=== PATIENT | female | born 1960 | race Caucasian/White ===

== ENCOUNTER 2020-05-15 09:12 | Emergency (ER) | payer OTHER, SELFPAY ==
--- NOTE | 2020-05-15 09:55 | ED.URI ---
HPI - URI/Sore Throat General Stated Complaint: flu like symptoms Time Seen by Provider: 05/15/20 09:19 Source: patient Mode of arrival: ambulatory Limitations: no limitations History of Present Illness HPI Narrative: 1 week of cough, headaches overall not feeling well MD elicited complaint: cough Pertinent past history: asthma Onset (ago): day(s) (7) Consistency: constant Severity: moderate Description of mucous: clear Able to tolerate fluids by mouth: Yes Exacerbating factors: nothing Relieving factors: nothing Associated symptoms: headache and cough Treatments prior to arrival: cold medicine Related Data Previous Rx's Medication Instructions Recorded azithromycin See Rx Instructions .ROUTE 05/15/20 .COMPLEX #6 tab benzonatate [Tessalon Perles] 100 mg PO TID PRN #30 cap 05/15/20 ibuprofen 600 mg PO Q6H PRN #30 tab 05/15/20 prednisone 40 mg PO DAILY 5 Days #10 tab 05/15/20 Allergies Allergy/AdvReac Type Severity Reaction Status Date / Time lisinopril [LISINOPRIL] Allergy Unknown UNKNOWN Unverified 01/20/20 15:02 oxycodone [From PERCOCET] Allergy Unknown ITCHING Unverified 01/20/20 15:02 Penicillins [PENICILLINS] Allergy Unknown HIVES Unverified 01/20/20 15:02 Review of Systems Review of Systems: Constitutional : no Fever, positive Chills, positive fatigue, positive Malaise ENT/Mouth : no sore throat, positive runny nose Eyes: No Discharge Cardiovascular : No Chest Pain, No SOB Respiratory : posCough, No Sputum Gastrointestinal : No Nausea, No Vomiting, No Diarrhea Genitourinary : No Dysuria, No Urinary Frequency Musculoskeletal : positive Myalgia Skin : No rash Neuro : pos Headache PMFSH Past Medical History Attestation statement: The following information was validated with the patient. Medical History Asthma Social History Social History (Updated 05/15/20 @ 10:02 by Suzy Stevens DO) Smoking Status: Current every day smoker Advance Directives: No Advance Directives Information Provided: No Physical Exam Vital Signs: Appearance: Alert. Oriented X3. No acute distress. Eyes: Pupils equal, round and reactive to light. ENT: Pharynx normal. Neck: Normal inspection. Neck supple. CVS: Normal heart rate and rhythm. Pulses normal. Respiratory: No respiratory distress. Breath sounds normal. Abdomen: Soft and nontender. Skin: Skin warm and dry. Normal skin color. Normal skin turgor. Extremities: No lower extremity edema. No calf ttp Neuro: Oriented X 3. No motor deficit. No sensory deficit. MDM - URI/Sore Throat MDM Narrative Medical decision making narrative: 59 yo female with URI symptoms x 1 week not responding to OTC medications c/o cough, she has INH at home, she has no wheezes or resp distress will obtain CXR and COVID swab - dispo per results, no need for prednisone as she is clear Discharge Plan Discharge Clinical Impression: Upper respiratory infection Qualifiers: URI type: unspecified URI Qualified Code(s): J06.9 - Acute upper respiratory infection, unspecified Patient Disposition: Home, Self-Care Instructions: Upper Respiratory Infection (ED) Additional Instructions: return to ED for any worsening symptoms or concerns you were tested for COVID we will call you with results in 4 to 5 days, wear a mask, socially distance Prescriptions: New prednisone 20 mg tablet 40 mg PO DAILY 5 Days Qty: 10 RF: 0 ibuprofen 600 mg tablet 600 mg PO Q6H PRN (Reason: pain) Qty: 30 RF: 0 azithromycin 500 mg tablet See Rx Instructions .ROUTE .COMPLEX Qty: 6 RF: 0 benzonatate [Tessalon Perles] 100 mg capsule 100 mg PO TID PRN (Reason: cough) Qty: 30 RF: 0 Stand Alone Forms: Work/School Release
--- NOTE | 2020-05-15 10:03 | XR_ITS ---
EXAMINATION: XR CHEST CLINICAL INFORMATION: Cough COMPARISON: Previous chest x-ray March 2016 TECHNIQUE: Frontal view of the chest was obtained. FINDINGS: No significant abnormality is noted involving the heart, lungs, mediastinum, bony thorax or soft tissues. XR/XR chest 1V IMPRESSION: Unremarkable examination.
[2020-05-15 10:35] VITALS: BP 160/81; PULSE 75; RESP 20; TEMP 37.7; O2SAT 100; BMI 28.3
== END 2020-05-15 11:14 | disposition home or self-care (01) ==
PROVIDERS: Emergency Provider Emergency Medicine; PCP Internal Medicine
DX: J06.9 Acute upper respiratory infection, unspecified (principal); Z20.828 Contact with and (suspected) exposure to other viral communicable diseases; J45.909 Unspecified asthma, uncomplicated
CPT/HCPCS: 36415; 71045; 99283; U0003

== ENCOUNTER 2021-09-17 09:28 | Emergency (ER) | payer OTHER, SELFPAY ==
--- NOTE | ~2021-09-17 | CT_ITS ---
EXAMINATION: CT HEAD WITHOUT CONTRAST CT CERVICAL SPINE WITHOUT CONTRAST CLINICAL INFORMATION: Fall COMPARISON: 03.22.2016. TECHNIQUE: Multidetector CT imaging of the head and cervical spine was performed without the use of intravenous contrast. Multiplanar reformats are reviewed. This CT examination was performed using dose optimization techniques as appropriate, variously including the following: *Automated exposure control *Adjustment of mA and/or kV according to patient size (this includes techniques or standardized protocols for targeted exams where dose is matched to indication/reason for exam; i.e. extremities or head) *Use of iterative reconstruction technique DLP: 974 mGy-cm. FINDINGS: There is no evidence of acute intracranial hemorrhage or territorial infarction. No abnormal mass effect or midline shift is seen. Walker to white matter differentiation is well preserved. No extra-axial fluid collections are identified. The ventricles are normal in size. There is no abnormal attenuation within the brain parenchyma. There is calcification along the posterior falx, slightly eccentric to the right. Favor normal dural ossification, more conspicuous than in 2016. The osseous structures and soft tissues are normal. The mastoid air cells and visualized portions of the paranasal sinuses are well-aerated. Atlantooccipital alignment is maintained. The vertebral bodies and posterior elements align normally. No acute fracture or subluxation. Vertebral body heights are maintained. Small endplate osteophytes present at C4-5 and C5-6. The paraspinal soft tissues are unremarkable. The imaged lung apices are clear CT/CT cervical spine wo con IMPRESSION: No acute intracranial pathology. No cervical spine fracture or malalignment.
--- NOTE | ~2021-09-17 | XR_ITS ---
EXAMINATION: LEFT CLAVICLE, MANDIBLE CLINICAL INFORMATION: Fall with mandibular and clavicular pain COMPARISON: CT head and cervical spine 09/17/2021 TECHNIQUE: 2 views left clavicle, 5 views mandible FINDINGS: The clavicle appears normal. No fractures or dislocations are seen. The AC joint is unremarkable. No mandibular fracture is seen. XR/XR clavicle LT IMPRESSION: Negative studies of the left clavicle and mandible
--- NOTE | ~2021-09-17 | CT_ITS ---
EXAMINATION: CT HEAD WITHOUT CONTRAST CT CERVICAL SPINE WITHOUT CONTRAST CLINICAL INFORMATION: Fall COMPARISON: 03.22.2016. TECHNIQUE: Multidetector CT imaging of the head and cervical spine was performed without the use of intravenous contrast. Multiplanar reformats are reviewed. This CT examination was performed using dose optimization techniques as appropriate, variously including the following: *Automated exposure control *Adjustment of mA and/or kV according to patient size (this includes techniques or standardized protocols for targeted exams where dose is matched to indication/reason for exam; i.e. extremities or head) *Use of iterative reconstruction technique DLP: 974 mGy-cm. FINDINGS: There is no evidence of acute intracranial hemorrhage or territorial infarction. No abnormal mass effect or midline shift is seen. Walker to white matter differentiation is well preserved. No extra-axial fluid collections are identified. The ventricles are normal in size. There is no abnormal attenuation within the brain parenchyma. There is calcification along the posterior falx, slightly eccentric to the right. Favor normal dural ossification, more conspicuous than in 2016. The osseous structures and soft tissues are normal. The mastoid air cells and visualized portions of the paranasal sinuses are well-aerated. Atlantooccipital alignment is maintained. The vertebral bodies and posterior elements align normally. No acute fracture or subluxation. Vertebral body heights are maintained. Small endplate osteophytes present at C4-5 and C5-6. The paraspinal soft tissues are unremarkable. The imaged lung apices are clear CT/CT head/brain wo con IMPRESSION: No acute intracranial pathology. No cervical spine fracture or malalignment.
--- NOTE | ~2021-09-17 | XR_ITS ---
EXAMINATION: LEFT CLAVICLE, MANDIBLE CLINICAL INFORMATION: Fall with mandibular and clavicular pain COMPARISON: CT head and cervical spine 09/17/2021 TECHNIQUE: 2 views left clavicle, 5 views mandible FINDINGS: The clavicle appears normal. No fractures or dislocations are seen. The AC joint is unremarkable. No mandibular fracture is seen. XR/XR mandible min 4V IMPRESSION: Negative studies of the left clavicle and mandible
[2021-09-17 10:32] VITALS: BP 128/90; PULSE 97; RESP 16; TEMP 36.9; O2SAT 98; BMI 27.3
--- NOTE | 2021-09-17 12:10 | ED_ITS ---
HPI - Head Injury General Chief complaint: Head Injury Stated complaint: headache, pain and bruised neck from falling Time Seen by Provider: 09/17/21 10:52 Source: patient Mode of arrival: ambulatory Limitations: no limitations History of Present Illness HPI Narrative: Patient reports that 1 week ago she had a mechanical trip and fall. She was walking down the stairs and missed the bottom to steps, striking the front of her face on the left side on to a Seymour's rack. Sustained a laceration to her chin. She did not seek evaluation after this injury. She states that since then she has been feeling ?off, not quite myself? he has been having an intermittent headache at times it is frontal at other times it is posterior. Reports that her chin is sore. Laceration with no active bleeding. Does feel as though her left chin appears swollen over the area where a bruises present. She denies fevers, chills, neck pain or neck stiffness, loss of consciousness, use of blood thinning medication, vision changes, chest pain, palpitations, shortness of breath, difficulty breathing, extremity pain, numbness or tingling of the extremities, nausea, vomiting, abdominal pain, generalized weakness, bowel or bladder dysfunction. Related Data Previous Rx's Medication Instructions Recorded azithromycin 500 mg tablet See Rx Instructions .ROUTE 05/15/20 .COMPLEX #6 tab benzonatate 100 mg capsule 100 mg PO TID PRN #30 cap 05/15/20 ([place]) ibuprofen 600 mg tablet 600 mg PO Q6H PRN #30 tab 05/15/20 prednisone 20 mg tablet 40 mg PO DAILY 5 Days #10 tab 05/15/20 Allergies Allergy/AdvReac Type Severity Reaction Status Date / Time lisinopril [LISINOPRIL] Allergy Unknown UNKNOWN Unverified 01/20/20 15:02 oxycodone [From PERCOCET] Allergy Unknown ITCHING Unverified 01/20/20 15:02 Penicillins [PENICILLINS] Allergy Unknown HIVES Unverified 01/20/20 15:02 Review of Systems Review of Systems: Constitutional : No Fever, No Chills, No Fatigue ENT/Mouth : No sore throat, No Rhinorrhea Eyes: No Eye Pain, No Swelling, No Redness Cardiovascular : No Chest Pain, No SOB, No Dyspnea on Exertion Respiratory : No Cough, No Sputum Gastrointestinal : No Nausea, No Vomiting, No Diarrhea, No abdominal Pain Genitourinary : No Dysuria, No Urinary Frequency, No Hematuria, Musculoskeletal : No joint pain, No Myalgias, No Joint Swelling Skin : No Skin Lesions, No rash Neuro : No Weakness, No Numbness, No Dizziness, positive Headache Psych : No Anxiety/Panic, No Depression Heme/Lymph: No Bruising, No Bleeding,No Lymphadenopathy Endocrine : No Polyuria, No Polydipsia Yes all other systems are reviewed and are negative [facility] Past Medical History Attestation statement: The following information was validated with the patient. Source: old records reviewed Medical History Asthma Social History Social History Advance Directives: No Physical Exam Vital Signs: Vital Signs: Last Vital Signs Temp 98.5 F 09/17/21 10:32 Pulse 97 09/17/21 10:32 Resp 16 09/17/21 10:32 BP 128/90 H 09/17/21 10:32 Pulse Ox 98 09/17/21 10:32 BMI result Body Mass Index 27.3 Vital signs have been reviewed as normal and appeared to be correct. Blood pressure normal.? Heart rate normal.? Respiration rate normal. Temperature normal.? Oxygen saturation normal. Appearance: Alert.?Oriented to person, place and time. No acute distress.?Normal affect. Head: Normocephalic, atraumatic. No head, sinus or TMJ tenderness.? Eyes: Sclera white, conjunctiva pink. PERRL, 3 mm bilaterally. Visual stone full to confrontation, EOMi.?No Nystagmus. No raccoon eyes Ears: Bilateral ear canals clear, TM visible with good cone of light.? No Jaquez sign Nose: Nasal mucosa pink and moist with midline septum, nares patent bilaterally.? Mouth/ Throat: Oral mucosa pink and moist without lesions. Pharynx without exudate, tonsils symmetric, no adenopathy.? No dental fractures Neck: Normal inspection.? Neck supple.? No palpable midline cervical spine tenderness, step-offs, deformities CVS: Heart sounds normal. Normal heart rate and rhythm.? Pulses normal.?? Respiratory: No respiratory distress.? Lung sounds clear to auscultation bilaterally?? Abdomen: Soft and non-tender. Normoactive bowel sounds. No pulsatile mass.?? Skin: Skin warm and dry.? Normal skin color.? Bruising to anterior left neck the knees mandible, 2cm scabbed linear laceration, without surrounding erythema, warmth, or swelling. Extremities: No lower extremity edema.? Neuro: Moves all extremities spontaneously. Sensation intact bilaterally. CN II- XII intact. No focal neuro deficits. Ambulates with normal steady gait. NIH Stroke Scale Time: 10:50 Level of Consciousness: Alert Level of Consciousness Questions: Answers both questions correctly Level of Consciousness Commands: Performs both tasks correctly Best Gaze: Normal Visual: No visual loss Facial Palsy: Normal Motor Arm (Right): No drift Motor Arm (Left): No drift Motor Leg (Right): No drift Motor Leg (Left): No drift Limb Ataxia: Absent Sensory: Normal Best Language: No aphasia Dysarthia: Normal Extinction and Inattention: No abnormality Score: 0 Course Course Course Narrative: Patient is a 60-year-old female with past medical history of mild intermittent asthma presenting to the emergency department for evaluation of intermittent headache and feeling drowsy after the head injury 1 week ago. She is overall well-appearing, hemodynamically stable, NIH stroke score 0. However given persistent headache since injury will obtain CT of the head and cervical spine to exclude ICH/SAH/cervical fracture/malalignment. She took Tylenol prior to arrival. Reevaluation(s) Reevaluation #1: CT of the head reveals no acute intracranial pathology, cervical spine without fracture or malalignment. Time: 12:10 Reevaluation #2: X-ray imaging of the left clavicle and mandible are both normal. No acute fractures. I discussed findings with patient. Advised patient to continue using Tylenol as needed for pain/headache. Advised outpatient follow-up with her primary care provider within 1 week. Discussed reasons that she should return back to the emergency department suggest severe worsening headache, vision changes, dizziness/lightheadedness, syncopal episodes, chest pain, palpitations, shortness of breath, difficulty breathing, slurred speech, weakness, or further falls. Time: 13:59 MDM - Head Injury Medical Records Attestation: I reviewed the patient's medical records. Imaging Data CT scan - head: Radiologist's impression: CT/CT head/brain wo con IMPRESSION: No acute intracranial pathology. No cervical spine fracture or malalignment. clavical XR: Radiologist's impression: FINDINGS: The clavicle appears normal. No fractures or dislocations are seen. The AC joint is unremarkable. No mandibular fracture is seen.? XR/XR clavicle LT IMPRESSION: Negative studies of the left clavicle and mandible? Discharge Plan Discharge Clinical Impression: Head injury, Concussion without loss of consciousness Patient Disposition: Home, Self-Care Instructions: Concussion (ED), Post Concussion Syndrome (ED) Prescriptions: No Action prednisone 20 mg tablet 40 mg PO DAILY 5 Days Qty: 10 0RF ibuprofen 600 mg tablet 600 mg PO Q6H PRN (Reason: pain) Qty: 30 0RF azithromycin 500 mg tablet See Rx Instructions .ROUTE .COMPLEX Qty: 6 0RF Rx Instructions: take 500 mg today (day 1), then 250 mg for 4 days (days 2-5) benzonatate [Tessalon Perles] 100 mg capsule 100 mg PO TID PRN (Reason: cough) Qty: 30 0RF Stand Alone Forms: Work/School Release Interventions: ED Discharge Assessment Last Done: 09/17/21 14:10 Discharge Date/Time: 09/17/21 14:10
== END 2021-09-17 14:10 | disposition home or self-care (01) ==
PROVIDERS: Emergency Provider Emergency Medicine; PCP Internal Medicine
DX: S06.0X0A Concussion without loss of consciousness, initial encounter (principal); S01.81XA Laceration without foreign body of other part of head, initial encounter; M54.2 Cervicalgia; R29.700 NIHSS score 0; M79.622 Pain in left upper arm; W10.9XXA Fall (on) (from) unspecified stairs and steps, initial encounter; Y93.9 Activity, unspecified; Y92.009 Unspecified place in unspecified non-institutional (private) residence as the place of occurrence of the external cause; Y99.9 Unspecified external cause status; Z79.899 Other long term (current) drug therapy
CPT/HCPCS: 70110; 70450; 72125; 73000; 99283; 99284

== ENCOUNTER 2023-04-16 22:38 | Emergency (ER) | payer OTHER, SELFPAY ==
--- NOTE | ~2023-04-16 | CT_ITS ---
EXAMINATION: CT ABDOMEN AND PELVIS WITHOUT CONTRAST CLINICAL INFORMATION: Left flank pain COMPARISON: None available. TECHNIQUE: Multidetector volumetric imaging was performed from the superior aspect of the liver through the pubic symphysis. Sagittal and coronal reformatted images were obtained on the technologist's workstation. This CT examination was performed using dose optimization techniques as appropriate, variously including the following: *Automated exposure control *Adjustment of mA and/or kV according to patient size (this includes techniques or standardized protocols for targeted exams where dose is matched to indication/reason for exam; i.e. extremities or head) *Use of iterative reconstruction technique DLP: 378 mGy-cm FINDINGS: LUNG BASES: The visualized lung bases are unremarkable. LIVER, GALLBLADDER, AND BILIARY TREE: The liver is normal in size, shape, and attenuation. No focal hepatic lesion or biliary ductal dilatation is present. The gallbladder is unremarkable with no evidence of radiopaque gallstones, gallbladder wall thickening, or obvious pericholecystic inflammatory changes. PANCREAS: Unremarkable. SPLEEN: Unremarkable. ADRENAL GLANDS: Unremarkable. KIDNEYS AND URETERS: There is [id number] hydroureteronephrosis upstream from a 4 mm calculus in the distal left ureter just after it crosses the iliac vasculature. There are 2 additional nonobstructive calculi in the left kidney measuring 7 mm and 2 mm. Left perinephric fat stranding present. Right kidney unremarkable. BLADDER: Unremarkable. GASTROINTESTINAL TRACT: Sigmoid colonic diverticulosis. No evidence of diverticulitis. Normal appendix. Posterior gastric fundal diverticulum. Stomach otherwise unremarkable. Normal small bowel. ABDOMINAL WALL: No significant hernia is appreciated. LYMPH NODES: Normal. VASCULAR: Aorta atherosclerotic but normal caliber. PELVIC VISCERA: Uterus and adnexa unremarkable. OSSEOUS STRUCTURES: No acute or suspicious osseous abnormalities. CT/CT abdomen pelvis wo IV con IMPRESSION: * There is a 4 mm calculus within the distal LEFT ureter just after it crosses the iliac vasculature associated with [id number]-[id number] upstream hydroureteronephrosis and perinephric fat stranding. * There are 2 additional nonobstructive calculi in the left kidney measuring 7 mm and 2 mm. * Sigmoid colonic diverticulosis without evidence of diverticulitis. Fleischner guidelines were followed.
[2023-04-16 22:39] VITALS: BP 150/88; PULSE 84; RESP 18; TEMP 36.6; O2SAT 98; BMI 26.4
[2023-04-16 22:54] LABS: MANUAL DIFF FLAG NO
[2023-04-16 22:57] LABS: Basophils Absolute Auto 0.1 X10*3/uL (0.0-0.2); Basophils Percent Auto 0.4 % (0-2); Eosinophils Absolute Auto 0.4 X10*3/uL (0.0-0.4); Eosinophils Percent Auto 3.2 % (0-4); Hematocrit 38.9 % (37.0-47.0); Hemoglobin 12.7 g/dl (12.0-16.0); Imm Gran Abs Auto 0.05 X10*3/uL (0.00-0.03); Imm Gran Pct Auto 0.4 % (0.0-0.4); Lymphocytes Absolute Auto 2.6 X10*3/uL (1.2-4.9); Lymphocytes Percent Auto 21.1 % (20-40); Mean Corpuscular HGB Conc 32.6 g/dl (31.0-35.0); Mean Platelet Volume 8.6 fL (9.4-12.3); Monocytes Absolute Auto 1.1 X10*3/uL (0.1-1.2); Monocytes Percent Auto 8.7 % (2-11); Neutrophils Absolute Auto 8.1 x10*3/uL (2.0-8.3); Neutrophils Percent Auto 66.2 % (45-73); Platelet Count 236 X10*3/uL (160-400); Red Blood Count 4.23 X10*6/uL (4.20-5.50); Red Cell Distribution Width 13.1 % (11.0-16.0); White Blood Count 12.2 X10*3/uL (4.8-10.8)
[2023-04-16 23:12] LABS: Alanine Aminotransferase 28 U/L (0-31); Alkaline Phosphatase 119 U/L (39-117); Anion Gap 15 (12-20); Aspartate Amino Transferase 28 U/L (5-31); Bilirubin Total 0.2 mg/dL (0.0-1.0); Blood Urea Nitrogen 30 mg/dL (9-16); Calcium 8.6 mg/dL (8.4-10.2); Carbon Dioxide 21 mmol/L (22-29); Chloride 106 mmol/L (96-108); Creatinine Clr Calc Pharmacy 31.5; Estimated Glomerular Filt Rate 35; Glucose Random 106 mg/dL (60-115); Potassium 4.5 mmol/L (3.3-5.1); Sodium 137 mmol/L (135-145); Total Protein 6.9 g/dL (6.5-8.0)
[2023-04-16 23:16] VITALS: BP 128/70; PULSE 80; TEMP 36.6; O2SAT 97
--- NOTE | 2023-04-16 23:18 | PC.NURSE ---
Pt ca&ox4, no signs of distress. Pt reports 8/10 LLQ pain that radiates to left flank n/v x 2 today. Pt denies pain, frequency, and urgency on urination and diarrhea. UA collected and sent. Plan of care ongoing.
--- NOTE | 2023-04-16 23:20 | ED_ITS ---
HPI - General Adult General Chief complaint: Abdominal Pain Stated complaint: LT side pain Time Seen by Provider: 04/16/23 23:19 Source: patient, RN notes reviewed and old records reviewed Mode of arrival: ambulatory Limitations: no limitations History of Present Illness HPI narrative: 62-year-old female presents for evaluation of left lower abdominal pain and left flank pain for the last 24 hours. She reports her pain initially started the left flank Her pain has began to migrate to the left lower quadrant She has associated nausea with vomiting Patient reports some increased urination with blood in her urine She denies any known history of kidney stones She does have a history of chronic kidney disease Patient states that she is currently taking clindamycin for dental abscess Related Data Previous Rx's Medication Instructions Recorded azithromycin 500 mg tablet See Rx Instructions PO .COMPLEX #6 05/15/20 tabs benzonatate 100 mg capsule 100 mg PO TID PRN cough #30 caps 05/15/20 (Tesjames Canas) ibuprofen 600 mg tablet 600 mg PO Q6H PRN pain #30 tabs 05/15/20 prednisone 20 mg tablet 40 mg (2 x 20 mg) PO DAILY 5 days 05/15/20 #10 tabs morphine 15 mg immediate release 15 mg PO Q6H PRN severe pain 04/17/23 tablet (scale score 7-10) #12 tabs Allergies Allergy/AdvReac Type Severity Reaction Status Date / Time lisinopril [LISINOPRIL] Allergy Unknown UNKNOWN Verified 04/16/23 22:42 oxycodone [From PERCOCET] Allergy Unknown ITCHING Verified 04/16/23 22:42 Penicillins [PENICILLINS] Allergy Unknown HIVES Verified 04/16/23 22:42 Review of Systems 2 Constitutional: Constitutional: Denies chills, Denies fever(s) and Denies headache(s) ENT: Denies headache(s) Cardiovascular: Cardiovascular: Denies chest pain and Denies dyspnea Respiratory: Respiratory: Denies cough and Denies dyspnea Gastrointestinal: Gastrointestinal: Reports abdominal pain, Reports nausea and Reports vomiting Genitourinary: Genitourinary: Reports hematuria, Reports flank pain and Reports urinary urgency Musculoskeletal: Musculoskeletal: Reports back pain Integumentary/Breasts: Skin/Breast: Denies rash Neurologic: Denies headache(s) [facility] Past Medical History Medical History Asthma Social History Social History Alcohol intake: current Alcohol intake frequency: 0-2 drinks per day Smoked in Last 30 Days: Yes Use of substances other than those prescribed or required for medical reasons: Yes Substance Use Type: Marijuana Advance Directives: No Advance Directives Information Provided: No Physical Exam ED Vital Signs: Vital Signs - 24 hr 04/16/23 22:39 04/16/23 23:16 04/17/23 00:05 Temperature 97.8 F 97.8 F Pulse Rate 84 80 Respiratory Rate 18 16 Blood Pressure 150/88 H 128/70 Pulse Oximetry 98 97 Oxygen Delivery Method Room Air Room Air BMI result Body Mass Index 26.4 Const General: healthy appearing, alert and awake Nutritional Appearance: well nourished Orientation/consciousness: patient oriented x3 HENMT Head: Yes normocephalic and Yes atraumatic Eyes Eyelids: Yes eyelids normal Conjunctivae: conjunctivae normal Sclerae: sclerae normal Corneas: corneas normal Pupils: Equal, round and reactive pupils present EOM: EOMs intact bilaterally Neck Neck: Yes full ROM Resp Effort & Inspection: normal respiratory effort, able to speak in complete sentences and not labored GI Inspection: No distended Palpation (GI): Soft to palpation, not firm, Tenderness to palpation present (GI) in the LLQ and other (Left flank), Guarding due to palpation present (GI) in the LLQ and not rigid General: Yes CVA tenderness Back/Spine/Pelvis Back: CVA tenderness Skin General skin exam: elasticity normal Neuro General: patient oriented x3 Cranial nerves: Yes Equal, round and reactive pupils present and Yes Bilaterally intact EOM present Cognition (Neuro): normal cognition Extrem Other: Moving all extremities well without any obvious deformities Course Reevaluation(s) Reevaluation #1: CT scan shows a 4 mm left distal ureteral stone. This was discussed with the patient. Patient was given a dose of Dilaudid as she reports the morphine did not help her pain this by her appearing much more comfortable and resting comfortable in a supine position at the time. Patient has a reported allergy to oxycodone, so will discharge the patient with morphine Time: 01:02 Medications Administered Discontinued Medications Generic Name Dose Route Start Last Admin Trade Name Freq PRN Reason Stop Dose Admin Hydromorphone HCl 1 mg 04/17/23 00:39 04/17/23 00:48 Hydromorphone Hcl 1 Mg/Ml Syringe IVPUSH 04/17/23 00:40 1 mg ONCE ONE Administration Protocol Sodium Chloride 1,000 mls @ 999 mls/hr 04/16/23 23:45 04/17/23 00:00 Ns IV 04/17/23 00:45 999 mls/hr .Q1H1M JOANNE Administration Morphine Sulfate 4 mg 04/16/23 23:31 04/17/23 00:05 Morphine Sulfate 4 Mg/Ml Cartridge IVPUSH 04/16/23 23:32 4 mg ONCE ONE Administration Protocol Ondansetron HCl 4 mg 04/16/23 23:31 04/17/23 00:05 Ondansetron Hcl 4 Mg/2 Ml Vial IVPUSH 04/16/23 23:32 4 mg ONCE ONE Administration Medical Decision Making Medical Decision Making [facility] Narrative: 62-year-old female presents for evaluation of left flank and left lower abdominal pain. She reports blood in the urine, nausea vomiting. This is a fairly classic presentation for obstructive uropathy. She denies any history of this. Plan for labs, UA, CT scan the abdomen pelvis. Will treat her pain with morphine, nausea with Zofran and give her IV fluids. Differential Diagnosis Differential Diagnoses: The differential diagnosis associated with the presentation includes Obstructive uropathy Pyelonephritis UTI Cystitis Flank pain Diverticulitis Admission/Observation Consideration of admission/observation: Escalation of care including admission/observation considered Consider admission for pain control due to obstructive uropathy Lab Data [facility] Lab Attestation statement: I reviewed the patient's lab results. Mild leukocytosis with a white count 12.2 K, no significant anemia. No significant electrolyte abnormalities. Patient's BUN is elevated to 30 with a creatinine of 1.51 difficult to assess baseline is the patient's most recent labs her 4 years ago which is a history of chronic kidney disease. This may also be slightly elevated due to obstructive uropathy 04/16/23 22:49 04/16/23 22:49 Labs: Lab Results 04/16/23 04/16/23 Range/Units 22:49 23:13 WBC 12.2 H (4.8-10.8) X10*3/uL RBC 4.23 (4.20-5.50) X10*6/uL Hgb 12.7 (12.0-16.0) g/dl Hct 38.9 (37.0-47.0) % MCV 92.0 (80.0-98.0) fL MCH 30.0 (27.0-33.0) pg MCHC 32.6 (31.0-35.0) g/dl RDW 13.1 (11.0-16.0) % Plt Count 236 (160-400) X10*3/uL MPV 8.6 L (9.4-12.3) fL Immature Gran % (Auto) 0.4 (0.0-0.4) % Neut % (Auto) 66.2 (45-73) % Lymph % (Auto) 21.1 (20-40) % [place] % (Auto) 8.7 (2-11) % Eos % (Auto) 3.2 (0-4) % Baso % (Auto) 0.4 (0-2) % Lymph # (Auto) 2.6 (1.2-4.9) X10*3/uL [place] # (Auto) 1.1 (0.1-1.2) X10*3/uL Eos # (Auto) 0.4 (0.0-0.4) X10*3/uL Baso # (Auto) 0.1 (0.0-0.2) X10*3/uL Abs Immat Gran (auto) 0.05 H (0.00-0.03) X10*3/uL Absolute Neuts (auto) 8.1 (2.0-8.3) x10*3/uL Absolute Nucleated RBC 0.000 (0.0-0.012) X10*3/uL Nucleated RBC % (auto) 0.0 (0.0-0.2) /100WBC Sodium 137 (135-145) mmol/L Potassium 4.5 (3.3-5.1) mmol/L Chloride 106 (96-108) mmol/L Carbon Dioxide 21 L (22-29) mmol/L Anion Gap 15 (12-20) BUN 30 H (9-16) mg/dL Creatinine 1.51 H (0.5-1.4) mg/dL Estim Creat Clear Calc 31.5 Estimated GFR 35 Random Glucose 106 (60-115) mg/dL Calcium 8.6 (8.4-10.2) mg/dL Total Bilirubin 0.2 (0.0-1.0) mg/dL AST 28 (5-31) U/L ALT 28 (0-31) U/L Alkaline Phosphatase 119 H (39-117) U/L Total Protein 6.9 (6.5-8.0) g/dL Albumin 4.0 (3.5-5.0) g/dL Urine Color Yellow Urine Appearance Clear Urine pH 5.0 (5.0-9.0) Ur Specific [place] 1.010 (1.005-1.025) Urine Protein Trace (Neg-Trace) mg/dL Urine Glucose (UA) Negative (Negative) mg/dL Urine Ketones Negative (Negative) mg/dL Urine Blood Large (3+) H (Negative) Urine Nitrite Negative (Negative) Ur Leukocyte Esterase Small (1+) H (Negative) Urine RBC >20 H (0-2) /HPF Urine WBC 0-5 (0-5) /HPF Ur Squamous Epith Cells 0-2 (0-2) /HPF Other Crystals Present Urine Bacteria None Seen (None Seen) Hyaline Casts 0-2 (0-2) /LPF Independent Interpretation I performed an independent interpretation of an: CT Scan (Obstructive uropathy with mild hydronephrosis) Radiology Impression Discussion of test interpretation with radiology: I have reviewed the radiologist's reading. (4 mm distal ureteral obstruction) Discharge Plan Discharge Clinical Impression: Lower obstructive uropathy Patient Disposition: Home, Self-Care Instructions: Kidney Stones (ED) Additional Instructions: Take Flomax daily for the next 7 days. You Zofran for nausea or vomiting Use morphine every 6 hours as needed for pain Follow-up with your primary doctor Return to the ER for worsening pain, inability to tolerate your medications, or if you develop a fever Prescriptions: New morphine 15 mg tablet 15 mg PO Q6H PRN (Reason: severe pain (scale score 7-10)) Qty: 12 0RF Rx Instructions: Partial Fill upon patient request. No Action prednisone 20 mg tablet 40 mg PO DAILY 5 Days Qty: 10 0RF ibuprofen 600 mg tablet 600 mg PO Q6H PRN (Reason: pain) Qty: 30 0RF azithromycin 500 mg tablet See Rx Instructions .ROUTE .COMPLEX Qty: 6 0RF Rx Instructions: take 500 mg today (day 1), then 250 mg for 4 days (days 2-5) benzonatate [Tessalon Perles] 100 mg capsule 100 mg PO TID PRN (Reason: cough) Qty: 30 0RF
[2023-04-16 23:29] LABS: Appearance Urine Clear; Color Urine Yellow; Glucose Urine UA Negative (Negative); Leukocyte Esterase Urine Small (1+) (Negative); Nitrite Urine Negative (Negative); UMIC TRIGGER UACC YES; Urine Blood Large (3+) (Negative); Urine Ketones Negative (Negative); Urine Protein Trace mg/dL (Neg-Trace)
[2023-04-16 23:47] LABS: Bacteria Urine None Seen (None Seen); Hyaline Casts Urine 0-2 /LPF (0-2); Other Crystals Urine Present; RBC Urine >20 /HPF (0-2); Squamous Epithelial Cell Urine 0-2 /HPF (0-2); UACC Culture Trigger YES; WBC Urine 0-5 /HPF (0-5)
[2023-04-17] MEDS: 0.9 % Sodium Chloride 1,000 ML 999 ML IV
[2023-04-17 00:05] VITALS: RESP 16
[2023-04-17] MEDS: ondansetron HCL 4 MG/2 ML VIAL IVPUSH (00:05)
[2023-04-17] MEDS: Morphine Sulfate 4 MG/ML CARTRIDGE IVPUSH (00:05)
--- NOTE | 2023-04-17 00:08 | PC.NURSE ---
Pt ca&ox4, no signs of distress. IV line placed. Pt medicated per mar. Pts friend at bedside. Plan of care ongoing.
[2023-04-17] MEDS: HYDROmorphone HCl 1 MG/ML SYRINGE IVPUSH (00:48)
[2023-04-17 02:08] VITALS: PULSE 99; RESP 14
[2023-04-17 02:11] VITALS: BP 159/89; PULSE 99; RESP 14; O2SAT 96
== END 2023-04-17 02:16 | disposition home or self-care (01) ==
PROVIDERS: Emergency Provider Internal Medicine; PCP Internal Medicine
DX: N13.2 Hydronephrosis with renal and ureteral calculous obstruction (principal); R10.32 Left lower quadrant pain; F12.90 Cannabis use, unspecified, uncomplicated
CPT/HCPCS: 36415; 74176; 80053; 81001; 85025; 87086; 96361; 96374; 96375; 99284; J1170; J2270; J2405

== ENCOUNTER 2024-11-11 19:36 | Inpatient (IN) | payer OTHER, SELFPAY ==
--- NOTE | ~2024-11-11 | XR_ITS ---
CLINICAL HISTORY: wheezing CHEST X-RAY FRONTAL VIEW COMPARISON: None provided. FINDINGS: A single frontal view of the chest was performed. The cardiac size and mediastinal silhouette are within normal limits. The lungs are clear. There are no acute infiltrates or pleural effusions. There is no pneumothorax. IMPRESSION: 1. No acute disease. This document has been electronically signed by: Marek Santa M.D. on 11/12/2024 05:26:06
--- NOTE | ~2024-11-11 | FL_ITS ---
EXAMINATION: FL GUIDANCE ONLY HISTORY: Left ureteral stent placement COMPARISON: Correlation is made with an unenhanced CT of the abdomen and pelvis dated 11/11/2024. TECHNIQUE: Fluoroscopy time: 24.6 seconds. Cumulative Dose: 6.65 mGy. Images: 2. FINDINGS: Fluoroscopic spot films of the abdomen demonstrate placement of a left nephroureteral stent. FL/FL guidance in OR IMPRESSION: Fluoroscopy during procedure. Please see procedure report for additional information. Electronically signed by: Randall Marcial MD 11/15/2024 06:58 AM EDT
--- NOTE | ~2024-11-11 | XR_ITS ---
CLINICAL HISTORY: pain left shoulder s p fall LEFT SHOULDER X-RAYS COMPARISON: None provided. FINDINGS: A total of 3 views of the left shoulder were obtained. No evidence of an acute fracture or dislocation within the left shoulder. There is minimal joint space narrowing in the glenohumeral joint. Acromioclavicular joint is maintained. Mild narrowing of the acromiohumeral interval is noted, suggesting sequelae of a chronic rotator cuff tear. There is no pneumothorax in the left lung apex. IMPRESSION: 1. No evidence of an acute fracture or dislocation. 2. Additional findings are detailed above. This document has been electronically signed by: Marek Santa M.D. on 11/12/2024 05:29:30
--- NOTE | ~2024-11-11 | XR_ITS ---
CLINICAL HISTORY: elbow pain s p fall LEFT ELBOW X-RAYS COMPARISON: None provided. FINDINGS: A total of 3 views of the left elbow were obtained. Lateral view is limited due to patient rotation. No large elbow joint effusion. No definite acute fracture or dislocation in the left elbow. IMPRESSION: 1. No acute disease. This document has been electronically signed by: Marek Santa M.D. on 11/12/2024 05:33:56
--- NOTE | ~2024-11-11 | CT_ITS ---
CLINICAL HISTORY: left flank pain, renal colic CT Abdomen and Pelvis WO Contrast COMPARISON: CT/MT/SR - CT ABDOMEN PELVIS WO IV CON - 04/16/23 23:41 EST FINDINGS: Hepatomegaly. Normal spleen. There are approximately 6 calculi in the proximal left ureter measuring up to 5 mm. Mild left hydronephrosis. Nonobstructing left renal calculi. Mild left perinephric fat stranding. Unremarkable right kidney. Normal adrenal glands. Normal pancreas. No visible cholelithiasis. No biliary dilation. No evidence of bowel obstruction or colitis. Fluid-filled gastric fundal diverticulum has increased in size. Normal appendix. Mild diffuse bladder wall thickening. Unremarkable uterus. No ascites. No pneumoperitoneum. No lymphadenopathy. No acute fracture. No abdominal aortic aneurysm. Fat-containing right inguinal hernia. IMPRESSION: Multiple left ureteral calculi. Mild left hydronephrosis. Possible cystitis. Nonemergent/incidental findings above. This document has been electronically signed by: Edilson Platt MD on 11/11/2024 23:50:10
[2024-11-11 20:33] VITALS: BP 132/80; PULSE 81; RESP 16; TEMP 35.9; O2SAT 99; BMI 24.2
--- NOTE | 2024-11-11 20:35 | ED.FEMALEGU ---
HPI - Female Genitourinary General Chief complaint: Abdominal Pain Stated complaint: right lower abd pain/kidney stones Time Seen by Provider: 11/11/24 21:52 Source: patient Limitations: no limitations History of Present Illness ED Provider: Rain Angeles PA-C HPI Narrative: 38-kpty-aom-female, with a hx of asthma, HTN, chronic kidney disease and kidney stones presents with left flank pain x1 day. Patient began to develop discomfort over left flank overnight, it has since progressed, now radiating down to left lower quadrant into groin. Pain fluctuates in intensity. Associated nausea vomiting. Denies dysuria, obvious hematuria or fever. Related Data Previous Rx's ?Medication ?Instructions ?Recorded azithromycin 500 mg tablet See Rx Instructions PO .COMPLEX #6 05/15/20 tabs benzonatate 100 mg capsule 100 mg PO TID PRN cough #30 caps 05/15/20 (Tesfransicoon [place]ita) ibuprofen 600 mg tablet 600 mg PO Q6H PRN pain #30 tabs 05/15/20 prednisone 20 mg tablet 40 mg (2 x 20 mg) PO DAILY 5 days 05/15/20 #10 tabs morphine 15 mg immediate release 15 mg PO Q6H PRN severe pain 04/17/23 tablet (scale score 7-10) #12 tabs ondansetron 4 mg disintegrating 4 mg PO Q6-8H PRN nausea and 04/17/23 tablet vomiting #7 tabs tamsulosin 0.4 mg capsule (Flomax) 0.4 mg PO BEDTIME #7 caps 04/17/23 Allergies Allergy/AdvReac Type Severity Reaction Status Date / Time lisinopril (LISINOPRIL) Allergy Unknown UNKNOWN Verified 11/11/24 20:33 oxycodone (From PERCOCET) Allergy Unknown ITCHING Verified 11/11/24 20:33 Penicillins (PENICILLINS) Allergy Unknown HIVES Verified 11/11/24 20:33 Review of Systems Review of Systems: Yes all other systems are reviewed and are negative Constitutional: Constitutional: Denies fatigue and Denies fever(s) Cardiovascular: Cardiovascular: Denies chest pain and Denies dyspnea Respiratory: Respiratory: Denies cough and Denies dyspnea Gastrointestinal: Gastrointestinal: Reports abdominal pain, Reports nausea and Reports vomiting Genitourinary: Genitourinary: Denies hematuria, Denies dysuria and Reports flank pain Musculoskeletal: Musculoskeletal: Reports back pain Endocrine: Endocrine: Denies fatigue [facility]LY [facility], [facility] Past Medical History Attestation statement: The following information was validated with the patient. Medical History Asthma Social History Social History Alcohol intake: current Alcohol intake frequency: 0-2 drinks per day Smoked in Last 30 Days: Yes Use of substances other than those prescribed or required for medical reasons: No Substance Use Type: Marijuana Advance Directives: No Advance Directives Information Provided: No Physical Exam Vital Signs: Vital Signs: Last Vital Signs Temp 98.5 F 11/12/24 00:41 Pulse 76 11/12/24 00:41 Resp 20 11/12/24 00:41 BP 149/83 H 11/12/24 00:41 Pulse Ox 96 11/12/24 00:41 O2 Del Method Room Air 11/12/24 00:41 BMI result Body Mass Index 24.2 Const: Other: Alert, ill-appearing Orientation/consciousness: patient oriented x3 Resp: Effort & Inspection: normal respiratory effort Cardio: Other: Normal peripheral perfusion GI: Other: Abdomen is soft, nontender nondistended no guarding Back/Spine/Pelvis: Other: CVA tenderness on the left Skin: Other: Warm dry no rash Neuro: General: patient oriented x3, gait normal, no focal motor deficits and CN's II-XI intact bilaterally Psych: Other: Cooperative Course Course Course Narrative: This is an RME: Additional HPI, ROS, PE not included below will be deferred to primary provider. RME assessment and note performed by: Mignon Matos PA-C This is a 49-xfsf-gap-female, with a hx of asthma and HTN, who presents to the ER with complaints of nausea, vomiting, hematuria and left sided flank pain. Not on anticoagulation. Took dual-action tylenol/motrin at 7:00PM but vomited back up. Plan: Labs, UA, zofran 4mg ODT Reevaluation(s) Reevaluation #1: Urine is infected, adding on blood cultures, lactic and starting ceftriaxone. I am doing this because we are starting IV antibiotics not for sepsis. Consultations Consultation #1: per Dr. Keyes .... I have message Dr. Keyes a total of 5 times, to were priority messages, I have yet to hear from him. The hospitalist we will still accept the admission. Time: 01:05 Medications Administered Discontinued Medications Generic Name Dose Route Start Last Admin Trade Name Nehemiah PRN Reason Stop Dose Admin Ceftriaxone Sodium 2 gm 11/12/24 00:01 11/12/24 00:39 Ceftriaxone Sodium 2 Gm Vial IVPUSH 11/12/24 00:02 2 gm ONCE ONE Administration Diphenhydramine HCl 25 mg 11/11/24 22:26 11/11/24 22:30 Diphenhydramine Hcl 50 Mg/Ml Vial IVPUSH 11/11/24 22:27 25 mg ONCE ONE Administration Hydromorphone HCl 1 mg 11/12/24 00:54 11/12/24 01:10 Hydromorphone Hcl 1 Mg/Ml Syringe IVPUSH 11/12/24 00:55 1 mg ONCE ONE Administration Protocol Sodium Chloride 500 mls @ 500 mls/hr 11/11/24 22:02 11/11/24 23:40 Ns IV 11/11/24 23:01 Infused .Q1H ONE Infusion Morphine Sulfate 4 mg 11/11/24 22:02 11/11/24 22:19 Morphine Sulfate 4 Mg/Ml Cartridge IVPUSH 11/11/24 22:03 4 mg ONCE ONE Administration Protocol Ondansetron HCl 4 mg 11/11/24 20:36 11/11/24 22:21 Ondansetron Odt 4 Mg Tab.Rapdis TRANSLINGU 11/11/24 20:37 Not Given ONCE ONE Ondansetron HCl 4 mg 11/11/24 22:02 11/11/24 22:19 Ondansetron Hcl 4 Mg/2 Ml Vial IVPUSH 11/11/24 22:03 4 mg ONCE ONE Administration Medical Decision Making Medical Decision Making MDM Narrative: 64-fymy-xwq-female, with a hx of asthma, HTN, chronic kidney disease and kidney stones presents with left flank pain x1 day. Patient began to develop discomfort over left flank overnight, it has since progressed, now radiating down to left lower quadrant into groin. Pain fluctuates in intensity. Associated nausea vomiting. Denies dysuria, obvious hematuria or fever. Problem: Kidney stones, chronic kidney disease, age, hypertension History: Per patient I have considered the following differential diagnoses: Renal colic, pyelonephritis, UTI, Plan: Patient has kidney stones, given the distribution of her discomfort and nature of symptoms, I am considering renal colic. We will be screening basic labs, urinalysis and obtaining a CT scan. Giving morphine Zofran and IV fluid. I am also considering pyelonephritis given positive CVA tenderness. I have independently reviewed the following tests: Labs, no leukocytosis, not anemic, no electrolyte abnormality, however creatinine bumped at 1.84, urine is infected, lactic 0.8 CT abd: There are approximately 6 calculi in the proximal left ureter measuring up to 5 mm. Mild left hydronephrosis. Nonobstructing left renal calculi. Mild left perinephric fat stranding. Unremarkable right kidney. Normal adrenal glands. Normal pancreas. No visible cholelithiasis. No biliary dilation. No evidence of bowel obstruction or colitis. Fluid-filled gastric fundal diverticulum has increased in size. Normal appendix. Mild diffuse bladder wall thickening. Unremarkable uterus. No ascites. No pneumoperitoneum. No lymphadenopathy. No acute fracture. No abdominal aortic aneurysm. Fat-containing right inguinal hernia. IMPRESSION: Multiple left ureteral calculi. Mild left hydronephrosis. Possible cystitis. Nonemergent/incidental findings above. Lab Data 11/11/24 20:45 11/11/24 20:45 Labs: Lab Results 11/11/24 11/11/24 11/12/24 Range/Units 20:45 22:17 00:15 WBC 5.9 (4.8-10.8) X10*3/uL RBC 4.15 L (4.20-5.50) X10*6/uL Hgb 12.8 (12.0-16.0) g/dl Hct 38.7 (37.0-47.0) % MCV 93.3 (80.0-98.0) fL MCH 30.8 (27.0-33.0) pg MCHC 33.1 (31.0-35.0) g/dl RDW 13.2 (11.0-16.0) % Plt Count 275 (160-400) X10*3/uL MPV 9.0 L (9.4-12.3) fL Immature Gran % (Auto) 0.2 (0.0-0.4) % Neut % (Auto) 46.0 (45-73) % Lymph % (Auto) 35.4 (20-40) % [place] % (Auto) 10.2 (2-11) % Eos % (Auto) 6.8 H (0-4) % Baso % (Auto) 1.4 (0-2) % Lymph # (Auto) 2.1 (1.2-4.9) X10*3/uL [place] # (Auto) 0.6 (0.1-1.2) X10*3/uL Eos # (Auto) 0.4 (0.0-0.4) X10*3/uL Baso # (Auto) 0.1 (0.0-0.2) X10*3/uL Abs Immat Gran (auto) 0.01 (0.00-0.03) X10*3/uL Absolute Neuts (auto) 2.7 (2.0-8.3) x10*3/uL Absolute Nucleated RBC 0.000 (0.0-0.012) X10*3/uL Nucleated RBC % (auto) 0.0 (0.0-0.2) /100WBC Sodium 142 (135-145) mmol/L Potassium 5.0 (3.3-5.1) mmol/L Chloride 110 H (96-108) mmol/L Carbon Dioxide 24 (22-29) mmol/L Anion Gap 13 (12-20) BUN 34 H (9-16) mg/dL Creatinine 1.84 H (0.5-1.4) mg/dL Estim Creat Clear Calc 24.2 Estimated GFR 28 Random Glucose 92 (60-115) mg/dL Lactic Acid 0.8 (0.5-2.0) mmol/L Calcium 9.3 D (8.4-10.2) mg/dL Magnesium 2.9 H (1.6-2.6) mg/dL Total Bilirubin 0.1 (0.0-1.0) mg/dL Direct Bilirubin < 0.2 (0.0-0.5) mg/dL AST 62 H (5-31) U/L ALT 45 H (0-31) U/L Alkaline Phosphatase 149 H (39-117) U/L Total Protein 7.3 (6.5-8.0) g/dL Albumin 4.5 (3.5-5.0) g/dL Lipase 61 (8-78) U/L Urine Color Yellow Urine Appearance Clear Urine pH 5.5 (5.0-9.0) Ur Specific [place] 1.020 (1.005-1.025) Urine Protein Trace (Neg-Trace) mg/dL Urine Glucose (UA) Negative (Negative) mg/dL Urine Ketones Trace (Negative) mg/dL Urine Blood Moderate (2+) H (Negative) Urine Nitrite Negative (Negative) Ur Leukocyte Esterase Moderate (2+) H (Negative) Urine RBC 11-20 H (0-2) /HPF Urine WBC 11-20 H (0-5) /HPF Ur Squamous Epith Cells 3-5 (0-2) /HPF Urine Bacteria Trace (None Seen) Hyaline Casts 3-5 (0-2) /LPF Discharge Plan Discharge Clinical Impression: Left ureteral calculus, Urinary tract infection, Acute kidney injury, Hydronephrosis of left kidney Patient Disposition: Admitted As Inpatient Print Language: [place]ar[place]uan
[2024-11-11 20:53] LABS: Hematocrit 38.7 % (37.0-47.0); Hemoglobin 12.8 g/dl (12.0-16.0); Imm Gran Abs Auto 0.01 X10*3/uL (0.00-0.03); Imm Gran Pct Auto 0.2 % (0.0-0.4); Lymphocytes Absolute Auto 2.1 X10*3/uL (1.2-4.9); MANUAL DIFF FLAG NO; Mean Corpuscular HGB Conc 33.1 g/dl (31.0-35.0); Mean Corpuscular Hemoglobin 30.8 pg (27.0-33.0); Mean Corpuscular Volume 93.3 fL (80.0-98.0); NRBC Abs Auto 0.000 X10*3/uL (0.0-0.012); NRBC Pct Auto 0.0 /100WBC (0.0-0.2); Platelet Count 275 X10*3/uL (160-400); Red Blood Count 4.15 X10*6/uL (4.20-5.50); White Blood Count 5.9 X10*3/uL (4.8-10.8)
[2024-11-11 21:08] LABS: Alanine Aminotransferase 45 U/L (0-31); Albumin Level 4.5 g/dL (3.5-5.0); Alkaline Phosphatase 149 U/L (39-117); Anion Gap 13 (12-20); Aspartate Amino Transferase 62 U/L (5-31); Blood Urea Nitrogen 34 mg/dL (9-16); Calcium 9.3 mg/dL (8.4-10.2); Carbon Dioxide 24 mmol/L (22-29); Chloride 110 mmol/L (96-108); Creatinine Clr Calc Pharmacy 24.2; Estimated Glomerular Filt Rate 28; Lipase 61 U/L (8-78); Magnesium 2.9 mg/dL (1.6-2.6); Potassium 5.0 mmol/L (3.3-5.1); Sodium 142 mmol/L (135-145); Total Protein 7.3 g/dL (6.5-8.0)
--- OUTSIDE RECORDS SUMMARY | 2024-11-11 21:54 | XMS_ITS | Encounter Summary ---
Author Organization [facility] Address [address] [place] [address] Care Team Providers Care Key Punch Operator Name Role Phone Gege Thompson MD Primary Care Provider [phone] Reason for Visit * Reason Onset Date Comments Medication Problem 10/29/2024 Encounter Details Date Type Department Care Team ([facility] st Contact Info) Description 10/29/2024 Telephone Adult Medicine [facility] [address] [place] [address] Gege Thompson MD [address] [place] [id number] Medication Problem Social History Tobacco Use Types Packs/Day Years Used Date Smoking Tobacco: Every Day Cigarettes Last attempted to quit: 03/20/2011 Smokeless Tobacco: Never Alcohol Use Standard Drinks/Week Comments Yes 0 (1 standard drink = 0.6 oz pur e alcohol) Comments Unknown Sex and Gender Information Value Date Recorded Sex Assigned at Not on file Legal Sex Female 12:24 AM EST Gender Identity Not on file Sexual Orientation Not on file documented as of this encounter Ordered Prescriptions Prescription Sig Dispense Quantity Refills Last Filled Start Date End Date gabapentin (NEURONTIN) 300 mg capsule Take 1 capsule (300 mg total) by mouth 2 (two) times a day. 60 capsule 10/29/2024 documented in this encounter Progress Notes * Nasim Toney MD - 10/29/2024 7:46 PM EDT I recent the Neurontin prescription to the pharmacy. * Leslye Davis - 10/29/2024 3:31 PM EDT Pharmacy calling stating there was an issue receiving the Gabapentin script ( Connection error) andif it could be resent to the pharmacy documented in this encounter Plan of Treatment Upcoming Encounters Date Type Department Care Team (Late st Contact Info) Description 11/29/2024 10:00 AM EDT Office Visit Adult Medicine [facility] [address], [place] [phone] Daniel Seymour NP [address], [place] documented as of this encounter Visit Diagnoses Not on filedocumented in this encounter Discontinued Medications Medication Sig Discontinue Reason Start Date End Da te gabapentin (NEURONTIN) 300 mg capsule TAKE ONE CAPSULE BY MOUTH TWICE A DAY Reorder 10/29/2024 10/29/2024 documented as of this encounter Care Teams Key Punch Operator Relationship Specialty Start Date End Date Gege Thompson MD [address], [place] PCP - General Internal Medicine 03/04/1999 documented as of this encounter
--- OUTSIDE RECORDS SUMMARY | 2024-11-11 21:54 | XMS_ITS | Clinical Summary ---
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 3 Active traZODone (Desyrel) 100 MG tablet Take 1 tablet by mouth at bedtime. 3 Active cyclobenzaprine (Flexeril) 10 MG tablet Take 1 tablet by mouth if needed in the morning and at bedtime. 3 Active albuterol 0.63 MG/3ML nebulizer solution Take 0.63 mg by nebulization every 6 (six) hours if needed for wheezing. Active acetaminophen (Tylenol) 500 MG tablet Take by mouth. Activ e acetaminophen (Tylenol) 500 MG tablet Take 1 tablet (500 mg) by mouth every 6 (six) hours if needed for mild pain for up to 20 doses. 20 tablet 3 Active Additional Information Patient not taking.Reported on 01/22/2024 ibuprofen 600 MG tablet Take 1 tablet (600 mg) by mouth every 6 (six) hours if needed for mild pain for up to 20 doses. 20 tablet 3 Active Additional Information Patient not taking.Reported on 01/22/2024 chlorhexidine (Peridex) 0.12 % solutionIndicat ions:History of tooth extraction, unspecified edentulism class Swish 15 mL morning and night for 1 minute. Spit, do not swallow. Do not eat or drink for 30 minutes following use. 473 mL 4 Active HYDROcodone-amberly taminophen (Cabool) 5-325 MG tabletIndicatio ns:History of tooth extraction, unspecified edentulism class Take 1 tablet by mouth every 6 (six) hours if needed for severe pain for up to 3 doses. 3 tablet 4 Active Active Problems Problem Noted Date Diagnosed Date Elevated alkaline phosphatase level 01/15/2021 Elevated LFTs 01/15/2021 Mid back pain 01/15/2021 Stage 3a chronic kidney disease 01/15/2021 Meningioma 06/04/2016 Anxiety 04/24/2016 Chronic obstructive pulmonary disease 04/24/2016 Essential hypertension 04/24/2016 Panic attack 04/24/2016 Refuses treatment 09/15/2015 Trochanteric bursitis of right hip 01/25/2015 Vitamin D deficiency 01/25/2015 DDD (degenerative disc disease), lumbar 09/24/19 15 Lumbar facet arthropathy 09/23/2014 FH: CAD (coronary artery disease) 01/04/2014 FH: lung cancer 01/04/2014 Hip pain, bilateral 01/04/2014 Hyperlipidemia 01/04/2014 Insomnia 01/04/2014 Obesity 01/04/2014 Tobacco use 12/01/2012 Esophageal reflux 08/07/2005 Social History Tobacco Use Types Packs/Day Years Used Date Smoking Tobacco: Every Day Cigarettes Smokeless Tobacco: Never Tobacco Cessation:Ready to Q uit: Not Asked; Counseling Given: Not Answered Alcohol Use Standard Drinks/Week Comments Defer 0 (1 standard drink = 0.6 oz pur e alcohol) Comments Unknown Sex and Gender Information Value Date Recorded Sex Assigned at Female 03/04/2022 10:38 AM EDT Legal Sex Female 10:38 AM EDT Gender Identity Female 03/04/2022 10:38 AM EDT Sexual Orientation Choose not to disclose 2021 10:38 AM EDT Last Filed Vital Signs Vital Sign Reading Time Taken Comments Blood Pressure 130/70 01/27/2024 9:34 AM EDT Pulse 74 12/13/2022 1:11 PM EDT Temperature - - Respiratory Rate - - Oxygen Saturation - - Inhaled Oxygen Concentration - - Weight - - Height - - Body Mass Index - - Plan of Treatment Health Maintenance Due Date Last Done Comments CT Colonography 1960 Colonoscopy 1960 Colorectal Cancer Screening 1960 Dental Prophylaxis 1960 Depression Screening 1960 FIT DNA/Cologuard 1960 FIT 1960 FOBT 1960 HIV Screening 1960 Lipid Panel 1960 SDOH Screening 1960 Sigmoidoscopy 1960 Disability Screening 1960 Alcohol/Substance Use Screening 1972 Hepatitis C Screening 1978 DTaP/Tdap/Td Vaccines (1 - Tdap) 10/15/1979 Pneumococcal Vaccine: 50+ Years (1 of 2 - PCV) 10/15/1979 Pap Smear 1981 Cervical Cancer Screening 1990 HPV/Cotest 1990 Mammogram 2000 Zoster Vaccines (1 of 2) 2010 RSV Patients and Patients Aged 60 years or older (1 - Risk 60-74 years 1-dose series) 2020 Dental Oral Exam 05/22/2023 11/18/2022 COVID-19 Vaccine (3 - 2023-2 5 season) 2024 05/15/2021, 09/28/2020 Dental X-Ray: Bitewings 12/17/2024 12/17/19 24, 11/18/2022 Influenza Vaccine (#1) 2025 Tobacco Screening 02/10/2025 02/11/2024 Dental X-Ray: Full Mouth 11/19/2025 11/18/2022 HIB Vaccines Aged Out No longer eligi ble based on patient's age to complete this topic HPV Vaccines Aged Out No longer eligi ble based on patient's age to complete this topic Hepatitis A Vaccines Aged Out No long er eligible based on patient's age to complete this topic Hepatitis B Vaccines Aged Out No long er eligible based on patient's age to complete this topic IPV Vaccines Aged Out No longer eligi ble based on patient's age to complete this topic Meningococcal B Vaccine Aged Out No l onger eligible based on patient's age to complete this topic Meningococcal Vaccine Aged Out No kristan rodolfo eligible based on patient's age to complete this topic RSV under 20 months Aged Out No longe r eligible based on patient's age to complete this topic Rotavirus Vaccines Aged Out No longer eligible based on patient's age to complete this topic Procedures Procedure Name Priority Date/Time Associated Diagnosis Comments BITEWING - SINGLE RADIOGRAPHIC IMAGE Routine 12/17/2023 9:00 AM EDT Dental caries Symptomatic irreversible pulpitis INTRAORAL - COMPLETE SERIES OF RADIOGRAPHIC IMAGES Routine 11/18/2022 3:00 PM EDT Dental caries COMPREHENSIVE ORAL EVALUATION - NEW OR ESTABLISHED PATIENT Routine 11/18/2022 3:00 PM EDT Dental caries from Last 3 Months or Most Recently Relevant to Health Maintenance Insurance * Guarantor: Ana Paula Sanches Account Type Relation to Patient Date of Phone Billing Address Personal/Family Self [address]
[2024-11-11 22:24] LABS: Appearance Urine Clear; Glucose Urine UA Negative (Negative); PH 5.5 (5.0-9.0); Specific Gravity - Urine 1.020 (1.005-1.025); UMIC TRIGGER UACC YES
[2024-11-11 22:26] LABS: UACC Culture Trigger YES
[2024-11-12] VITALS (16 sets, daily range): BP systolic 125–158; BP diastolic 66–83; PULSE 67–86; RESP 10–20; TEMP 36–36.9; O2SAT 93–97; BMI 24.2
--- NOTE | 2024-11-12 02:48 | P.HPHOSP_ITS ---
History of Present Illness Date of Service: 11/12/24 Attending physician on admission: Kimberley Mc Chief Complaint: flank pain Patient is a 64-year-old female with past medical history hypertension, COPD/emphysema/asthma, bronchitis, tobacco dependence, chronic kidney disease, nephrolithiasis, concussion, impingement syndrome left shoulder, recent fall with injury to Left shoulder and elbow presents to the emergency room after 1 week of intermittent body chills, discolored urine from veronika to pink colored and in the last 24 hours increasing left flank pain and pelvic pain. Patient has been working at her job for the last week during this time. Patient's spouse has multiple health issues and patient has been dealing with those and putting her health needs 2nd but finally decided that she could not take the pain anymore and came in for evaluation. Patient denies fever, shortness of breath or chest pain. Patient reports long history of severe anxiety regarding almost anything. Patient states she has been taking trazodone at night with some good effect for her sleep but otherwise rarely sleeps and if told that she has to have a procedure, she would not refuse but her anxiety will increase and she will require intervention with medication most likely. Patient does not want to be seen by Psychiatry during this admission. In the emergency room patient underwent a CT of the abdomen and pelvis and it noted multiple left nonobstructing ureteral calculi with mild left hydronephrosis. The largest stone measured up to 5 mm. Mild left perinephric fat stranding also noted. Right kidney is unremarkable. In addition possible cystitis was evident. Incidentally patient also has a fat containing right inguinal hernia not seen on exam. Patient does not have leukocytosis, fever or chills at this time. Patient has developed an RAHAT and current creatinine clearance is 24.2 with a GFR of 28. AST 62, ALT 45, alk-phos 149. Gallbladder and bile duct on CT were unremarkable. UA notes moderate blood +2, moderate leukocyte esterase +2, 11-20 WBCs, trace bacteria and 3-5 hyaline cast. Patient was started on ceftriaxone in the emergency department. Urine and blood cultures also collected. Patient has had only 1 episode of nephrolithiasis in the past and patient states she did not require surgical intervention. In addition, upon physical exam and review of systems, patient reports left shoulder pain and left elbow pain status post a fall that occurred 1.5 months prior that was witnessed by her . Her is almost legally blind so it is unclear what exactly happened and patient can not recall if she had any LOC. Patient has had continued pain in the left elbow and the left shoulder. Patient does have chronic issues with the left shoulder including impingement syndrome and has received injections in the past. Patient feels this pain is not related to her past history. Patient did not seek intervention and did not see her primary care after this fall. Patient denies any headache, visual changes but on physical exam patient has decreased strength in the left hand a 3/5 versus the right hand which is 5/5. Patient does have full range of motion both active and passive in the left arm but there is pain with passive range of motion. Patient also has COPD and smokes 10 cigarettes per day. Patient had bilateral wheezing on exam with no hypoxia. Chest x-ray is pending. Patient states she uses her rescue inhaler multiple times per day along with her daily inhaler. Patient states she does not need the rescue inhaler but just uses it because she thinks she is supposed to. Patient does not do nebulizer treatments at home. Patient has been advised to seek a pulmonary consult from her primary care physician for further follow-up. Patient does not use oxygen at home. Patient is requesting nicotine patch. Review of Systems 2 Review of Systems: Patient currently denies any chest pain, shortness of breath at rest or with exertion. Patient denies any nausea or vomiting but is having continued left flank pain and pelvic pain. Patient also reporting left elbow and left shoulder pain status post fall 1.5 months ago. Patient did not seek treatment after that fall. Patient reports having significant anxiety and almost any circumstance including medical issues. Patient only currently using trazodone which is helping with sleep issues but has refused to use Zoloft. Patient denies feeling suicidal or homicidal. Patient reports that she has increased stress at home with everything going on. Yes all other systems are reviewed and are negative [facility] Medical History (Updated 11/12/24 @ 03:49 by AGUSTO Segura) Insomnia HTN (hypertension) Concussion Bronchitis COPD (chronic obstructive pulmonary disease) Tobacco dependence Anxiety Nephrolithiasis Asthma Cognitive capacity: Alert and orientated x3 Functional capacity: independent ambulation Patient : No Surgical History History of Social History (Updated 11/12/24 @ 03:49 by AGUSTO Segura) Alcohol intake: current Alcohol intake frequency: 0-2 drinks per day Patient Tobacco Use Status: Current everyday Tobacco user Tobacco use type: Cigarette Cigarettes Per Day: 10 Years Smoked: 40 Substance Use Type: Marijuana Ebola Risk: Travel/Contact With Anyone From Affected Area/s: No Has Patient Experienced Ebola Symptoms: No Meds Allergies Allergy/AdvReac Type Severity Reaction Status Date / Time lisinopril (LISINOPRIL) Allergy Unknown UNKNOWN Verified 11/11/24 20:33 oxycodone (From PERCOCET) Allergy Unknown ITCHING Verified 11/11/24 20:33 Penicillins (PENICILLINS) Allergy Unknown HIVES Verified 11/11/24 20:33 Active Medications: Current Medications Acetaminophen (Acetaminophen 325 Mg Tablet) 650 mg PO Q6H PRN PRN Reason: Pain, Mild 1-3,fever,headache Albuterol/Ipratropium (Albuterol/Iprat 2.5/0.5mg 3 Ml Ampul.Neb) 3 ml INHALE Q4H PRN PRN Reason: Shortness of Breath/Wheezing Calcium Carbonate (Calcium Carbonate 750 Mg Tab.Chew) 750 mg PO Q4H PRN PRN Reason: Heartburn Hydromorphone HCl (Hydromorphone Hcl 0.5 Mg/0.5 Ml Syringe) 0.5 mg IVPUSH Q4H PRN; Protocol PRN Reason: Pain, Severe (Pain Scale 7-10) Lactated Ringer's (Lr) 1,000 mls @ 100 mls/hr IVCONT .Q10H [facility] Magnesium Hydroxide (Milk Of Magnesia 30 Ml Oral.Susp) 30 ml PO DAILY PRN PRN Reason: Constipation Melatonin (Melatonin 3 Mg Tablet) 6 mg PO BEDTIME PRN PRN Reason: Insomnia Ondansetron HCl (Ondansetron Hcl 4 Mg/2 Ml Vial) 4 mg IVPUSH Q8H PRN PRN Reason: Nausea and Vomiting Sodium Chloride (0.9 % Sodium Chloride Flush 3 Ml Syringe) 3 ml IVFLUSH QSHIFT [facility] Physical Exam 2 Vital Signs and Narrative: Vital Signs: Last Vital Signs Temp 98.5 F 11/12/24 00:41 Pulse 76 11/12/24 00:41 Resp 20 11/12/24 00:41 BP 149/83 H 11/12/24 00:41 Pulse Ox 96 11/12/24 00:41 O2 Del Method Room Air 11/12/24 00:41 BMI result Body Mass Index 24.2 Alert and orientated X3, able to give good history. 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) : left costovertebral tenderness no bladder distension Extremities: no edema in lower extremities, PT and DP pulses palpable +2 Psych: mood stable, judgement and insight good SKIN: INTACT, no rashes or lesions seen Results Labs 11/11/24 20:45 11/11/24 20:45 Labs: Laboratory Results - last 24 hr 11/11/24 11/11/24 11/12/24 20:45 22:17 00:15 MCV 93.3 MCH 30.8 MCHC 33.1 RDW 13.2 Plt Count 275 MPV 9.0 L Immature Gran % (Auto) 0.2 Neut % (Auto) 46.0 Lymph % (Auto) 35.4 Humphreys % (Auto) 10.2 Eos % (Auto) 6.8 H Baso % (Auto) 1.4 Lymph # (Auto) 2.1 Humphreys # (Auto) 0.6 Eos # (Auto) 0.4 Baso # (Auto) 0.1 Abs Immat Gran (auto) 0.01 Absolute Neuts (auto) 2.7 Absolute Nucleated RBC 0.000 Nucleated RBC % (auto) 0.0 Anion Gap 13 Estim Creat Clear Calc 24.2 Estimated GFR 28 Random Glucose 92 Lactic Acid 0.8 Calcium 9.3 D Magnesium 2.9 H Total Bilirubin 0.1 Direct Bilirubin < 0.2 AST 62 H ALT 45 H Alkaline Phosphatase 149 H Total Protein 7.3 Albumin 4.5 Lipase 61 Urine Color Yellow Urine Appearance Clear Urine pH 5.5 Ur Specific [place] 1.020 Urine Protein Trace Urine Glucose (UA) Negative Urine Ketones Trace Urine Blood Moderate (2+) H Urine Nitrite Negative Ur Leukocyte Esterase Moderate (2+) H Urine RBC 11-20 H Urine WBC 11-20 H Ur Squamous Epith Cells 3-5 Urine Bacteria Trace Hyaline Casts 3-5 ECG Attestation: I personally reviewed and interpreted this ECG as follows: Prior ECG tracings: not available for review Imaging Radiologist's Impressions: CT ABD Pelvis FINDINGS: Hepatomegaly. Normal spleen. There are approximately 6 calculi in the proximal left ureter measuring up to 5 mm. Mild left hydronephrosis. Nonobstructing left renal calculi. Mild left perinephric fat stranding. Unremarkable right kidney. Normal adrenal glands. Normal pancreas. No visible cholelithiasis. No biliary dilation. No evidence of bowel obstruction or colitis. Fluid-filled gastric fundal diverticulum has increased in size. Normal appendix. Mild diffuse bladder wall thickening. Unremarkable uterus. No ascites. No pneumoperitoneum. No lymphadenopathy. No acute fracture. No abdominal aortic aneurysm. Fat-containing right inguinal hernia. IMPRESSION: Multiple left ureteral calculi. Mild left hydronephrosis. Possible cystitis. Nonemergent/incidental findings above. Assessment and Plan (1) Left ureteral calculus: Status: Acute (2) Hydronephrosis of left kidney: Status: Acute Plan Patient is a 64-year-old female with past medical history hypertension, COPD/emphysema/asthma, bronchitis, tobacco dependence, chronic kidney disease, nephrolithiasis, concussion, impingement syndrome left shoulder, recent fall with injury to Left shoulder and elbow presents to the emergency department with left flank pain and hematuria. Patient is being admitted for more multiple left ureteral calculi with mild left hydronephrosis and cystitis. In addition, did have a fall 1.5 months prior and currently has continued left elbow and left shoulder pain. Left nonobstructing ureteral calculus with hydronephrosis of left kidney Urology consulted IV fluids running hourly Urine and Blood cultures pending No evidence of sepsis at this time Ceftriaxone 2 g daily Dilaudid low-dose for pain management NPO until seen by Urology DVT prophylaxis held due to hematuria and possible need for urological intervention Monitor CBC and BMP RAHAT Likely post renal secondary to left ureteral calculus, UTI Patient continues on ceftriaxone Monitor BMP daily Strict I's and O's every 8 hours IV fluids ordered Avoid hypotension Avoid nephrotoxic meds, holding patient's losartan UTI Ceftriaxone 2 g daily IV fluids as patient is NPO currently until seen by Urology Follow urine culture Left elbow and shoulder pain s/p fall with decreased strength L hand Elbow and shoulder x-rays ordered Lidocaine patch ordered for left shoulder Tylenol for pain p.r.n. PT eval Hypertension Blood pressure moderately elevated, hydralazine PRN Holding losartan secondary to RAHAT Low-sodium diet once no longer NPO COPD/emphysema/asthma Duo nebs, busdesonide Chest x-ray pending noting expiratory wheeze on exam, no obvious symptoms of exacerbation, no hypoxia, pt is not requiring O2 Incentive spirometry ordered Education provided on seeking Pulmonary consult as an outpatient with patient's PCP, proper use of rescue inhaler and if used often and even daily, could indicate respiratory illness Severe Anxiety Trazodone at HS 50 mg, not currently on patient's med rec, can not order until med rec completed Patient is deferring psychiatric consult at this time Patient plans to speak to her PCP at her next appointment coming up November 29 Patient denies SI or HI Patient may need medication to help with anxiety if procedure is needed DVT prophylaxis: Held secondary to hematuria and possible need for intervention with Urology Med rec pending Full Code status Quality Stroke Does the patient have a stroke diagnosis?: No Reason for No Anti-thrombotic by Day Two: Contraindicated (Hematuria and possible need for intervention in the next 24 hours) VTE Prior VTE?: No VTE Risk Level:: Medical - moderate - high VTE Device Contraindication: N/A - Device Ordered VTE Drug Contraindication: Treatment Not Tolerated
[2024-11-12] MEDS: Lactated Ringers 1,000 ML 100 ML IVCONT (03:16)
[2024-11-12 04:16] LABS: MANUAL DIFF FLAG NO
[2024-11-12 04:18] LABS: Hematocrit 34.4 % (37.0-47.0); Hemoglobin 11.3 g/dl (12.0-16.0); Imm Gran Abs Auto 0.01 X10*3/uL (0.00-0.03); Imm Gran Pct Auto 0.2 % (0.0-0.4); Lymphocytes Absolute Auto 2.0 X10*3/uL (1.2-4.9); Mean Corpuscular HGB Conc 32.8 g/dl (31.0-35.0); Mean Corpuscular Hemoglobin 30.5 pg (27.0-33.0); Mean Corpuscular Volume 92.7 fL (80.0-98.0); NRBC Abs Auto 0.000 X10*3/uL (0.0-0.012); NRBC Pct Auto 0.0 /100WBC (0.0-0.2); Platelet Count 254 X10*3/uL (160-400); Red Blood Count 3.71 X10*6/uL (4.20-5.50); White Blood Count 6.0 X10*3/uL (4.8-10.8)
[2024-11-12] MEDS: Nicotine 21 MG PATCH.TD24 TRANSDERMA ×2 (04:28→07:48)
[2024-11-12 04:39] LABS: Uric Acid 8.6 mg/dL (2.4-5.7)
[2024-11-12 04:43] LABS: Alanine Aminotransferase 36 U/L (0-31); Albumin Level 3.8 g/dL (3.5-5.0); Alkaline Phosphatase 127 U/L (39-117); Anion Gap 13 (12-20); Aspartate Amino Transferase 44 U/L (5-31); Blood Urea Nitrogen 34 mg/dL (9-16); Calcium 8.1 mg/dL (8.4-10.2); Carbon Dioxide 24 mmol/L (22-29); Chloride 110 mmol/L (96-108); Creatinine Clr Calc Pharmacy 25.1; Estimated Glomerular Filt Rate 29; Potassium 5.5 mmol/L (3.3-5.1); Sodium 141 mmol/L (135-145); Total Protein 6.0 g/dL (6.5-8.0)
[2024-11-12] MEDS: Lidocaine 4 % Patch ADH..PATCH 1 PATCH TRANSDERMA (07:48)
--- NOTE | 2024-11-12 08:17 | PHA.MEDREC ---
Pharmacy Consult ? Medication Reconciliation Pharmacy has completed the medication reconciliation. Spoke with patient to confirm medications. Pt states she is non-compliant and takes her [employer] Ellipta about 1 day a week. She varies her trazodone dose from 50 to 100mg at night.
[2024-11-12 08:49] LABS: Anion Gap 12 (12-20); Blood Urea Nitrogen 31 mg/dL (9-16); Calcium 8.3 mg/dL (8.4-10.2); Carbon Dioxide 23 mmol/L (22-29); Chloride 110 mmol/L (96-108); Creatinine Clr Calc Pharmacy 24.2; Estimated Glomerular Filt Rate 28; Potassium 4.8 mmol/L (3.3-5.1); Sodium 140 mmol/L (135-145)
--- NOTE | 2024-11-12 14:01 | PM.UROCN ---
History of Present Illness Consult details Consult date: 11/12/24 Narrative: CC: Left ureteric stones 64-year-old female Presents through emergency room with complaints of left-sided flank pain, nausea, vomiting with hematuria Minimal benefit from anti-inflammatories CBC WBC 6.0, creatinine 1.8 from baseline 1.2 UA positive leukocytes, positive blood Imaging - CT There are approximately 6 calculi in the proximal left ureter measuring up to 5 mm. Mild left hydronephrosis. Nonobstructing left renal calculi. Mild left perinephric fat stranding. Unremarkable right kidney - I have reviewed images personally Recommendation - cystoscopy, left retrograde, left stent placement Review of Systems Constitutional: Constitutional: Reports as per HPI and Reports no additional constitutional complaints Cardiovascular: Cardiovascular: Reports as per HPI and Reports no additional cardiovascular complaints Respiratory: Respiratory: Reports as per HPI and Reports no additional respiratory complaints Gastrointestinal: Gastrointestinal: Reports as per HPI and Reports no additional gastrointestinal complaints Genitourinary: Genitourinary: Reports as per HPI Musculoskeletal: Musculoskeletal: Reports no additional musculoskeletal complaints and Reports as per HPI Neurologic: Reports system reviewed and no additional complaints, except as documented and Reports as per HPI [facility] Past Medical History Medical History (Updated 11/12/24 @ 03:49 by AGUSTO Segura) Insomnia HTN (hypertension) Concussion Bronchitis COPD (chronic obstructive pulmonary disease) Tobacco dependence Anxiety Nephrolithiasis Asthma Surgical History Surgical History History of Social History Social History (Updated 11/12/24 @ 03:49 by FABY Segura-RACHANA) Household Members: Significant Other Housing: Apartment Do you presently have visiting nurse or other home services: No Alcohol intake: current Alcohol intake frequency: 0-2 drinks per day Patient Tobacco Use Status: Current everyday Tobacco user Tobacco use type: Cigarette Cigarettes Per Day: 10 Years Smoked: 40 Second Hand Smoke Exposure: No Substance Use Type: Marijuana Travel History Ebola Risk: Travel/Contact With Anyone From Affected Area/s: No Has Patient Experienced Ebola Symptoms: No Meds Allergies Allergy/AdvReac Type Severity Reaction Status Date / Time lisinopril (LISINOPRIL) Allergy Unknown UNKNOWN Verified 11/11/24 20:33 oxycodone (From PERCOCET) Allergy Unknown ITCHING Verified 11/11/24 20:33 Penicillins (PENICILLINS) Allergy Unknown HIVES Verified 11/11/24 20:33 Active Medications: Current Medications Acetaminophen (Acetaminophen 325 Mg Tablet) 650 mg PO Q6H PRN PRN Reason: Pain, Mild 1-3,fever,headache Albuterol/Ipratropium (Albuterol/Iprat 2.5/0.5mg 3 Ml Ampul.Neb) 3 ml INHALE Q4H PRN PRN Reason: Shortness of Breath/Wheezing Budesonide (Budesonide 0.5 Mg/2 Ml Ampul.Neb) 0.5 mg INHALE RBID [facility] Last Admin: 11/12/24 08:05 Dose: 0.5 mg Calcium Carbonate (Calcium Carbonate 750 Mg Tab.Chew) 750 mg PO Q4H PRN PRN Reason: Heartburn Ceftriaxone Sodium (Ceftriaxone Sodium 2 Gm Vial) 2 gm IVPUSH Q24H JOANNE Hydralazine HCl (Hydralazine Hcl 20 Mg/Ml Vial) 10 mg IVPUSH Q6H PRN; Protocol PRN Reason: SBP > 160 Hydromorphone HCl (Hydromorphone Hcl 0.5 Mg/0.5 Ml Syringe) 0.5 mg IVPUSH Q4H PRN; Protocol PRN Reason: Pain, Severe (Pain Scale 7-10) Last Admin: 11/12/24 12:19 Dose: 0.5 mg Lactated Ringer's (Lr) 1,000 mls @ 100 mls/hr IVCONT .Q10H [facility] Last Admin: 11/12/24 03:16 Dose: 100 mls/hr Lidocaine (Lidocaine 4 % Patch Adh..Patch) 1 patch TRANSDERMA DAILY [facility]; Protocol Last Admin: 11/12/24 07:48 Dose: 1 patch Magnesium Hydroxide (Milk Of Magnesia 30 Ml Oral.Susp) 30 ml PO DAILY PRN PRN Reason: Constipation Melatonin (Melatonin 3 Mg Tablet) 6 mg PO BEDTIME PRN PRN Reason: Insomnia Nicotine (Nicotine 21 Mg Patch.Td24) 21 mg TRANSDERMA DAILY [facility] Last Admin: 11/12/24 07:48 Dose: 21 mg Ondansetron HCl (Ondansetron Hcl 4 Mg/2 Ml Vial) 4 mg IVPUSH Q8H PRN PRN Reason: Nausea and Vomiting Sodium Chloride (0.9 % Sodium Chloride Flush 3 Ml Syringe) 3 ml IVFLUSH QSHIFT JOANNE Last Admin: 11/12/24 07:15 Dose: Not Given Home Medications ?Medication ?Instructions ?Recorded ?Confirmed ?Last Taken ?Type albuterol sulfate 90 mcg/actuation 2 puff inhalation Q4H PRN 11/12/24 11/12/24 Unknown History aerosol inhaler Shortness Of Breath Or Wheezing fluticasone furoate 50 1 inh inhalation DAILY 11/12/24 11/12/24 11/08/24 History mcg/actuation blister powder for inhalation (Arnuity Ellipta) gabapentin 300 mg capsule 300 mg PO BID 11/12/24 11/12/24 11/11/24 History ibuprofen 125 mg-acetaminophen 250 1 tab PO Q6H PRN Pain 11/12/24 11/12/24 Unknown History mg tablet (Advil Dual Action) lidocaine 4 % topical patch 1 patch topical DAILY PRN Back Pain 11/12/24 11/12/24 Unknown History (Salonpas (lidocaine)) losartan 100 mg tablet 100 mg PO DAILY 11/12/24 11/12/24 11/11/24 History trazodone 100 mg tablet 50 - 100 mg PO BEDTIME 11/12/24 11/12/24 11/10/24 History Physical Exam Vital Signs: Vital Signs: Last Vital Signs Temp 96.8 F 11/12/24 10:49 Pulse 85 11/12/24 12:51 Resp 16 11/12/24 10:49 BP 138/76 11/12/24 07:31 Pulse Ox 95 11/12/24 12:51 O2 Del Method Room Air 11/12/24 10:49 BMI result Body Mass Index 24.2 Const: General: cooperative, healthy appearing, comfortable and no acute distress Orientation/consciousness: patient oriented x3 HEENT: Face and sinus: Yes normal facial exam Mouth: moist mucous membranes Neck: Neck: Yes normal visual inspection, Yes full ROM and Yes trachea midline Chest: Chest palpation & inspection: normal inspection of the chest Resp: Effort & Inspection: normal respiratory effort, able to speak in complete sentences and no respiratory distress GI: Inspection: Yes normal to inspection Back/Spine/Pelvis: Cervical Spine: normal cervical lordosis Thoracic/Lumbar Spine: thoracic and lumbar spine normal to inspection Skin: General skin exam: no rashes or lesions noted Neuro: General: patient oriented x3, tone normal and moves all extremities Extrem: General: Yes normal to inspection and Yes capillary refill normal Results Labs 11/12/24 03:53 11/12/24 08:29 Labs: Abnormal lab results 11/11/24 11/11/24 11/12/24 Range/Units 20:45 22:17 03:53 RBC 4.15 L 3.71 L (4.20-5.50) X10*6/uL Hgb 11.3 L (12.0-16.0) g/dl Hct 34.4 L (37.0-47.0) % MPV 9.0 L 9.1 L (9.4-12.3) fL [place] % (Auto) 11.6 H (2-11) % Eos % (Auto) 6.8 H 7.5 H (0-4) % Eos # (Auto) 0.5 H (0.0-0.4) X10*3/uL Potassium 5.5 H (3.3-5.1) mmol/L Chloride 110 H 110 H (96-108) mmol/L BUN 34 H 34 H (9-16) mg/dL Creatinine 1.84 H 1.78 H (0.5-1.4) mg/dL Uric Acid 8.6 H (2.4-5.7) mg/dL Calcium 8.1 L D (8.4-10.2) mg/dL Magnesium 2.9 H (1.6-2.6) mg/dL AST 62 H 44 H (5-31) U/L ALT 45 H 36 H (0-31) U/L Alkaline Phosphatase 149 H 127 H (39-117) U/L Total Protein 6.0 L (6.5-8.0) g/dL Urine Blood Moderate (2+) H (Negative) Ur Leukocyte Esterase Moderate (2+) H (Negative) Urine RBC 11-20 H (0-2) /HPF Urine WBC 11-20 H (0-5) /HPF 11/12/24 Range/Units 08:29 RBC (4.20-5.50) X10*6/uL Hgb (12.0-16.0) g/dl Hct (37.0-47.0) % MPV (9.4-12.3) fL [place] % (Auto) (2-11) % Eos % (Auto) (0-4) % Eos # (Auto) (0.0-0.4) X10*3/uL Potassium (3.3-5.1) mmol/L Chloride 110 H (96-108) mmol/L BUN 31 H (9-16) mg/dL Creatinine 1.84 H (0.5-1.4) mg/dL Uric Acid (2.4-5.7) mg/dL Calcium 8.3 L (8.4-10.2) mg/dL Magnesium (1.6-2.6) mg/dL AST (5-31) U/L ALT (0-31) U/L Alkaline Phosphatase (39-117) U/L Total Protein (6.5-8.0) g/dL Urine Blood (Negative) Ur Leukocyte Esterase (Negative) Urine RBC (0-2) /HPF Urine WBC (0-5) /HPF Short CBC 11/11/24 11/12/24 Range/Units 20:45 03:53 WBC 5.9 6.0 (4.8-10.8) X10*3/uL Hgb 12.8 11.3 L (12.0-16.0) g/dl Hct 38.7 34.4 L (37.0-47.0) % Plt Count 275 254 (160-400) X10*3/uL BMP 11/11/24 11/12/24 11/12/24 20:45 03:53 08:29 Sodium 142 141 140 Potassium 5.0 5.5 H 4.8 Chloride 110 H 110 H 110 H Carbon Dioxide 24 24 23 BUN 34 H 34 H 31 H Creatinine 1.84 H 1.78 H 1.84 H Calcium 9.3 D 8.1 L D 8.3 L Liver Function 11/11/24 11/12/24 Range/Units 20:45 03:53 Total Bilirubin 0.1 0.1 (0.0-1.0) mg/dL Direct Bilirubin < 0.2 (0.0-0.5) mg/dL AST 62 H 44 H (5-31) U/L ALT 45 H 36 H (0-31) U/L Alkaline Phosphatase 149 H 127 H (39-117) U/L Albumin 4.5 3.8 (3.5-5.0) g/dL Urine 11/11/24 Range/Units 22:17 Urine Color Yellow Urine Appearance Clear Urine pH 5.5 (5.0-9.0) Ur Specific [place] 1.020 (1.005-1.025) Urine Protein Trace (Neg-Trace) mg/dL Urine Glucose (UA) Negative (Negative) mg/dL All other labs normal. Assessment and Plan (1) Urinary tract infection: Status: Acute (2) Acute kidney injury: Status: Acute (3) Left ureteral calculus: Status: Acute Plan Risks, benefits and alternatives to therapy were discussed. These include but are not limited to infection, bleeding, damage to local organs and tissues, need for further interventions. Anesthetic risks regarding cardiac arrhythmia, blood clots, and potential mortality were discussed. The patient understands the typical recovery time and the outpatient nature of the procedure. After consideration of these risks the patient gives full informed consent and they wish to move ahead with the procedure. - cystoscopy, left retrograde, left stent placement Procedures Date of Service Date of Service: 11/12/24
--- NOTE | 2024-11-12 15:03 | P.PNIM_ITS ---
Subjective Subjective Date of Service: 11/12/24 Interval History: Seen and examined this morning Follow-up for nephrolithiasis, left flank pain left flank pain improving plan for stent placement this afternoon Review of Systems Review of Systems: Yes all other systems are reviewed and are negative Constitutional Constitutional: Denies chills and Denies fever(s) Cardiovascular Cardiovascular: Denies chest pain, Denies palpitations and Denies dyspnea Respiratory Respiratory: Denies cough and Denies dyspnea Endocrine Endocrine: Denies palpitations Physical Exam 2 Vital Signs: Vital Signs: Last Vital Signs Temp 96.8 F 11/12/24 10:49 Pulse 85 11/12/24 12:51 Resp 16 11/12/24 10:49 BP 138/76 11/12/24 07:31 Pulse Ox 95 11/12/24 12:51 O2 Del Method Room Air 11/12/24 10:49 BMI result Body Mass Index 24.2 Const: General: cooperative, no acute distress, alert and awake Nutritional Appearance: average body habitus Orientation/consciousness: patient oriented x3 Resp: Effort & Inspection: normal respiratory effort, able to speak in complete sentences, no respiratory distress and no use of accessory muscles Cardio: Rate: regular rate GI: Inspection: No distended Palpation (GI): Soft to palpation and nontender : General: Yes no CVA tenderness Back/Spine/Pelvis: Back: no CVA tenderness Neuro: General: patient oriented x3, moves all extremities and CN's II-XI intact bilaterally Objective Data Active Medications Acetaminophen (Acetaminophen 325 Mg Tablet) 650 mg PO Q6H PRN PRN Reason: Pain, Mild 1-3,fever,headache Albuterol/Ipratropium (Albuterol/Iprat 2.5/0.5mg 3 Ml Ampul.Neb) 3 ml INHALE Q4H PRN PRN Reason: Shortness of Breath/Wheezing Budesonide (Budesonide 0.5 Mg/2 Ml Ampul.Neb) 0.5 mg INHALE RBID [facility] Last Admin: 11/12/24 08:05 Dose: 0.5 mg Documented By: SERGIO Calcium Carbonate (Calcium Carbonate 750 Mg Tab.Chew) 750 mg PO Q4H PRN PRN Reason: Heartburn Ceftriaxone Sodium (Ceftriaxone Sodium 2 Gm Vial) 2 gm IVPUSH Q24H [facility] Hydralazine HCl (Hydralazine Hcl 20 Mg/Ml Vial) 10 mg IVPUSH Q6H PRN; Protocol PRN Reason: SBP > 160 Hydromorphone HCl (Hydromorphone Hcl 0.5 Mg/0.5 Ml Syringe) 0.5 mg IVPUSH Q4H PRN; Protocol PRN Reason: Pain, Severe (Pain Scale 7-10) Last Admin: 11/12/24 12:19 Dose: 0.5 mg Documented By: SUSIE Lactated Ringer's (Lr) 1,000 mls @ 100 mls/hr IVCONT .Q10H [facility] Last Admin: 11/12/24 03:16 Dose: 100 mls/hr Documented By: LUCIANO Lidocaine (Lidocaine 4 % Patch Adh..Patch) 1 patch TRANSDERMA DAILY [facility]; Protocol Last Admin: 11/12/24 07:48 Dose: 1 patch Documented By: JEREMIAS Magnesium Hydroxide (Milk Of Magnesia 30 Ml Oral.Susp) 30 ml PO DAILY PRN PRN Reason: Constipation Melatonin (Melatonin 3 Mg Tablet) 6 mg PO BEDTIME PRN PRN Reason: Insomnia Nicotine (Nicotine 21 Mg Patch.Td24) 21 mg TRANSDERMA DAILY [facility] Last Admin: 11/12/24 07:48 Dose: 21 mg Documented By: JEREMIAS Ondansetron HCl (Ondansetron Hcl 4 Mg/2 Ml Vial) 4 mg IVPUSH Q8H PRN PRN Reason: Nausea and Vomiting Sodium Chloride (0.9 % Sodium Chloride Flush 3 Ml Syringe) 3 ml IVFLUSH QSHIFT [facility] Last Admin: 11/12/24 07:15 Dose: Not Given Documented By: JEREMIAS Non-Admin Reason: IV Running Labs 11/12/24 03:53 11/12/24 08:29 Labs: Laboratory Results - last 24 hr 11/11/24 11/11/24 11/12/24 20:45 22:17 00:15 MCV 93.3 MCH 30.8 MCHC 33.1 RDW 13.2 Plt Count 275 MPV 9.0 L Immature Gran % (Auto) 0.2 Neut % (Auto) 46.0 Lymph % (Auto) 35.4 [place] % (Auto) 10.2 Eos % (Auto) 6.8 H Baso % (Auto) 1.4 Lymph # (Auto) 2.1 [place] # (Auto) 0.6 Eos # (Auto) 0.4 Baso # (Auto) 0.1 Abs Immat Gran (auto) 0.01 Absolute Neuts (auto) 2.7 Absolute Nucleated RBC 0.000 Nucleated RBC % (auto) 0.0 Anion Gap 13 Estim Creat Clear Calc 24.2 Estimated GFR 28 Random Glucose 92 Lactic Acid 0.8 Uric Acid Calcium 9.3 D Magnesium 2.9 H Total Bilirubin 0.1 Direct Bilirubin < 0.2 AST 62 H ALT 45 H Alkaline Phosphatase 149 H Total Protein 7.3 Albumin 4.5 Lipase 61 Urine Color Yellow Urine Appearance Clear Urine pH 5.5 Ur Specific [place] 1.020 Urine Protein Trace Urine Glucose (UA) Negative Urine Ketones Trace Urine Blood Moderate (2+) H Urine Nitrite Negative Ur Leukocyte Esterase Moderate (2+) H Urine RBC 11-20 H Urine WBC 11-20 H Ur Squamous Epith Cells 3-5 Urine Bacteria Trace Hyaline Casts 3-5 11/12/24 11/12/24 03:53 08:29 MCV 92.7 MCH 30.5 MCHC 32.8 RDW 13.2 Plt Count 254 MPV 9.1 L Immature Gran % (Auto) 0.2 Neut % (Auto) 46.2 Lymph % (Auto) 33.3 [place] % (Auto) 11.6 H Eos % (Auto) 7.5 H Baso % (Auto) 1.2 Lymph # (Auto) 2.0 [place] # (Auto) 0.7 Eos # (Auto) 0.5 H Baso # (Auto) 0.1 Abs Immat Gran (auto) 0.01 Absolute Neuts (auto) 2.8 Absolute Nucleated RBC 0.000 Nucleated RBC % (auto) 0.0 Anion Gap 13 12 Estim Creat Clear Calc 25.1 24.2 Estimated GFR 29 28 Random Glucose 84 88 Lactic Acid Uric Acid 8.6 H Calcium 8.1 L D 8.3 L Magnesium Total Bilirubin 0.1 Direct Bilirubin AST 44 H ALT 36 H Alkaline Phosphatase 127 H Total Protein 6.0 L Albumin 3.8 Lipase Urine Color Urine Appearance Urine pH Ur Specific [place] Urine Protein Urine Glucose (UA) Urine Ketones Urine Blood Urine Nitrite Ur Leukocyte Esterase Urine RBC Urine WBC Ur Squamous Epith Cells Urine Bacteria Hyaline Casts Microbiology Microbiology Results: Microbiology 11/11/24 22:51 Urine Culture - Preliminary Urine clean catch - Clean Catch Midstream No growth to date. Assessment and Plan (1) Hydronephrosis of left kidney: Status: Acute (2) Left ureteral calculus: Status: Acute Plan Patient is a 64-year-old female with past medical history hypertension, COPD/emphysema/asthma, bronchitis, tobacco dependence, chronic kidney disease, nephrolithiasis, concussion, impingement syndrome left shoulder, recent fall with injury to Left shoulder and elbow presents to the emergency department with left flank pain and hematuria. Patient is being admitted for more multiple left ureteral calculi with mild left hydronephrosis and cystitis. In addition, did have a fall 1.5 months prior and currently has continued left elbow and left shoulder pain. Left nonobstructing ureteral calculus with hydronephrosis of left kidney no sepsis Seen by Urology, plan for cystoscopy and left stent placement this afternoon Urine and Blood cultures pending Continue IV ceftriaxone CKD3b No significant change from patient baseline, 2022 creatinine 1.51 follow BMP UTI Ceftriaxone 2 g daily (will change to [id number] if blood cultures negative) Follow urine culture Left elbow and shoulder pain s/p fall with decreased strength L hand Elbow and shoulder x-rays showing likely chronic rotator cuff tear Lidocaine patch ordered for left shoulder Tylenol for pain p.r.n. Outpatient PT Hyperkalemia ?erroneous- resolved without intervention despite no change in renal function Hypertension resume baseline losartan COPD/emphysema/asthma No acute exacerbation Continue baseline meds DVT prophylaxis: mechanical devices/early ambulation Full Code status Patient requires ongoing inpatient stay for IV antibiotics and planned urologic procedure Quality Stroke Does the patient have a stroke diagnosis?: No Reason for No Anti-thrombotic by Day Two: Contraindicated (Hematuria and possible need for intervention in the next 24 hours) VTE Prior VTE?: No VTE Risk Level:: Medical - moderate - high VTE Device Contraindication: N/A - Device Ordered VTE Drug Contraindication: Treatment Not Tolerated
[2024-11-12] MEDS: Albuterol/Iprat 2.5/0.5MG 3 ML AMPUL.NEB INHALE (16:49)
--- NOTE | 2024-11-12 16:50 | HO.ANESPROP2 ---
HPI - Anesthesia Eval Consult details Narrative: For cysto, retro, left stent -- mult left ureteral stones. [facility] Active Problems Active Problems: All Active Problems (Updated 11/12/24 @ 03:49 by AGUSTO Segura) Insomnia (Acute) HTN (hypertension) (Acute) Left shoulder pain (Acute) Left elbow pain (Acute) COPD (chronic obstructive pulmonary disease) (Acute) Tobacco dependence (Acute) Anxiety (Acute) Hydronephrosis of left kidney (Acute) Acute kidney injury (Acute) Urinary tract infection (Acute) Left ureteral calculus (Acute) Past Medical History Medical History (Updated 11/12/24 @ 03:49 by AGUSTO Segura) Insomnia HTN (hypertension) Concussion Bronchitis COPD (chronic obstructive pulmonary disease) Tobacco dependence Anxiety Nephrolithiasis Asthma Functional capacity: independent ambulation Family History Family history of problems with anesthesia: No Surgical History Surgical History History of History of Problems with Anesthesia: No Social History Social History (Updated 11/12/24 @ 03:49 by AGUSTO Segura) Household Members: Significant Other Housing: Apartment Do you presently have visiting nurse or other home services: No Alcohol intake: current Alcohol intake frequency: 0-2 drinks per day Patient Tobacco Use Status: Current everyday Tobacco user Tobacco use type: Cigarette Cigarettes Per Day: 10 Years Smoked: 40 Second Hand Smoke Exposure: No Substance Use Type: Marijuana Meds Allergies Allergy/AdvReac Type Severity Reaction Status Date / Time lisinopril (LISINOPRIL) Allergy Unknown UNKNOWN Verified 11/11/24 20:33 oxycodone (From PERCOCET) Allergy Unknown ITCHING Verified 11/11/24 20:33 Penicillins (PENICILLINS) Allergy Unknown HIVES Verified 11/11/24 20:33 Active Medications: Current Medications Acetaminophen (Acetaminophen 325 Mg Tablet) 650 mg PO Q6H PRN PRN Reason: Pain, Mild 1-3,fever,headache Acetaminophen (Acetaminophen 325 Mg Tablet) 975 mg PO ONCE PRN PRN Reason: Pain, Mild (Pain Scale 1-3) Stop: 11/12/24 22:37 Albuterol Sulfate (Albuterol Sulfate 90 Mcg 8 Gm Inhaler) 2 puff INHALE Q4H PRN PRN Reason: Shortness Of Breath Or Wheezing Albuterol/Ipratropium (Albuterol/Iprat 2.5/0.5mg 3 Ml Ampul.Neb) 3 ml INHALE Q4H PRN PRN Reason: Shortness of Breath/Wheezing Calcium Carbonate (Calcium Carbonate 750 Mg Tab.Chew) 750 mg PO Q4H PRN PRN Reason: Heartburn Ceftriaxone Sodium (Ceftriaxone Sodium 2 Gm Vial) 2 gm IVPUSH Q24H JOANNE Fentanyl (Fentanyl Citrate/Pf 100 Mcg/2 Ml Vial) 50 mcg IVPUSH Q5M PRN PRN Reason: Pain, Moderate to Severe (Pain Scale 4-10) Stop: 11/12/24 22:37 Gabapentin (Gabapentin 300 Mg Capsule) 300 mg PO BID [facility] Hydromorphone HCl (Hydromorphone Hcl 0.5 Mg/0.5 Ml Syringe) 0.5 mg IVPUSH Q3H PRN; Protocol PRN Reason: Pain, Severe (Pain Scale 7-10) Last Admin: 11/12/24 15:45 Dose: 0.5 mg Lactated Ringer's (Lr) 1,000 mls @ 100 mls/hr IVCONT .Q10H [facility] Last Infusion: 11/12/24 16:31 Dose: Infused Lidocaine (Lidocaine 4 % Patch Adh..Patch) 1 patch TRANSDERMA DAILY [facility]; Protocol Last Admin: 11/12/24 07:48 Dose: 1 patch Losartan Potassium (Losartan Potassium 50 Mg Tablet) 100 mg PO DAILY [facility]; Protocol Magnesium Hydroxide (Milk Of Magnesia 30 Ml Oral.Susp) 30 ml PO DAILY PRN PRN Reason: Constipation Melatonin (Melatonin 3 Mg Tablet) 6 mg PO BEDTIME PRN PRN Reason: Insomnia Nicotine (Nicotine 21 Mg Patch.Td24) 21 mg TRANSDERMA DAILY [facility] Last Admin: 11/12/24 07:48 Dose: 21 mg Pt Own Med (Arnuity (Ellipta 50mcg)) 1 each INHALE RDAILY [facility] Ondansetron HCl (Ondansetron Hcl 4 Mg/2 Ml Vial) 4 mg IVPUSH Q8H PRN PRN Reason: Nausea and Vomiting Ondansetron HCl (Ondansetron Hcl 4 Mg/2 Ml Vial) 4 mg IVPUSH ONCE PRN PRN Reason: Nausea and Vomiting Stop: 11/12/24 22:37 Oxycodone HCl (Oxycodone Hcl Immed Release 5 Mg Tablet) 5 mg PO ONCE PRN PRN Reason: Pain, Moderate(Pain Scale 4-6) Sodium Chloride (0.9 % Sodium Chloride Flush 3 Ml Syringe) 3 ml IVFLUSH QSHIFT [facility] Last Admin: 11/12/24 15:47 Dose: Not Given Trazodone HCl (Trazodone Hcl 50 Mg Tablet) 50 mg PO BEDTIME [facility] Home Medications ?Medication ?Instructions ?Recorded ?Confirmed ?Last Taken ?Type albuterol sulfate 90 mcg/actuation 2 puff inhalation Q4H PRN 11/12/24 11/12/24 Unknown History aerosol inhaler Shortness Of Breath Or Wheezing fluticasone furoate 50 1 inh inhalation DAILY 11/12/24 11/12/24 11/08/24 History mcg/actuation blister powder for inhalation (Arnuity Ellipta) gabapentin 300 mg capsule 300 mg PO BID 11/12/24 11/12/24 11/11/24 History ibuprofen 125 mg-acetaminophen 250 1 tab PO Q6H PRN Pain 11/12/24 11/12/24 Unknown History mg tablet (Advil Dual Action) lidocaine 4 % topical patch 1 patch topical DAILY PRN Back Pain 11/12/24 11/12/24 Unknown History (Salonpas (lidocaine)) losartan 100 mg tablet 100 mg PO DAILY 11/12/24 11/12/24 11/11/24 History trazodone 100 mg tablet 50 - 100 mg PO BEDTIME 11/12/24 11/12/24 11/10/24 History Exam Height,Weight and Vital Signs: Height 5 ft Weight 56.3 kg Last Vital Signs Temp 98.1 F 11/12/24 15:34 Pulse 76 11/12/24 15:34 Resp 18 11/12/24 15:34 BP 149/66 H 11/12/24 15:34 Pulse Ox 95 11/12/24 16:37 O2 Del Method Room Air 11/12/24 16:37 Pertinent Lab Results Pertinent Lab Results: Laboratory Tests 11/11/24 11/11/24 11/12/24 20:45 22:17 00:15 WBC 5.9 RBC 4.15 L Hgb 12.8 Hct 38.7 MCV 93.3 MCH 30.8 MCHC 33.1 RDW 13.2 Plt Count 275 MPV 9.0 L Immature Gran % (Auto) 0.2 Neut % (Auto) 46.0 Lymph % (Auto) 35.4 Gillespie % (Auto) 10.2 Eos % (Auto) 6.8 H Baso % (Auto) 1.4 Lymph # (Auto) 2.1 Gillespie # (Auto) 0.6 Eos # (Auto) 0.4 Baso # (Auto) 0.1 Abs Immat Gran (auto) 0.01 Absolute Neuts (auto) 2.7 Absolute Nucleated RBC 0.000 Nucleated RBC % (auto) 0.0 Sodium 142 Potassium 5.0 Chloride 110 H Carbon Dioxide 24 Anion Gap 13 BUN 34 H Creatinine 1.84 H Estim Creat Clear Calc 24.2 Estimated GFR 28 Random Glucose 92 Lactic Acid 0.8 Uric Acid Calcium 9.3 D Magnesium 2.9 H Total Bilirubin 0.1 Direct Bilirubin < 0.2 AST 62 H ALT 45 H Alkaline Phosphatase 149 H Total Protein 7.3 Albumin 4.5 Lipase 61 Urine Color Yellow Urine Appearance Clear Urine pH 5.5 Ur Specific Novi 1.020 Urine Protein Trace Urine Glucose (UA) Negative Urine Ketones Trace Urine Blood Moderate (2+) H Urine Nitrite Negative Ur Leukocyte Esterase Moderate (2+) H Urine RBC 11-20 H Urine WBC 11-20 H Ur Squamous Epith Cells 3-5 Urine Bacteria Trace Hyaline Casts 3-5 11/12/24 11/12/24 03:53 08:29 WBC 6.0 RBC 3.71 L Hgb 11.3 L Hct 34.4 L MCV 92.7 MCH 30.5 MCHC 32.8 RDW 13.2 Plt Count 254 MPV 9.1 L Immature Gran % (Auto) 0.2 Neut % (Auto) 46.2 Lymph % (Auto) 33.3 Gillespie % (Auto) 11.6 H Eos % (Auto) 7.5 H Baso % (Auto) 1.2 Lymph # (Auto) 2.0 Gillespie # (Auto) 0.7 Eos # (Auto) 0.5 H Baso # (Auto) 0.1 Abs Immat Gran (auto) 0.01 Absolute Neuts (auto) 2.8 Absolute Nucleated RBC 0.000 Nucleated RBC % (auto) 0.0 Sodium 141 140 Potassium 5.5 H 4.8 Chloride 110 H 110 H Carbon Dioxide 24 23 Anion Gap 13 12 BUN 34 H 31 H Creatinine 1.78 H 1.84 H Estim Creat Clear Calc 25.1 24.2 Estimated GFR 29 28 Random Glucose 84 88 Lactic Acid Uric Acid 8.6 H Calcium 8.1 L D 8.3 L Magnesium Total Bilirubin 0.1 Direct Bilirubin AST 44 H ALT 36 H Alkaline Phosphatase 127 H Total Protein 6.0 L Albumin 3.8 Lipase Urine Color Urine Appearance Urine pH Ur Specific Novi Urine Protein Urine Glucose (UA) Urine Ketones Urine Blood Urine Nitrite Ur Leukocyte Esterase Urine RBC Urine WBC Ur Squamous Epith Cells Urine Bacteria Hyaline Casts Airway Mallampati Class: II TM Dist: <=3cm Neck ROM: Full Loose/Missing/Broken Teeth: Yes, Upper and Lower Heart: ok Lungs: mild wheeze, w mildly prolonged exp phase. Assessment and Plan Assessment Anesthesia Assessment: Anesthesia Plan Discussed and Chart Reviewed Final Anesthetic Review Family History of Problems with Anesthesia: No History of Problems with Anesthesia: No NPO: Yes ASA Class: III and Emergency Final Preanesthetic Review: No Changes in Pt Med Stat, Meds/Allgs Chart Reviewed, Consent Obtained/Reviewed and Anes Risks/Benef Reviewed Patient Risk: High Procedure Risk: Low Anesthetic Plan Anesthetic Plan: GA, Agree w/ Assess. and Plan (w preop nebulizer) and TIVA Disposition: Standard PACU
--- NOTE | 2024-11-12 17:36 | MHC.SHP ---
Pre-Procedural Eval Section A - 24 Hr Update-Section A only Date of Service: 11/12/24 The patient is an INPATIENT: Yes Changes since office visit: No Cold of Flu in the past 2 weeks, No New Medical Problems, No Changes in Medication and No Patient answered all questions The patient has been examined within 24 hours of the surgical procedure. The History & Physical has been completed within 30 days and I have reviewed it.: Yes Section B - Complete if H&P > 30 days Chief Complaint: abd pain Details of Present Illness: Cystoscopy, left retrograde, left stent placement Relevant Social History: None Present Medications: see Short Stay Collaborative assessment Medical History: Significant History History of Previous Operations: No relevant previous surgery Allergies: Allergies Allergy/AdvReac Type Severity Reaction Status Date / Time lisinopril (LISINOPRIL) Allergy Unknown UNKNOWN Verified 11/11/24 20:33 oxycodone (From PERCOCET) Allergy Unknown ITCHING Verified 11/11/24 20:33 Penicillins (PENICILLINS) Allergy Unknown HIVES Verified 11/11/24 20:33 Review of Systems Sugical H&P ROS: Negative: Constitution, Cardiovascular, Respiratory, Neurological, Psychiatric, Hem-Onc, Allergic/Immunologic, Gastrointestinal, Genitourinary, Musculoskeletal, Integumentary, Endocrine and Eyes/Ears/Nose/Throat Exam Surgical H&P Exam: Normal: HEENT, Normal: Heart, Normal: Lungs, Normal: Extremities, Normal: Abdomen, Normal: Skin and Normal: Neurological Plan Diagnosis/Plan: Unchanged (Cystoscopy, left retrograde, left stent placement) I have reviewed the history and physical and performed a pertinent physical examination on my patient. No changes have occurred unless specified. Time Spent With Patient Time: Total time managing care of this patient today ____ minutes.
--- NOTE | 2024-11-12 18:19 | W.PM.OPN ---
Operative Note Operative Note Date of Service: 11/12/24 Narrative: PreOperative Diagnosis: left ureteric stones Post Operative Diagnosis: Left ureteric stone Procedure: Cystoscopy, left retrograde, left stent placement Surgeon: Dr Iván Keyes Anesthesia: Sedation Indications for procedure: Creatinine elevation 1.8, CT scan left ureteric stones Procedure: After informed consent was verified the patient was brought to the operating room and placed in a supine position. Anesthesia was administered per protocol. The patient was placed in modified dorsal lithotomy position and prepped and draped in a sterile fashion. A safety pause time-out was performed. Laterality of procedure and antibiotics were confirmed, appropriate imaging was available A 22 Sudanese cystoscope was introduced per urethra. No abnormality was noted of urethra or bladder. Both ureteric orifices were seen in a normal position. The left ureter was cannulated with an open ended catheter and a retrograde examination was performed. Obstruction seen proximal ureter . A Sensor guidewire was placed under fluoroscopy and a good coil was seen within the renal pelvis. Debris was apparent around the wire. Open-ended catheter placed to level of the renal pelvis. Aspiration performed. Urine sent for culture A 6 Sudanese by 22 cm double J stent was advanced over the wire and up to the level of the renal pelvis under fluoroscopic and direct visualization. The stent was seen with appropriate coil within the renal pelvis and in the bladder after deployment. Eighteen Sudanese Angeles catheter placed with 2 L bag The patient tolerated the procedure well and was transferred in a stable condition to the recovery area. Pathology: Drains: stent
[2024-11-12] MEDS: Lactated Ringers 1,000 ML 250 ML IV ×2 (19:39→23:43)
[2024-11-13 03:42] VITALS: BP 125/74; PULSE 86; RESP 18; TEMP 36.1; O2SAT 94
[2024-11-13] MEDS: Lactated Ringers 1,000 ML 100 ML IVCONT (03:49)
[2024-11-13 06:10] LABS: Hematocrit 31.3 % (37.0-47.0); Hemoglobin 10.5 g/dl (12.0-16.0); Mean Corpuscular HGB Conc 33.5 g/dl (31.0-35.0); Mean Corpuscular Hemoglobin 31.1 pg (27.0-33.0); Mean Corpuscular Volume 92.6 fL (80.0-98.0); NRBC Abs Auto 0.000 X10*3/uL (0.0-0.012); NRBC Pct Auto 0.0 /100WBC (0.0-0.2); Platelet Count 215 X10*3/uL (160-400); Red Blood Count 3.38 X10*6/uL (4.20-5.50); White Blood Count 6.1 X10*3/uL (4.8-10.8)
[2024-11-13 06:24] LABS: Anion Gap 13 (12-20); Blood Urea Nitrogen 22 mg/dL (9-16); Calcium 8.3 mg/dL (8.4-10.2); Carbon Dioxide 22 mmol/L (22-29); Chloride 108 mmol/L (96-108); Creatinine Clr Calc Pharmacy 27.4; Estimated Glomerular Filt Rate 32; Potassium 4.7 mmol/L (3.3-5.1); Sodium 138 mmol/L (135-145)
[2024-11-13 07:30] VITALS: BP 152/69; PULSE 77; RESP 18; TEMP 36.1; O2SAT 96
--- NOTE | 2024-11-13 08:29 | PC.NURSE ---
pt voided 100 cc post Angeles removal . Bladder scanned for 0
[2024-11-13] MEDS: Nicotine 21 MG PATCH.TD24 TRANSDERMA (08:39)
[2024-11-13] MEDS: Lidocaine 4 % Patch ADH..PATCH 1 PATCH TRANSDERMA (08:40)
[2024-11-13] MEDS: ARNUITY ELLIPTA 1 EACH INHALE (08:41)
--- NOTE | 2024-11-13 09:00 | MHC.CM.PN ---
Addendum entered by Laura Mcknight 11/13/24 13:08: PT CLEARED TO DC HOME TODAY WITH NO SERVICES VIA PRIVATE TRANSPORT Original Note: PT REPORTS SHE LIVES WITH HER S/O AND IS INDEPENDENT WITH CARE SHE HAS NO DME AND NO SERVICES SHE US UNSURE IF SHE WANTS TO COMPLETE A HCP, SHE WILL DISCUSS IT WITH HER KIDS DOCUMENT AND INFORMATION PROVIDED AND PT IS AWARE CM CAN ASSIST PCP: MUKUL SALCIDO DCP: HOME VIA PRIVATE TRANSPORT
--- NOTE | 2024-11-13 09:14 | PC.NURSE ---
Pt voided 100 cc post Angeles cath removal , Bladder scanned for 03 cc
--- NOTE | 2024-11-13 11:18 | P.DS_ITS ---
DS: Providers Provider Date of Service: 11/13/24 Date of admission: 11/12/24 02:34 Date of discharge: 11/13/24 Primary care physician: Gege Thompson MD Consults: 11/12/24 02:47 Consult to Urology Routine Consulting Provider: [facility] [place] Urology Services Reason for consultation: nephrolithiaisis, mild hydronephrosis Has provider been notified: No Attending physician on discharge: Misti Benito Discharging clinician: Rin Cárdenas DS: Diagnosis Discharge Diagnosis (1) Hydronephrosis of left kidney: Status: Acute (2) Left ureteral calculus: Status: Acute DS: Summary Hospital Course Hospital Course: From H&P on the day of admission Patient is a 64-year-old female with past medical history hypertension, COPD/emphysema/asthma, bronchitis, tobacco dependence, chronic kidney disease, nephrolithiasis, concussion, impingement syndrome left shoulder, recent fall with injury to Left shoulder and elbow presents to the emergency room after 1 week of intermittent body chills, discolored urine from veronika to pink colored and in the last 24 hours increasing left flank pain and pelvic pain. Patient has been working at her job for the last week during this time. Patient's spouse has multiple health issues and patient has been dealing with those and putting her health needs 2nd but finally decided that she could not take the pain anymore and came in for evaluation. Patient denies fever, shortness of breath or chest pain. Patient reports long history of severe anxiety regarding almost anything. Patient states she has been taking trazodone at night with some good effect for her sleep but otherwise rarely sleeps and if told that she has to have a procedure, she would not refuse but her anxiety will increase and she will require intervention with medication most likely. Patient does not want to be seen by Psychiatry during this admission. In the emergency room patient underwent a CT of the abdomen and pelvis and it noted multiple left nonobstructing ureteral calculi with mild left hydronephrosis. The largest stone measured up to 5 mm. Mild left perinephric fat stranding also noted. Right kidney is unremarkable. In addition possible cystitis was evident. Incidentally patient also has a fat containing right inguinal hernia not seen on exam. Patient does not have leukocytosis, fever or chills at this time. Patient has developed an RAHAT and current creatinine clearance is 24.2 with a GFR of 28. AST 62, ALT 45, alk-phos 149. Gallbladder and bile duct on CT were unremarkable. UA notes moderate blood +2, moderate leukocyte esterase +2, 11-20 WBCs, trace bacteria and 3-5 hyaline cast. Patient was started on ceftriaxone in the emergency department. Urine and blood cultures also collected. Patient has had only 1 episode of nephrolithiasis in the past and patient states she did not require surgical intervention. In addition, upon physical exam and review of systems, patient reports left shoulder pain and left elbow pain status post a fall that occurred 1.5 months prior that was witnessed by her . Her is almost legally blind so it is unclear what exactly happened and patient can not recall if she had any LOC. Patient has had continued pain in the left elbow and the left shoulder. Patient does have chronic issues with the left shoulder including impingement syndrome and has received injections in the past. Patient feels this pain is not related to her past history. Patient did not seek intervention and did not see her primary care after this fall. Patient denies any headache, visual changes but on physical exam patient has decreased strength in the left hand a 3/5 versus the right hand which is 5/5. Patient does have full range of motion both active and passive in the left arm but there is pain with passive range of motion. Patient also has COPD and smokes 10 cigarettes per day. Patient had bilateral wheezing on exam with no hypoxia. Chest x-ray is pending. Patient states she uses her rescue inhaler multiple times per day along with her daily inhaler. Patient states she does not need the rescue inhaler but just uses it because she thinks she is supposed to. Patient does not do nebulizer treatments at home. Patient has been advised to seek a pulmonary consult from her primary care physician for further follow-up. Patient does not use oxygen at home. Patient is requesting nicotine patch. Left nonobstructing ureteral calculus with hydronephrosis of left kidney no sepsis Seen by Urology, s/p cystoscopy and left stent placement 11/12. Initially treated with IV ceftriaxone. Urine cultures from emergency department returned negative, repeat cultures from procedure also with no growth to date. Patient has no fever, no leukocytosis. Angeles has been removed and she is voiding without difficulty. No need for ongoing antibiotics as per Urology. Will need outpatient follow-up with Urology for stent removal. UTI ruled out. Blood cultures negative to date. CKD3b No significant change from patient baseline, 2022 creatinine 1.51. SCr on admission 1.8, down to 1.63 on day of discharge. recommend outpatient follow up with PCP and possible referral to nephrology for CKD. Left elbow and shoulder pain s/p fall with decreased strength L hand Elbow and shoulder x-rays showing likely chronic rotator cuff tear. Pt recommends outptatient PT Time Attestation Discharge Coordination Time (in mins): 34 Quality: Safe Use of Opioids Does Pt have an Active Cancer Diagnosis on the Problem List?: No Quality: Stroke Does the patient have a stroke diagnosis?: No Physical Exam Vital Signs: Vital Signs: Last Vital Signs Temp 96.9 F 11/13/24 07:30 Pulse 77 11/13/24 07:30 Resp 18 11/13/24 07:30 BP 152/69 H 11/13/24 07:30 Pulse Ox 96 11/13/24 07:30 O2 Del Method Room Air 11/13/24 07:30 BMI result Body Mass Index 24.2 Const: General: cooperative, no acute distress, alert and awake Nutritional Appearance: average body habitus Orientation/consciousness: patient oriented x3 Resp: Effort & Inspection: normal respiratory effort, able to speak in complete sentences, no respiratory distress and no use of accessory muscles Cardio: Rate: regular rate GI: Inspection: No distended Palpation (GI): Soft to palpation and nontender : General: Yes no CVA tenderness Back/Spine/Pelvis: Back: no CVA tenderness Neuro: General: patient oriented x3, moves all extremities and CN's II-XI intact bilaterally DS: Data Data Completed and Pending Labs on day of discharge: Laboratory Results - last 24 hr 11/13/24 05:43 WBC 6.1 RBC 3.38 L Hgb 10.5 L Hct 31.3 L MCV 92.6 MCH 31.1 MCHC 33.5 RDW 12.9 Plt Count 215 MPV 9.1 L Absolute Nucleated RBC 0.000 Nucleated RBC % (auto) 0.0 Sodium 138 Potassium 4.7 Chloride 108 Carbon Dioxide 22 Anion Gap 13 BUN 22 H Creatinine 1.63 H Estim Creat Clear Calc 27.4 Estimated GFR 32 Random Glucose 84 Calcium 8.3 L Preliminary micro results at discharge 11/12/24 18:00 Urine Culture - Preliminary Urine Catheterized - Straight Catheter No growth to date. 11/12/24 00:21 Blood Culture - Preliminary Blood - Venous No growth after 24 hours. 11/12/24 00:15 Blood Culture - Preliminary Blood - Venous No growth after 24 hours. Discharge Plan Discharge Anticipated Discharge Date/Time: 11/13/24 11:45 Patient Disposition: Home, Self-Care Discharge Diagnosis: left ureteral stones with mild left hydro mild RAHAT Referrals: Iván Keyes MD [Physician, Urology] - 1 Week Referral Note: left stent placement Gege Thompson MD [Primary Care Provider, Medical] - 1 Week Discharge Medications: New nicotine 21 mg/24 hr Patch 24 Hour 21 mg transdermal DAILY Qty: 28 0RF Continued trazodone 100 mg tablet 50 - 100 mg PO BEDTIME gabapentin 300 mg capsule 300 mg PO BID albuterol sulfate 90 mcg/actuation HFA aerosol inhaler 2 puff INHALATION Q4H PRN (Reason: Shortness Of Breath Or Wheezing) losartan 100 mg tablet 100 mg PO DAILY lidocaine [Salonpas (lidocaine)] 4 % Adhesive Patch,Medicated 1 patch TOPICAL DAILY PRN (Reason: Back Pain) Arnuity Ellipta 50 mcg/actuation blister with device 1 inh inhalation DAILY Discontinued ibuprofen-acetaminophen [Advil Dual Action] 125-250 mg Tablet 1 tab PO Q6H PRN (Reason: Pain) Discharge Orders: Discharge Order (Routine); Ordered 11/13/24 Ordered By: Rin Cárdenas Activity on Discharge: As tolerated Stand Alone Forms: Patient Portal Discharge page, Work/School Release Print Language: British Care Plan Goals: Left ureteral stones status post stent placement Health Concerns: Left ureteral stones Chronic kidney disease Plan of Treatment: Recommend to avoid NSAIDs due to chronic kidney disease-discuss need for referral to Nephrology with your primary care provider Call to schedule follow-up appointment with Urology for stent removal Can use Pyridium as needed for pain due to spasm no antibiotics needed at discharge Assessment: See discharge summary
[2024-11-13 12:00] VITALS: BP 159/84; PULSE 68; RESP 18; TEMP 36.1; O2SAT 95
--- NOTE | 2024-11-13 12:04 | PC.NURSE ---
Pts own [employer] returned to pt at time of discharge
--- NOTE | 2024-11-13 14:58 | HO.POSTANES ---
Post Anesthesia Evaluation Post Anesthesia Evaluation Date of Service: 11/13/24 Vital Signs: Vital Signs Temp Pulse Resp BP Pulse Ox O2 Del Method 11/13/24 12:00 96.9 F 68 18 159/84 H 95 Room Air 11/13/24 07:30 96.9 F 77 18 152/69 H 96 Room Air 11/13/24 03:42 97 F 86 18 125/74 94 Room Air Anesthesia: Monitored Mental Status: Awake Pain Control: Satisfactory Nausea/Vomiting: None Hydration: Adequate Anesthesia-Related Issues: No Anes. Related Issues
== END 2024-11-13 12:31 | disposition home or self-care (01) | DRG 463 ==
LOC: HO.ED 11-12 02:34 → HO.EDOVER 11-12 03:16 → HO.S3 11-12 09:39
PROVIDERS: Nurse Practitioner Family; Physician Assistant Medical; Urology; Admitting Provider Student in an Organized Health Care Education/Training Program; Emergency Provider Emergency Medicine; PCP Internal Medicine; Visit Provider Physician Assistant Medical
PROC: 0T778DZ Dilation of Left Ureter with Intraluminal Device, Via Natural or Artificial Opening Endoscopic (ICD-10-PCS; CPT 52332; principal; 2024-11-12 16:30)
DX: N13.6 Pyonephrosis (principal); F17.210 Nicotine dependence, cigarettes, uncomplicated; F41.9 Anxiety disorder, unspecified; J43.9 Emphysema, unspecified; R31.9 Hematuria, unspecified; Z71.6 Tobacco abuse counseling; I12.9 Hypertensive chronic kidney disease with stage 1 through stage 4 chronic kidney disease, or unspecified chronic kidney disease; N18.32 Chronic kidney disease, stage 3b; J45.909 Unspecified asthma, uncomplicated; Z79.899 Other long term (current) drug therapy
CPT/HCPCS: 52332; 36415; 71045; 73030; 73070; 74176; 80048; 80053; 80076; 81001; 83605; 83690; 83735; 84550; 85025; 85027; 87040; 87086; 94640; 97161; 99221; 99285; C1758; C1769; C2617; J0696; J1171; J1200; J2003; J2270; J2405; J2704; J3010; J7120; Q9967

== ENCOUNTER → 2024-11-11 22:02 | Outpatient (BNV) | payer MEDICAID, SELFPAY | PROVIDERS: Emergency Provider Emergency Medicine; PCP Internal Medicine; Visit Provider Radiology Diagnostic Radiology | DX: N20.1 Calculus of ureter (principal) | CPT/HCPCS: 74176 ==

== ENCOUNTER 2024-11-12 02:34 | Outpatient (BNV) | payer MEDICAID, SELFPAY | END 2024-11-12 03:46 | PROVIDERS: Admitting Provider Student in an Organized Health Care Education/Training Program; Emergency Provider Emergency Medicine; PCP Internal Medicine; Visit Provider Radiology Diagnostic Radiology | DX: M25.512 Pain in left shoulder (principal); R06.2 Wheezing; M25.522 Pain in left elbow; W19.XXXA Unspecified fall, initial encounter | CPT/HCPCS: 71045; 73030; 73070 ==

== ENCOUNTER → 2024-11-12 02:34 | Outpatient (BNV) | payer MEDICAID, SELFPAY | PROVIDERS: Admitting Provider Student in an Organized Health Care Education/Training Program; Emergency Provider Emergency Medicine; PCP Internal Medicine; Visit Provider Nurse Practitioner Family | DX: N13.30 Unspecified hydronephrosis (principal); N20.1 Calculus of ureter | CPT/HCPCS: 99223; 99239; 99499 ==

== ENCOUNTER → 2024-11-12 02:34 | Outpatient (BNV) | payer MEDICAID, SELFPAY | PROVIDERS: Admitting Provider Student in an Organized Health Care Education/Training Program; Emergency Provider Emergency Medicine; PCP Internal Medicine; Visit Provider Urology | DX: N39.0 Urinary tract infection, site not specified (principal); N17.9 Acute kidney failure, unspecified; N20.1 Calculus of ureter | CPT/HCPCS: 52332; 74420; 99222 ==

== ENCOUNTER 2024-11-15 12:52 | Emergency (ER) | payer OTHER, SELFPAY ==
--- NOTE | ~2024-11-15 | US_ITS ---
CLINICAL HISTORY: S p L ureteric stent on 11 12, l flank pain Ultrasound kidneys. COMPARISON: None provided. Technique: Real time sonographic imaging, including color-flow imaging, was performed by the drum sander setter. Multiple education courses sales representative static images were saved for review. FINDINGS: Right kidney: Cortical medullary differentiation is maintained. Normal color flow by Doppler. No calculus or focal parenchymal abnormality identified. No hydronephrosis. Right kidney size: 8.1 x 4.0 x 4.5 cm Left kidney: Cortical medullary differentiation is maintained. Normal color flow by Doppler. Nonobstructing left renal calculus measuring 1.3 x 0.4 x 1.3 cm at the inferior pole. No hydronephrosis. Left kidney size: 9.0 x 4.9 x 4.3 cm IMPRESSION: 1. No evidence of renal obstruction. 2. Nonobstructing calculus of the inferior pole of the left kidney measuring 1.3 cm. This document has been electronically signed by: Teo Kunz MD on 11/15/2024 19:57:11
[2024-11-15 13:15] VITALS: BP 163/83; PULSE 74; RESP 16; TEMP 36.4; O2SAT 99; BMI 23.4
--- NOTE | 2024-11-15 13:21 | ED.GENADULT ---
HPI - General Adult General Chief complaint: Urogenital-Female Stated complaint: pain l side stint area Time Seen by Provider: 11/15/24 17:50 Source: patient and family (Spouse) Mode of arrival: ambulatory Limitations: no limitations History of Present Illness ED Provider: DR. Messina HPI narrative: This is a 64-year-old female s/p left ureteric stent placement on 11/12/[address] Keyes, patient was discharged home after the procedure on Tylenol for pain return for severe left flank pain that is not controlled by Tylenol. No dysuria, no frequency urination, no fever, no chills. Patient stated that she has passed 7 stone since the stent was placed. Related Data Home Medications ?Medication ?Instructions ?Recorded ?Confirmed albuterol sulfate 90 mcg/actuation 2 puff inhalation Q4H PRN 11/12/24 11/12/24 aerosol inhaler Shortness Of Breath Or Wheezing fluticasone furoate 50 1 inh inhalation DAILY 11/12/24 11/12/24 mcg/actuation blister powder for inhalation (Arnuity Ellipta) gabapentin 300 mg capsule 300 mg PO BID 11/12/24 11/12/24 lidocaine 4 % topical patch 1 patch topical DAILY PRN Back Pain 11/12/24 11/12/24 (Salonpas (lidocaine)) losartan 100 mg tablet 100 mg PO DAILY 11/12/24 11/12/24 trazodone 100 mg tablet 50 - 100 mg PO BEDTIME 11/12/24 11/12/24 Previous Rx's ?Medication ?Instructions ?Recorded nicotine 21 mg/24 hr daily 21 mg transdermal DAILY #28 ea 11/13/24 transdermal patch ciprofloxacin HCl 500 mg tablet 500 mg PO BID #14 tabs 11/15/24 (Cipro) oxycodone 5 mg tablet 5 mg PO BID PRN pain #5 tabs 11/15/24 Allergies Allergy/AdvReac Type Severity Reaction Status Date / Time lisinopril (LISINOPRIL) Allergy Unknown UNKNOWN Verified 11/15/24 13:17 oxycodone (From PERCOCET) Allergy Unknown ITCHING Verified 11/15/24 13:17 Penicillins (PENICILLINS) Allergy Unknown HIVES Verified 11/15/24 13:17 Review of Systems Review of Systems: All other systems are reviewed and are negative Constitutional: Reports as per HPI and Reports no additional constitutional complaints Eyes: Reports as per HPI and Reports no additional eye complaints Reports system reviewed and no additional complaints, except as documented Cardiovascular: Reports as per HPI and Reports no additional cardiovascular complaints Respiratory: Reports as per HPI and Reports no additional respiratory complaints Gastrointestinal: Reports as per HPI and Reports no additional gastrointestinal complaints Genitourinary: Reports no additional female genitourinary complaints Musculoskeletal: Reports no additional musculoskeletal complaints Skin/Breast: Reports system reviewed and no additional complaints, except as docu Psychiatric: Reports no additional psychiatric complaints Endocrine: Reports no additional endocrine complaints Hematologic/Lymphatic: Reports no additional hematologic/lymphatic complaints Allergic/Immunologic: Reports no additional allergic/immunologic complaints Reports system reviewed and no additional complaints, except as documented and Reports Abnormal speech present [facility] Past Medical History Medical History Insomnia HTN (hypertension) Concussion Bronchitis COPD (chronic obstructive pulmonary disease) Tobacco dependence Anxiety Nephrolithiasis Asthma Surgical History History of Social History Social History Household Members: Significant Other Housing: Apartment Do you presently have visiting nurse or other home services: No Alcohol intake: current Alcohol intake frequency: 0-2 drinks per day Comment: spasm Patient Tobacco Use Status: Current everyday Tobacco user Tobacco use type: Cigarette Cigarettes Per Day: 10 Years Smoked: 40 e-Cigarette/Vaping Use: Currently Using Second Hand Smoke Exposure: No Use of substances other than those prescribed or required for medical reasons: Unknown Substance Use Type: Marijuana Advance Directives: No Advance Directives Information Provided: No Do you have a plan to hurt others: No Plan service: No Physical Exam ED Vital Signs: Vital Signs - 24 hr 11/15/24 13:15 11/15/24 18:00 Temperature 97.5 F 98.2 F Pulse Rate 74 68 Respiratory Rate 16 18 Blood Pressure 163/83 H 164/70 H Pulse Oximetry 99 100 Oxygen Delivery Method Room Air Room Air BMI result Body Mass Index 23.4 Vital signs have been reviewed and appear to be correct. Blood pressure elevated. Heart rate normal. Respiratory rate normal. Temperature normal. Oxygen saturation normal. Appearance: Alert. Oriented X3. No acute distress. Head: Normal external exam. Normocephalic. Atraumatic. No Jaquez signs noted. No raccoon eyes noted Eyes: PERRLA. EOMI. Conjunctiva and sclera normal. Eyelids normal. ENT: TM's Normal. Pharynx normal. Uvula midline. Moist mucous membranes. No trismus noted. No drooling noted. No muffled voice noted. Neck: Normal inspection. Neck supple. FROM. No adenopathy. Thyroid Normal. No meningeal signs. No neck mass noted. CVS: Normal heart rate and rhythm. Heart sound normal. No murmurs noted. Pulses normal throughout. Respiratory: No respiratory distress. Painless inspiration. Breath sounds normal. No wheezes/rales/rhonchi noted. Chest nontender. No accessory muscle usage noted or decreased air movement noted. Abdomen: Soft and nontender. Bowel sounds normal in all 4 quadrants. No distention noted. No organomegaly noted. No visible injury noted. Back: Left CVA tenderness. Full range of motion noted. Skin: Skin warm and dry. Normal skin color. Normal skin turgor. No rashes/lesions/lacerations noted. Extremities: No lower extremity edema. Extremities exhibit normal range of motion. Extremities nontender. Neuro: Oriented X 3. Cranial nerve exam: II-XII are grossly intact No motor deficit. No sensory deficit. Reflexes normal. Course Course Course Narrative: 11/15/24 1322 HELLEN Yousif This is a Rapid Medical Examination (RME) performed by Shannon Pickett PA-C in triage. Full HPI, ROS, assessment and treatment plan per primary provider in the Main ED. Hx: 64 yo F hx of asthma, HTN, chronic kidney disease and kidney stones here s/p L stent placement w/ Dr. Keyes on 11/12/24 here w/ stent pain . No urinary symptoms. Taking medications as prescribed without improvement. PE/vitals: Uncomfortable appearing. Plan: Labs, UA Reevaluation(s) Reevaluation #1: 64-year-old female s/p left ureteral stent placement on 11/12 presented with pain and UTI, no fever, renal ultrasound is unremarkable, case discussed with Dr. Keyes to discharge the patient on Cipro and and pain medication follow-up as an outpatient. Time: 20:18 Medications Administered Discontinued Medications Generic Name Dose Route Start Last Admin Trade Name Freq PRN Reason Stop Dose Admin Oxycodone HCl 5 mg 11/15/24 17:56 11/15/24 18:04 Oxycodone Hcl Immed Release 5 Mg Tablet PO 11/15/24 17:57 5 mg ONCE ONE Administration Medical Decision Making Differential Diagnosis Differential Diagnoses: The differential diagnosis associated with the presentation includes (Pyelonephritis, obstructing stone, displacement of the stent.) Admission/Observation Consideration of admission/observation: Escalation of care including admission/observation considered Consult Healthcare Provider Management of the patient was discussed with: Institutional Commodity Analyst (Dr. Keyes) Lab Data MDM Lab Attestation statement: I reviewed the patient's lab results. 11/15/24 15:21 11/15/24 15:21 Labs: Lab Results 11/15/24 11/15/24 Range/Units 15:21 18:05 WBC 5.9 (4.8-10.8) X10*3/uL RBC 3.76 L (4.20-5.50) X10*6/uL Hgb 11.6 L (12.0-16.0) g/dl Hct 35.2 L (37.0-47.0) % MCV 93.6 (80.0-98.0) fL MCH 30.9 (27.0-33.0) pg MCHC 33.0 (31.0-35.0) g/dl RDW 12.8 (11.0-16.0) % Plt Count 225 (160-400) X10*3/uL MPV 9.1 L (9.4-12.3) fL Immature Gran % (Auto) 0.2 (0.0-0.4) % Neut % (Auto) 59.9 (45-73) % Lymph % (Auto) 24.7 (20-40) % Jefferson % (Auto) 9.2 (2-11) % Eos % (Auto) 5.5 H (0-4) % Baso % (Auto) 0.5 (0-2) % Lymph # (Auto) 1.5 (1.2-4.9) X10*3/uL Jefferson # (Auto) 0.5 (0.1-1.2) X10*3/uL Eos # (Auto) 0.3 (0.0-0.4) X10*3/uL Baso # (Auto) 0.0 (0.0-0.2) X10*3/uL Abs Immat Gran (auto) 0.01 (0.00-0.03) X10*3/uL Absolute Neuts (auto) 3.5 (2.0-8.3) x10*3/uL Absolute Nucleated RBC 0.000 (0.0-0.012) X10*3/uL Nucleated RBC % (auto) 0.0 (0.0-0.2) /100WBC Sodium 142 (135-145) mmol/L Potassium 4.5 (3.3-5.1) mmol/L Chloride 109 H (96-108) mmol/L Carbon Dioxide 26 (22-29) mmol/L Anion Gap 12 (12-20) BUN 20 H (9-16) mg/dL Creatinine 1.74 H (0.5-1.4) mg/dL Estim Creat Clear Calc 23.5 Estimated GFR 29 Random Glucose 108 (60-115) mg/dL Calcium 9.0 D (8.4-10.2) mg/dL Total Bilirubin 0.2 (0.0-1.0) mg/dL AST 64 H (5-31) U/L ALT 54 H (0-31) U/L Alkaline Phosphatase 183 H (39-117) U/L Total Protein 6.4 L (6.5-8.0) g/dL Albumin 4.0 (3.5-5.0) g/dL Urine Color Dark Yellow Urine Appearance Cloudy Urine pH 6.0 (5.0-9.0) Ur Specific [place]rose 1.010 (1.005-1.025) Urine Protein 30 (1+) H (Neg-Trace) mg/dL Urine Glucose (UA) Negative (Negative) mg/dL Urine Ketones Negative (Negative) mg/dL Urine Blood Large (3+) H (Negative) Urine Nitrite Positive H (Negative) Ur Leukocyte Esterase Moderate (2+) H (Negative) Urine RBC >20 H (0-2) /HPF Urine WBC 11-20 H (0-5) /HPF Ur Squamous Epith Cells 0-2 (0-2) /HPF Urine Bacteria None Seen (None Seen) Hyaline Casts 0-2 (0-2) /LPF Independent Interpretation I performed an independent interpretation of an: Ultrasound (Renal:1. No evidence of renal obstruction. 2. Nonobstructing calculus of the inferior pole of the left kidney measuring 1.3 cm.) Radiology Impression Discussion of test interpretation with radiology: I have reviewed the radiologist's reading. Discharge Plan Discharge Clinical Impression: Acute left flank pain, UTI (urinary tract infection) Patient Disposition: Home, Self-Care Instructions: Urinary Tract Infection in Women (ED) Additional Instructions: Drink plenty of fluids, call Dr. Keyes and make an appointment, return for worsening of pain or fever. Prescriptions: New oxycodone 5 mg tablet 5 mg PO BID PRN (Reason: pain) Qty: 5 0RF Rx Instructions: Partial Fill upon patient request. ciprofloxacin HCl [Cipro] 500 mg tablet 500 mg PO BID Qty: 14 0RF No Action trazodone 100 mg tablet 50 - 100 mg PO BEDTIME gabapentin 300 mg capsule 300 mg PO BID albuterol sulfate 90 mcg/actuation HFA aerosol inhaler 2 puff INHALATION Q4H PRN (Reason: Shortness Of Breath Or Wheezing) losartan 100 mg tablet 100 mg PO DAILY lidocaine [Salonpas (lidocaine)] 4 % Adhesive Patch,Medicated 1 patch TOPICAL DAILY PRN (Reason: Back Pain) Arnuity Ellipta 50 mcg/actuation blister with device 1 inh inhalation DAILY nicotine 21 mg/24 hr Patch 24 Hour 21 mg transdermal DAILY Qty: 28 0RF Referrals: Gege Thompson MD [Primary Care Provider, Medical] Iván Keyes MD [Physician, Urology] Print Language: Malay
[2024-11-15 15:26] LABS: MANUAL DIFF FLAG NO
[2024-11-15 15:32] LABS: Hematocrit 35.2 % (37.0-47.0); Hemoglobin 11.6 g/dl (12.0-16.0); Imm Gran Abs Auto 0.01 X10*3/uL (0.00-0.03); Imm Gran Pct Auto 0.2 % (0.0-0.4); Lymphocytes Absolute Auto 1.5 X10*3/uL (1.2-4.9); Mean Corpuscular HGB Conc 33.0 g/dl (31.0-35.0); Mean Corpuscular Hemoglobin 30.9 pg (27.0-33.0); Mean Corpuscular Volume 93.6 fL (80.0-98.0); NRBC Abs Auto 0.000 X10*3/uL (0.0-0.012); NRBC Pct Auto 0.0 /100WBC (0.0-0.2); Platelet Count 225 X10*3/uL (160-400); Red Blood Count 3.76 X10*6/uL (4.20-5.50); White Blood Count 5.9 X10*3/uL (4.8-10.8)
[2024-11-15 15:42] LABS: Alanine Aminotransferase 54 U/L (0-31); Albumin Level 4.0 g/dL (3.5-5.0); Alkaline Phosphatase 183 U/L (39-117); Anion Gap 12 (12-20); Aspartate Amino Transferase 64 U/L (5-31); Blood Urea Nitrogen 20 mg/dL (9-16); Calcium 9.0 mg/dL (8.4-10.2); Carbon Dioxide 26 mmol/L (22-29); Chloride 109 mmol/L (96-108); Creatinine Clr Calc Pharmacy 23.5; Estimated Glomerular Filt Rate 29; Potassium 4.5 mmol/L (3.3-5.1); Sodium 142 mmol/L (135-145); Total Protein 6.4 g/dL (6.5-8.0)
--- OUTSIDE RECORDS SUMMARY | 2024-11-15 17:57 | XMS_ITS | Clinical Summary ---
Author Organization [employer] Address [address] [place] [address] [address] [place] [address] Care Team Providers Care Corporate Specialist Name Role Phone Unavailable Primary Care Provider [...] use. 473 mL 4 Active HYDROcodone-amberly taminophen ([place]) 5-325 MG tabletIndicatio ns:History of tooth extraction, [...] of Phone Billing Address Personal/Family Self [address]
[2024-11-15 18:00] VITALS: BP 164/70; PULSE 68; RESP 18; TEMP 36.8; O2SAT 100
[2024-11-15] MEDS: oxyCODONE HCl Immed Release 5 MG TABLET PO (18:04)
[2024-11-15 18:13] LABS: Appearance Urine Cloudy; Glucose Urine UA Negative (Negative); PH 6.0 (5.0-9.0); Specific Gravity - Urine 1.010 (1.005-1.025); UMIC TRIGGER UACC YES
[2024-11-15 18:22] LABS: UACC Culture Trigger YES
--- NOTE | 2024-11-15 20:34 | PC.NURSE ---
pt given hot pack per request, reports some relief
[2024-11-15 20:46] VITALS: BP 172/84; PULSE 76; RESP 18; TEMP 35.8; O2SAT 96
[2024-11-15 20:48] VITALS: BP 172/84; PULSE 76; RESP 18; TEMP 35.8; O2SAT 96
== END 2024-11-15 20:48 | disposition home or self-care (01) ==
PROVIDERS: Physician Assistant Medical; Emergency Provider Emergency Medicine; PCP Internal Medicine
DX: N39.0 Urinary tract infection, site not specified (principal); R10.9 Unspecified abdominal pain; N20.0 Calculus of kidney; Z79.899 Other long term (current) drug therapy
CPT/HCPCS: 36415; 76775; 80053; 81001; 85025; 87086; 99284

== ENCOUNTER → 2024-11-15 18:02 | Outpatient (BNV) | payer OTHER, SELFPAY | PROVIDERS: Emergency Provider Emergency Medicine; PCP Internal Medicine; Visit Provider Radiology Diagnostic Radiology | DX: N20.0 Calculus of kidney (principal) | CPT/HCPCS: 76775 ==

== ENCOUNTER 2024-11-18 07:35 | Outpatient (AMB) | payer OTHER, SELFPAY ==
--- NOTE | 2024-11-17 21:31 | MHC.OFFVIS ---
Intake Visit Reasons: Discuss Surgical Procedure Intake Note: Patient presents for a telehealth to discuss surgical procedure UG meds: none Blood thinner none : Endless Bed Drum Sander Required: No Accompanied by: Self / Same As Patient Allergies lisinopril (LISINOPRIL) Allergy (Unknown, Verified 11/18/24 07:37) UNKNOWN oxycodone (From PERCOCET) Allergy (Unknown, Verified 11/18/24 07:37) ITCHING Penicillins (PENICILLINS) Allergy (Unknown, Verified 11/18/24 07:37) HIVES Medication List - Last Reconciled 11/18/24 by Latanya Chong MD albuterol sulfate 90 mcg/actuation 2 puffs inhalation Q4H PRN ciprofloxacin HCl (Cipro) 500 mg PO BID fluticasone furoate 50 mcg/actuation (Arnuity Ellipta) 1 inh inhalation DAILY gabapentin 300 mg PO BID lidocaine 4% (Salonpas (lidocaine)) 1 patch topical DAILY PRN losartan 100 mg PO DAILY nicotine 21 mg transdermal DAILY oxycodone 5 mg PO BID PRN oxycodone 5 mg PO Q6-8H PRN trazodone 50 - 100 mg PO BEDTIME HPI Comments Details: 11/18/24--Ana Paula is s/p left ureteral stent by Dr. Keyes on 11/12/24. FU renal US 11/15/24, stent in good position. 1.3 cm stone lower pole. She is scheduled for ureteroscopy laser lithotripsy on 11/23/24 History of Present Illness - The patient is a 64-year-old female presenting with management of ureteral and kidney stones. - The patient had a stent placed due to ureteral stones causing obstruction of urine flow. - There is a larger stone located in the kidney. - The patient experiences pain when sitting, cramping, and back pain associated with the stent. - Hematuria was noted, which is attributed to the stent - The patient reports improved urination compared to prior to the stent placement. - Plan--cystoscopy left ureteroscopy laser lithotripsy exchange ureteral stent, oxycodone 10. Tablets sent [facility] Medical History Insomnia HTN (hypertension) Concussion Bronchitis COPD (chronic obstructive pulmonary disease) Tobacco dependence Anxiety Nephrolithiasis Asthma Surgical History History of Social History Household Members: Significant Other Housing: Apartment Do you presently have visiting nurse or other home services: No Alcohol intake: current Alcohol intake frequency: 0-2 drinks per day Comment: spasm Patient Tobacco Use Status: Current everyday Tobacco user Tobacco use type: Cigarette Cigarettes Per Day: 10 Years Smoked: 40 e-Cigarette/Vaping Use: Currently Using Second Hand Smoke Exposure: No Substance Use Type: Marijuana service: No Telehealth Telehealth Telehealth Platform: [employer]imb[employer] Location of provider rendering services: practice address Location of patient: address on file Patient Identification confirmed using: Name, : Yes Telehealth method: voice only Patient verbally consented to treatment: Yes Patient verbally consented to billing insurance company: Yes Patient informed of any privacy concerns related to visit: Yes Minutes spent on Phone/Video with Pt.: 16 Results Reviewed Results Reviewed: Date of Service: 11/15/24 Ultrasound kidneys. COMPARISON: None provided. Technique: Real time sonographic imaging, including color-flow imaging, was performed by the adjunct philosophy faculty. Multiple patient access representative static images were saved for review. FINDINGS: Right kidney: Cortical medullary differentiation is maintained. Normal color flow by Doppler. No calculus or focal parenchymal abnormality identified. No hydronephrosis. Right kidney size: 8.1 x 4.0 x 4.5 cm Left kidney: Cortical medullary differentiation is maintained. Normal color flow by Doppler. Nonobstructing left renal calculus measuring 1.3 x 0.4 x 1.3 cm at the inferior pole. No hydronephrosis. Left kidney size: 9.0 x 4.9 x 4.3 cm IMPRESSION: 1. No evidence of renal obstruction. 2. Nonobstructing calculus of the inferior pole of the left kidney measuring 1.3 cm. Date of Service: 11/11/24 Procedure(s): CT abdomen pelvis wo IV con Accession Number(s): [id number] cc: Rain [place]; Gege Thompson MD~ Report Number: [id number]: Total DLP = 442.00 mGy-cm CLINICAL HISTORY: left flank pain, renal colic CT Abdomen and Pelvis WO Contrast COMPARISON: CT/AK/SR - CT ABDOMEN PELVIS WO IV CON - 04/16/23 23:41 EST FINDINGS: Hepatomegaly. Normal spleen. There are approximately 6 calculi in the proximal left ureter measuring up to 5 mm. Mild left hydronephrosis. Nonobstructing left renal calculi. Mild left perinephric fat stranding. Unremarkable right kidney. Normal adrenal glands. Normal pancreas. No visible cholelithiasis. No biliary dilation. No evidence of bowel obstruction or colitis. Fluid-filled gastric fundal diverticulum has increased in size. Normal appendix. Mild diffuse bladder wall thickening. Unremarkable uterus. No ascites. No pneumoperitoneum. No lymphadenopathy. No acute fracture. No abdominal aortic aneurysm. Fat-containing right inguinal hernia. IMPRESSION: Multiple left ureteral calculi. Mild left hydronephrosis. Possible cystitis. Nonemergent/incidental findings above. Assessment & Plan Assessment & Plan (1) Left ureteral calculus: Code(s): N20.1 - Calculus of ureter Category: Medical (2) Hydronephrosis of left kidney: Code(s): N13.30 - Unspecified hydronephrosis Category: Medical (3) Kidney stone on left side: Code(s): N20.0 - Calculus of kidney Category: Medical (4) S/P ureteral stent placement: Code(s): Z96.0 - Presence of urogenital implants Category: Surgical Plan Plan--cystoscopy left ureteroscopy laser lithotripsy exchange ureteral stent, oxycodone 10. Tablets sent Medications: New oxycodone Partial Fill upon patient request. 5 mg PO Q6-8H PRN 10 tabs 0RF pain Patient Instructions: The patient had an opportunity to ask questions regarding treatment plan. The patient expressed understanding and agreement with the above treatment plan. The patient is aware they should contact our office by phone for worsening of their current condition or the appearance of new symptoms. Compliance is encouraged with any medications and followup testing that is ordered. It is a privilege to be allowed the opportunity to participate in the urologic care of your patient. If you have any questions or concerns regarding treatment for the above conditions please do not hesitate to contact me. The office telephone contact is [phone]. This note is constructed in part using voice recognition software. While every effort has been made to ensure accuracy meat butcher errors may have been included. Yours sincerely, Latanya Chong MD Scribe Plan - Not visible on output: Patient was informed and verbally consented to the use of an ambient scribe for clinic note documentation during this visit. Coding Level of Care Code Tele Est Pt Level 4 (16949) Diagnoses Left ureteral calculus N20.1 Hydronephrosis of left kidney N13.30 Kidney stone on left side N20.0 S/P ureteral stent placement Z96.0
--- OUTSIDE RECORDS SUMMARY | 2024-11-18 07:36 | XMS_ITS | Clinical Summary ---
Author Organization [employer] Address [address] [place] [address] [address] [place] [address] Care Team Providers Care Plane Tableman Name Role Phone Unavailable Primary Care Provider [...] use. 473 mL 4 Active HYDROcodone-amberly taminophen ([place]) 5-325 MG tabletIndicatio ns:History of tooth extraction, [...] of Phone Billing Address Personal/Family Self [address]
--- OUTSIDE RECORDS SUMMARY | 2024-11-18 07:36 | XMS_ITS | Encounter Summary ---
Author Organization [facility] Address [address] [place] [address] Care Team Providers Care Offshore Diver Name Role Phone Gege Thompson MD Primary Care Provider Reason for Visit * Reason Onset Date Comments Medication Problem 10/29/2024 Encounter Details Date Type Department Care Team ([facility] st Contact Info) Description 10/29/2024 Telephone Adult Medicine [facility] [address] [place] [address] Gege Thompson MD [address] [place] [id number] Medication Problem Social History Tobacco Use Types [...] Care Team (Late st Contact Info) Description 11/24/2024 10:30 AM EDT Office Visit [address] [phone] Gege Thompson MD [address] [place] [address] 11/29/2024 10:00 AM EDT Office Visit [address] [phone] Daniel Seymour NP [address] [place] [address] documented as of this encounter Visit Diagnoses Not on filedocumented in this encounter Discontinued Medications Medication Sig Discontinue Reason Start Date End Da te gabapentin (NEURONTIN) 300 mg capsule TAKE ONE CAPSULE BY MOUTH TWICE A DAY Reorder 10/29/2024 10/29/2024 documented as of this encounter Care Teams Offshore Diver Relationship Specialty Start Date End Date Gege Thompson MD [address] [place] [address] PCP - General Internal Medicine 03/04/1999 documented as of this encounter
== END 2024-11-18 09:10 | disposition home or self-care (01) ==
LOC: HO.HUSH 07:35
PROVIDERS: PCP Internal Medicine; Visit Provider Urology
DX: N20.1 Calculus of ureter (principal); N13.30 Unspecified hydronephrosis; N20.0 Calculus of kidney; Z96.0 Presence of urogenital implants
CPT/HCPCS: 99214

== ENCOUNTER 2024-11-23 08:52 | Day surgery (SDC) | payer OTHER, SELFPAY ==
--- OUTSIDE RECORDS SUMMARY | 2024-11-16 12:55 | XMS_ITS | Clinical Summary ---
Author Organization [employer] Address [address] [place] [address] [address] [place] [address] Care Team Providers Care Aircraft Structural Repairer Name Role Phone Unavailable Primary Care Provider [...] use. 473 mL 4 Active HYDROcodone-amberly taminophen ([place]) 5-325 MG tabletIndicatio ns:History of tooth extraction, [...] of Phone Billing Address Personal/Family Self [address]
--- OUTSIDE RECORDS SUMMARY | 2024-11-16 12:55 | XMS_ITS | Encounter Summary ---
Author Organization [facility] Address [address] [place] [address] Care Team Providers Care Handbag Stitcher Name Role Phone Gege Thompson MD Primary Care Provider Reason for Visit * Reason Onset Date Comments Medication Problem 10/29/2024 Encounter Details Date Type Department Care Team ([facility] st Contact Info) Description 10/29/2024 Telephone Adult Medicine [facility] [address] [place] [phone] Gege Thompson MD [address] [place] [address] Medication Problem Social History Tobacco Use Types [...] 10:00 AM EDT Office Visit Adult Medicine [facility] [address] [place], [place] [phone] Daniel Seymour NP [address] [place], [place] documented as of this encounter Visit Diagnoses Not on filedocumented in this encounter Discontinued Medications Medication Sig Discontinue Reason Start Date End Da te gabapentin (NEURONTIN) 300 mg capsule TAKE ONE CAPSULE BY MOUTH TWICE A DAY Reorder 10/29/2024 10/29/2024 documented as of this encounter Care Teams Handbag Stitcher Relationship Specialty Start Date End Date Gege Thompson MD [address] [place], [place] PCP - General Internal Medicine 03/04/1999 documented as of this encounter
--- NOTE | ~2024-11-23 | FL_ITS ---
EXAMINATION: FL GUIDANCE ONLY HISTORY: stone left COMPARISON: Correlation is made with a BMD of the abdomen and pelvis without contrast dated 11/11/2024. TECHNIQUE: Fluoroscopy time: 19.3 seconds. Cumulative Dose: 4.62 mGy. Images: 4. FINDINGS: Fluoroscopic spot films of the left abdomen demonstrate injection of the right ureter. There is moderate hydronephrosis. Filling defects are identified, consistent with the calculi noted on CT. The final images demonstrate placement of a nephroureteral stent. FL/FL guidance in OR IMPRESSION: Fluoroscopy during procedure. Please see procedure report for additional information. Electronically signed by: Randall Marcial MD 11/23/2024 11:03 AM EDT
[2024-11-23 09:06] VITALS: BMI 23.7
--- NOTE | 2024-11-23 09:25 | HO.ANESPROP2 ---
Documented by User: Antonia Weinberg NP 11/22/24 11:21 HPI - Anesthesia Eval Consult details Narrative: 64 yr old female for Cystoscopy, Ureteroroscopy, Retro, Laser,with suction and stent removal L s/p cystoscopy w/ GA 11/13/24. COPD: on Arnuity Smoker [facility] Active Problems Active Problems: All Active Problems (Updated 11/21/24 @ 00:01 by Onesimo Case) S/P ureteral stent placement (Acute) Kidney stone on left side (Acute) Insomnia (Acute) HTN (hypertension) (Acute) Left shoulder pain (Acute) Left elbow pain (Acute) COPD (chronic obstructive pulmonary disease) (Acute) Tobacco dependence (Acute) Anxiety (Acute) Hydronephrosis of left kidney (Acute) Acute kidney injury (Acute) Left ureteral calculus (Acute) Past Medical History Medical History CKD (chronic kidney disease) Insomnia HTN (hypertension) Concussion Bronchitis COPD (chronic obstructive pulmonary disease) Tobacco dependence Anxiety Nephrolithiasis Asthma Family History Family history of problems with anesthesia: No Surgical History Surgical History (Updated 11/23/24 @ 09:05 by Marlin Barrow RN) Hx of cystoscopy History of History of Problems with Anesthesia: No Social History Social History Household Members: Significant Other Housing: Apartment Do you presently have visiting nurse or other home services: No Alcohol intake: current Alcohol intake frequency: 0-2 drinks per day Comment: spasm Patient Tobacco Use Status: Current everyday Tobacco user Tobacco use type: Cigarette Cigarettes Per Day: 10 Years Smoked: 40 e-Cigarette/Vaping Use: Currently Using Second Hand Smoke Exposure: No Use of substances other than those prescribed or required for medical reasons: No Substance Use Type: Marijuana Are you DNR?: No Advance Directives: No Advance Directives Information Provided: Yes service: No Meds Allergies Allergy/AdvReac Type Severity Reaction Status Date / Time lisinopril (LISINOPRIL) Allergy Unknown UNKNOWN Verified 11/23/24 09:10 Penicillins (PENICILLINS) Allergy Unknown HIVES Verified 11/23/24 09:10 Home Medications ?Medication ?Instructions ?Recorded ?Confirmed ?Last Taken ?Type albuterol sulfate 90 mcg/actuation 2 puff inhalation Q4H PRN 11/12/24 11/23/24 Unknown History aerosol inhaler Shortness Of Breath Or Wheezing fluticasone furoate 50 1 inh inhalation DAILY 11/12/24 11/23/24 11/08/24 History mcg/actuation blister powder for inhalation (Arnuity Ellipta) gabapentin 300 mg capsule 300 mg PO BID 11/12/24 11/23/24 11/11/24 History lidocaine 4 % topical patch 1 patch topical DAILY PRN Back Pain 11/12/24 11/23/24 Unknown History (Salonpas (lidocaine)) losartan 100 mg tablet 100 mg PO DAILY 11/12/24 11/23/24 11/11/24 History trazodone 100 mg tablet 50 - 100 mg PO BEDTIME 11/12/24 11/23/24 11/10/24 History Assessment and Plan Final Anesthetic Review Family History of Problems with Anesthesia: No History of Problems with Anesthesia: No Documented by User: Marlin Moore DO 11/23/24 09:27 [facility] Past Medical History Medical History CKD (chronic kidney disease) Insomnia HTN (hypertension) Concussion Bronchitis COPD (chronic obstructive pulmonary disease) Tobacco dependence Anxiety Nephrolithiasis Asthma Family History Family history of problems with anesthesia: No Surgical History Surgical History (Updated 11/23/24 @ 09:05 by Marlin Barrow RN) Hx of cystoscopy History of History of Problems with Anesthesia: No Social History Social History Household Members: Significant Other Housing: Apartment Do you presently have visiting nurse or other home services: No Alcohol intake: current Alcohol intake frequency: 0-2 drinks per day Comment: spasm Patient Tobacco Use Status: Current everyday Tobacco user Tobacco use type: Cigarette Cigarettes Per Day: 10 Years Smoked: 40 e-Cigarette/Vaping Use: Currently Using Second Hand Smoke Exposure: No Use of substances other than those prescribed or required for medical reasons: No Substance Use Type: Marijuana Are you DNR?: No Advance Directives: No Advance Directives Information Provided: Yes service: No Meds Allergies Allergy/AdvReac Type Severity Reaction Status Date / Time lisinopril (LISINOPRIL) Allergy Unknown UNKNOWN Verified 11/23/24 09:10 Penicillins (PENICILLINS) Allergy Unknown HIVES Verified 11/23/24 09:10 Home Medications ?Medication ?Instructions ?Recorded ?Confirmed ?Last Taken ?Type albuterol sulfate 90 mcg/actuation 2 puff inhalation Q4H PRN 11/12/24 11/23/24 Unknown History aerosol inhaler Shortness Of Breath Or Wheezing fluticasone furoate 50 1 inh inhalation DAILY 11/12/24 11/23/24 11/08/24 History mcg/actuation blister powder for inhalation (Arnuity Ellipta) gabapentin 300 mg capsule 300 mg PO BID 11/12/24 11/23/24 11/11/24 History lidocaine 4 % topical patch 1 patch topical DAILY PRN Back Pain 11/12/24 11/23/24 Unknown History (Salonpas (lidocaine)) losartan 100 mg tablet 100 mg PO DAILY 11/12/24 11/23/24 11/11/24 History trazodone 100 mg tablet 50 - 100 mg PO BEDTIME 11/12/24 11/23/24 11/10/24 History Exam Exam Date and Time: 11/23/24 0925 Height,Weight and Vital Signs: Height 5 ft Weight 55 kg Airway Mallampati Class: I TM Dist: >3cm Neck ROM: Full Loose/Missing/Broken Teeth: Yes (several missing teeth but no loose or broken teeth) Heart: S1S2 Lungs: CTAB Assessment and Plan Assessment Anesthesia Assessment: Anesthesia Plan Discussed and Chart Reviewed Final Anesthetic Review Family History of Problems with Anesthesia: No History of Problems with Anesthesia: No NPO: Yes ASA Class: II Final Preanesthetic Review: No Changes in Pt Med Stat, Meds/Allgs Chart Reviewed, Consent Obtained/Reviewed and Anes Risks/Benef Reviewed Patient Risk: Low Procedure Risk: Low Anesthetic Plan Anesthetic Plan: GA and Agree w/ Assess. and Plan Disposition: Standard PACU
--- NOTE | 2024-11-23 09:28 | MHC.SHP ---
Pre-Procedural Eval Section A - 24 Hr Update-Section A only Date of Service: 11/23/24 The patient is an INPATIENT: No The patient has been examined within 24 hours of the surgical procedure. The History & Physical has been completed within 30 days and I have reviewed it.: Yes Section B - Complete if H&P > 30 days Chief Complaint: Calculus of ureter, and kidney, left Allergies: Allergies Allergy/AdvReac Type Severity Reaction Status Date / Time lisinopril (LISINOPRIL) Allergy Unknown UNKNOWN Verified 11/23/24 09:10 Penicillins (PENICILLINS) Allergy Unknown HIVES Verified 11/23/24 09:10 Plan Diagnosis/Plan: Unchanged I have reviewed the history and physical and performed a pertinent physical examination on my patient. No changes have occurred unless specified. Plan for Cystoscopy, left ureteroscopy, laser lithotripsy, ureteral stent. Risks discussed included but not limited to, possible need to repeat procedure if stone is not completely fragmented, Irritative voiding symptoms, bladder spasms, urgency, blood in urine. Time Spent With Patient Time: Total time managing care of this patient today ____ minutes.
--- NOTE | 2024-11-23 09:29 | W.PM.OPN ---
Operative Note Operative Note Date of Service: 11/23/24 Narrative: PreOperative Diagnosis:?? Left ureteral and left renal stone, left hydronephrosis, status post left ureteral stent Post Operative Diagnosis:?? Left ureteral and left renal stone, left hydronephrosis, status post left ureteral stent, Left ureterits Procedure: Cystoscopy, Left ureteroscopy Left stent exchange, size 7 South African by 22 cm Surgeon:?Dr Latanya Chong Anesthesia:? General Findings: Significant Edema and inflamatory changes noted along the entire left ureter Procedure: After informed consent was verified the patient was brought to the operating placed on the OR table in supine position.? General Anesthesia was administered per protocol.? The patient was placed in lithotomy position, prepped and draped in the usual sterile fashion.? Safety pause time-out and side of surgery confirmed.? Antibiotics confirmed. A 22 [place] cystoscope was inserted transurethrally, the bladder was visualized.? Both ureteric orifices were in normal position. The left ureteral stent was curled in the bladder. The distal end of the ureteral stent was grasped with the flexible grasping forceps. The stent was pulled retrograde through the urethra. A guidewire was passed through the stent. The cystoscope was removed, leaving the guidewire in place. The guidewire was used as the safety and was attached to the draping. The semi rigid ureteroscope was passed transurethrally the ureter had significant inflammatory changes, the ureteroscope was passed to the mid ureter, due to the inflammation and edema the ureteroscope was removed and a ureteral stent was replaced. The cystoscope was passed over the safety guidewire. A? 7 [place] by 22 cm stent was placed into the ureter and renal pelvis under a combination of fluoroscopy and direct visualization. The bladder was emptied.? The rigid cystoscope was removed. ? The patient tolerated the procedure well and was brought to the recovery room in stable condition. Complications: None Drains: Ureteral stent as dictated above
[2024-11-23 09:31] VITALS: BP 95/65; PULSE 81; RESP 15; TEMP 36.4; O2SAT 97
[2024-11-23] MEDS: Albuterol Sulfate (0.083%) 2.5 MG/3 ML VIAL.NEB INHALE (09:34)
[2024-11-23] MEDS: Lactated Ringers 1,000 ML 100 ML IVCONT (09:35)
[2024-11-23 10:47] VITALS: BP 115/50; PULSE 98; RESP 14; TEMP 36.6; O2SAT 97
[2024-11-23 10:52] VITALS: BP 111/55; PULSE 92; RESP 16; O2SAT 95
[2024-11-23 10:57] VITALS: BP 112/47; PULSE 88; RESP 16; O2SAT 95
[2024-11-23 11:02] VITALS: BP 120/56; PULSE 86; RESP 15; TEMP 36.7; O2SAT 96
== END 2024-11-23 11:47 | disposition home or self-care (01) ==
PROVIDERS: PCP Internal Medicine; Visit Provider Urology
PROC: (CPT 52332; principal; 2024-11-23 10:00)
DX: N13.2 Hydronephrosis with renal and ureteral calculous obstruction (principal); N28.89 Other specified disorders of kidney and ureter; Z96.0 Presence of urogenital implants; I10 Essential (primary) hypertension; J44.9 Chronic obstructive pulmonary disease, unspecified; Z87.820 Personal history of traumatic brain injury; F41.9 Anxiety disorder, unspecified; F17.210 Nicotine dependence, cigarettes, uncomplicated
CPT/HCPCS: 52332; 87086; C1758; C1769; C2617; J1100; J1956; J2003; J2371; J2405; J2704; Q9967

== ENCOUNTER → 2024-11-23 08:52 | Outpatient (BNV) | payer OTHER, SELFPAY | PROVIDERS: PCP Internal Medicine; Visit Provider Urology | DX: N20.2 Calculus of kidney with calculus of ureter (principal); N13.30 Unspecified hydronephrosis; Z96.0 Presence of urogenital implants | CPT/HCPCS: 52332 ==

== ENCOUNTER 2024-12-01 11:48 | Outpatient (AMB) | payer OTHER, SELFPAY ==
--- OUTSIDE RECORDS SUMMARY | 2024-12-01 12:45 | XMS_ITS | Clinical Summary ---
Author Organization [employer] Address [address] [place] [address] [address] [place] [address] Care Team Providers Care Special Education Teachers Name Role Phone Unavailable Primary Care Provider [...] use. 473 mL 4 Active HYDROcodone-amberly taminophen ([place]) 5-325 MG tabletIndicatio ns:History of tooth extraction, [...] of Phone Billing Address Personal/Family Self [address]
--- OUTSIDE RECORDS SUMMARY | 2024-12-01 12:45 | XMS_ITS | Encounter Summary ---
Author Organization [facility] [place] [address] Care Team Providers Care Seismology Teacher Name Role Phone Gege Thompson MD Primary Care Provider Reason for Visit * Reason Onset Date Comments Medication Problem 10/29/2024 Encounter Details Date Type Department Care Team ([facility] st Contact Info) Description 10/29/2024 Telephone Adult Medicine [id number] [place] [phone] Gege Thompson MD [address] [place] [address] Medication Problem Social History Tobacco Use Types [...] Care Team (Late st Contact Info) Description 12/27/2024 10:00 AM EDT Office Visit Adult Medicine [facility] [place] [address] [place], [place] [phone] Daniel Seymour NP [address] [place], [place] documented as of this encounter Visit Diagnoses Not on filedocumented in this encounter Discontinued Medications Medication Sig Discontinue Reason Start Date End Da te gabapentin (NEURONTIN) 300 mg capsule TAKE ONE CAPSULE BY MOUTH TWICE A DAY Reorder 10/29/2024 10/29/2024 documented as of this encounter Care Teams Seismology Teacher Relationship Specialty Start Date End Date Gege Thompson MD [address] [place] [address] PCP - General Internal Medicine 03/04/1999 documented as of this encounter
--- NOTE | 2024-12-01 14:57 | A.OFFVIS_ITS ---
Intake Visit Reasons: Discuss Surgical Procedure Intake Note: Patient presents for a telehealth to discuss surgical procedure UG meds: none Blood thinner none : Informatics Physician Liaison Required: No Accompanied by: Self / Same As Patient Allergies lisinopril (LISINOPRIL) Allergy (Unknown, Verified 11/23/24 09:10) UNKNOWN Penicillins (PENICILLINS) Allergy (Unknown, Verified 11/23/24 09:10) HIVES HPI Comments Details: 11/18/24--Ana Paula is s/p left ureteral stent by Dr. Keyes on 11/12/24. FU renal US 11/15/24, stent in good position. 1.3 cm stone lower pole. She is scheduled for ureteroscopy laser lithotripsy on 11/23/24 Telemedicine Evaluation 15 min Consultation [facility] Nini Video History of Present Illness - The patient is a 64-year-old female presenting with management of ureteral and kidney stones. - The patient had a stent placed due to ureteral stones causing obstruction of urine flow. - There is a larger stone located in the kidney. - The patient experiences pain when sitting, cramping, and back pain associated with the stent. - Hematuria was noted, which is attributed to the stent - The patient reports improved urination compared to prior to the stent placement. - Plan--cystoscopy left ureteroscopy laser lithotripsy exchange ureteral stent, oxycodone 10. Tablets sent Left lower pole stone Underwent attempted ureteroscopy Found to have narrowed ureter Stent placed Plan for repeat procedure next week Has had bladder spasm and left-sided flank pain Pain medication provided [facility] Medical History CKD (chronic kidney disease) Insomnia HTN (hypertension) Concussion Bronchitis COPD (chronic obstructive pulmonary disease) Tobacco dependence Anxiety Nephrolithiasis Asthma Surgical History (Updated 11/23/24 @ 09:05 by Marlin Barrow RN) Hx of cystoscopy History of Social History Household Members: Significant Other Housing: Apartment Do you presently have visiting nurse or other home services: No Alcohol intake: current Alcohol intake frequency: 0-2 drinks per day Comment: spasm Patient Tobacco Use Status: Current everyday Tobacco user Tobacco use type: Cigarette Cigarettes Per Day: 10 Years Smoked: 40 e-Cigarette/Vaping Use: Currently Using Second Hand Smoke Exposure: No Substance Use Type: Marijuana service: No Review of Systems Const All systems reviewed & are unremarkable except as noted in HPI and below Reports no additional complaints Resp Reports no additional complaints GI Reports no additional complaints Reports as per HPI Musc Reports no additional complaints Physical Exam Telemedicine evaluation Appropriate responses Regular breathing rate and rhythm HEENT Head: Yes normal to inspection Ears: hearing grossly normal bilaterally Eyes General: appearance normal, both eyes and all related structures Neck Neck: Yes normal visual inspection Chest Chest palpation & inspection: normal inspection of the chest Resp Effort & Inspection: normal respiratory effort and able to speak in complete se ntences Telehealth Telehealth Telehealth Platform: [employer] Location of provider rendering services: practice address Location of patient: address on file Patient Identification confirmed using: Name, : Yes Telehealth method: video Patient verbally consented to treatment: Yes Patient verbally consented to billing insurance company: Yes Patient informed of any privacy concerns related to visit: Yes Minutes spent on Phone/Video with Pt.: 15 Assessment & Plan Assessment & Plan (1) Hydronephrosis of left kidney: Code(s): N13.30 - Unspecified hydronephrosis Category: Medical (2) Left ureteral calculus: Code(s): N20.1 - Calculus of ureter Category: Medical Plan Risks, benefits and alternatives to therapy were discussed. These include but are not limited to infection, bleeding, damage to local organs and tissues, need for further interventions. Anesthetic risks regarding cardiac arrhythmia, blood clots, and potential mortality were discussed. The patient understands the typical recovery time and the outpatient nature of the procedure. After consideration of these risks the patient gives full informed consent and they wish to move ahead with the procedure. - cystoscopy, left stent removal, left ureteroscopy with laser lithotripsy Medications: Changed From oxycodone Partial Fill upon patient request. 5 mg PO Q8-12H PRN 12 tabs 0RF pain N20.0 - Calculus of kidney To oxycodone Partial Fill upon patient request. 5 mg PO Q8-12H PRN 21 tabs 0RF pain 7 days N20.0 - Calculus of kidney Patient Instructions: This note is constructed using voice recognition software. While every effort has been made to ensure accuracy concept artist errors may have been included. Imaging studies, laboratory and physical exam results were discussed and reviewed in detail. No major barriers to patient understanding were identified. An opportunity to ask questions regarding the treatment plan was provided. All questions were answered. The patient expressed understanding and agreement with the above treatment plan. The patient is aware they should contact our office by phone for worsening of their current condition or the appearance of new urologic symptoms. Compliance is encouraged with any medications and followup testing that is ordered. It is a privilege to participate in the urologic care of your patient. If you have any questions or concerns regarding treatment for the above conditions, or other urologic issues, please do not hesitate to contact me. The office telephone contact is [phone]. Sincerely, Dr Iván Keyes MD, [facility] - Urology Compassionate Specialist Care for the Genitourinary System Coding Level of Care Code Tele Est Pt Level 4 (20217) Diagnoses Hydronephrosis of left kidney N13.30 Left ureteral calculus N20.1
== END 2024-12-01 16:30 ==
LOC: HO.HUSH 11:48
PROVIDERS: PCP Internal Medicine; Visit Provider Urology
DX: N13.30 Unspecified hydronephrosis (principal); N20.1 Calculus of ureter
CPT/HCPCS: 99214

== ENCOUNTER 2024-12-06 13:05 | Day surgery (SDC) | payer OTHER, SELFPAY ==
--- OUTSIDE RECORDS SUMMARY | 2024-12-03 13:28 | XMS_ITS | Encounter Summary ---
Author Organization [facility] Address [address] [place] [address] Care Team Providers Care Lock Plater Name Role Phone Gege Thompson MD Primary Care Provider [phone] Gege Thompson MD Primary Care Provider [phone] Kina Kaur Md, MD Primary Care Provider Unavailable Gege Thompson MD Primary Care Provider [phone] Encounter Details Date Type Department Care Team Description 08/08/2005 SCAN Medical Records [address] [place] [id number] Abstract, Provider Social History Tobacco Use Types Packs/Day Years Used Date Smoking Tobacco: Every Day Cigarettes 0.3 Comments:quit 05/05/05 Alcohol Use Standard Drinks/Week Comments Yes 0 (1 standard drink = 0.6 oz pur e alcohol) at least 32 oz beer daily Sex Assigned at Date Recorded Not on file Job Start Date Occupation Industry Not on file Not on file Not on file documented as of this encounter Plan of Treatment Not on file documented as of this encounter Procedures Procedure Name Priority Date/Time Associated Diagnosis Comments MN ECG ROUTINE ECG W/LEAST 1 2 LDS W/I&R Routine 08/07/2005 documented in this encounter Results * ELECTROCARDIOGRAM, COMPLETE (ECG) (08/07/2005) 08/07/2005 CARDIOLOGY documented in this encounter Visit Diagnoses Not on filedocumented in this encounter Care Teams Lock Plater Relationship Specialty Start Date End Date Gege Thompson MD [address] [place] [address] PCP - General 03/04/1999 10/27/17 Gege Thompson MD [address] [place] [address] PCP - General Internal Medicine 10/28/17 01/02/18 Kina Kaur MD, [address] [place] [address] PCP - General Internal Medicine 01/03/18 06/08/18 Gege Thompson MD [address] [place] [address] PCP - General Internal Medicine 06/09/18 documented as of this encounter
--- OUTSIDE RECORDS SUMMARY | 2024-12-03 13:28 | XMS_ITS | Encounter Summary ---
Author Organization [facility] [place] [address] Care Team Providers Care Green End Man Name Role Phone Gege Thompson MD Primary Care Provider [phone] Reason for Visit * Reason Onset Date Comments Medication Problem 10/29/2024 Encounter Details Date Type Department Care Team ([facility] st Contact Info) Description 10/29/2024 Telephone Adult Medicine [id number] [place] [address] Gege Thompson MD [address] [place] [address] Medication Problem Social History Tobacco Use Types [...] 10:00 AM EDT Office Visit Adult Medicine [facility] [place] [address] [place], [place] [phone] Daniel Seymour NP [address] [place], [place] documented as of this encounter Visit Diagnoses Not on filedocumented in this encounter Discontinued Medications Medication Sig Discontinue Reason Start Date End Da te gabapentin (NEURONTIN) 300 mg capsule TAKE ONE CAPSULE BY MOUTH TWICE A DAY Reorder 10/29/2024 10/29/2024 documented as of this encounter Care Teams Green End Man Relationship Specialty Start Date End Date Gege Thompson MD [address] [place] [address] PCP - General Internal Medicine 03/04/1999 documented as of this encounter
--- OUTSIDE RECORDS SUMMARY | 2024-12-03 13:28 | XMS_ITS | Clinical Summary ---
Author Organization [employer] Address [address] [place] [address] [address] [place] [address] Care Team Providers Care Patient Experience Coordinator Name Role Phone Unavailable Primary Care Provider [...] use. 473 mL 4 Active HYDROcodone-amberly taminophen ([place]) 5-325 MG tabletIndicatio ns:History of tooth extraction, [...] of Phone Billing Address Personal/Family Self [address]
--- NOTE | 2024-12-03 13:58 | HO.ANESPROP2 ---
Documented by User: Keyla Monsivais NP 12/03/24 13:59 HPI - Anesthesia Eval Consult details Narrative: 64 yr old female for Left Cystoscopy, Ureteroroscopy, Retro, Laser,with possible stent removal s/p same 11/23/24 with GA-LMA 4 COPD: on Arnuity Smoker PMF Active Problems Active Problems: All Active Problems S/P ureteral stent placement (Acute) Kidney stone on left side (Acute) Left shoulder pain (Acute) Left elbow pain (Acute) Hydronephrosis of left kidney (Acute) Acute kidney injury (Acute) Left ureteral calculus (Acute) Insomnia (Acute) HTN (hypertension) (Acute) COPD (chronic obstructive pulmonary disease) (Acute) Tobacco dependence (Acute) Anxiety (Acute) Past Medical History Medical History CKD (chronic kidney disease) Insomnia HTN (hypertension) Concussion Bronchitis COPD (chronic obstructive pulmonary disease) Tobacco dependence Anxiety Nephrolithiasis Asthma Family History Family history of problems with anesthesia: No Surgical History Surgical History Hx of cystoscopy History of History of Problems with Anesthesia: No Social History Social History Household Members: Significant Other Housing: Apartment Do you presently have visiting nurse or other home services: No Alcohol intake: current Alcohol intake frequency: does not drink Comment: spasm Patient Tobacco Use Status: Current everyday Tobacco user Tobacco use type: Cigarette Cigarettes Per Day: 10 Years Smoked: 40 e-Cigarette/Vaping Use: Currently Using Second Hand Smoke Exposure: No Use of substances other than those prescribed or required for medical reasons: Yes Substance Use Type: Marijuana Substance Use Frequency: Daily Have you been hit, kicked, punched, or otherwise hurt by someone within the past year? If so, by whom?: No Are you DNR?: No Advance Directives: No Advance Directives Information Provided: Yes Patient : No : No Poor oral hygiene: No service: No Meds Allergies Allergy/AdvReac Type Severity Reaction Status Date / Time lisinopril (LISINOPRIL) Allergy Unknown UNKNOWN Verified 12/06/24 13:29 Penicillins (PENICILLINS) Allergy Unknown HIVES Verified 12/06/24 13:29 Home Medications ?Medication ?Instructions ?Recorded ?Confirmed ?Last Taken ?Type albuterol sulfate 90 mcg/actuation 2 puff inhalation Q4H PRN 11/12/24 12/06/24 12/06/24 History aerosol inhaler Shortness Of Breath Or Wheezing fluticasone furoate 50 1 inh inhalation DAILY 11/12/24 11/23/24 11/08/24 History mcg/actuation blister powder for inhalation (Arnuity Ellipta) gabapentin 300 mg capsule 300 mg PO BID 11/12/24 12/06/24 12/06/24 History lidocaine 4 % topical patch 1 patch topical DAILY PRN Back Pain 11/12/24 11/23/24 Unknown History (Salonpas (lidocaine)) losartan 100 mg tablet 100 mg PO DAILY 11/12/24 12/06/24 12/06/24 History trazodone 100 mg tablet 50 - 100 mg PO BEDTIME 11/12/24 11/23/24 11/10/24 History Exam Pertinent Lab Results Pertinent Lab Results: Laboratory Tests 11/15/24 15:21 WBC 5.9 Hgb 11.6 L Hct 35.2 L Plt Count 225 Sodium 142 Potassium 4.5 Chloride 109 H Carbon Dioxide 26 BUN 20 H Creatinine 1.74 H Assessment and Plan Assessment Anesthesia Assessment: Chart Reviewed Final Anesthetic Review Family History of Problems with Anesthesia: No History of Problems with Anesthesia: No Documented by User: Judit Abarca MD 12/06/24 14:14 PMFSH Past Medical History Medical History CKD (chronic kidney disease) Insomnia HTN (hypertension) Concussion Bronchitis COPD (chronic obstructive pulmonary disease) Tobacco dependence Anxiety Nephrolithiasis Asthma Surgical History Surgical History Hx of cystoscopy History of Social History Social History Household Members: Significant Other Housing: Apartment Do you presently have visiting nurse or other home services: No Alcohol intake: current Alcohol intake frequency: does not drink Comment: spasm Patient Tobacco Use Status: Current everyday Tobacco user Tobacco use type: Cigarette Cigarettes Per Day: 10 Years Smoked: 40 e-Cigarette/Vaping Use: Currently Using Second Hand Smoke Exposure: No Use of substances other than those prescribed or required for medical reasons: Yes Substance Use Type: Marijuana Substance Use Frequency: Daily Have you been hit, kicked, punched, or otherwise hurt by someone within the past year? If so, by whom?: No Are you DNR?: No Advance Directives: No Advance Directives Information Provided: Yes Patient : No : No Poor oral hygiene: No service: No Meds Allergies Allergy/AdvReac Type Severity Reaction Status Date / Time lisinopril (LISINOPRIL) Allergy Unknown UNKNOWN Verified 12/06/24 13:29 Penicillins (PENICILLINS) Allergy Unknown HIVES Verified 12/06/24 13:29 Home Medications ?Medication ?Instructions ?Recorded ?Confirmed ?Last Taken ?Type albuterol sulfate 90 mcg/actuation 2 puff inhalation Q4H PRN 11/12/24 12/06/24 12/06/24 History aerosol inhaler Shortness Of Breath Or Wheezing fluticasone furoate 50 1 inh inhalation DAILY 11/12/24 11/23/24 11/08/24 History mcg/actuation blister powder for inhalation (Arnuity Ellipta) gabapentin 300 mg capsule 300 mg PO BID 11/12/24 12/06/24 12/06/24 History lidocaine 4 % topical patch 1 patch topical DAILY PRN Back Pain 11/12/24 11/23/24 Unknown History (Salonpas (lidocaine)) losartan 100 mg tablet 100 mg PO DAILY 11/12/24 12/06/24 12/06/24 History trazodone 100 mg tablet 50 - 100 mg PO BEDTIME 11/12/24 11/23/24 11/10/24 History Exam Airway Mallampati Class: II TM Dist: >3cm Heart: rrr Lungs: cta Assessment and Plan Final Anesthetic Review NPO: Yes ASA Class: III Final Preanesthetic Review: No Changes in Pt Med Stat, Meds/Allgs Chart Reviewed, Consent Obtained/Reviewed and Anes Risks/Benef Reviewed Patient Risk: Intermediate Procedure Risk: Low Anesthetic Plan Anesthetic Plan: GA Disposition: Standard PACU
--- NOTE | ~2024-12-06 | FL_ITS ---
EXAMINATION: FL GUIDANCE ONLY HISTORY: stone left COMPARISON: None available. TECHNIQUE: Fluoroscopy time: 32.4. Cumulative Dose: 8.34 mGy. Images: 3. FINDINGS: Fluoroscopic spot films demonstrate a left nephroureteral stent in place. FL/FL guidance in OR IMPRESSION: Fluoroscopy during procedure. Please see procedure report for additional information. Electronically signed by: Randall Marcial MD 12/06/2024 03:32 PM EDT
[2024-12-06 13:24] VITALS: BMI 22.8
[2024-12-06 13:38] VITALS: BP 105/56; PULSE 71; RESP 14; TEMP 36.6; O2SAT 98
[2024-12-06] MEDS: Lactated Ringers 1,000 ML 100 ML IVCONT (13:48)
--- NOTE | 2024-12-06 14:24 | MHC.SHP ---
Pre-Procedural Eval Section A - 24 Hr Update-Section A only Date of Service: 12/06/24 The patient is an INPATIENT: No Changes since office visit: No Cold of Flu in the past 2 weeks, No New Medical Problems, No Changes in Medication and No Patient answered all questions The patient has been examined within 24 hours of the surgical procedure. The History & Physical has been completed within 30 days and I have reviewed it.: Yes Section B - Complete if H&P > 30 days Chief Complaint: Calculus of kidney Details of Present Illness: Cystoscopy, left stent removal, left retrograde, left flexible ureteroscopy with laser lithotripsy stone basket Relevant Family History (Specify if Yes): No Relevant Social History: None Present Medications: see Short Stay Collaborative assessment Medical History: No relevant PMH History of Previous Operations: Relevant previous surgery/procedure and date(s) Allergies: Allergies Allergy/AdvReac Type Severity Reaction Status Date / Time lisinopril (LISINOPRIL) Allergy Unknown UNKNOWN Verified 12/06/24 13:29 Penicillins (PENICILLINS) Allergy Unknown HIVES Verified 12/06/24 13:29 Review of Systems Sugical H&P ROS: Negative: Constitution, Cardiovascular, Respiratory, Neurological, Psychiatric, Hem-Onc, Allergic/Immunologic, Gastrointestinal, Genitourinary, Musculoskeletal, Integumentary, Endocrine and Eyes/Ears/Nose/Throat Exam Surgical H&P Exam: Normal: HEENT, Normal: Heart, Normal: Lungs, Normal: Extremities, Normal: Abdomen, Normal: Skin and Normal: Neurological Plan Diagnosis/Plan: Unchanged I have reviewed the history and physical and performed a pertinent physical examination on my patient. No changes have occurred unless specified. Time Spent With Patient Time: Total time managing care of this patient today ____ minutes.
[2024-12-06 15:31] VITALS: BP 83/51; PULSE 80; RESP 18; TEMP 36.1; O2SAT 98
[2024-12-06 15:35] VITALS: BP 88/55; PULSE 76; RESP 16; O2SAT 97
--- NOTE | 2024-12-06 15:35 | P.OP_ITS ---
Operative Note Operative Note Date of Service: 12/06/24 Narrative: PreOperative Diagnosis: Left renal stone with indwelling stent Post Operative Diagnosis: Left renal stone with indwelling stent Procedure: - cystoscopy, left retrograde - removal left stent - left dilatation of ureteric orifice under fluoroscopy - left ureteroscopy, laser lithotripsy, stone basketing - use of steerable vacuum ureteric catheter Surgeon: Dr Iván Keyes Anesthesia: General Indications for procedure: Indwelling left stent. Placed for UPJ stone when presented with pyelonephritis. Procedure: After informed consent was verified patient was brought to the operating placed in supine position. Anesthesia was administered per protocol. Patient was placed in modified dorsal lithotomy position and prepped and draped in a sterile fashion. Safety pause time-out and side of surgery confirmed. Antibiotics confirmed. A 22 Ecuadorean cystoscope was inserted per urethra. The urethra and bladder were normal in their entirety. Both ureteric orifices were in normal position. The left ureteric orifice was cannulated and a retrograde examination was performed. No clear filling defects seen.. A Sensor guidewire was placed up to the level of the renal pelvis under fluoroscopy. The indwelling left stent was grasped and removed. The rigid cystoscope was removed and the inner cannula of ureteric access sheath was used under fluoroscopy to dilate the ureteric orifice. The ureteric access sheath was placed and the inner cannula with access wire removed. The digital flexible ureteral scope was placed. Two small stones encountered in middle pole, 3 small stones encountered in lower pole. Using the steerable vacuum sheath we were able to target the lower pole stones and using the 270 micron laser holmium fiber able to break these into small pieces and using a 1.9 Ecuadorean ZeroTip basket they were removed and will be sent for analysis. The stones in the mid pole were able to be suctioned directly into the sheath using our vacuum navigated able sheath. At the completion of the stone procedure decision was made not to place a stent. The sheath was removed under direct vision and there were no mucosal abnormalities of the ureter noted. The bladder was emptied. The patient tolerated the procedure well and was extubated in the operating room, and transferred in stable condition to the recovery area. Pathology: Stones as described above Drains: [facility] code [id number] describes cystourethroscopy, with ureteroscopy and/or pyeloscopy, with lithotripsy, and ureteral catheterization for steerable vacuum aspiration of the kidney, collecting system, ureter, bladder, and urethra if applicable (must use a steerable ureteral catheter).
[2024-12-06 15:40] VITALS: BP 92/53; PULSE 72; RESP 16; O2SAT 95
[2024-12-06 15:45] VITALS: BP 96/54; PULSE 69; RESP 16; O2SAT 97
[2024-12-06 16:00] VITALS: BP 109/62; PULSE 71; RESP 16; TEMP 36.1; O2SAT 96
== END 2024-12-06 16:03 | disposition home or self-care (01) ==
PROVIDERS: PCP Internal Medicine; Visit Provider Urology
PROC: (CPT 52353; principal; 2024-12-06 14:30)
DX: N20.0 Calculus of kidney (principal); Z96.0 Presence of urogenital implants; I12.9 Hypertensive chronic kidney disease with stage 1 through stage 4 chronic kidney disease, or unspecified chronic kidney disease; N18.9 Chronic kidney disease, unspecified; J44.9 Chronic obstructive pulmonary disease, unspecified; Z87.820 Personal history of traumatic brain injury; Z88.0 Allergy status to penicillin; Z88.8 Allergy status to other drugs, medicaments and biological substances; F17.210 Nicotine dependence, cigarettes, uncomplicated; F41.9 Anxiety disorder, unspecified
CPT/HCPCS: 52353; 82365; 88300; C1758; C1769; J0131; J1956; J2003; J2250; J2405; J2704; J3010; Q9967

== ENCOUNTER → 2024-12-06 13:05 | Outpatient (BNV) | payer OTHER, SELFPAY | PROVIDERS: PCP Internal Medicine; Visit Provider Urology | DX: N20.0 Calculus of kidney (principal); Z96.0 Presence of urogenital implants | CPT/HCPCS: 52353; 74420 ==

== ENCOUNTER 2024-12-27 11:44 | Emergency (ER) | payer OTHER, SELFPAY ==
--- NOTE | ~2024-12-27 | CT_ITS ---
EXAMINATION: CT ABDOMEN PELVIS WITHOUT IV CONTRAST HISTORY: r/o diverticulitis COMPARISON: Comparison is made with the prior examination dated 11/11/2024. TECHNIQUE: CT scan of the abdomen and pelvis was performed without contrast using standard departmental protocol. Coronal and sagittal reformatted images were generated and reviewed. The patient received oral contrast material. This CT exam was performed with one or more of the following dose reduction techniques: automated exposure control, adjustment of the mA and/or kV according to patient size, use of iterative reconstruction technique. DLP: 334 mGy-cm FINDINGS: LOWER CHEST: The visualized lung bases are clear. There is no pleural effusion. CARDIOVASCULATURE: The heart is normal in size. There is no pericardial effusion. LIVER: The liver is normal in size and contour. The liver has an unremarkable unenhanced appearance. GALLBLADDER / BILE DUCTS: The gallbladder is unremarkable. There is no intra or extrahepatic biliary ductal dilatation. SPLEEN: The spleen is normal in size and has an unremarkable unenhanced appearance. PANCREAS: The pancreas has an unremarkable unenhanced appearance. ADRENAL GLANDS: Unremarkable. KIDNEYS/RETROPERITONEUM: There is a 9 mm nonobstructing calculus at the lower pole of the left kidney. There is moderate left hydronephrosis and hydroureter to the level of the iliac crests. Please see below. LYMPH NODES: There is diffuse adenopathy on the left from the aortic bifurcation to the groin. Enlarged nodes at the bifurcation measure up to 2.4 x 2.3 cm. Enlarged left femoral lymph nodes measure up to 4.4 cm in diameter. These nodes cause obstruction of the left ureter. VASCULATURE: The abdominal aorta demonstrates atherosclerotic calcification, but is normal in caliber. MESENTERY/PERITONEUM: No free fluid. No masses. There is no free intraperitoneal gas. STOMACH: The stomach is unremarkable. SMALL BOWEL: The small bowel is normal in caliber. COLON: There is extensive diverticulosis of the descending and sigmoid colon, without evidence of diverticulitis. APPENDIX: Normal. URINARY BLADDER/PELVIC ORGANS: The urinary bladder is collapsed, limiting evaluation. The uterus has an unremarkable unenhanced appearance. BONES / SOFT TISSUES: No suspicious bony or soft tissue abnormalities. CT/CT abdomen pelvis wo IV con IMPRESSION: 1. Diffuse left-sided lymphadenopathy extending from the aortic bifurcation to the groin. There is resultant obstruction of the left ureter causing moderate hydroureteronephrosis. 2. 9 mm nonobstructing calculus at the lower pole of the left kidney. 3. Diverticulosis of the descending and sigmoid colon, without evidence of diverticulitis. 4. Findings were discussed with Dr. Robbins in the emergency room on 12/27/2024 at 3:14 PM. Electronically signed by: Randall Marcial MD 12/27/2024 03:19 PM EDT
--- OUTSIDE RECORDS SUMMARY | 2024-12-27 10:00 | XMS_ITS | Encounter Summary ---
Author Organization [facility] Address [address] [place] [address] Care Team Providers Care Storm Chaser Name Role Phone Gege Thompson MD Primary Care Provider Reason for Referral * Consultation (Routine) - Pending Review Specialty Diagnoses / Procedures Referred By Malgorzata solorzano Referred To Contact Nephrology Diagnoses Encounter for screening for cardiovascular disorders Daniel Seymour NP [address] [place] [address] Phone: tel: fax: Referral ID Status Reason Start Date Expiration Date Visits Requested Visits Authorized [id number] Pending Review Specialty Services Required 12/27/2024 12/27/2025 1 1 Reason for Visit * Reason Comments weakness Patient having weakn ess and is not feeling well since her kidney stone removal. Patient still having pain where they took out the stent. Patient called out of work today and will need a work note Encounter Details Date Type Department Care Team (Late st Contact Info) Description 12/27/2024 10:00 AM EDT Office Visit Adult Medicine [address] [phone] Daniel Seymour NP [address] [place], [place] Encounter for screening for cardiovascular disorders (Primary Dx); Stage 3a chronic kidney disease (CMS/HCC V24, CMS/HCC V28) Social History Tobacco Use Types Packs/Day Years Used Date Smoking Tobacco: Every Day Cigarettes Last attempted to quit: 03/20/2011 Smokeless Tobacco: Never Tobacco Cessation:Ready to Q uit: Not Asked; Counseling Given: Not Answered Alcohol Use Standard Drinks/Week Comments Yes 0 (1 standard drink = 0.6 oz pur e alcohol) Comments No Sex and Gender Information Value Date Recorded Sex Assigned at Not on file Legal Sex Female 12:24 AM EST Gender Identity Not on file Sexual Orientation Not on file documented as of this encounter Last Filed Vital Signs Vital Sign Reading Time Taken Comments Blood Pressure 125/78 12/27/2024 9:57 AM EDT Pulse 87 12/27/2024 9:57 AM EDT Temperature 36.4 C (97.5 F) 12/27/2024 9:57 AM EDT Respiratory Rate 14 12/27/2024 9:57 AM EDT Oxygen Saturation 95% 12/27/2024 9:57 AM EDT Inhaled Oxygen Concentration - - Weight 54 kg (119 lb) 12/27/2024 9:57 AM EDT Height 152.4 cm (5') 12/27/2024 9:57 AM EDT Body Mass Index 23.24 12/27/2024 9:57 AM EDT documented in this encounter Plan of Treatment Scheduled Orders Name Type Priority Associated Diagnoses Orde r Schedule Urinalysis with reflex microscopic and culture Lab Routine Encounter for screening for cardiovascular disorders Expected: 12/27/2024, Expires: 06/29/2025 Comprehensive metabolic panel Lab Routine Encounter for screening for cardiovascular disorders 1 Occurrences starting 12/27/2024 until 12/27/2025 Lipid panel with reflex to direct LDL Lab Routine Encounter for screening for cardiovascular disorders 1 Occurrences starting 12/27/2024 until 12/27/2025 Thyroid stimulating hormone with reflex to free t4 and free t3 Lab Routine Encounter for screening for cardiovascular disorders 1 Occurrences starting 12/27/2024 until 12/27/2025 CBC and differential Lab Routine Encounter for screening for cardiovascular disorders Expected: 12/27/2024, Expires: 06/29/2025 Hemoglobin A1c Lab Routine Encounter for screening for cardiovascular disorders Expected: 12/27/2024, Expires: 06/29/2025 Scheduled Referrals Name Type Priority Associated Diagnoses Orde r Schedule Ambulatory referral to Nephrology Outpatient Referral Routine Encounter for screening for cardiovascular disorders 1 Occurrences starting 12/27/2024 until 12/27/2025 documented as of this encounter Visit Diagnoses Diagnosis Encounter for screening for cardiovascular disorders- Primary Stage 3a chronic kidney disease ([facility] V24, [facility] V28) documented in this encounter Historical Medications * This list may reflect changes made after this encounter. tamsulosin (FLOMAX) 0.4 mg 24 hr capsule Take 1 capsule (0.4 mg total) by mouth 1 (one) time each day. 12/21/2024 added in this encounter Care Teams Storm Chaser Relationship Specialty Start Date End Date Gege Thompson MD [address] [place] [address] PCP - General Internal Medicine 03/04/1999 documented as of this encounter
[2024-12-27 11:49] VITALS: BP 118/58; PULSE 91; RESP 19; TEMP 36.5; O2SAT 98; BMI 23.2
--- NOTE | 2024-12-27 11:52 | ED_ITS ---
HPI - General Adult General Chief complaint: Recheck/Abnormal Lab/Rx Stated complaint: chronic kidney failure Time Seen by Provider: 12/27/24 12:10 Source: patient Mode of arrival: ambulatory Limitations: no limitations History of Present Illness ED Provider: HPI narrative: 64-year-old woman status post stent removal, multiple kidney stones removal, lithotripsy, sent in by PCP mid-level provider for concerns of RAHAT on CKD,, irritation is endorsing left lower quadrant abdominal pain and overall states does not feel well, no chest pain or shortness of breath no fevers or chills, no numbness in the groin, has had no dysuria. Related Data Home Medications ?Medication ?Instructions ?Recorded ?Confirmed albuterol sulfate 90 mcg/actuation 2 puff inhalation Q 4H PRN 11/12/24 12/06/24 aerosol inhaler Shortness Of Breath Or Wheez ing fluticasone furoate 50 1 inh inhalation DAILY 11/1211/23/24 mcg/actuation blister powder for inhalation (Arnuity Ellipta) gabapentin 300 mg capsule 300 mg PO BID 11/12/2412/06 lidocaine 4 % topical patch 1 patch topical DAILY PRN Back Pain 11/12/24 11/23/24 (Salonpas (lidocaine)) losartan 100 mg tablet 100 mg PO DAILY 11/12/2408/27 trazodone 100 mg tablet 50 - 100 mg PO BEDTIME 11/1211/23/24 Previous Rx's ?Medication ?Instructions ?Recorded nicotine 21 mg/24 hr daily 21 mg transdermal DAILY #28 ea 11/13/24 transdermal patch oxycodone 5 mg tablet 5 mg PO Q8-12H PRN pain 7 da ys #21 12/01/24 tabs naproxen 500 mg tablet 500 mg PO BID PRN pain 7 day s #14 12/06/24 tabs oxycodone 5 mg tablet 5 mg PO Q8H PRN pain 3 days #8 tabs 12/06/24 phenazopyridine 100 mg tablet 100 mg PO TID PRN Spasm 4 days #12 12/06/24 (Pyridium) tabs tamsulosin 0.4 mg capsule 0.4 mg PO BEDTIME 30 days #3 0 caps 12/21/24 cephalexin 500 mg capsule 500 mg PO BID 7 days #14 cap s 12/27/24 morphine 15 mg immediate release 15 mg PO Q8H PRN pain 5 days #20 12/27/24 tablet tabs Allergies Allergy/AdvReac Type Severity Reaction Status Date / Time lisinopril (LISINOPRIL) Allergy Unknown UNKNOWN Verified 12/27/24 11:52 Penicillins (PENICILLINS) Allergy Unknown HIVES Verified 12/27/24 11:52 Review of Systems 2 Constitutional: Constitutional: Reports as per [facility] Past Medical History Medical History CKD (chronic kidney disease) Insomnia HTN (hypertension) Concussion Bronchitis COPD (chronic obstructive pulmonary disease) Tobacco dependence Anxiety Nephrolithiasis Asthma Surgical History Hx of cystoscopy History of Social History Social History Household Members: Significant Other Housing: Apartment Do you presently have visiting nurse or other home services: No Alcohol intake: current Alcohol intake frequency: does not drink Comment: spasm Patient Tobacco Use Status: Current everyday Tobacco user Tobacco use type: Cigarette Cigarettes Per Day: 10 Years Smoked: 40 Smoked in Last 30 Days: Yes e-Cigarette/Vaping Use: Currently Using Second Hand Smoke Exposure: No Use of substances other than those prescribed or required for medical reasons: Yes Substance Use Type: Marijuana Substance Use Frequency Other:: occasional Advance Directives: No Advance Directives Information Provided: Yes Do you have a plan to hurt others: No Plan service: No Physical Exam ED Vital Signs: Vital Signs - 24 hr 12/27/24 11:49 12/27/24 12:24 12/27/24 12:41 Temperature 97.7 F 97.7 F Pulse Rate 91 80 Respiratory Rate 19 19 16 Blood Pressure 118/58 L 137/75 Pulse Oximetry 98 98 Oxygen Delivery Method Room Air Room Air BMI result Body Mass Index 23.2 Const Other: * Gen: ?Overall well-appearing patient * Resp: ?No wheezing rales rhonchi no stridor moving air well * Abd: ?Bowel sounds are present, voluntary guarding and tenderness in left lower quadrant, no CVA tenderness * MSK: FROM, strength 5/5 all extremities * Skin: Warm, dry, intact, * Neuro: ?Alert and oriented x3, moving upper and lower extremities symmetrically, no obvious facial asymmetry noted Course Course Course Narrative: Rapid medical examination performed in triage by Sherry Rubi PA-C. Patient is a 64 year old assigned female at presenting to the emergency department with flank pain and concerns of kidney function. Patient states she recently had a ureteral stent placed and subsequently removed by Dr. Keyes but her flank pain persists and recent labs showed an elevated CR. Detailed physical exam and review of systems are deferred to the primary class teacher. Labs ordered. Patient placed back in the waiting room pending room availability and results. Medications Administered Generic Name Dose Route Start Last Admin Trade Name Freq PRN Reason Stop Dose Admin Ceftriaxone Sodium 1 gm 12/27/24 12:30 12/27/24 12:46 Ceftriaxone Sodium 1 Gm Vial IVPUSH 1 gm Q12H JOANNE Administration Lactated Ringer's 1,000 mls @ 0 mls/hr 12/27/24 12:30 12/27/24 15:45 Lr IV Infused .Q0M JOANNE Infusion Wide Open Discontinued Medications Generic Name Dose Route Start Last Admin Trade Name Freq PRN Reason Stop Dose Admin Diatrizoate Meglum/Diatrizoate Sod 30 ml 12/27/24 13:29 12/27/24 13:29 Diatrizoate Meglumine, Sodium 30 Ml Solution PO 12/27/24 13:30 30 ml ONCE ONE Administration Morphine Sulfate 2 mg 12/27/24 12:35 12/27/24 12:41 Morphine Sulfate 2 Mg/Ml Cartridge IVPUSH 12/27/24 12:36 2 mg ONCE ONE Administration Protocol Medical Decision Making Medical Decision Making [facility] Narrative: As far as patient's renal function, I am not as concerned with creatinine that she was sent with 1.96 I did review outpatient paperwork the patient brought with her, however on examination she is quite tender in the left lower quadrant, wondering whether she is developing diverticulitis, and of course she did have a procedure and she may have inflammation of her ureter, her urinalysis is suspicious for infection, we will load her with antibiotics, as she also recently had urologic procedure, disposition to be determined. 15:[address] findings, and as I was mentioning the CT findings she then endorse that she has discomfort in her lymph nodes for the past few weeks as well in the submandibular area axillary area as well as groin and in the back of the knees, I consulted Dr. 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 ( she will contact pt )pt and her son updated Differential Diagnosis Differential Diagnoses: The differential diagnosis associated with the presentation includes (Diverticulitis, pyelonephritis, volvulus, SBO, bowel perforation, cystitis, RAHAT) Admission/Observation Consideration of admission/observation: Escalation of care including admission/observation considered 2022 Emergency Medicine Coding Guide from [employer] on 12/27/2024 All calculations should be rechecked by clinician prior to use RESULT SUMMARY: 5 Estimated Level of Service Problems: High (5) Risk: High (5) Data: Moderate (4) NARRATIVE MDM: This patient's problem complexity is High as patient: may have an acute or chronic illness/injury posing a threat to life or body function. This patient's risk is High due to: overall presentation requiring evaluation for a potentially High-risk process. This patient's data complexity is Moderate due to: -multiple tests ordered -external notes reviewed INPUTS: Number and Complexity ?> 2 = 5: illness/injury w/life or body threat (b) Risk level ?> 4 = High Tests ordered ?> 2 = 2 Tests results reviewed (excluding labs) ?> 1 = 1 Prior external notes reviewed ?> 1 = 1 Assessment requiring and independent historian ?> 0 = No Independent interpretation of tests ?> 0 = No Discussed management/test interpretation w/external professional ?> 0 = No Lab Data 12/27/24 12:05 12/27/24 12:05 Labs: Lab Results 12/27/24 Range/Units 12:05 WBC 7.8 (4.8-10.8) X10*3/uL RBC 3.94 L (4.20-5.50) X10*6/uL Hgb 11.6 L (12.0-16.0) g/dl Hct 35.6 L (37.0-47.0) % MCV 90.4 (80.0-98.0) fL MCH 29.4 (27.0-33.0) pg MCHC 32.6 (31.0-35.0) g/dl RDW 12.2 (11.0-16.0) % Plt Count 305 D (160-400) X10*3/uL MPV 8.9 L (9.4-12.3) fL Immature Gran % (Auto) 0.3 (0.0-0.4) % Neut % (Auto) 61.1 (45-73) % Lymph % (Auto) 24.0 (20-40) % [place] % (Auto) 7.6 (2-11) % Eos % (Auto) 6.4 H (0-4) % Baso % (Auto) 0.6 (0-2) % Lymph # (Auto) 1.9 (1.2-4.9) X10*3/uL [place] # (Auto) 0.6 (0.1-1.2) X10*3/uL Eos # (Auto) 0.5 H (0.0-0.4) X10*3/uL Baso # (Auto) 0.1 (0.0-0.2) X10*3/uL Abs Immat Gran (auto) 0.02 (0.00-0.03) X10*3/uL Absolute Neuts (auto) 4.8 (2.0-8.3) x10*3/uL Absolute Nucleated RBC 0.000 (0.0-0.012) X10*3/uL Nucleated RBC % (auto) 0.0 (0.0-0.2) /100WBC Sodium 141 (135-145) mmol/L Potassium 4.3 (3.3-5.1) mmol/L Chloride 108 (96-108) mmol/L Carbon Dioxide 23 (22-29) mmol/L Anion Gap 14 (12-20) BUN 24 H (9-16) mg/dL Creatinine 1.94 H (0.5-1.4) mg/dL Estim Creat Clear Calc 21.0 Estimated GFR 26 Random Glucose 100 (60-115) mg/dL Calcium 9.5 (8.4-10.2) mg/dL Total Bilirubin 0.2 (0.0-1.0) mg/dL AST 27 (5-31) U/L ALT 19 (0-31) U/L Alkaline Phosphatase 154 H (39-117) U/L Total Protein 6.8 (6.5-8.0) g/dL Albumin 4.2 (3.5-5.0) g/dL Urine Color Yellow Urine Appearance Clear Urine pH 5.5 (5.0-9.0) Ur Specific [place] 1.025 (1.005-1.025) Urine Protein 30 (1+) H (Neg-Trace) mg/dL Urine Glucose (UA) Negative (Negative) mg/dL Urine Ketones Trace (Negative) mg/dL Urine Blood Negative (Negative) Urine Nitrite Negative (Negative) Ur Leukocyte Esterase Moderate (2+) H (Negative) Urine RBC 0-2 (0-2) /HPF Urine WBC 11-20 H (0-5) /HPF Ur Squamous Epith Cells 11-20 (0-2) /HPF Urine Bacteria 1+ (None Seen) Hyaline Casts 3-5 (0-2) /LPF Critical Care Time Critical Care Time Total Critical Care Time: 45 Attestation: Time is exclusive of separately billable procedures. Time includes: direct patient care, patient reassessment, coordination of patient care, interpretation of data (laboratory data, pulse oximetry, arterial blood gases and chest xrays), review of patient's medical records, medical consultation and documentation of patient care. Procedures excluded from critical care time: central intravenous line placement and electrocardiography. Discharge Plan Discharge Clinical Impression: Acute kidney injury superimposed on CKD, Left lower quadrant abdominal pain, UTI (urinary tract infection) Patient Disposition: Home, Self-Care Additional Instructions: As discussed based on your CAT scans findings I would like you to follow up with Dr. Aparicio to make sure you do not have lymphoma along with the other symptoms, in the meantime for hydronephrosis on the left side that is caused by lymphoid tissue I would like you to take Tylenol 975 mg every 6 hours needed, with morphine sulfate 15 mg every 6-8 hours needed for pain, also your urine is suspicious for UTI, so take antibiotics as prescribed starting tomorrow, any worsening issues concerns please come back to the ER stay well hydrated. Prescriptions: New morphine 15 mg tablet 15 mg PO Q8H PRN (Reason: pain) 5 Days Qty: 20 0RF Rx Instructions: Partial Fill upon patient request. cephalexin 500 mg capsule 500 mg PO BID 7 Days Qty: 14 0RF No Action tamsulosin 0.4 mg capsule 0.4 mg PO BEDTIME 30 Days Qty: 30 0RF trazodone 100 mg tablet 50 - 100 mg PO BEDTIME gabapentin 300 mg capsule 300 mg PO BID albuterol sulfate 90 mcg/actuation HFA aerosol inhaler 2 puff INHALATION Q4H PRN (Reason: Shortness Of Breath Or Wheezing) losartan 100 mg tablet 100 mg PO DAILY lidocaine [Salonpas (lidocaine)] 4 % Adhesive Patch,Medicated 1 patch TOPICAL DAILY PRN (Reason: Back Pain) Arnuity Ellipta 50 mcg/actuation blister with device 1 inh inhalation DAILY nicotine 21 mg/24 hr Patch 24 Hour 21 mg transdermal DAILY Qty: 28 0RF phenazopyridine [Pyridium] 100 mg tablet 100 mg PO TID PRN (Reason: Spasm) 4 Days Qty: 12 0RF naproxen 500 mg tablet 500 mg PO BID PRN (Reason: pain) 7 Days Qty: 14 0RF oxycodone 5 mg tablet 5 mg PO Q8H PRN (Reason: pain) 3 Days Qty: 8 0RF Rx Instructions: Partial Fill upon patient request. oxycodone 5 mg tablet 5 mg PO Q8-12H PRN (Reason: pain) 7 Days Qty: 21 0RF Rx Instructions: Partial Fill upon patient request. Ref[place]: [facility] [place] Group] - 1 week Clinical Impression: Left lower quadrant abdominal pain Gege Thompson MD [Primary Care Provider, Medical] Clinical Impression: Left lower quadrant abdominal pain Stand Alone Forms: Work/School Release Print Language: Syriac
--- NOTE | 2024-12-27 12:05 | MHC.EDTECH ---
Patient brought into triage area,labs,and urine collected and sent to lab.
[2024-12-27 12:10] LABS: MANUAL DIFF FLAG NO
[2024-12-27 12:12] LABS: Hematocrit 35.6 % (37.0-47.0); Hemoglobin 11.6 g/dl (12.0-16.0); Imm Gran Abs Auto 0.02 X10*3/uL (0.00-0.03); Imm Gran Pct Auto 0.3 % (0.0-0.4); Lymphocytes Absolute Auto 1.9 X10*3/uL (1.2-4.9); Mean Corpuscular HGB Conc 32.6 g/dl (31.0-35.0); Mean Corpuscular Hemoglobin 29.4 pg (27.0-33.0); Mean Corpuscular Volume 90.4 fL (80.0-98.0); NRBC Abs Auto 0.000 X10*3/uL (0.0-0.012); NRBC Pct Auto 0.0 /100WBC (0.0-0.2); Platelet Count 305 X10*3/uL (160-400); Red Blood Count 3.94 X10*6/uL (4.20-5.50); White Blood Count 7.8 X10*3/uL (4.8-10.8)
[2024-12-27 12:14] LABS: Appearance Urine Clear; Glucose Urine UA Negative (Negative); PH 5.5 (5.0-9.0); Specific Gravity - Urine 1.025 (1.005-1.025); UMIC TRIGGER UACC YES
[2024-12-27 12:16] LABS: UACC Culture Trigger YES
[2024-12-27 12:24] VITALS: BP 137/75; PULSE 80; RESP 19; TEMP 36.5; O2SAT 98
[2024-12-27 12:26] LABS: Alanine Aminotransferase 19 U/L (0-31); Albumin Level 4.2 g/dL (3.5-5.0); Alkaline Phosphatase 154 U/L (39-117); Anion Gap 14 (12-20); Aspartate Amino Transferase 27 U/L (5-31); Blood Urea Nitrogen 24 mg/dL (9-16); Calcium 9.5 mg/dL (8.4-10.2); Carbon Dioxide 23 mmol/L (22-29); Chloride 108 mmol/L (96-108); Creatinine Clr Calc Pharmacy 21.0; Estimated Glomerular Filt Rate 26; Potassium 4.3 mmol/L (3.3-5.1); Sodium 141 mmol/L (135-145); Total Protein 6.8 g/dL (6.5-8.0)
--- NOTE | 2024-12-27 12:26 | PC.NURSE ---
Pt roomed changed and placed on 1/2 monitor VSS seen by provider. C/O abd pain LLQ. No vomiting or diarrhea but has Nausea X3 days and generally feels weak
[2024-12-27] MEDS: Lactated Ringers 1,000 ML 1000 ML IV (12:35)
[2024-12-27 12:41] VITALS: RESP 16
--- OUTSIDE RECORDS SUMMARY | 2024-12-27 15:04 | XMS_ITS | Encounter Summary ---
Author Organization [employer] Address [address] [facility] [address] [place] [address] Care Team Providers Care Charger Operator Name Role Phone Unavailable Primary Care Provider Unavailabl e Reason for Visit * Reason Onset Date Comments Appointment 11/01/2022 Encounter Details Date Type Department Care Team ([facility] st Contact Info) Description 11/01/2022 Telephone [facility] ADULT DENTAL [address] [place] [address] Joe Berger, DMD [address] [place] [address] Appointment Social History Tobacco Use Types Packs/Day Years Used Date Smoking Tobacco: Every Day Cigarettes Smokeless Tobacco: Never Comments Unknown Sex and Gender Information Value Date Recorded Sex Assigned at Female 03/04/2022 10:38 AM EDT Legal Sex Female 10:38 AM EDT Gender Identity Female 03/04/2022 10:38 AM EDT Sexual Orientation Choose not to disclose 2021 10:38 AM EDT COVID-19 Exposure Response Date Recorded In the last 10 days, have yo u been in contact with someone who was confirmed or suspected to have Coronavirus/COVID-19? No / Unsure 10/30/2022 11:29 AM EDT documented as of this encounter Miscellaneous Notes * Telephone Encounter - Irlanda Steinberg - 11/01/2022 10:08 AM EDT Ana Paula Sanches 1960 patient was seen on 10/30/22 for emergency visit and called in and stated she still having pain and would like to know if something can be sent to pharmacy to [facility] [place] [address] [place] [address] in [place] please advise . documented in this encounter Plan of Treatment Not on file documented as of this encounter Visit Diagnoses Not on filedocumented in this encounter
--- OUTSIDE RECORDS SUMMARY | 2024-12-27 15:04 | XMS_ITS | Encounter Summary ---
Author Organization [employer] Address [address] [place] [address] [address] [place] [address] Care Team Providers Care Events Assistant Name Role Phone Unavailable Primary Care Provider Unavailabl e Reason for Visit * Reason Onset Date Comments appt order 12/04/2022 followed up with patient 12/04/2022 Encounter Details Date Type Department Care Team ([facility] st Contact Info) Description 12/04/2022 Telephone [facility] ADULT DENTAL [address] [place] [address] Joe Berger DMD [address] [place] [address] appt order; followed up with patient Social History Tobacco Use Types Packs/Day Years Used Date Smoking Tobacco: Every Day Cigarettes Smokeless Tobacco: Never Comments Unknown Sex and Gender Information Value Date Recorded Sex Assigned at Female 03/04/2022 10:38 AM EDT Legal Sex Female 10:38 AM EDT Gender Identity Female 03/04/2022 10:38 AM EDT Sexual Orientation Choose not to disclose 2021 10:38 AM EDT documented as of this encounter Miscellaneous Notes * Telephone Encounter - Deana Starr - 12/06/2022 10:28 AM EDT Contacted patient and let her know that she can have the filling done prior to cleaning. Reminded that she will get a call to reschedule the cleaning but she can always stop at the front end technician on and see if she can be scheduled before she leaves the office DR * Telephone Encounter - Deana Starr - 12/04/2022 3:04 PM EDT Patient had to cancel her cleaning appt on 11/27 due to being sick. She has an appt on 12/13 for latter-day but is unsure if the cleaning has to be done first. She was under the impression but it was unclear on my end. It is listed the treatment she needs but doesn't specify if hygiene has to happen prior to latter-day. Shed like to make sure she can still come in for 12/13 or if she has to wait to get a cleaning first so it is not a wasted trip documented in this encounter Plan of Treatment Not on file documented as of this encounter Visit Diagnoses Not on filedocumented in this encounter
--- OUTSIDE RECORDS SUMMARY | 2024-12-27 15:04 | XMS_ITS | Clinical Summary ---
Author Organization [employer] Address [address] [place] [address] [address] [place] [address] Care Team Providers Care Greenhouse Manager Name Role Phone Unavailable Primary Care Provider [...] use. 473 mL 4 Active HYDROcodone-amberly taminophen ([place]) 5-325 MG tabletIndicatio ns:History of tooth extraction, [...] Phone Billing Address Personal/Family Self [address]
--- OUTSIDE RECORDS SUMMARY | 2024-12-27 15:04 | XMS_ITS | Encounter Summary ---
Author Organization [employer] Address [address] [facility] [address] [place] [address] Care Team Providers Care Laboratory Inspector Name Role Phone Unavailable Primary Care Provider Unavailabl e Encounter Details Date Type Department Care Team (Late st Contact Info) Description 01/21/2024 Telephone [facility] ADULT DENTAL [address] [place] [address] Ab Joe, DMD [address] [place] [address] Social History Tobacco Use Types Packs/Day Years Used Date Smoking Tobacco: Every Day Cigarettes Smokeless Tobacco: Never Alcohol Use Standard Drinks/Week Comments Defer 0 [...] encounter Miscellaneous Notes * Telephone Encounter - Mireya Walters - 01/29/2024 9:59 AM EDT Good morning doctor can you send a mouth wash for patient since her extraction she's been having bad taste and smell in her mouth * Telephone Encounter - Mireya Walters - 01/21/2024 8:13 AM EDT Patient just booked her apt for the exaction . She's in need of something and infection [facility] . documented in this encounter Plan of Treatment Not on file documented as of this encounter Visit Diagnoses Not on filedocumented in this encounter
--- OUTSIDE RECORDS SUMMARY | 2024-12-27 15:05 | XMS_ITS | Encounter Summary ---
Author Organization [facility] Address [address] [place] [address] Care Team Providers Care Marketing Education Teacher Name Role Phone Gege Thompson MD Primary Care Provider [phone] Gege Thompson MD Primary Care Provider [phone] Kina Kaur Md, MD Primary Care Provider Unavailable Gege Thompson MD Primary Care Provider [phone] Encounter Details Date Type Department Care Team Description 10/04/1999 Orders Only Medical [address] [place] [id number] Adrian Gr PA-C OTHER MALAISE AND FATIGUE Social History Tobacco Use Types Packs/Day Years Used Date Smoking Tobacco: Never Assessed Sex Assigned at Date Recorded Not on file Job Start Date Occupation Industry Not on file Not on file Not on file documented as of this encounter Plan of Treatment Scheduled Orders Name Type Priority Associated Diagnoses Orde r Schedule URINALYSIS, ROUTINE Lab Routine Other Malaise And Fatigue Ordered: 10/04/1999 VENIPUNTURE Lab Routine Other Malaise And Fatigue Ordered: 10/04/1999 documented as of this encounter Procedures Procedure Name Priority Date/Time Associated Diagnosis Comments CBC WITHOUT DIFF Routine 10/04/1999 1:15 PM EDT Other Malaise And Fatigue TSH Routine 10/04/1999 1:15 PM EDT Other Malaise And Fatigue CHG LIPID PANEL Routine 10/04/1999 1:15 PM EDT Other Malaise And Fatigue CHG COMPREHENSIVE METABOLIC PANEL Routine 10/04/1999 1:15 PM EDT Other Malaise And Fatigue documented in this encounter Results * TSH (10/04/1999 1:15 PM EDT) TSH 1.60 0.35 - 5.50 UIU/ML [facility] 10/04/1999 1:15 PM EDT 10/04/1999 4:22 PM EDT H Antoni Gr PA-C [facility] * CBC WITH DIFFERENTIAL (10/04/1999 1:15 PM EDT) WBC 7.4 4.8 - 10.8 X10-3 [facility] RBC 4.9 4.2 - 5.4 X10-6 [facility] HGB 14.0 11.5 - 16.0 G/DL [facility] HCT 42.3 35.0 - 47.0 % [facility] MCV 86 81 - 98 FL [facility] MCH 29 27 - 32 PG [facility] MCHC 33 32 - 37 G/DL [facility] RDW 13 11 - 15 % [facility] PLT 310 130 - 400 X10-3 [facility] MPV 10 9 - 13 FL [facility] 10/04/1999 1:15 PM EDT 10/04/1999 4:22 PM EDT H Antoni Gr PA-C [facility] * LIPID PROFILE (10/04/1999 1:15 PM EDT) Cholesterol 214 10 - 220 MG/DL [facility] TRIGLYCERIDE 66 10 - 150 MG/DL [facility] HDL 52 32 - 96 MG/DL [facility] LDL-CALC 149 62 - 185 MG/DL [facility] VLDL 13 MG/DL [facility] RISK RATIO 4.12 1.00 - 4.44 [facility] 10/04/1999 1:15 PM EDT 10/04/1999 4:22 PM EDT H Antoni Maile MACEDO-C [facility] Performing Organization Address [facility] de Phone Number [facility] * (ABNORMAL) COMPREHENSIVE METABOLIC PANEL (10/04/1999 1:15 PM EDT) [facility] GLUCOSE 97 70 - 110 MG/DL [facility] BUN 16 5 - 25 MG/DL [facility] CREAT 0.7 0.7 - 1.5 MG/DL [facility] Sodium 140 137 - 145 MEQ/L [facility] Potassium 4.3 3.5 - 5.2 MEQ/L [facility] Chloride 110(H) 96 - 108 MEQ/L [facility] CO2 23.5 21.0 - 32.0 MEQ/L [facility] TOT PROTEIN 7.0 6.0 - 8.0 G/DL [facility] Albumin 4.1 3.2 - 5.6 G/DL [facility] GLOBULIN 2.9 1.9 - 4.4 G/DL [facility] A/G RATIO 1.4 1.1 - 2.3 [facility] TOT BILI 0.2 0.0 - 1.4 MG/DL [facility] CALCIUM 9.0 8.5 - 10.5 MG/DL [facility] SGPT 32 10 - 60 IU/L [facility] SGOT 24 10 - 42 IU/L [facility] ALK PHOS 73 42 - 121 IU/L [facility] BUN/CRE RATIO 23(H) 6 - 20 [facility] 10/04/1999 1:15 PM EDT 10/04/1999 4:22 PM EDT H Antoni Maile [facility] Performing Organization Address [facility] Co de Phone Number [facility] documented in this encounter Visit Diagnoses Diagnosis Other malaise and fatigue documented in this encounter Care Teams Marketing Education Teacher Relationship Specialty Start Date End Date Gege Thompson MD [address] [place] [phone] PCP - General 03/04/1999 10/27/17 Gege Thompson MD [address] [place] [address] PCP - General Internal Medicine 10/28/17 01/02/18 Kina Kaur MD, [address] [place] [id number] PCP - General Internal Medicine 01/03/18 06/08/18 Gege Thompson MD [address] [place] [phone] PCP - General Internal Medicine 06/09/18 documented as of this encounter
--- OUTSIDE RECORDS SUMMARY | 2024-12-27 15:05 | XMS_ITS | Encounter Summary ---
Author Organization [facility] Address [address] [place] [address] Care Team Providers Care Model Artists' Name Role Phone Gege Thompson MD Primary Care Provider [phone] Kina Kaur Md, MD Primary Care Provider Unavailable eGge Thompson MD Primary Care Provider [phone] Reason for Visit * Reason Onset Date Comments refill request 11/13/2017 Encounter Details Date Type Department Care Team Description 11/13/2017 Refill Adult Medicine [address] [phone] Gege Thompson MD [address] [place] [address] [phone] refill request Social History Tobacco Use Types Packs/Day Years Used Date Smoking Tobacco: Some Days Cigarettes 0.5 29 Last attempted to quit: 03/20/2011 Smokeless Tobacco: Never Comments:quit 05/05/05 Alcohol Use Standard Drinks/Week Comments Yes 0 (1 standard drink = 0.6 oz pur e alcohol) Sex Assigned at Date Recorded Not on file Job Start Date Occupation Industry Not on file Not on file Not on file documented as of this encounter Miscellaneous Notes * Telephone Encounter - Lupis Lyn - 11/13/2017 10:26 AM EDT Patient would like script to be: E-PRESCRIBED/FAXED TO PHARMACY WHEN WAS THE PATIENT'S LAST APPOINTMENT IN ADULT MEDICINE? [id number] WHEN WAS THE LAST TIME THE PATIENT SAW THEIR PCP? [id number] Does patient have an upcoming appointment? No- (THE MEDICATION REQUESTED IS ON THE MED LIST ABOVE) All of the medications requested were on the CURRENT MEDS list Did you check the Pharmacy information above?: YES Patient wants: 90 -day supply for best insurance moore. Patient paying out of pocket. Insurance noteffective now, waiting for [place] [employer] to activate Is this a mail order prescription request ? NO If the refill is from a FAXED refill request what is the RX # listed on the fax? Patients current insurance carrier is: No billing information found for this encounter. Insurance ID #: No Subscriber Number on File documented in this encounter Plan of Treatment Not on file documented as of this encounter Visit Diagnoses Not on filedocumented in this encounter Care Teams Model Artists' Relationship Specialty Start Date End Date Gege Thompson MD [address] [place], [place] [phone] PCP - General Internal Medicine 10/28/17 01/02/18 Kina Kaur MD, [address] [place] [phone] PCP - General Internal Medicine 01/03/18 06/08/18 Gege Thompson MD [address] [place] [address] [phone] PCP - General Internal Medicine 06/09/18 documented as of this encounter
--- OUTSIDE RECORDS SUMMARY | 2024-12-27 15:05 | XMS_ITS | Encounter Summary ---
Author Organization [facility] Address [address] [place] [address] Care Team Providers Care Platform Inspector Name Role Phone Gege Thompson MD Primary Care Provider [phone] Reason for Visit * Reason Onset Date Comments Prior Authorization 08/04/2023 Encounter Details Date Type Department Care Team Description 08/04/2023 Telephone Adult Medicine - [facility] [address] [place] [address] Gege Thompson MD [address] [place] [address] [phone] Prior Authorization Social History Tobacco Use Types Packs/Day Years Used Date Smoking Tobacco: Every Day Cigarettes 0.5 29 Last attempted to quit: 03/20/2011 Smokeless Tobacco: Never Comments:quit 05/05/05, restar biju smoking Alcohol Use Standard Drinks/Week Comments Yes 0 (1 standard drink = 0.6 oz pur e alcohol) socially Sex Assigned at Date Recorded Not on file Job Start Date Occupation Industry Not on file Not on file Not on file documented as of this encounter Miscellaneous Notes * Telephone Encounter - Maddy Gan M.A. - 08/04/2023 11:12 AM EDT No longer covered Pt can try: Arnuity Ellipta Not Required Asmanex HFA Not Required Asmanex Twisthaler 220mcg Not Required Budesonide 0.25mg & 0.5mg Not Required Fluticasone Propionate Diskus Not Required Pulmicort Flexhaler Not Required QVAR Redihaler Not Required Maddy Gan Prior Auth Dep Ext [phone] * Telephone Encounter - [place] Nena [place] - 08/04/2023 9:51 AM EDT [facility] - COVER MY MEDS STEVENS CODE [id number] FLUTICASONE PROPIONATE HTA 110MCG/ACT AEROSOL documented in this encounter Plan of Treatment Not on file documented as of this encounter Visit Diagnoses Not on filedocumented in this encounter Care Teams Platform Inspector Relationship Specialty Start Date End Date Gege Thompson MD [address] [place] [phone] PCP - General Internal Medicine 06/09/18 documented as of this encounter
--- OUTSIDE RECORDS SUMMARY | 2024-12-27 15:05 | XMS_ITS | Encounter Summary ---
Author Organization [facility] Address [address] [place] [address] Care Team Providers Care Medicare Sales Representative Name Role Phone Gege Thompson MD Primary Care Provider [phone] Gege Thompson MD Primary Care Provider [phone] Kina Kaur Md, MD Primary Care Provider Unavailable Gege Thompson MD Primary Care Provider [phone] Encounter Details Date Type Department Care Team Description 08/05/2016 Release of Information Medical Records [address] [place] [id number] Abstract, Provider Social History Tobacco Use Types [...] on filedocumented in this encounter Care Teams Medicare Sales Representative Relationship Specialty Start Date End Date Gege Thompson MD [address] [place] [address] [phone] PCP - General 03/04/1999 10/27/17 Gege Thompson MD [address] [place] [address] [phone] PCP - General Internal Medicine 10/28/17 01/02/18 Kina Kaur MD, [address] [place] [phone] PCP - General Internal Medicine 01/03/18 06/08/18 Gege Thompson MD [address] [place] [phone] PCP - General Internal Medicine 06/09/18 documented as of this encounter
--- OUTSIDE RECORDS SUMMARY | 2024-12-27 15:05 | XMS_ITS | Encounter Summary ---
Author Organization [facility] Address [address] [place] [address] Care Team Providers Care C Wpf Developer Name Role Phone Gege Thompson MD Primary Care Provider Gege Thompson MD Primary Care Provider [phone] Kina Kaur Md, MD Primary Care Provider Unavailable Gege Thompson MD Primary Care Provider [phone] Encounter Details Date Type Department Care Team Description 08/01/2016 Relief Salesperson Report Medical Records [address] [place] [phone] Leny Panchal MD Social History Tobacco Use Types Packs/Day Years [...] on filedocumented in this encounter Care Teams C Wpf Developer Relationship Specialty Start Date End Date Gege Thompson MD [address] [place] [address] PCP - General 03/04/1999 10/27/17 Gege Thompson MD [address] [place] [address] PCP - General Internal Medicine 10/28/17 01/02/18 Kina Kaur MD, [address] [place] [phone] PCP - General Internal Medicine 01/03/18 06/08/18 Gege Thompson MD [address] [place] [phone] PCP - General Internal Medicine 06/09/18 documented as of this encounter
--- OUTSIDE RECORDS SUMMARY | 2024-12-27 15:05 | XMS_ITS | Encounter Summary ---
Author Organization [facility] Address [address] [place] [address] Care Team Providers Care Lift Driver Name Role Phone Gege Thompson MD Primary Care Provider [phone] Gege Thompson MD Primary Care Provider [phone] Kina Kaur Md, MD Primary Care Provider Unavailable Gege Thompson MD Primary Care Provider [phone] Encounter Details Date Type Department Care Team Description 04/30/2016 [facility] Medical Records [address] [place] [address] Abstract, Provider Social History Tobacco Use Types [...] on filedocumented in this encounter Care Teams Lift Driver Relationship Specialty Start Date End Date Gege Thompson MD [address] [place] [address] [phone] PCP - General 03/04/1999 10/27/17 Gege Thompson MD [address] [place] [address] [phone] PCP - General Internal Medicine 10/28/17 01/02/18 Kina Kaur MD, [address] [place] [phone] PCP - General Internal Medicine 01/03/18 06/08/18 Gege Thompson MD [address] [place] [phone] PCP - General Internal Medicine 06/09/18 documented as of this encounter
--- OUTSIDE RECORDS SUMMARY | 2024-12-27 15:05 | XMS_ITS | Encounter Summary ---
Author Organization [facility] Address [address] [facility] [place] [address] Care Team Providers Care Manager Surgical Name Role Phone Kina Kaur Md, MD Primary Care Provider Unavailable Gege Thompson MD Primary Care Provider [phone] Encounter Details Date Type Department Care Team Description 01/12/2018 [facility] Medical Records [address] [place] [id number] Abstract, Provider Social History Tobacco Use Types [...] on filedocumented in this encounter Care Teams Manager Surgical Relationship Specialty Start Date End Date Kina Kaur MD, MD PCP - General Internal Medicine 01/03/18 Gege Thompson MD [address] [place] [address] [phone] PCP - General Internal Medicine 06/09/18 documented as of this encounter
--- OUTSIDE RECORDS SUMMARY | 2024-12-27 15:05 | XMS_ITS | Encounter Summary ---
Author Organization [facility] Address [address] [place] [address] Care Team Providers Care Director Of Community Education Name Role Phone Gege Thompson MD Primary Care Provider [phone] Reason for Visit * Reason Onset Date Comments Abdominal Pain 06/09/2018 Vomiting 06/09/2018 Encounter Details Date Type Department Care Team Description 06/09/2018 Telephone Adult Medicine [facility] [address] [place] [address] [phone] Gege Thompson MD [address] [place] [address] [phone] Abdominal Pain; Vomiting Social History Tobacco Use Types Packs/Day Years [...] encounter Miscellaneous Notes * Telephone Encounter - Charan Street - 06/09/2018 10:37 AM EST Patient called and states that she started sun with diarrhea and was seen at [facility]- was sent to [facility] for ? Gallbladder- told it was gastroenteritis-- given tramadol, zofran-has vomited off an on for 2 weeks- last vomited this morning-- states that loose stools improved- states also coughing- needs refill of updraft medication-- patient states feels fatigued and called out of work today- taking PO- patient requesting sooner appointment- given appt for today at 2pm with Dr. Land * Telephone Encounter - Tonya Ayala - 06/09/2018 10:21 AM EST Symptoms patient is presenting: Patient is calling looking to move her ER followup for today as sheis still having abdominal pain, nausea, vomiting and diarrhea. If pain or injury related was it due to an accident at work or from a motor vehicle accident? NO If yes, gather 3rd constitution party insurance information Date of accident/Injury: n/a How long has patient had these symptoms?: PCP: Gege Thompson Payor: Network Game Interaction / Plan: [facility] SILVER TYPE 2 / Product Type: HMO [id number] documented in this encounter Plan of Treatment Not on file documented as of this encounter Visit Diagnoses Not on filedocumented in this encounter Care Teams Director Of Community Education Relationship Specialty Start Date End Date Gege Thompson MD [address] [place] [phone] PCP - General Internal Medicine 06/09/18 documented as of this encounter
--- OUTSIDE RECORDS SUMMARY | 2024-12-27 15:05 | XMS_ITS | Clinical Summary ---
Author Organization [facility] Address [address] [facility] [place] [address] Care Team Providers Care Carbonator Name Role Phone Gege Thompson MD Primary Care Provider [phone] Allergies Active Allergy Reactions Severity Noted Date Comments Atorvastatin 08/15/2014 Muscle pains Lisinopril 04/24/2016 cough Methocarbamol 01/15/2021 Sore throat Penicillins 05/07/2005 Oxycodone-Aspirin 05/07/2005 Medications Medication Sig Dispensed Refills Start Date End Date Status fluticasone 50 MCG/ACT nasal spray 2 Sprays by Each Nare route daily for 360 days. 16 g 0 03/31/2023 Active Flovent HFA 110 MCG/ACT inhaler INHALE ONE PUFF BY MOUTH TWICE A DAY 12 g 0 07/31/2023 Active Fluticasone Furoate (Arnuity Ellipta) 50 MCG/ACT AEROSOL POWDER,BREATH ACTIVATED Inhale 1 Puff into the lungs daily. 60 Each 08/01/2023 Active cyclobenzaprine (FLEXERIL) 5 MG tablet Take 1 Tablet by mouth 3 times daily as needed for Muscle spasms for up to 10 days. 30 Tablet 0 10/16/2023 Active losartan (COZAAR) 100 MG tablet TAKE ONE TABLET BY MOUTH EVERY DAY 90 Tablet 1 11/24/2023 Active trazodone (DESYREL) 100 MG tablet Take one tablet by mouth once daily at bed time. 90 Tablet 1 11/24/2023 Active gabapentin (NEURONTIN) 300 MG capsule Take 1 Capsule by mouth 2 times daily. 180 Capsule 1 11/24/2023 Active carbamide peroxide (DEBROX) 6.5 % otic solution Place 5 Drops into the right ear 2 times daily for 10 days. Tilt head so ear to be treated points towards the ceiling. Hold medication in ear using part of a cotton ball. 15 mL 0 12/02/2023 Active acetic acid-hydrocortison e (VOSOL-HC) otic solution Place 2 Drops into the right ear 2 times daily for 10 days. 10 mL 0 12/09/2023 Active ALBUTEROL SULFATE 108 (90 Base) MCG/ACT Aero Soln INHALE TWO PUFFS BY MOUTH EVERY 4 HOURS NEEDED FOR WHEEZING OR COUGH 25.5 g 1 02/23/2024 Active Active Problems Problem Noted Date Stage 3a chronic kidney disease 01/16/20 Elevated LFTs 01/15/2021 Elevated alkaline phosphatase level 01/03 Mid back pain 01/15/2021 Meningioma 06/04/2016 Essential hypertension 04/24/2016 Anxiety 04/24/2016 Panic attack 04/24/2016 Chronic obstructive pulmonary disease Refuses mammography/ colonoscopy/ pelvic /breast exams 09/15/2015 Vitamin D deficiency 01/25/2015 Trochanteric bursitis of right hip 01/25 Lumbar facet arthropathy 09/23/2014 DDD (degenerative disc disease), lumbar 09/23/2014 Obesity 01/04/2014 Hip pain, bilateral 01/04/2014 Insomnia 01/04/2014 Hyperlipidemia 01/04/2014 FH: CAD (coronary artery disease) 2013 FH: lung cancer 01/04/2014 Tobacco use 12/01/2012 Esophageal reflux 08/07/2005 Resolved Problems Problem Noted Date Resolved Date Abnormal CT scan, head HH 03/22/16 04/24/2016 06/04/2016 RAD (reactive airway disease) 04/24/2016 Impacted cerumen 06/04/2006 01/04/2014 Acute sinusitis 06/04/2006 01/04/2014 Acute nasopharyngitis (common cold) 06/03/2006 01/04/2014 Nonsuppurative otitis media, not specified as acute or chronic 06/03/2006 01/04/2014 Overview: IMO update Essential hypertension, benign 08/07/2005 0 01/04/2014 Anxiety state, unspecified 05/14/200504/24 Asthma 05/07/2005 04/24/2016 Immunizations Name Administration Dates Next Due COVID-19 (Moderna) 05/15/2021,09/28/2020 Family History Medical History Relation Name Comments NE Father [place] Lung Mother Relation Name Status Comments Father (Age 87) CABG (star ting at age 65) Mother (Age 72) Lung [place] Social History Tobacco Use Types Packs/Day Years Used Date Smoking Tobacco: Every Day Cigarettes 0.5 29 Last attempted to quit: 03/20/2011 Smokeless Tobacco: Never Tobacco Cessation:Ready to Q uit: Not Asked; Counseling Given: Not Answered Comments:quit 05/05/05, restarted smoking Alcohol Use Standard Drinks/Week Comments Yes 0 (1 standard drink = 0.6 oz pur e alcohol) socially Sex Assigned at Date Recorded Not on file Job Start Date Occupation Industry Not on file Not on file Not on file Last Filed Vital Signs Vital Sign Reading Time Taken Comments Blood Pressure 114/72 12/09/2023 2:02 PM EDT Pulse 70 12/09/2023 2:02 PM EDT Temperature 36.4 C (97.6 F) 12/09/2023 2:02 PM EDT Respiratory Rate 16 12/09/2023 2:02 PM EDT Oxygen Saturation 98% 12/09/2023 2:02 PM EDT Inhaled Oxygen Concentration - - Weight 60.3 kg (133 lb) 12/09/2023 2:02 PM EDT Height 152.4 cm (5') 12/09/2023 2:02 PM EDT Body Mass Index 25.97 12/09/2023 2:02 PM EDT Plan of Treatment Health Maintenance Due Date Last Done Comments SHINGLES VACCINE (1 of 2) 2010 CERVICAL CANCER SCREENING 01/09/20212017 (Refused), 09/15/2015 (Refused) Covid-19 Vaccine (2022-06 4 season) 2024 05/15/2021, 09/28/2020 BMI CHECK/ADVISE 05/05/2024 12/09/2023, , 10/16/2023, Additional history exists DEPRESSION SCREENING/FOLLOWUP 05/05/2024, 03/31/2023, 12/26/2022, Additional history exists SOCIAL NEEDS SCREENING 05/05/2024 MAMMOGRAM 12/01/2024 12/02/2023 (Refu sed), 06/28/2022 (Refused), 01/09/2018 (Refused), Additional history exists INFLUENZA (#1) 2025 09/15/2015 (Refused) PNEUMOCOCCAL VACCINE FOR HIG H RISK PATIENTS (#2) 2025 01/09/2018 (Refused) TOBACCO CHECK/ADVISE 12/01/2025 12/02/2023 (Completed), 10/19/2021 (Completed), 12/29/2012 DTAP/TDAP/TD (2 - Td or Tdap) 07/31/2026 07/31/2016 (Refused) CHOLESTEROL SCREENING 07/01/2027 07/01/2022 , 05/07/2016, 08/15/2014, Additional history exists COLON CANCER SCREENING 01/10/2028 8 (Refused), 07/31/2016 (Refused), 01/04/2014 (Refused) HEPATITIS C SCREENING Completed 01/13/2021 , 06/09/2018, 04/13/2013 Care Teams Carbonator Relationship Specialty Start Date End Date Gege Thompson MD [address] [place] [phone] PCP - General Internal Medicine 06/09/18
--- OUTSIDE RECORDS SUMMARY | 2024-12-27 15:05 | XMS_ITS | Encounter Summary ---
Author Organization [facility] Address [address] [place] [address] Care Team Providers Care Psychopaedic Nurse Name Role Phone Gege Thompson MD Primary Care Provider [phone] Gege Thompson MD Primary Care Provider [phone] Kina Kaur Md, MD Primary Care Provider Unavailable Gege Thompson MD Primary Care Provider [phone] Encounter Details Date Type Department Care Team Description 12/10/2002 Telephone Adult Medicine [address] [phone] Gege Thompson MD [address] [place] [address] [phone] Social History Tobacco Use Types Packs/Day Years Used Date Smoking Tobacco: Never Assessed Sex Assigned at Date Recorded Not on file Job Start Date Occupation Industry Not on file Not on file Not on file documented as of this encounter Plan of Treatment Not on file documented as of this encounter Visit Diagnoses Not on filedocumented in this encounter Care Teams Psychopaedic Nurse Relationship Specialty Start Date End Date Gege Thompson MD [address] [place] [address] [phone] PCP - General 03/04/1999 10/27/17 Gege Tohmpson MD [address] [place] [address] [phone] PCP - General Internal Medicine 10/28/17 01/02/18 Kina Kaur MD, MD [address] [place] [phone] PCP - General Internal Medicine 01/03/18 06/08/18 Gege Thompson MD [address] [place] [address] PCP - General Internal Medicine 06/09/18 documented as of this encounter
--- OUTSIDE RECORDS SUMMARY | 2024-12-27 15:05 | XMS_ITS | Clinical Summary ---
Author Organization [address] Address [address] [place] [phone] Phone Care Team Providers Care Payroll Accountant Name Role Phone Gege Thompson MD Primary Care Provider [phone] Allergies Active Allergy Reactions Criticality Noted Date Comments Atorvastatin 08/15/2014 Muscle pains Lisinopril 04/24/2016 cough Methocarbamol 01/15/2021 Sore throat Oxycodone-Aspirin 05/07/2005 Patient states she took after operation and had not reactions Penicillins 05/07/2005 Medications traZODone (DESYREL) 100 mg tablet Patient cuts in half and takes half at night 11/24/19 24 Active fluticasone furoate (Arnuity Ellipta) 50 mcg/actuation blister with device inhaler Prescribed by leonora Calle 08/01/19 24 Active fluticasone HFA (Flovent HFA) 110 mcg/actuation inhaler Inhale 1 puff by mouth 2 (two) times a day. Prescribed by Pulmonology 07/31/19 24 Active Ventolin HFA 90 mcg/actuation inhaler INHALE TWO PUFFS BY MOUTH EVERY 4 HOURS NEEDED FOR WHEEZING OR COUGH 54 g 11/04/19 25 Active doxycycline (ADOXA) 100 mg tablet Take 1 tablet (100 mg total) by mouth 2 (two) times a day. Take with a full glass of water and do not lie down for at least 30 minutes after Active oxychlorosene (CLORPACTIN) powder Apply topically. Active oxyCODONE-acet aminophen (LYNOX) 5-300 mg per tablet Active gabapentin (NEURONTIN) 300 mg capsule TAKE ONE CAPSULE BY MOUTH TWICE A DAY 60 capsule 4 12/18/19 25 Active losartan (Cozaar) 50 mg tablet Take 1 tablet (50 mg total) by mouth 1 (one) time each day. 30 tablet 3 12/22/19 25 Active tamsulosin (FLOMAX) 0.4 mg 24 hr capsule Take 1 capsule (0.4 mg total) by mouth 1 (one) time each day. 12/22/19 25 Active losartan (COZAAR) 100 mg tablet TAKE ONE TABLET BY MOUTH EVERY DAY 90 tablet 1 06/28/19 25 025 Discontinued gabapentin (NEURONTIN) 300 mg capsule Take 1 capsule (300 mg total) by mouth 2 (two) times a day. 60 capsule 10/30/19 25 025 Discontinued Active Problems Problem Noted Date Diagnosed Date Kidney stone 11/18/2024 Overview (11/18/2024): Hospitalization at [facility] with hydronephrosis, 2024 Elevated alkaline phosphatase level 01/15/2021 Elevated LFTs 01/15/2021 Mid back pain 01/15/2021 Stage 3a chronic kidney disease ([facility] V24, [facility] V28) 01/15/2021 Meningioma ([facility] V24, [facility] V28) 06/04/2016 Anxiety 04/24/2016 Chronic obstructive pulmonar y disease ([facility]/HCC V24, [facility] V28) 04/24/2016 Essential hypertension 04/24/2016 Panic attack 04/24/2016 Trochanteric bursitis of right hip 01/25/2015 Vitamin D deficiency 01/25/2015 DDD (degenerative disc disease), lumbar 09/24/19 15 Lumbar facet arthropathy 09/23/2014 Hip pain, bilateral 01/04/2014 Hyperlipidemia 01/04/2014 Insomnia 01/04/2014 Obesity 01/04/2014 Esophageal reflux 08/07/2005 Encounters Date Type Department Care Team Description 12/27/2024 10:00 AM EDT Office Visit Adult Medicine [address] [phone] Daniel Seymour NP Encounter for screening for cardiovascular disorders (Primary Dx); Stage 3a chronic kidney disease ([facility] V24, [facility] V28) 12/21/2024 1:30 PM EDT Office Visit Adult Medicine [address] [phone] Gege Thompson MD Kidney stone (Primary Dx); Essential hypertension 12/15/2024 Telephone Adult Medicine [address] [phone] Gege Thompson MD 11/24/2024 10:30 AM EDT Office Visit Adult [address] [phone] Gege Thompson MD Kidney stone (Primary Dx); Essential hypertension; Stage 3a chronic kidney disease ([facility] V24, [facility] V28); Anxiety 11/17/2024 Telephone Adult Medicine [address] [phone] Gege Thompson MD 10/29/2024 Telephone Adult Medicine [address] [phone] Gege Thompson MD from Last 3 Months Surgical History Surgery Date Site/Laterality Comments SECTION PROCEDURE: HISTORICAL Medical History Medical History Date Comments Tobacco use 12/01/2012 DX:Tobacco use Hip pain, bilateral DX:Hip pain, bilateral RAD (reactive airway disease) DX :RAD (reactive airway disease) Allergic rhinitis DX:Allergic rh initis Obesity DX:Obesity Anxiety DX:Anxiety Insomnia DX:Insomnia Back pain DX:Back pain Family History Medical History Relation Name Comments Heart attack Father Lung cancer Mother Relation Name Status Comments Father (Age [...] on file Sexual Orientation Not on file Obstetrics History Last Filed Vital Signs Vital Sign Reading [...] Mass Index 23.24 12/27/2024 9:57 AM EDT Plan of Treatment Health Maintenance Due Date Last Done Comments Breast Cancer Screening 1960 DTaP,Tdap,and Td Vaccines (1 - Tdap) 10/15/1979 Pneumococcal Vaccine: 50+ Years (1 of 2 - PCV) 10/15/1979 Zoster Vaccines (1 of 2) 10/15/1979 Cervical Cancer Screening: P ap Smear 1981 RSV Immunization Adult Patients (1 - Risk 60-74 years 1-dose series) 2020 COVID-19 Vaccine (3 - Modern a risk series) 06/12/2021 05/15/2021, 09/28/2020 Colorectal Cancer Screening: Colonoscopy 04/13/2022 HIV Screening 04/13/2022 Social Influencers of Health Screening 04/13/2022 Depression Screening 05/05/2024 11/16/2023 Influenza Vaccine (#1) 2025 Hypertension/CHF/CAD Annual BMP Blood Test 12/24/2025 12/24/2024, 08/06/2023 Cholesterol Screening (Lipid Panel) 07/01/2027 07/01/2022 Hepatitis C Screening Completed 01/13/2021 HIB Vaccines Aged Out No longer eligi [...] on patient's age to complete this topic MMR Vaccines Aged Out No longer eligi ble based on patient's age to complete this topic Meningococcal ACWY Vaccine Aged Out N o longer eligible based on patient's age to complete this topic Meningococcal B Vaccine Aged Out No l onger eligible based on patient's age to complete this topic RSV Immunization Patients Under 20 months Aged Out No longer eligible b ased on patient's age to complete this topic Varicella Vaccines Aged Out No longer eligible based on patient's age to complete this topic Procedures Procedure Name Priority Date/Time Associated Diagnosis Comments COMPREHENSIVE METABOLIC PANEL Routine 12/24/2024 2:26 PM EDT Stage 3a chronic kidney disease ([facility]/HCC V24, [facility] V28) EXTERNAL XRAY REPORT 12/06/2024 EXTERNAL XRAY REPORT 12/06/2024 EXTERNAL XRAY REPORT 11/23/2024 EXTERNAL XRAY REPORT 11/23/2024 EXTERNAL ULTRASOUND REPORT 11/15/2024 EXTERNAL ULTRASOUND REPORT 11/15/2024 EXTERNAL XRAY REPORT 11/12/2024 EXTERNAL XRAY REPORT 11/12/2024 EXTERNAL XRAY REPORT 11/12/2024 EXTERNAL XRAY REPORT 11/12/2024 EXTERNAL XRAY REPORT 11/12/2024 EXTERNAL XRAY REPORT 11/12/2024 EXTERNAL XRAY REPORT 11/12/[address] REPORT 11/11/[address] REPORT 11/11/2024 HM DEPRESSION SCREENING Routine 11/16/2023 LIPID PANEL Routine 07/01/2022 HEPATITIS C SCREENING Routine 01/13/2021 from Last 3 Months or Most Recently Relevant to Health Maintenance Results * (ABNORMAL) Comprehensive metabolic panel (12/24/2024 2:26 PM EDT) [facility] Signature Sodium 140 133 - 145 mmol/L LAB CHEMISTRY METHOD 12/24/2024 5:25 PM EDT [facility] Potassium 4.4 3.5 - 5.5 mmol/L LAB CHEMISTRY [facility] Chloride 110 96 - 110 mmol/L LAB CHEMISTRY METHOD 12/24/2024 5:25 PM [facility] CO2 27 21 - 32 mmol/L LAB CHEMISTRY METHOD 12/24/2024 5:25 PM [facility] Anion Gap 3 3 - 11 LAB CHEMISTRY METHOD 12/24/2024 5:25 PM [facility] Glucose 82 70 - 100 mg/dL LAB CHEMISTRY METHOD 12/24/2024 5:25 PM [facility] BUN 25 5 - 25 mg/dL LAB CHEMISTRY METHOD 12/24/2024 5:25 PM [facility] Creatinine 1.96(H) 0.50 - 1.10 mg/dL LAB CHEMISTRY METHOD 12/24/2024 5:25 PM [facility] eGFR 28(L) >=60 mL/min/1. 73m2 LAB CHEMISTRY METHOD 12/24/2024 5:25 PM [facility] Comment:Calculation based on the Chronic Kidney Disease Epidemiology Collaboration (CKD-EPI) equation refit without adjustment for race. BUN/Creatinine Ratio 12.8 LAB CHEMISTRY METHOD 12/24/2024 5:25 PM [facility] Calcium 9.1 8.5 - 10.5 mg/dL LAB CHEMISTRY METHOD 12/24/2024 5:25 PM [facility] AST (SGOT) 21 10 - 42 unit/L LAB CHEMISTRY METHOD 12/24/2024 5:25 PM [facility] ALT (SGPT) 31 10 - 60 unit/L LAB CHEMISTRY METHOD 12/24/2024 5:25 PM [facility] Alkaline Phosphatase 163(H) 42 - 121 unit/L LAB CHEMISTRY METHOD 12/24/2024 5:25 PM [facility] Total Protein 6.6 6.0 - 8.0 g/dL LAB CHEMISTRY METHOD 12/24/2024 5:25 PM EDT [facility] Albumin 3.6 3.2 - 5.0 g/dL LAB CHEMISTRY METHOD 12/24/2024 5:25 PM EDT [facility] Total Bilirubin 0.3 0.0 - 1.4 mg/dL LAB CHEMISTRY METHOD 12/24/2024 5:25 PM EDT [facility] Blood Venous blood specimen / Unknown Venipuncture / Unknown 12/24/2024 2:26 PM EDT 12/24/2024 2:26 PM EDT Gege Thompson MD LAB BLOOD ORDERABLES Final Resul t [facility] [address] [place] [address], [place] [phone] * External Xray Report (12/06/2024) Only the most recent of11 resultswithin the time period is included. Anatomical Region Laterality Modality Radiographic Karlene ging us Provider [facility] XR PROCEDURES Final Result * External Ultrasound Report (11/15/2024) Only the most recent of2 resultswithin the time period is included. Anatomical Region Laterality Modality Ultrasound us Provider [facility] US PROCEDURES Final Result * External CT Report (11/11/2024) Only the most recent of2 resultswithin the time period is included. Anatomical Region Laterality Modality Computed Tomogra phy us Provider [facility] PROCEDURES Final Result * Depression Screening (11/16/2023) Pathologist [facility] Depression Screening ABSTRACTED Annmarie Provider HEALTH MAINTENANCE Final Result * (ABNORMAL) Lipid panel (07/01/2022) LDL/HDL Ratio 2 0 - 4 Triglycerides 108 0 - 150 mg/dL Cholesterol 245(A) 0 - 200 mg/dL HDL 110 >=40 mg/dL LDL Cholesterol 114(A) 0 - 100 mg/dL Blood Venous blood specimen / Unknown Historical Provider LAB BLOOD ORDERABLES Marlene l Result * Hepatitis C Screening (01/13/2021) Hepatitis C Screening ABSTRACTED Historical Provider HEALTH MAINTENANCE Final Result from Last 3 Months or Most Recently Relevant to Health Maintenance Insurance Care Teams Payroll Accountant Relationship Specialty Start Date End Date Gege Thompson MD [address] [place] [address] PCP - General Internal Medicine 03/04/1999
[2024-12-27 16:26] VITALS: BP 139/70; PULSE 68; RESP 17; TEMP -17.7; TEMP 0; O2SAT 95
== END 2024-12-27 16:27 | disposition home or self-care (01) ==
PROVIDERS: Internal Medicine Medical Oncology; Physician Assistant Medical; Emergency Provider Emergency Medicine; PCP Internal Medicine
DX: N39.0 Urinary tract infection, site not specified (principal); C85.90 Non-Hodgkin lymphoma, unspecified, unspecified site; R79.89 Other specified abnormal findings of blood chemistry; R10.32 Left lower quadrant pain; R11.0 Nausea; F17.210 Nicotine dependence, cigarettes, uncomplicated; Z79.899 Other long term (current) drug therapy
CPT/HCPCS: 36415; 74176; 80053; 81001; 83615; 85025; 87086; 96361; 96374; 96375; 99284; J0696; J2270; J7120

== ENCOUNTER → 2024-12-27 12:26 | Outpatient (BNV) | payer OTHER, SELFPAY | PROVIDERS: Emergency Provider Emergency Medicine; PCP Internal Medicine; Visit Provider Radiology Diagnostic Radiology | DX: K57.30 Diverticulosis of large intestine without perforation or abscess without bleeding (principal); N20.0 Calculus of kidney; R59.0 Localized enlarged lymph nodes | CPT/HCPCS: 74176 ==

== ENCOUNTER → 2024-12-28 14:35 | Outpatient (BNV) | payer OTHER, SELFPAY | PROVIDERS: PCP Internal Medicine; Visit Provider Internal Medicine Medical Oncology | DX: R59.1 Generalized enlarged lymph nodes (principal); N13.2 Hydronephrosis with renal and ureteral calculous obstruction; K57.30 Diverticulosis of large intestine without perforation or abscess without bleeding | CPT/HCPCS: 99204; 99213 ==

== ENCOUNTER 2025-01-06 10:35 | Outpatient (AMB) | payer OTHER, SELFPAY ==
--- NOTE | 2025-01-06 10:36 | A.OFFVIS_ITS ---
Vital Signs 01/06/25 10:43 Height 5 ft Weight 121 lb BMI 23.6 BP 105/58 L Blood Pressure Location Rt brachial Position Sitting Pulse 92 Intake Visit Reasons: Dr. Aparicio referral Intake Note: Patient referred by Dr. Aparicio for left inguinal node excisional biopsy. Patient c/o: left inguinal side pain, feels uncomfortable. Normal BM. Denies diarrhea, constipation. Imaging: Abdomen pelvis CT~ 12-27-2024 PET scan pending City Dispatch Supervisor Required: No Accompanied by: spouse [place] Allergies lisinopril (LISINOPRIL) Allergy (Unknown, Verified 01/06/25 10:41) UNKNOWN Penicillins (PENICILLINS) Allergy (Unknown, Verified 01/06/25 10:41) HIVES Medication List - Last Reconciled 01/06/25 by Mina Menendez MD albuterol sulfate 90 mcg/actuation 2 puffs inhalation Q4H PRN fluticasone furoate 50 mcg/actuation (Arnuity Ellipta) 1 inh inhalation DAILY gabapentin 300 mg PO BID hydromorphone (Dilaudid) 2 mg PO Q6H PRN 4 days lidocaine 4% (Salonpas (lidocaine)) 1 patch topical DAILY PRN losartan 100 mg PO DAILY nicotine 21 mg transdermal DAILY oxycodone 5 mg PO Q8H PRN 3 days phenazopyridine (Pyridium) 100 mg PO TID PRN 4 days potassium citrate ER 20 mEq (2 x 10 mEq (1,080 mg)) PO BID 90 days tamsulosin 0.4 mg PO BEDTIME 30 days trazodone 50 - 100 mg PO BEDTIME HPI HPI Dr. Aparicio referral: Details: 64-year-old female referred by Oncology for biopsy of a left inguinal lymph node. She had a CAT scan done in the ER last 12/27/2024 when she came in for what she describes as pain in the left groin. This has shown lymphadenopathy around the distal aorta and the iliacs. There was note of left groin adenopathy as well. She does state that she has noticed this tenderness on the area of the groin for about 2-3 months now. She has a known history of COPD and smoking, and had a stent placed for the left ureter for a stone last month. She is following Dr. Keyes for her kidney stones. She says that she has had myalgia and joint pains as well for the past 2-3 months. She describes some night sweats but denies any weight loss or fever or chills. [facility] Medical History (Updated 01/06/25 @ 10:55 by Mina Menendez MD) Inguinal lymphadenopathy CKD (chronic kidney disease) Insomnia HTN (hypertension) Concussion Bronchitis COPD (chronic obstructive pulmonary disease) Tobacco dependence Anxiety Nephrolithiasis Asthma Surgical History (Updated 12/28/24 @ 15:20 by Andres Aparicio MD) Hx of cystoscopy History of Social History Household Members: Significant Other Housing: Apartment Do you presently have visiting nurse or other home services: No Alcohol intake: current Alcohol intake frequency: does not drink Comment: spasm Patient Tobacco Use Status: Current everyday Tobacco user Tobacco use type: Cigarette Cigarettes Per Day: 10 Years Smoked: 40 e-Cigarette/Vaping Use: Currently Using Second Hand Smoke Exposure: No Substance Use Type: Marijuana service: No Review of Systems Const Denies chills and Denies fever(s) Card Denies chest pain, Denies dyspnea and Reports dyspnea on exertion Resp Denies cough, Denies dyspnea and Reports dyspnea on exertion GI Denies hematochezia and Denies change in bowel habits Denies hematuria and Reports nocturia Musc Denies back pain and Denies limited range of motion Neuro Denies focal weakness and Denies convulsions Psych Denies depression and Denies mood swings Physical Exam Const General: comfortable and no acute distress Orientation/consciousness: patient oriented x3 Neck Neck: Yes no lymphadenopathy Resp Auscultation: clear to auscultation bilaterally Cardio Rhythm: regular rhythm GI Other: Palpable left inguinal lymph node, about 2 cm, tender Palpation (GI): Soft to palpation, nontender and no guarding Neuro General: patient oriented x3 Assessment & Plan Assessment & Plan (1) Inguinal lymphadenopathy: Code(s): R59.0 - Localized enlarged lymph nodes Category: Medical Plan: She has a CAT scan from the ER showing left inguinal and retroperitoneal lymphadenopathy. She had been seen by Dr. Caceres of Oncology and she had recommended a left inguinal lymph node biopsy. The patient does have 1 palpable enlarged lymph node in the left groin. I explained to the patient is a technique of excision biopsy of the left inguinal lymph node. I reviewed the risks including but not limited to bleeding, infections, vessel injury, hematoma, inherent risks of anesthesia, as well as the benefits and alternatives. I discussed with her what to expect postoperatively She understands and wants to proceed. This will be scheduled under anesthesia in the operating room. Coding Level of Care Code New Pt Level 3 (83292) Diagnoses Inguinal lymphadenopathy R59.0
[2025-01-06 10:43] VITALS: BP 105/58; PULSE 92; BMI 23.6
--- OUTSIDE RECORDS SUMMARY | 2025-01-06 12:02 | XMS_ITS | Clinical Summary ---
Author Organization [address] Address [address] [place] [phone] Phone Care Team Providers Care Rn Bariatric Name Role Phone Gege Thopmson MD Primary Care Provider [phone] Allergies Active Allergy Reactions Criticality Noted Date Comments Atorvastatin 08/15/2014 Muscle pains Lisinopril 04/24/2016 cough Methocarbamol 01/15/2021 Sore throat Penicillins 05/07/2005 Medications traZODone (DESYREL) 100 mg tablet Patient cuts in half and takes half at night 11/24/19 24 Active fluticasone furoate (Arnuity Ellipta) 50 mcg/actuation blister with device inhaler Prescribed by leonora Calle 08/01/19 24 Active fluticasone HFA (Flovent HFA) 110 mcg/actuation inhaler Inhale 1 puff by mouth 2 (two) times a day. Prescribed by Pulmonology Active Ventolin HFA 90 mcg/actuation inhaler INHALE TWO PUFFS BY MOUTH EVERY 4 HOURS NEEDED FOR WHEEZING OR COUGH 54 g 11/04/19 25 Active gabapentin (NEURONTIN) 300 mg capsule TAKE [...] by mouth 1 (one) time each day. Prescribed by [facility] with Dr. Elliott 12/22/19 Active cephalexin (KEFLEX) 500 mg capsule Take 1 capsule (500 mg total) by mouth 2 (two) times a day. Prescribed by [facility] provider 12/28/19 Active oxyCODONE (ROXICODONE) 5 mg immediate release tablet Take 1 tablet (5 mg total) by mouth every 8 (eight) hours if needed for severe pain for up to 12 days. Max Daily Amount: 15 mg 36 each 01/02/20 Active losartan (COZAAR) 100 mg tablet TAKE ONE TABLET BY MOUTH EVERY DAY 90 tablet 1 06/28/19 025 Discontinued gabapentin (NEURONTIN) 300 mg capsule Take 1 capsule (300 mg total) by mouth 2 (two) times a day. 60 capsule 10/30/19 025 Discontinued doxycycline (ADOXA) 100 mg tablet Take 1 tablet (100 mg total) by mouth 2 (two) times a day. Take with a full glass of water and do not lie down for at least 30 minutes after 025 Discontinued oxychlorosene (CLORPACTIN) powder Apply topically. 025 Discontinued oxyCODONE-acet aminophen (LYNOX) 5-300 mg per tablet 025 Discontinued HYDROmorphone (DILAUDID) 2 mg tablet Take 1 tablet (2 mg total) by mouth every 6 (six) hours if needed for severe pain. Prescribed by [facility] provider. 12/28/19 Active Problems Problem Noted Date Diagnosed Date Kidney stone 11/18/2024 Overview (11/18/2024): Hospitalization at [facility] with hydronephrosis, 2024 Elevated alkaline phosphatase level 01/15/2021 Elevated LFTs 01/15/2021 Mid back pain 01/15/2021 Stage 3a chronic kidney disease ([facility] V24, [facility] S/[facility] V28) 01/15/2021 Meningioma ([facility] V24, [facility] V28) 06/04/2016 Anxiety 04/24/2016 Chronic obstructive pulmonar y disease ([facility] V24, [facility] V28) 04/24/2016 Essential hypertension 04/24/2016 Panic attack 04/24/2016 Trochanteric bursitis of right hip 01/25/2015 Vitamin D deficiency 01/25/2015 DDD (degenerative disc disease), lumbar 09/24/19 15 Lumbar facet arthropathy 09/23/2014 Hip pain, bilateral 01/04/2014 Hyperlipidemia 01/04/2014 Insomnia 01/04/2014 Obesity 01/04/2014 Esophageal reflux 08/07/2005 Encounters Date Type Department Care Team Description 12/30/2024 10:15 AM EDT Office Visit Adult Medicine [address] [phone] Daniel Seymour NP Left lower quadrant abdominal pain (Primary Dx); Lymphadenopathy, inguinal; Abnormal CT scan; Acute renal failure superimposed on stage 3a chronic kidney disease, unspecified acute renal failure type (CMS/HCC V24, CMS/HCC V28); Kidney stone; Encounter for examination following treatment at hospital 12/30/2024 Telephone Adult Medicine [address] [phone] Shola Chang MD 12/30/2024 Telephone Adult Medicine [address] [phone] Gege Thompson MD 12/29/[address] [phone] Daniel Seymour NP 12/27/2024 10:00 AM EDT Office Visit Adult [address] [phone] Daniel Seymour NP Acute renal failure superimposed on stage 3a chronic kidney disease, unspecified acute renal failure type (CMS/HCC V24, CMS/HCC V28) (Primary Dx); History of kidney stones; Fatigue, unspecified type; Encounter for screening for cardiovascular disorders 12/21/2024 1:30 PM EDT Office Visit Adult [address] [phone] Gege Thompson MD Kidney stone (Primary Dx); Essential hypertension 12/15/2024 Telephone Adult Medicine [address] [phone] Gege Thompson MD 11/24/2024 10:30 AM EDT Office Visit Adult [address] [phone] Gege Thompson MD Kidney stone (Primary Dx); Essential hypertension; Stage 3a chronic kidney disease (CMS/HCC V24, CMS/HCC V28); Anxiety 11/17/[address] [phone] Gege Thompson MD 10/29/2024 Telephone Adult Medicine [address] [phone] Gege Thompson MD from Last 3 Months [...] Sign Reading Time Taken Comments Blood Pressure 126/81 12/30/2024 10:09 AM EDT Pulse 78 12/30/2024 10:09 AM EDT Temperature 36.1 C (96.9 F) 12/30/2024 10:09 AM EDT Respiratory Rate 14 12/30/2024 10:09 AM EDT Oxygen Saturation 95% 12/30/2024 10:09 AM EDT Inhaled Oxygen Concentration - - Weight 54.9 kg (121 lb) 12/30/2024 10:09 AM EDT Height 152.4 cm (5') 12/30/2024 10:09 AM EDT Body Mass Index 23.63 12/30/2024 10:09 AM EDT Plan of Treatment Upcoming Encounters Date Type Department Care Team (Late st Contact Info) Description 01/17/2025 9:45 AM EDT Office Visit Adult Medicine [facility] [address] [place], [place] [phone] Daniel Seymour NP [address] [place], [place] Health Maintenance Due Date Last Done Comments [...] Procedure Name Priority Date/Time Associated Diagnosis Comments EXTERNAL CT REPORT 12/27/2024 COMPREHENSIVE METABOLIC PANEL Routine 12/24/2024 2:26 PM EDT Stage 3a chronic kidney disease (CMS/HCC V24, CMS/HCC V28) EXTERNAL XRAY REPORT 12/06/2024 EXTERNAL XRAY [...] Recently Relevant to Health Maintenance Results * External CT Report (12/27/2024) Only the most recent of3 resultswithin the time period is included. Anatomical Region Laterality Modality Computed Tomogra phy us Provider [facility] PROCEDURES Final Result * (ABNORMAL) Comprehensive metabolic panel (12/24/2024 2:26 PM EDT) Sodium 140 133 - 145 mmol/L LAB CHEMISTRY METHOD 12/24/2024 5:25 PM [facility] Potassium 4.4 3.5 - 5.5 mmol/L LAB CHEMISTRY METHOD 12/24/2024 5:25 PM [facility] Chloride 110 96 - 110 mmol/L LAB CHEMISTRY METHOD 12/24/2024 5:25 PM [facility] CO2 27 21 - 32 mmol/L LAB CHEMISTRY METHOD 12/24/2024 5:25 PM [facility] Anion Gap 3 3 - 11 LAB CHEMISTRY METHOD 12/24/2024 5:25 PM [facility] Glucose 82 70 - 100 mg/dL LAB CHEMISTRY METHOD 12/24/2024 5:25 PM [facility] BUN 25 5 - 25 mg/dL LAB CHEMISTRY METHOD 12/24/2024 5:25 PM [facility] Creatinine 1.96(H) 0.50 - 1.10 mg/dL LAB CHEMISTRY METHOD 12/24/2024 5:25 PM [facility] eGFR 28(L) >=60 mL/min/1. 73m2 LAB CHEMISTRY METHOD 12/24/2024 5:25 PM [facility] Comment:Calculation based on the Chronic Kidney Disease Epidemiology Collaboration (CKD-EPI) equation refit without adjustment for race. BUN/Creatinine Ratio 12.8 LAB CHEMISTRY METHOD 12/24/2024 5:25 PM [facility] Calcium 9.1 8.5 - 10.5 mg/dL LAB CHEMISTRY METHOD 12/24/2024 5:25 PM [facility] AST (SGOT) 21 10 - 42 unit/L LAB CHEMISTRY METHOD 12/24/2024 5:25 PM EDT [facility] ALT (SGPT) 31 10 - 60 unit/L LAB CHEMISTRY METHOD 12/24/2024 5:25 PM EDT [facility] Alkaline Phosphatase 163(H) 42 - 121 unit/L LAB CHEMISTRY METHOD 12/24/2024 5:25 PM EDT [facility] Total Protein 6.6 6.0 - 8.0 g/dL LAB CHEMISTRY METHOD 12/24/2024 5:25 PM EDT [facility] Albumin 3.6 3.2 - 5.0 g/dL LAB CHEMISTRY METHOD 12/24/2024 5:25 PM EDT [facility] Total Bilirubin 0.3 0.0 - 1.4 mg/dL LAB CHEMISTRY METHOD 12/24/2024 5:25 PM EDT [facility] Blood Venous blood specimen / Unknown Venipuncture / Unknown 12/24/2024 2:26 PM EDT 12/24/2024 2:26 PM EDT Gege Thompson MD LAB BLOOD ORDERABLES Final Resul t [facility] [address] [place] [address], [place] [phone] * External Xray Report (12/06/2024) Only the most recent of11 resultswithin the time period is included. Anatomical Region Laterality Modality Radiographic Karlene ging Provider [facility] XR PROCEDURES Final Result * External Ultrasound Report (11/15/2024) Only the most recent of2 resultswithin the time period is included. Anatomical Region Laterality Modality Ultrasound Provider [facility] US PROCEDURES Final Result * Depression Screening (11/16/2023) Depression Screening ABSTRACTED Historical Marissa HOFF HEALTH MAINTENANCE Final Result * (ABNORMAL) Lipid panel (07/01/2022) LDL/HDL Ratio 2 0 - 4 Triglycerides 108 0 - 150 mg/dL Cholesterol 245(A) 0 - 200 mg/dL HDL 110 >=40 mg/dL LDL Cholesterol 114(A) 0 - 100 mg/dL Blood Venous blood specimen / Unknown us Historical Provider LAB BLOOD ORDERABLES Marlene l Result * Hepatitis C Screening (01/13/2021) Hepatitis C Screening ABSTRACTED us Historical Provider HEALTH MAINTENANCE Final Result from Last 3 Months or Most Recently Relevant to Health Maintenance Insurance Care Teams Rn Bariatric Relationship Specialty Start Date End Date Gege Thompson MD [address] [place] [id number] PCP - General Internal Medicine 03/04/1999
--- OUTSIDE RECORDS SUMMARY | 2025-01-06 12:02 | XMS_ITS | Clinical Summary ---
Author Organization [employer] Address [address] [place] [address] [address] [place] [address] Care Team Providers Care Power Plant Technician Name Role Phone Unavailable Primary Care Provider [...] use. 473 mL 4 Active HYDROcodone-amberly taminophen (Isaban) 5-325 MG tabletIndicatio ns:History of tooth extraction, [...] series) 2020 Dental Oral Exam 05/22/2023 11/18/2022 Dental X-Ray: Bitewings 12/17/2024 12/17/19 24, 11/18/2022 COVID-19 Vaccine (3 - 2024-2 6 season) 2025 05/15/2021, 09/28/2020 Influenza Vaccine (#1) 2025 Tobacco Screening 02/10/2025 [...] Most Recently Relevant to Health Maintenance Insurance [address] [facility] [address] MEDICAID STAND ADULT * Guarantor: Ana Paula Sanches Account Type Relation to Patient Date of Phone Billing Address Personal/Family Self [address]
--- OUTSIDE RECORDS SUMMARY | 2025-01-06 12:02 | XMS_ITS | Encounter Summary ---
Author Organization [employer] Address [address] [facility] [address] [place] [address] Care Team Providers Care Waterproofer Helper Name Role Phone Unavailable Primary Care Provider Unavailabl e Encounter Details Date Type Department Care Team (Late st Contact Info) Description 01/21/2024 Telephone [facility] [address] [place] [address] Ab Joe, DMD [address] [place] [address] Social History Tobacco Use Types Packs/Day Years [...]
--- OUTSIDE RECORDS SUMMARY | 2025-01-06 12:02 | XMS_ITS | Encounter Summary ---
Author Organization [employer] Address [address] [facility] [address] [place] [address] Care Team Providers Care Cash Control Specialist Name Role Phone Unavailable Primary Care Provider Unavailabl e Reason for Visit * Reason Onset Date Comments Appointment 11/01/2022 Encounter Details Date Type Department Care Team ([facility] st Contact Info) Description 11/01/2022 Telephone [facility]ULT [facility] [address] [place] [address] Joe Berger, DMD [address] [place] [address] Appointment Social History Tobacco Use Types Packs/Day [...] sent to pharmacy to [facility] [address] [place] [address] in [place] please advise . documented in this encounter Plan of Treatment Not on file documented as of this encounter Visit Diagnoses Not on filedocumented in this encounter
--- OUTSIDE RECORDS SUMMARY | 2025-01-06 12:02 | XMS_ITS | Encounter Summary ---
Author Organization [employer] Address [address] [place] [address] [address] [place] [address] Care Team Providers Care Mrb Engineer Name Role Phone Unavailable Primary Care Provider Unavailabl e Reason for Visit * Reason Onset Date Comments appt order 12/04/2022 followed up with patient 12/04/2022 Encounter Details Date Type Department Care Team ([facility] st Contact Info) Description 12/04/2022 Telephone [facility] AD[facility] D[facility] [address] [place] [address] Joe Berger DMD [address] [place] [address] appt order; followed up with patient Social [...] She has an appt on 12/13 for scientology but is unsure if the cleaning has to be done first. She was under the impression but it was unclear on my end. It is listed the treatment she needs but doesn't specify if hygiene has to happen prior to scientology. Shed like to make sure she can still come in for 12/13 or if she has to wait to get a cleaning first so it is not a wasted trip documented in this encounter Plan of Treatment Not on file documented as of this encounter Visit Diagnoses Not on filedocumented in this encounter
== END 2025-01-06 11:19 | disposition home or self-care (01) ==
LOC: HO.HGS 10:35
PROVIDERS: PCP Internal Medicine; Visit Provider Surgery
DX: R59.0 Localized enlarged lymph nodes (principal)
CPT/HCPCS: 99203

== ENCOUNTER 2025-01-14 11:38 | Day surgery (SDC) | payer OTHER, MEDICAID, SELFPAY ==
[2025-01-14 11:46] VITALS: BMI 22.9
[2025-01-14 12:03] VITALS: BP 118/87; PULSE 88; RESP 16; TEMP 36.3; O2SAT 96
[2025-01-14] MEDS: Lactated Ringers 1,000 ML 100 ML IVCONT (12:12)
--- NOTE | 2025-01-14 13:10 | MHC.SHP ---
Pre-Procedural Eval Section A - 24 Hr Update-Section A only Date of Service: 01/14/25 The patient is an INPATIENT: No Changes since office visit: No Cold of Flu in the past 2 weeks, No New Medical Problems, No Changes in Medication and No Patient answered all questions The patient has been examined within 24 hours of the surgical procedure. The History & Physical has been completed within 30 days and I have reviewed it.: Yes Section B - Complete if H&P > 30 days Chief Complaint: Localized enlarged lymph nodes Allergies: Allergies Allergy/AdvReac Type Severity Reaction Status Date / Time lisinopril (LISINOPRIL) Allergy Unknown Cough Verified 01/14/25 11:49 Penicillins (PENICILLINS) Allergy Unknown HIVES Verified 01/11/25 14:25 Plan I have reviewed the history and physical and performed a pertinent physical examination on my patient. No changes have occurred unless specified. Time Spent With Patient Time: Total time managing care of this patient today ____ minutes.
--- NOTE | 2025-01-14 13:43 | HO.ANESPROP2 ---
Documented by User: Keyla Monsivais NP 01/13/25 09:56 HPI - Anesthesia Eval Consult details Narrative: 64yo F for Left Inguinal Lymph Node Biopsy s/p cysto etc 12/2024 with [facility] 3 Incidental finding of lymphadenopathy when pt presented to ED with abdominal pain / RAHAT on CKD after urologic procedure (Abd CT shows Diffuse left-sided lymphadenopathy extending from the aortic bifurcation to the groin. There is resultant obstruction of the left ureter causing moderate hydroureteronephrosis. Also, 9mm non-obstructing stone) Creat 2.26 - up from baseline Eval'd by [facility] post-ED visit 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, mcc - no pulmo follow on chart review. Per heme/onc, pt c/o cough and SOB - pending chest CT. PMFSH Active Problems Active Problems: All Active Problems Inguinal lymphadenopathy (Acute) Intra-abdominal lymphadenopathy (Acute) S/P ureteral stent placement (Acute) Kidney stone on left side (Acute) Left shoulder pain (Acute) Left elbow pain (Acute) Hydronephrosis of left kidney (Acute) Acute kidney injury (Acute) Left ureteral calculus (Acute) Insomnia (Acute) HTN (hypertension) (Acute) COPD (chronic obstructive pulmonary disease) (Acute) Tobacco dependence (Acute) Anxiety (Acute) Past Medical History Medical History (Updated 01/11/25 @ 14:35 by Andres Aparicio MD) Inguinal lymphadenopathy CKD (chronic kidney disease) Insomnia HTN (hypertension) Concussion Bronchitis COPD (chronic obstructive pulmonary disease) Tobacco dependence Anxiety Nephrolithiasis Asthma Family History Family history of problems with anesthesia: No Surgical History Surgical History Hx of cystoscopy History of History of Problems with Anesthesia: No Social History Social History Household Members: Significant Other Housing: Apartment Do you presently have visiting nurse or other home services: No Alcohol intake: current Alcohol intake frequency: former alcohol drinker Comment: spasm Patient Tobacco Use Status: Current everyday Tobacco user Tobacco use type: Cigarette Cigarettes Per Day: 10 Years Smoked: 40 e-Cigarette/Vaping Use: Currently Using Second Hand Smoke Exposure: No Use of substances other than those prescribed or required for medical reasons: Yes Substance Use Type: Marijuana Are you DNR?: No Advance Directives: No Advance Directives Information Provided: Yes Patient : No : No Poor oral hygiene: No service: No Meds Allergies Allergy/AdvReac Type Severity Reaction Status Date / Time lisinopril (LISINOPRIL) Allergy Unknown Cough Verified 01/14/25 11:49 Penicillins (PENICILLINS) Allergy Unknown HIVES Verified 01/11/25 14:25 Home Medications ?Medication ?Instructions ?Recorded ?Confirmed ?Last Taken ?Type albuterol sulfate 90 mcg/actuation 2 puff inhalation Q4H PRN 11/12/24 01/11/25 12/06/24 History aerosol inhaler Shortness Of Breath Or Wheezing fluticasone furoate 50 1 inh inhalation DAILY 11/12/24 01/11/25 11/08/24 History mcg/actuation blister powder for inhalation (Arnuity Ellipta) gabapentin 300 mg capsule 300 mg PO BID 11/12/24 01/11/25 12/06/24 History lidocaine 4 % topical patch 1 patch topical DAILY PRN Back Pain 11/12/24 01/11/25 Unknown History (Salonpas (lidocaine)) losartan 100 mg tablet 100 mg PO DAILY 11/12/24 01/11/25 12/06/24 History trazodone 100 mg tablet 50 - 100 mg PO BEDTIME 11/12/24 01/11/25 11/10/24 History Exam Pertinent Lab Results Pertinent Lab Results: Laboratory Tests 01/11/25 14:23 WBC 6.7 Hgb 11.6 L Hct 35.4 L Plt Count 307 Sodium 141 Potassium 5.2 H D Chloride 105 Carbon Dioxide 28 BUN 33 H Creatinine 2.26 H Narrative Narrative: CT abdomen pelvis wo IV con IMPRESSION: 1. Diffuse left-sided lymphadenopathy extending from the aortic bifurcation to the groin. There is resultant obstruction of the left ureter causing moderate hydroureteronephrosis. 2. 9 mm nonobstructing calculus at the lower pole of the left kidney. 3. Diverticulosis of the descending and sigmoid colon, without evidence of diverticulitis. Assessment and Plan Assessment Anesthesia Assessment: Chart Reviewed Final Anesthetic Review Family History of Problems with Anesthesia: No History of Problems with Anesthesia: No Documented by User: Marlin Moore DO 01/14/25 13:45 [facility] Past Medical History Medical History (Updated 01/11/25 @ 14:35 by Andres Aparicio MD) Inguinal lymphadenopathy CKD (chronic kidney disease) Insomnia HTN (hypertension) Concussion Bronchitis COPD (chronic obstructive pulmonary disease) Tobacco dependence Anxiety Nephrolithiasis Asthma Family History Family history of problems with anesthesia: No Surgical History Surgical History Hx of cystoscopy History of History of Problems with Anesthesia: No Social History Social History Household Members: Significant Other Housing: Apartment Do you presently have visiting nurse or other home services: No Alcohol intake: current Alcohol intake frequency: former alcohol drinker Comment: spasm Patient Tobacco Use Status: Current everyday Tobacco user Tobacco use type: Cigarette Cigarettes Per Day: 10 Years Smoked: 40 e-Cigarette/Vaping Use: Currently Using Second Hand Smoke Exposure: No Use of substances other than those prescribed or required for medical reasons: Yes Substance Use Type: Marijuana Are you DNR?: No Advance Directives: No Advance Directives Information Provided: Yes Patient : No : No Poor oral hygiene: No service: No Meds Allergies Allergy/AdvReac Type Severity Reaction Status Date / Time lisinopril (LISINOPRIL) Allergy Unknown Cough Verified 01/14/25 11:49 Penicillins (PENICILLINS) Allergy Unknown HIVES Verified 01/11/25 14:25 Home Medications ?Medication ?Instructions ?Recorded ?Confirmed ?Last Taken ?Type albuterol sulfate 90 mcg/actuation 2 puff inhalation Q4H PRN 11/12/24 01/11/25 12/06/24 History aerosol inhaler Shortness Of Breath Or Wheezing fluticasone furoate 50 1 inh inhalation DAILY 11/12/24 01/11/25 11/08/24 History mcg/actuation blister powder for inhalation (Arnuity Ellipta) gabapentin 300 mg capsule 300 mg PO BID 11/12/24 01/11/25 12/06/24 History lidocaine 4 % topical patch 1 patch topical DAILY PRN Back Pain 11/12/24 01/11/25 Unknown History (Salonpas (lidocaine)) losartan 100 mg tablet 100 mg PO DAILY 11/12/24 01/11/25 12/06/24 History trazodone 100 mg tablet 50 - 100 mg PO BEDTIME 11/12/24 01/11/25 11/10/24 History Exam Exam Date and Time: 01/14/25 1343 Height,Weight and Vital Signs: Height 5 ft Weight 53.3 kg Vital Signs Temperature 97.4 F 01/14/25 12:03 Pulse Rate 88 01/14/25 12:03 Respiratory Rate 16 01/14/25 12:03 Blood Pressure 118/87 01/14/25 12:03 Pulse Oximetry 96 01/14/25 12:03 Oxygen Delivery Method Room Air 01/14/25 12:03 Temperature 97.4 F 01/14/25 12:03 Pulse Rate 88 01/14/25 12:03 Respiratory Rate 16 01/14/25 12:03 Blood Pressure 118/87 01/14/25 12:03 Pulse Oximetry 96 01/14/25 12:03 Oxygen Delivery Method Room Air 01/14/25 12:03 Airway Mallampati Class: I TM Dist: >3cm Neck ROM: Full Loose/Missing/Broken Teeth: No (several missing teeth but no loose or broken teeth) Heart: S1S2 Lungs: CTAB Assessment and Plan Assessment Anesthesia Assessment: Anesthesia Plan Discussed and Chart Reviewed Final Anesthetic Review Family History of Problems with Anesthesia: No History of Problems with Anesthesia: No NPO: Yes ASA Class: II Final Preanesthetic Review: No Changes in Pt Med Stat, Meds/Allgs Chart Reviewed, Consent Obtained/Reviewed and Anes Risks/Benef Reviewed Patient Risk: Low Procedure Risk: Low Anesthetic Plan Anesthetic Plan: MAC: and Agree w/ Assess. and Plan Disposition: Standard PACU
--- NOTE | 2025-01-14 14:10 | W.PM.OPN ---
Operative Note Operative Note Date of Service: 01/14/25 Narrative: Preop diagnosis: Left inguinal lymphadenopathy Postop diagnosis: The same Procedure: Excisional biopsy left inguinal lymph node Surgeon: Mina Menendez MD Mid Level Game Designer: HELLEN Sanderson The patient is a 64 year old female referred for lymphadenopathy. There was a large lymph node in the left groin. I explained the technique of excision biopsy of the left groin lymph node. I reviewed the risks, benefits, and alternatives and she had given consent She was brought to the operating room. She was placed supine under monitored anesthesia care. The left groin was prepped and draped in usual sterile fashion. A surgical time-out was done. The patient received cefazolin 2 g IV preoperatively I infiltrated the planned line of incision with lidocaine 1%. I made a short incision along the inguinal crease with a blade 15. This carried down through the full-thickness of the skin subcutaneous fat with electrocautery. We continued with the sharp dissection until we are able to visualize the lymph node. I gently dissected the lymph node circumferentially with a combination of Metzenbaum scissors as well as electrocautery. This lymph node was about 2.5 cm. This was excised completely and sent as specimen. I cauterized oozing areas. Once hemostasis was confirmed, I irrigated. I closed the deep subcutaneous layers with Polysorb 3-0 simple interrupted sutures. Skin closure was achieved with Polysorb 4-0 subcuticular running stitch Dressings were applied. The procedure was completed. The area was infiltrated with Marcaine 0.5% for postop analgesia The patient tolerated procedure well and there were no complications. Estimated blood loss about 10 cc She was then transferred to the recovery room with stable vital signs
[2025-01-14 14:26] VITALS: BP 125/69; PULSE 70; RESP 16; TEMP 36.6; O2SAT 98
[2025-01-14 14:41] VITALS: BP 134/95; PULSE 59; RESP 15; TEMP 36.5; O2SAT 97
== END 2025-01-14 15:23 | disposition home or self-care (01) ==
PROVIDERS: Pathology Anatomic Pathology & Clinical Pathology; PCP Internal Medicine; Visit Provider Surgery
PROC: (CPT 38531; principal; 2025-01-14 13:30)
DX: R59.0 Localized enlarged lymph nodes (principal); R10.32 Left lower quadrant pain; I12.9 Hypertensive chronic kidney disease with stage 1 through stage 4 chronic kidney disease, or unspecified chronic kidney disease; N18.9 Chronic kidney disease, unspecified; Z96.0 Presence of urogenital implants; N20.0 Calculus of kidney; J44.9 Chronic obstructive pulmonary disease, unspecified; Z79.51 Long term (current) use of inhaled steroids; Z79.899 Other long term (current) drug therapy; Z88.0 Allergy status to penicillin; Z88.8 Allergy status to other drugs, medicaments and biological substances; F17.210 Nicotine dependence, cigarettes, uncomplicated; Z98.890 Other specified postprocedural states
CPT/HCPCS: 38531; 36415; 88305; 88341; 88342; 88365; 88374; J0690; J2003; J2405; J2704; J2795; J3010

== ENCOUNTER → 2025-01-14 11:38 | Outpatient (BNV) | payer OTHER, MEDICAID, SELFPAY | PROVIDERS: PCP Internal Medicine; Visit Provider Surgery | DX: R59.0 Localized enlarged lymph nodes (principal) | CPT/HCPCS: 38525 ==

== ENCOUNTER 2025-01-19 14:20 | Outpatient (REF) | payer OTHER, MEDICAID, SELFPAY ==
--- NOTE | ~2025-01-19 | CT_ITS ---
EXAMINATION: CT CHEST WITHOUT IV CONTRAST INDICATION: COUGH AND CONGESTION COMPARISON: There are no prior studies available for comparison. TECHNIQUE: Helical CT scan of the chest was performed without intravenous contrast. Coronal and sagittal reformatted images were generated and reviewed. This CT exam was performed with one or more of the following dose reduction techniques: automated exposure control, adjustment of the mA and/or kV according to patient size, use of iterative reconstruction technique. DLP: mGy-cm CHEST: THYROID: The thyroid is unremarkable. LUNGS: There is a calcified granuloma in the right middle lobe (series 4, image 100). An additional calcified granuloma is noted along the right minor fissure (series 4, image 78). The lungs are otherwise clear. There are no focal airspace opacities. MEDIASTINUM: There is no mediastinal lymphadenopathy. KIM: Evaluation of the hilar regions is limited by lack of intravenous contrast material. CARDIOVASCULATURE: The heart is normal in size. There is a small pericardial fluid at the base of the heart measuring up to 10 mm in thickness. The thoracic aorta is normal in caliber. DEGREE OF CORONARY CALCIFICATION: none PLEURA: There is no pleural effusion. No pneumothorax. MAIN AIRWAYS: The mainstem bronchi and proximal branches are patent. AXILLA: There is no axillary lymphadenopathy. BONES AND SOFT TISSUES: Unremarkable UPPER ABDOMEN: The visualized portions of the liver, spleen, and adrenals have an unremarkable unenhanced appearance. There is left hydronephrosis as noted on abdominal CT dated 12/27/2024. CT/CT chest wo IV con IMPRESSION: 1. No focal airspace opacities are identified. 2. Small pericardial effusion. 3. Left hydronephrosis as seen on abdominal CT dated 12/27/2024 Electronically signed by: Randall Marcial MD 01/19/2025 03:14 PM EDT
--- OUTSIDE RECORDS SUMMARY | 2025-01-19 18:05 | XMS_ITS | Encounter Summary ---
Author Organization [employer] Address [address] [facility] 7t [place] [address] Care Team Providers Care Dealership Manager Name Role Phone Unavailable Primary Care Provider Unavailabl e Reason for Visit * Reason Onset Date Comments Appointment 11/01/2022 Encounter Details Date Type Department Care Team ([facility] st Contact Info) Description 11/01/2022 Telephone [facility] ADULT D[facility] [address] [place] [address] Joe Berger, DMD [address] [place] [address] Appointment Social History Tobacco Use Types Packs/Day [...] sent to pharmacy to [facility] at [address] [place] [address] [place] please advise . documented in this encounter Plan of Treatment Not on file documented as of this encounter Visit Diagnoses Not on filedocumented in this encounter
--- OUTSIDE RECORDS SUMMARY | 2025-01-19 18:05 | XMS_ITS | Clinical Summary ---
Author Organization [employer] Address [address] [place] [address] 7t [place] [address] Care Team Providers Care Entry Level Sales Consultant Name Role Phone Unavailable Primary Care Provider [...] use. 473 mL 4 Active HYDROcodone-amberly taminophen (Robinson) 5-325 MG tabletIndicatio ns:History of tooth extraction, [...] of Phone Billing Address Personal/Family Self [address]
--- OUTSIDE RECORDS SUMMARY | 2025-01-19 18:05 | XMS_ITS | Encounter Summary ---
Author Organization [employer] Address [address] [place] [address] 7t [place] [address] Care Team Providers Care Civil Division Commander Deputy Sheriff Name Role Phone Unavailable Primary Care Provider Unavailabl e Reason for Visit * Reason Onset Date Comments appt order 12/04/2022 followed up with patient 12/04/2022 Encounter Details Date Type Department Care Team ([facility] st Contact Info) Description 12/04/2022 Telephone [facility] ADULT DENTAL [address] [place] [address] Joe Berger DMD [address] [place] [address] appt order; followed up with patient Social [...] but she can always stop at the ict help desk technician on and see if she can be scheduled before she leaves the office DR * Telephone Encounter - Deana Starr - 12/04/2022 3:04 PM EDT Patient had to cancel her cleaning appt on 11/27 due to being sick. She has an appt on 12/13 for sikh but is unsure if the cleaning has to be done first. She was under the impression but it was unclear on my end. It is listed the treatment she needs but doesn't specify if hygiene has to happen prior to sikh. Shed like to make sure she can still come in for 12/13 or if she has to wait to get a cleaning first so it is not a wasted trip documented in this encounter Plan of Treatment Not on file documented as of this encounter Visit Diagnoses Not on filedocumented in this encounter
--- OUTSIDE RECORDS SUMMARY | 2025-01-19 18:05 | XMS_ITS | Clinical Summary ---
Author Organization [address] Address [address] [place] [phone] Phone Care Team Providers Care Cementer Helper Name Role Phone Gege Thompson MD Primary Care Provider Allergies Active Allergy Reactions Criticality Noted Date [...] 1 (one) time each day. Prescribed by [facility] with Dr. Elliott 12/22/19 Active cephalexin (KEFLEX) 500 mg capsule Take 1 capsule (500 mg total) by mouth 2 (two) times a day. Prescribed by [facility] provider 12/28/19 25 Active losartan (COZAAR) 100 mg tablet TAKE ONE TABLET BY MOUTH EVERY DAY 90 tablet 1 06/28/19 25 025 Discontinued doxycycline (ADOXA) 100 mg tablet [...] if needed for severe pain. Prescribed by [facility] provider. 12/28/19 025 oxyCODONE (ROXICODONE) 5 mg immediate release tablet Take 1 tablet (5 mg total) by mouth every 8 (eight) hours if needed for severe pain for up to 12 days. Max Daily Amount: 15 mg 36 each 01/02/20 025 Active Problems Problem Noted Date Diagnosed Date Kidney stone 11/18/2024 Overview (11/18/2024): Hospitalization at [facility] with hydronephrosis, 2024 Elevated alkaline phosphatase level 01/15/2021 Elevated LFTs 01/15/2021 Mid back pain 01/15/2021 Stage 3a chronic kidney disease ([facility] V24, S/[facility] V28) 01/15/2021 Meningioma ([facility] V24, [facility] V28) 06/04/2016 Anxiety 04/24/2016 Chronic obstructive pulmonar y disease ([facility] V24, [facility] V28) 04/24/2016 Essential hypertension 04/24/2016 Panic attack 04/24/2016 Trochanteric bursitis of right hip 01/25/2015 Vitamin D deficiency 01/25/2015 DDD (degenerative disc disease), lumbar 09/24/19 15 Lumbar facet arthropathy 09/23/2014 Hip pain, bilateral 01/04/2014 Hyperlipidemia 01/04/2014 Insomnia 01/04/2014 Obesity 01/04/2014 Esophageal reflux 08/07/2005 Encounters Date Type Department Care Team Description 01/11/[address] [phone] Gege Thompson MD 12/30/2024 10:15 AM EDT Office Visit [address] [phone] Daniel Seymour NP Left lower quadrant abdominal pain (Primary Dx); Lymphadenopathy, inguinal; Abnormal CT scan; Acute renal failure superimposed on stage 3a chronic kidney disease, unspecified acute renal failure type (CMS/HCC V24, CMS/HCC V28); Kidney stone; Encounter for examination following treatment at hospital 12/30/[address] [phone] Shola Chang [place] 12/30/[address] [phone] Gege Thompson MD 12/29/[address] [phone] Daniel Seymour NP 12/27/2024 10:00 AM EDT Office Visit [address] [phone] Daniel Seymour NP Acute renal failure superimposed on stage 3a chronic kidney disease, unspecified acute renal failure type (CMS/HCC V24, CMS/HCC V28) (Primary Dx); History of kidney stones; Fatigue, unspecified type; Encounter for screening for cardiovascular disorders 12/21/2024 1:30 PM EDT Office Visit [address] [phone] Gege Thompson MD Kidney stone (Primary Dx); Essential hypertension 12/15/2024 Telephone Adult Medicine [address] [phone] Gege Thompson MD 11/24/2024 10:30 AM EDT Office Visit Adult [address] [phone] Gege Thompson MD Kidney stone (Primary Dx); Essential hypertension; Stage 3a chronic kidney disease (CMS/HCC V24, CMS/HCC V28); Anxiety 11/17/2024 Telephone Adult [address] [phone] Gege Thompson MD 10/29/2024 Telephone Adult Medicine [address] [phone] Gege Thompson MD from Last 3 Months [...] Care Team (Late st Contact Info) Description 01/24/2025 10:15 AM EDT Office Visit Adult Medicine [facility] [address] [place], [place] [phone] Daniel Seymour NP [address] [place], [place] Health Maintenance Due Date Last Done [...] mmol/L LAB CHEMISTRY METHOD 12/24/2024 5:25 PM [facility] Potassium 4.4 3.5 - 5.5 mmol/L LAB CHEMISTRY METHOD 12/24/2024 5:25 PM [facility] Chloride 110 96 - 110 mmol/L LAB CHEMISTRY METHOD 12/24/2024 5:25 PM [facility] CO2 27 21 - 32 mmol/L LAB CHEMISTRY METHOD 12/24/2024 5:25 PM [facility] Anion Gap 3 3 - 11 LAB CHEMISTRY METHOD 12/24/2024 5:25 PM [facility] Glucose 82 70 - 100 mg/dL LAB CHEMISTRY METHOD 12/24/2024 5:25 PM [facility] BUN 25 5 - 25 mg/dL LAB CHEMISTRY METHOD 12/24/2024 5:25 PM [facility] Creatinine 1.96(H) 0.50 - 1.10 mg/dL LAB CHEMISTRY METHOD 12/24/2024 5:25 PM [facility] eGFR 28(L) >=60 mL/min/1. 73m2 LAB CHEMISTRY METHOD 12/24/2024 5:25 PM [facility] Comment:Calculation based on the Chronic Kidney Disease Epidemiology Collaboration (CKD-EPI) equation refit without adjustment for race. BUN/Creatinine Ratio 12.8 LAB CHEMISTRY METHOD 12/24/2024 5:25 PM [facility] Calcium 9.1 8.5 - 10.5 mg/dL LAB CHEMISTRY METHOD 12/24/2024 5:25 PM [facility] AST (SGOT) 21 10 - 42 unit/L LAB CHEMISTRY METHOD 12/24/2024 5:25 PM EDT [facility] ALT (SGPT) 31 10 - 60 unit/L LAB CHEMISTRY METHOD 12/24/2024 5:25 PM EDT [facility] Alkaline Phosphatase 163(H) 42 - 121 unit/L LAB CHEMISTRY METHOD 12/24/2024 5:25 PM EDT [facility] Total Protein 6.6 6.0 - 8.0 g/dL LAB CHEMISTRY METHOD 12/24/2024 5:25 PM EDT [facility] Albumin 3.6 3.2 - 5.0 g/dL LAB CHEMISTRY METHOD 12/24/2024 5:25 PM EDT [facility] Total Bilirubin 0.3 0.0 - 1.4 mg/dL LAB CHEMISTRY METHOD 12/24/2024 5:25 PM EDT [facility] Blood Venous blood specimen / Unknown Venipuncture / Unknown 12/24/2024 2:26 PM EDT 12/24/2024 2:26 PM EDT Gege Thompson MD LAB BLOOD ORDERABLES Final Resul t [facility] [address] [place] [address], [place] [phone] * External Xray Report (12/06/2024) Only the [...] Most Recently Relevant to Health Maintenance Insurance [facility] Care Teams Cementer Helper Relationship Specialty Start Date End Date Gege Thompson MD [address] [place] [id number] PCP - General Internal Medicine 03/[birth year]/1999
--- OUTSIDE RECORDS SUMMARY | 2025-01-19 18:05 | XMS_ITS | Encounter Summary ---
Author Organization [employer] Address [address] [facility] 7t [place] [address] Care Team Providers Care Grab Hooker Name Role Phone Unavailable Primary Care Provider Unavailabl e Encounter Details Date Type Department Care Team (Late st Contact Info) Description 01/21/2024 Telephone [facility] ADULT DENTAL [address] [place] [address] Ab Joe, DMD [address] [place] [address] Social History Tobacco Use Types Packs/Day Years [...]
--- OUTSIDE RECORDS SUMMARY | 2025-01-19 18:05 | XMS_ITS | Encounter Summary ---
Author Organization [facility] [address] Care Team Providers Care Broiler Chef Or Cook Name Role Phone Gege Thompson MD Primary Care Provider Reason for Visit * Reason Onset Date Comments Provider call back 01/11/2025 Letter for School/Work 01/11/2025 Work charisse er Encounter Details Date Type Department Care Team (Late st Contact Info) Description 01/11/2025 Telephone Adult Medicine [facility] [address] [place] [address] Gege Thompson MD [address] [place] [address] Social History Tobacco Use Types Packs/Day Years [...] on file documented as of this encounter Progress Notes * Daniel Seymour NP - 01/19/2025 12:16 AM EDT New Letter was completed. Please call patient and inform. Thanks * Chary Peña - 01/11/2025 12:12 PM EDT Patient is having surgery on her lymphoids on her groin area and wants to know if you want to see her sooner the 01/24/25 or if you could extend her work note as she was suppose to be seen on 01/17 but was rescheduled. Please advise, patient will be at Oncology at [facility] for 2 and wont beout until about 3:30. documented in this encounter Plan of Treatment Upcoming Encounters Date Type Department Care Team (Late st Contact Info) Description 01/24/2025 10:15 AM EDT Office Visit Adult Medicine [facility] [address] [place] [address] Daniel Seymour NP [address] [place], [place] documented as of this encounter Visit Diagnoses Not on filedocumented in this encounter Care Teams Broiler Chef Or Cook Relationship Specialty Start Date End Date Gege Thompson MD [address] [place], [place] PCP - General Internal Medicine 03/04/1999 documented as of this encounter
== END 2025-01-19 14:21 | disposition home or self-care (01) ==
LOC: HO.CT 14:20
PROVIDERS: PCP Internal Medicine; Visit Provider Internal Medicine Medical Oncology
DX: R05.8 Other specified cough (principal); R59.0 Localized enlarged lymph nodes
CPT/HCPCS: 71250

== ENCOUNTER → 2025-01-19 14:23 | Outpatient (BNV) | payer OTHER, MEDICAID, SELFPAY | PROVIDERS: PCP Internal Medicine; Visit Provider Radiology Diagnostic Radiology | DX: I31.39 Other pericardial effusion (noninflammatory) (principal); R05.9 Cough, unspecified | CPT/HCPCS: 71250 ==

== ENCOUNTER 2025-01-27 09:55 | Outpatient (AMB) | payer OTHER, SELFPAY ==
--- OUTSIDE RECORDS SUMMARY | 2025-01-24 10:15 | XMS_ITS | Encounter Summary ---
Author Organization [facility] Address [address] [place] [address] Care Team Providers Care Rabbet Operator Name Role Phone Gege Thompson MD Primary Care Provider Reason for Visit * Reason Comments Follow-up Patient following up for lab work Encounter Details Date Type Department Care Team (Late st Contact Info) Description 01/24/2025 10:15 AM EDT Office Visit Adult Medicine [facility] [address] [place], [place] [phone] Daniel Seymour NP [address] [place], [place] SOB (shortness of breath) on exertion (Primary Dx); Insomnia, unspecified type; Lymphadenopathy, inguinal; Postop check; Stage 4 chronic kidney disease (CMS/HCC V24, CMS/HCC V28); Hyperkalemia Social History Tobacco Use Types Packs/Day Years [...] Sign Reading Time Taken Comments Blood Pressure 80/50 01/24/2025 10:10 AM EDT Pulse 87 01/24/2025 10:10 AM EDT Temperature 36.3 C (97.3 F) 01/24/2025 10:10 AM EDT Respiratory Rate 14 01/24/2025 10:10 AM EDT Oxygen Saturation 97% 01/24/2025 10:10 AM EDT Inhaled Oxygen Concentration - - Weight 53.5 kg (118 lb) 01/24/2025 10:10 AM EDT Height 152.4 cm (5') 01/24/2025 10:10 AM EDT Body Mass Index 23.05 01/24/2025 10:10 AM EDT documented in this encounter Ordered Prescriptions Prescription Sig Dispense Quantity Refills Last Filled Start Date End Date oxyCODONE (ROXICODONE) 5 mg immediate release tablet Take 1 tablet (5 mg total) by mouth every 8 (eight) hours if needed for severe pain or moderate pain. Prescribed By Dr. Aparicio, Oncologist at [facility], For Breakthrough/Sev er pain Max Daily Amount: 15 mg 15 tablet 01/24/2025 traZODone (DESYREL) 100 mg tablet Take 1 tablet (100 mg total) by mouth at bedtime. 90 tablet 1 01/24/2025 albuterol HFA (Ventolin HFA) 90 mcg/actuation inhaler Inhale 2 puffs by mouth if needed for wheezing. 4 puffs every 4 hours as needed 54 g 01/24/2025 documented in this encounter Plan of Treatment Upcoming Encounters Date Type Department Care Team (Late st Contact Info) Description 03/07/2025 10:15 AM EST Office Visit Adult Medicine [facility] [address] [place], [place] [phone] Daniel Seymour NP [address] [place], [place] Scheduled Orders Name Type Priority Associated Diagnoses Orde r Schedule Basic metabolic panel Lab Routine SOB (shortness of breath) on exertion Expected: 02/07/2025, Expires: 01/24/2026 documented as of this encounter Results * D-Dimer (01/24/2025 11:26 AM EDT) D-Dimer, Quant (D-DU) 193 <=230 ng/mL DDU LAB COAGULATION METHOD 01/24/2025 12:04 PM EDT [facility] Blood Venous blood specimen / Unknown Venipuncture / Unknown 01/24/2025 11:26 AM EDT 01/24/2025 11:26 AM EDT Narrative [facility] - 01/24/2025 12:04 PM EDT D-Dimer <230 ng/mL (D-Dimer units) is the threshold for exclusion of DVT/PE. D-Dimer may be elevated in: Critically ill, severely infected, trauma patients, DIC, acute CVA, acute TX, unstable angina, AF, old age, , and smoking. D-Dimer may be decreased with: Initiation of heparin therapy and oral anticoagulants. us Daniel Seymour NP LAB BLOOD ORDERABLES Final R esult [facility] [address] [place] [address], documented in this encounter Visit Diagnoses Diagnosis SOB (shortness of breath) on exertion- Primary Shortness of breath Insomnia, unspecified type Lymphadenopathy, inguinal Postop check Follow-up examination, following unspecified surgery Stage 4 chronic kidney disease ([facility] V24, [facility] V28) Hyperkalemia Hyperpotassemia documented in this encounter Discontinued Medications Medication Sig Discontinue Reason Start Date End Da te cephalexin (KEFLEX) 500 mg capsule Take 1 capsule (500 mg total) by mouth 2 (two) times a day. Prescribed by [facility] provider Therapy completed 12/27/2024 01/24/2025 traZODone (DESYREL) 100 mg tablet Take 1 tablet (100 mg total) by mouth at bedtime. Patient cuts in half and takes half at night Patient believes last prescribed by Andrea Calle Reorder 11/24/2023 01/24/2025 Ventolin HFA 90 mcg/actuation inhaler INHALE TWO PUFFS BY MOUTH EVERY 4 HOURS NEEDED FOR WHEEZING OR COUGH Reorder 11/03/2024 01/24/2025 oxyCODONE (ROXICODONE) 5 mg immediate release tablet Take 1 tablet (5 mg total) by mouth every 8 (eight) hours if needed for severe pain or moderate pain. Prescribed By Dr. Aparicio, Oncologist at [facility], For Breakthrough/Sever pain Max Daily Amount: 15 mg Reorder 01/13/2025 01/24/2025 documented as of this encounter Historical Medications * This list may reflect changes made after this encounter. oxyCODONE (ROXICODONE) 5 mg immediate release tablet Take 1 tablet (5 mg total) by mouth every 8 (eight) hours if needed for severe pain or moderate pain. Prescribed By Dr. Aparicio, Oncologist at [facility], For Breakthrough/Sev er pain Max Daily Amount: 15 mg 01/13/2025 added in this encounter Care Teams Rabbet Operator Relationship Specialty Start Date End Date Gege Thompson MD [address] [place] [address] PCP - General Internal Medicine 03/04/1999 documented as of this encounter
--- NOTE | 2025-01-27 09:57 | MHC.OFFVIS ---
Vital Signs 01/27/25 10:01 Height 5 ft Weight 117 lb 8.102 oz BMI 22.9 Intake Visit Reasons: s/p exc biopsy of lft groin lymph node Intake Note: This patient presents for post-op assessment status post excisional biopsy left inguinal lymph nodes. (01/14/2025) Pt c/o: reports discomfort Bx site, reports no redness. Religious Activities Director Required: No Accompanied by: Son Allergies lisinopril (LISINOPRIL) Allergy (Unknown, Verified 01/27/25 10:01) Cough Penicillins (PENICILLINS) Allergy (Unknown, Verified 01/27/25 10:01) HIVES HPI HPI s/p exc biopsy of lft groin lymph node: Details: She underwent excision of a left groin lymph node last center 2024 and she is here to discuss the path report. She describes pain on the area but otherwise seems to be doing quite well postoperatively. [facility] Medical History Inguinal lymphadenopathy CKD (chronic kidney disease) Insomnia HTN (hypertension) Concussion Bronchitis COPD (chronic obstructive pulmonary disease) Tobacco dependence Anxiety Nephrolithiasis Asthma Surgical History Hx of cystoscopy History of Social History Household Members: Significant Other Housing: Apartment Do you presently have visiting nurse or other home services: No Alcohol intake: current Alcohol intake frequency: former alcohol drinker Comment: COUNTS CORRECT Patient Tobacco Use Status: Current everyday Tobacco user Tobacco use type: Cigarette Cigarettes Per Day: 10 Years Smoked: 40 e-Cigarette/Vaping Use: Currently Using Second Hand Smoke Exposure: No Substance Use Type: Marijuana service: No Review of Systems Const Denies chills and Denies fever(s) Physical Exam Vital Signs: BMI result Body Mass Index 22.9 Const General: comfortable and no acute distress GI Other: Right groin incision is well healed, not infected Assessment & Plan Assessment & Plan (1) Inguinal lymphadenopathy: Code(s): R59.0 - Localized enlarged lymph nodes Category: Medical Plan: Status post excision. Her path report shows diffuse large B-cell lymphoma. The incision is well healed . I explained to her that she should follow up with Dr. Aparicio for treatment. She can otherwise follow up with us on a p.r.n. basis. Coding Level of Care Code Global (16294) Diagnoses Inguinal lymphadenopathy R59.0
[2025-01-27 10:01] VITALS: BMI 22.9
--- OUTSIDE RECORDS SUMMARY | 2025-01-27 11:56 | XMS_ITS | Clinical Summary ---
Author Organization [facility] Address [address] [phone] Phone Care Team Providers Care Insurance Adviser Name Role Phone Gege Thompson MD Primary Care Provider [phone] Social History Tobacco Use Types Packs/Day Years Used Date Smoking Tobacco: Never Assessed Comments Unknown Sex and Gender Information Value Date Recorded Sex Assigned at Not on file Legal Sex Female 4:45 PM EDT Gender Identity Not on file Sexual Orientation Not on file Plan of Treatment Upcoming Encounters Date Type Department Care Team (Late st Contact Info) Description 03/02/2025 2:00 PM EDT Office Visit [facility] [address] [phone] Galileo Henriquez MD [address] [phone] Health Maintenance Due Date Last Done Comments Breast Cancer Screening 1960 Pneumococcal Vaccine: 50+ Ye ars (1 of 2 - PCV) 10/15/1979 Colorectal Cancer Screening: Annual FOBT 2009 Colorectal Cancer Screening: Colonoscopy 2009 Colorectal Cancer Screening: Sigmoidoscopy 2009 Influenza Vaccine (#1) 2025 Hepatitis B Vaccine Aged Out No longe r eligible based on patient's age to complete this topic Insurance [facility] Medicaid Care Teams Insurance Adviser Relationship Specialty Start Date End Date Gege Thompson MD [address] [place] [id number] PCP - General Internal Medicine 01/21/25
--- OUTSIDE RECORDS SUMMARY | 2025-01-27 11:56 | XMS_ITS | Encounter Summary ---
Author Organization [facility] Address [address] [place] [address] Care Team Providers Care Chrome Cleaner Name Role Phone Gege Thompson MD Primary Care Provider [phone] Reason for Visit * Reason Onset Date Comments Medication Problem 01/27/2025 Encounter Details Date Type Department Care Team ([facility] st Contact Info) Description 01/27/2025 Telephone Adult Medicine [facility] [address] [place] [phone] Gege Thompson MD [address], [place] [phone] Social History Tobacco Use Types Packs/Day Years [...] as of this encounter Progress Notes * Chary Peña - 01/27/2025 10:26 AM EDT Medication Problem: What is the name of the medication patient is having a problem with?: albuterol HFA (Ventolin HFA) 90 mcg/actuation inhaler What is the problem?: Clarification Who is calling about the problem? : A pharmacist: Pharmacy[facility] Pharmacist Name: [facility] Is this a NEW medication?: no How long has the patient been taking this medication? Who prescribed this medication for the patient? Gege Thompson MD Who is patients PCP?: Gege Thompson MD Payor: [facility] / Plan: [facility] / Product Type: *No Product type* / documented in this encounter Plan of Treatment Upcoming Encounters Date Type Department Care Team (Late st Contact Info) Description 03/07/2025 10:15 AM EST Office Visit Adult Medicine [facility] [address] [place] [address] Daniel Seymour NP [address], [place] documented as of this encounter Visit Diagnoses Not on filedocumented in this encounter Care Teams Chrome Cleaner Relationship Specialty Start Date End Date Gege Thompson MD [address] [place] [address] PCP - General Internal Medicine 03/04/1999 documented as of this encounter
--- OUTSIDE RECORDS SUMMARY | 2025-01-27 11:56 | XMS_ITS | Clinical Summary ---
Author Organization [facility] [address] [place] [address] [place] [phone] Phone Care Team Providers Care Technical Services Coordinator Name Role Phone Gege Thompson MD Primary Care Provider [phone] Allergies Active Allergy Reactions Criticality Noted Date Comments Atorvastatin 08/15/2014 Muscle pains Lisinopril 04/24/2016 cough Methocarbamol 01/15/2021 Sore throat Penicillins 05/07/2005 Medications fluticasone furoate (Arnuity Ellipta) 50 mcg/actuation blister with device inhaler Prescribed by andrea Calle 08/01/19 24 Active fluticasone HFA (Flovent HFA) 110 mcg/actuation inhaler Inhale 1 puff by mouth 2 (two) times a day. Prescribed by Pulmonology Active gabapentin (NEURONTIN) 300 mg capsule TAKE [...] 1 (one) time each day. Prescribed by [facility] with Dr. Keyes 12/22/19 25 Active traZODone (DESYREL) 100 mg tablet Take 1 tablet (100 mg total) by mouth at bedtime. 90 tablet 1 01/25/20 25 Active oxyCODONE (ROXICODONE) 5 mg immediate release tablet Take 1 tablet (5 mg total) by mouth every 8 (eight) hours if needed for severe pain or moderate pain. Prescribed By Dr. Aparicio, Oncologist at [facility], For Breakthrough/S ever pain Max Daily Amount: 15 mg 15 tablet 01/25/20 25 Active albuterol HFA (Ventolin HFA) 90 mcg/actuation inhaler Inhale 2 puffs by mouth if needed for wheezing. 4 puffs every 4 hours as needed 8.5 g 01/27/20 25 Active traZODone (DESYREL) 100 mg tablet Take 1 tablet (100 mg total) by mouth at bedtime. Patient cuts in half and takes half at night Patient believes last prescribed by Andrea Calle 11/24/19 24 025 Discontinued(Re order) Ventolin HFA 90 mcg/actuation inhaler INHALE TWO PUFFS BY MOUTH EVERY 4 HOURS NEEDED FOR WHEEZING OR COUGH 54 g 11/04/19 25 025 Discontinued(Re order) oxychlorosene (CLORPACTIN) powder Apply topically. 025 Discontinued cephalexin (KEFLEX) 500 mg capsule Take 1 capsule (500 mg total) by mouth 2 (two) times a day. Prescribed by [facility] provider 12/28/19 025 Discontinued(Th erapy completed) HYDROmorphone (DILAUDID) 2 mg tablet Take 1 tablet (2 mg total) by mouth every 6 (six) hours if needed for severe pain. Prescribed by [facility] provider. 12/28/19 25 025 oxyCODONE (ROXICODONE) 5 mg immediate release tablet Take 1 tablet (5 mg total) by mouth every 8 (eight) hours if needed for severe pain for up to 12 days. Max Daily Amount: 15 mg 36 each 01/02/20 25 albuterol HFA (Ventolin HFA) 90 mcg/actuation inhaler Inhale 2 puffs by mouth if needed for wheezing. 4 puffs every 4 hours as needed 54 g 01/25/20 25 025 Discontinued(Re order) oxyCODONE (ROXICODONE) 5 mg immediate release tablet Take 1 tablet (5 mg total) by mouth every 8 (eight) hours if needed for severe pain or moderate pain. Prescribed By Dr. Aparicio, Oncologist at [facility], For Breakthrough/S ever pain Max Daily Amount: 15 mg 01/14/20 25 025 Discontinued(Re order) Active Problems Problem Noted Date Diagnosed Date Stage 4 chronic kidney disease ([facility] V24, [facility] V28) 01/24/2025 Kidney stone 11/18/2024 Overview (11/18/2024): Hospitalization at [facility] with hydronephrosis, 2024 Elevated alkaline phosphatase level 01/15/2021 Elevated LFTs 01/15/2021 Mid back pain 01/15/2021 Stage 3a chronic kidney disease ([facility] V24, [facility] V28) 01/15/2021 Meningioma ([facility] V24, [facility] V28) 06/04/2016 Anxiety 04/24/2016 Chronic obstructive pulmonar y disease ([facility] V24, [facility] V28) 04/24/2016 Essential hypertension 04/24/2016 Panic attack 04/24/2016 Trochanteric bursitis of right hip 01/25/2015 Vitamin D deficiency 01/25/2015 DDD (degenerative disc disease), lumbar 09/24/19 15 Lumbar facet arthropathy 09/23/2014 Hip pain, bilateral 01/04/2014 Hyperlipidemia 01/04/2014 Insomnia 01/04/2014 Obesity 01/04/2014 Esophageal reflux 08/07/2005 Encounters Date Type Department Care Team Description 01/27/2025 Telephone Adult Medicine [address] [phone] Gege Thompson MD 01/25/2025 Telephone Adult Medicine [address] [phone] Gege Thompson MD 01/24/2025 10:15 AM EDT Office Visit Adult Medicine [address] [phone] Daniel Seymour NP SOB (shortness of breath) on exertion (Primary Dx); Insomnia, unspecified type; Lymphadenopathy, inguinal; Postop check; Stage 4 chronic kidney disease ([facility] V24, CMS/HCC V28); Hyperkalemia 01/21/2025 Telephone Adult Medicine [address] [phone] Daniel Seymour NP 01/11/[address] [phone] Gege Thompson MD 12/30/2024 10:15 AM EDT Office Visit [address] [phone] Daniel Seymour NP Left lower quadrant abdominal pain (Primary Dx); Lymphadenopathy, inguinal; Abnormal CT scan; Acute renal failure superimposed on stage 3a chronic kidney disease, unspecified acute renal failure type (CMS/HCC V24, CMS/HCC V28); Kidney stone; Encounter for examination following treatment at hospital 12/30/[address] [phone] Shola Chang [place] 12/30/[address] [phone] Gege Thompson MD 12/29/[address] [phone] Daniel Seymour NP 12/27/2024 10:00 AM EDT Office Visit [address] [phone] Daniel Seymour NP Acute renal failure superimposed on stage 3a chronic kidney disease, unspecified acute renal failure type (CMS/HCC V24, CMS/HCC V28) (Primary Dx); History of kidney stones; Fatigue, unspecified type; Encounter for screening for cardiovascular disorders 12/21/2024 1:30 PM EDT Office Visit [address] [phone] Gege Thompson MD Kidney stone (Primary Dx); Essential hypertension 12/15/2024 Telephone Adult Medicine [address] [phone] Gege Thompson MD 11/24/2024 10:30 AM EDT Office Visit Adult [address] [phone] Gege Thompson MD Kidney stone (Primary Dx); Essential hypertension; Stage 3a chronic kidney disease (CMS/HCC V24, CMS/HCC V28); Anxiety 11/17/2024 Telephone Adult [address] [phone] Gege Thompson MD 10/29/2024 Telephone Adult Medicine [address] [phone] Gege Thompson MD from Last 3 Months [...] Mass Index 23.05 01/24/2025 10:10 AM EDT Plan of Treatment Upcoming Encounters Date Type Department Care Team (Late st Contact Info) Description 03/07/2025 10:15 AM EST Office Visit Adult Medicine [facility] [address] [place] [phone] Daniel Seymour NP [address] [place], [place] Health Maintenance Due Date Last Done [...] (#1) 2025 Hypertension/CHF/CAD Annual BMP Blood Test 01/20/2026 01/20/2025, 12/24/2024, 08/06/2023 Cholesterol Screening (Lipid Panel) 01/20/2030 01/20/2025, 07/01/2022 Hepatitis C Screening Completed 01/13/2021 HIB [...] Procedure Name Priority Date/Time Associated Diagnosis Comments D-DIMER STAT 01/24/2025 11:26 AM EDT SOB (shortness of breath) on exertion CULTURE URINE Routine 01/21/2025 9:12 AM EDT Encounter for screening for cardiovascular disorders URINALYSIS WITH REFLEX MICROSCOPIC AND CULTURE Routine 01/20/2025 2:11 PM EDT Encounter for screening for cardiovascular disorders CBC WITH AUTO DIFFERENTIAL Routine 01/20/2025 2:11 PM EDT Encounter for screening for cardiovascular disorders URINALYSIS WITH REFLEX MICROSCOPIC AND CULTURE Routine 01/20/2025 2:11 PM EDT Encounter for screening for cardiovascular disorders COMPREHENSIVE METABOLIC PANEL Routine 01/20/2025 2:11 PM EDT Encounter for screening for cardiovascular disorders LIPID PANEL WITH REFLEX TO DIRECT LDL Routine 01/20/2025 2:11 PM EDT Encounter for screening for cardiovascular disorders THYROID STIMULATING HORMONE WITH REFLEX TO FREE T4 AND FREE T3 Routine 01/20/2025 2:11 PM EDT Encounter for screening for cardiovascular disorders CBC AND DIFFERENTIAL Routine 01/20/2025 2:11 PM EDT Encounter for screening for cardiovascular disorders HEMOGLOBIN A1C Routine 01/20/2025 2:11 PM EDT Encounter for screening for cardiovascular disorders EXTERNAL CT REPORT 12/27/2024 COMPREHENSIVE METABOLIC PANEL [...] CT REPORT 11/11/[address] REPORT 11/11/2024 DEPRESSION SCREENING Routine 11/16/2023 HEPATITIS C SCREENING Routine 01/13/2021 from Last 3 Months or Most Recently Relevant to Health Maintenance Results * D-Dimer (01/24/2025 11:26 AM EDT) D-Dimer, Quant (D-DU) 193 <=230 ng/mL DDU LAB COAGULATION METHOD 01/24/2025 12:04 PM EDT [facility] Blood Venous blood specimen / Unknown Venipuncture / Unknown 01/24/2025 11:26 AM EDT 01/24/2025 11:26 AM EDT Narrative [facility] - 01/24/2025 12:04 PM EDT D-Dimer <230 ng/mL (D-Dimer units) is the threshold for exclusion of DVT/PE. D-Dimer may be elevated in: Critically ill, severely infected, trauma patients, DIC, acute CVA, acute NH, unstable angina, AF, old age, , and smoking. D-Dimer may be decreased with: Initiation of heparin therapy and oral anticoagulants. Daniel Seymour ASSOCIATE SOFTWARE ENGINEER LAB BLOOD ORDERABLES Final R esult Performing Organization Address [facility]/ZIP Co de Phone Number [facility] [address] [place] [address], [place] [phone] * Culture urine (01/21/2025 9:12 AM EDT) Pathologist [facility] Culture, Urine 10,000-49,000 CFU/mL Mixed urogenital maximo, no uropathogens present. Suggest repeat specimen if clinically indicated. 01/23/2025 12:48 PM EDT [facility] Urine Urine specimen obtained by clean catch procedure / Unknown Non-blood Collection / Unknown 01/21/2025 9:12 AM EDT 01/21/2025 9:12 AM EDT Daniel Seymour NP LAB MICROBIOLOGY - GENERAL O RDERABLES Final Result Performing Organization Address [facility] Co de Phone Number [facility] [address] [place] [address], [place] [phone] * (ABNORMAL) Urinalysis with reflex microscopic and culture (01/20/2025 2:11 PM EDT) Pathologist [facility] Specific [place] Urine 1.019 1.003 - 1.030 LAB URINALYSIS - AUTOMATED METHOD 01/20/2025 6:26 PM EDT [facility] pH, Urine 6.5 5.0 - 8.0 pH LAB URINALYSIS - AUTOMATED METHOD 01/20/2025 6:26 PM EDT [facility] Leukocytes, Urine Moderate(A) Negative LAB URINALYSIS - AUTOMATED METHOD 01/20/2025 6:26 PM EDT [facility] Nitrite, Urine Negative Negative LAB URINALYSIS - AUTOMATED METHOD 01/20/2025 6:26 PM [facility] Protein, Urine Trace <=Trace mg/dL LAB URINALYSIS - AUTOMATED METHOD 01/20/2025 6:26 PM [facility] Glucose, Urine Negative Negative mg/dL LAB URINALYSIS - AUTOMATED METHOD 01/20/2025 6:26 PM [facility] Ketones, Urine Negative Negative mg/dL LAB URINALYSIS - AUTOMATED METHOD 01/20/2025 6:26 PM [facility] Urobilinogen , Urine 0.2 0.2 - 1.0 mg/dL LAB URINALYSIS - AUTOMATED METHOD 01/20/2025 6:26 PM [facility] Bilirubin, Urine Negative Negative LAB URINALYSIS - AUTOMATED METHOD 01/20/2025 6:26 PM [facility] Blood, Urine Negative Negative LAB URINALYSIS - AUTOMATED METHOD 01/20/2025 6:26 PM [facility] RBC, Urine 1.3 0 - 4 /HPF LAB URINALYSIS - AUTOMATED METHOD 01/20/2025 6:26 PM [facility] WBC, Urine 14.5(H) 0 - 4 /HPF LAB URINALYSIS - AUTOMATED METHOD 01/20/2025 6:26 PM [facility] Squamous Epithelial, Urine >100(H) 0 - 60 /LPF LAB URINALYSIS - AUTOMATED METHOD 01/20/2025 6:26 PM [facility] Bacteria, Urine Negative Negative /HPF LAB URINALYSIS - AUTOMATED METHOD 01/20/2025 6:26 PM [facility] Hyaline Casts, Urine 4.4(H) 0 - 3 /LPF LAB URINALYSIS - AUTOMATED METHOD 01/20/2025 6:26 PM [facility] Urine Urine specimen obtained by clean catch procedure / Unknown Non-blood Collection / Unknown 01/20/2025 2:11 PM EDT 01/20/2025 2:11 PM EDT Daniel Seymour ASSOCIATE SOFTWARE ENGINEER LAB URINE ORDERABLES Final R esult Performing Organization Address City/[facility]/ZIP Co de Phone Number [facility] [address] [place] [address], [place] [phone] * Thyroid stimulating hormone with reflex to free t4 and free t3 (01/20/2025 2:11 PM EDT) [facility] TSH 0.99 0.40 - 4.00 mcIU/mL LAB CHEMISTRY METHOD 01/20/2025 5:43 PM EDT [facility] Blood Venous blood specimen / Unknown Venipuncture / Unknown 01/20/2025 2:11 PM EDT 01/20/2025 2:11 PM EDT Daniel Seymour ASSOCIATE SOFTWARE ENGINEER LAB BLOOD ORDERABLES Final R esult Performing Organization Address City/[facility]/ZIP Co de Phone Number [facility] [address] [place] [address], [place] [phone] * (ABNORMAL) Lipid panel with reflex to direct LDL (01/20/2025 2:11 PM EDT) Cholesterol 258(H) 0 - 200 mg/dL LAB CHEMISTRY METHOD 01/20/2025 5:15 PM EDT [facility] Triglycerides 187(H) 0 - 150 mg/dL LAB CHEMISTRY METHOD 01/20/2025 5:15 PM EDT [facility] HDL 53 >=40 mg/dL LAB CHEMISTRY METHOD 01/20/2025 5:15 PM EDT [facility] LDL Calculated 168(H) 0 - 100 mg/dL LAB CHEMISTRY METHOD 01/20/2025 5:15 PM EDT [facility] Comment:Estimated LDL Calcul ated using equation: Total cholesterol - HDL cholesterol - (Triglycerides/5) VLDL Cholesterol Shahbaz 37.4 mg/dL LAB CHEMISTRY METHOD 01/20/2025 5:15 PM EDT [facility] Non HDL Chol. (LDL+VLDL) 205(H) <145 mg/dL LAB CHEMISTRY METHOD 01/20/2025 5:15 PM EDT [facility] Chol/HDL Ratio 4.9(H) 0.0 - 4.4 LAB CHEMISTRY METHOD 01/20/2025 5:15 PM EDT [facility] Blood Venous blood specimen / Unknown Venipuncture / Unknown 01/20/2025 2:11 PM EDT 01/20/2025 2:11 PM EDT us Daniel Seymour ASSOCIATE SOFTWARE ENGINEER LAB BLOOD ORDERABLES Final R esult [facility] [address] [place] [address], * (ABNORMAL) CBC auto differential (01/20/2025 2:11 PM EDT) WBC 6.5 4.8 - 10.8 K/mcL LAB HEMETOLOGY METHOD 01/20/2025 5:32 PM EDT [facility] RBC 4.00 3.80 - 4.80 M/mcL LAB HEMETOLOGY METHOD 01/20/2025 5:32 PM EDT [facility] Hemoglobin 11.5 11.5 - 16.0 g/dL LAB HEMETOLOGY METHOD 01/20/2025 5:32 PM EDT [facility] Hematocrit 36.2 35.0 - 47.0 % LAB HEMETOLOGY METHOD 01/20/2025 5:32 PM EDT [facility] MCV 90.5 79.0 - 98.0 FL LAB HEMETOLOGY METHOD 01/20/2025 5:32 PM EDT [facility] MCH 28.8 27.0 - 32.0 pcg LAB HEMETOLOGY METHOD 01/20/2025 5:32 PM EDT [facility] MCHC 31.8(L) 32.0 - 37.0 g/dL LAB HEMETOLOGY METHOD 01/20/2025 5:32 PM EDT [facility] RDW 11.9 11.0 - 15.0 % LAB HEMETOLOGY METHOD 01/20/2025 5:32 PM EDT [facility] Platelets 282 130 - 400 K/mcL LAB HEMETOLOGY METHOD 01/20/2025 5:32 PM EDT [facility] MPV 9.8 7.0 - 11.0 FL LAB HEMETOLOGY METHOD 01/20/2025 5:32 PM EDT [facility] NRBC 0.0 <1.0 % LAB HEMETOLOGY METHOD 01/20/2025 5:32 PM EDT [facility] NRBC Absolute 0.00 <0.10 K/mcL LAB HEMETOLOGY METHOD 01/20/2025 5:32 PM EDT [facility] Neutrophils Relative 46.7 % LAB HEMETOLOGY METHOD 01/20/2025 5:32 PM EDT [facility] Lymphocytes Relative 34.0 % LAB HEMETOLOGY METHOD 01/20/2025 5:32 PM EDT [facility] Monocytes Relative 9.7 % LAB HEMETOLOGY METHOD 01/20/2025 5:32 PM EDT [facility] Eosinophils Relative 8.2 % LAB HEMETOLOGY METHOD 01/20/2025 5:32 PM EDT [facility] Basophils Relative 1.2 % LAB HEMETOLOGY METHOD 01/20/2025 5:32 PM EDT [facility] Immature Granulocytes Relative 0.2 % LAB HEMETOLOGY METHOD 01/20/2025 5:32 PM EDT [facility] Neutrophils Absolute 3.03 1.50 - 7.00 K/mcL LAB HEMETOLOGY METHOD 01/20/2025 5:32 PM EDT [facility] Lymphocytes Absolute 2.20 1.00 - 5.00 K/mcL LAB HEMETOLOGY METHOD 01/20/2025 5:32 PM EDT [facility] Monocytes Absolute 0.63 0.20 - 1.00 K/mcL LAB HEMETOLOGY METHOD 01/20/2025 5:32 PM EDT [facility] Eosinophils Absolute 0.53(H) 0.00 - 0.50 K/[facility] LAB HEMETOLOGY METHOD 01/20/2025 5:32 PM EDT [facility] Basophils Absolute 0.08 0.00 - 0.20 K/[facility] LAB HEMETOLOGY METHOD 01/20/2025 5:32 PM EDT [facility] Immature Granulocytes Absolute 0.01 0.00 - 0.03 K/[facility] LAB HEMETOLOGY METHOD 01/20/2025 5:32 PM EDT [facility] Blood Venous blood specimen / Unknown Venipuncture / Unknown 01/20/2025 2:11 PM EDT 01/20/2025 2:11 PM EDT Daniel Seymour ASSOCIATE SOFTWARE ENGINEER LAB BLOOD ORDERABLES Final R esult [facility] [address] [place] [address], * Hemoglobin A1c (01/20/2025 2:11 PM EDT) Hemoglobin A1C 5.8 <6.5 % LAB CHEMISTRY METHOD 01/20/2025 10:03 PM EDT [facility] Mean Bld Glu Estim. 120 mg/dL LAB CHEMISTRY METHOD 01/20/2025 10:03 PM EDT [facility] Blood Venous blood specimen / Unknown Venipuncture / Unknown 01/20/2025 2:11 PM EDT 01/20/2025 2:11 PM EDT us Daniel Seymour ASSOCIATE SOFTWARE ENGINEER LAB BLOOD ORDERABLES Final R esult [facility] [address] [place] [address], [place] [phone] * (ABNORMAL) Comprehensive metabolic panel (01/20/2025 2:11 PM EDT) Only the most recent of2 resultswithin the time period is included. Sodium 135 133 - 145 mmol/L LAB CHEMISTRY METHOD 01/20/2025 5:15 PM EDT [facility] Potassium 5.1 3.5 - 5.5 mmol/L LAB CHEMISTRY METHOD 01/20/2025 5:15 PM EDT [facility] Chloride 101 96 - 110 mmol/L LAB CHEMISTRY METHOD 01/20/2025 5:15 PM T [facility] CO2 29 21 - 32 mmol/L LAB CHEMISTRY METHOD 01/20/2025 5:15 PM T [facility] Anion Gap 5 3 - 11 LAB CHEMISTRY METHOD 01/20/2025 5:15 PM [facility] Glucose 97 70 - 100 mg/dL LAB CHEMISTRY METHOD 01/20/2025 5:15 PM [facility] BUN 44(H) 5 - 25 mg/dL LAB CHEMISTRY METHOD 01/20/2025 5:15 PM [facility] Creatinine 2.42(H) 0.50 - 1.10 mg/dL LAB CHEMISTRY METHOD 01/20/2025 5:15 PM [facility] eGFR 22(L) >=60 mL/min/1. 73m2 LAB CHEMISTRY METHOD 01/20/2025 5:15 PM T [facility] Comment:Calculation based on the Chronic Kidney Disease Epidemiology Collaboration (CKD-EPI) equation refit without adjustment for race. BUN/Creatinine Ratio 18.2 LAB CHEMISTRY METHOD 01/20/2025 5:15 PM EDT [facility] Calcium 9.2 8.5 - 10.5 mg/dL LAB CHEMISTRY METHOD 01/20/2025 5:15 PM EDT [facility] AST (SGOT) 27 10 - 42 unit/L LAB CHEMISTRY METHOD 01/20/2025 5:15 PM EDT [facility] ALT (SGPT) 17 10 - 60 unit/L LAB CHEMISTRY METHOD 01/20/2025 5:15 PM EDT [facility] Alkaline Phosphatase 123(H) 42 - 121 unit/L LAB CHEMISTRY METHOD 01/20/2025 5:15 PM EDT [facility] Total Protein 6.8 6.0 - 8.0 g/dL LAB CHEMISTRY METHOD 01/20/2025 5:15 PM EDT [facility] Albumin 4.0 3.2 - 5.0 g/dL LAB CHEMISTRY METHOD 01/20/2025 5:15 PM EDT [facility] Total Bilirubin 0.2 0.0 - 1.4 mg/dL LAB CHEMISTRY METHOD 01/20/2025 5:15 PM T [facility] Blood Venous blood specimen / Unknown Venipuncture / Unknown 01/20/2025 2:11 PM EDT 01/20/2025 2:11 PM EDT Daniel Seymour NP LAB BLOOD ORDERABLES Final R esult [facility] [address] [place] [address], * External CT Report (12/27/2024) Only the most recent of3 resultswithin the time period is included. Anatomical Region Laterality Modality Computed Tomogra phy Provider [facility] CT PROCEDURES Final Result * External Xray Report (12/06/2024) Only the [...] Depression Screening (11/16/2023) Depression Screening ABSTRACTED Historical Provider HEALTH MAINTENANCE Final Result * Hepatitis C Screening (01/13/2021) Hepatitis C Screening ABSTRACTED Historical Provider HEALTH MAINTENANCE Final Result from Last 3 Months or Most Recently Relevant to Health Maintenance Insurance [facility] [address] [place] [address] Care Teams Technical Services Coordinator Relationship Specialty Start Date End Date Gege Thompson MD [address] [place] [address] PCP - General Internal Medicine 03/04/1999
--- OUTSIDE RECORDS SUMMARY | 2025-01-27 11:56 | XMS_ITS | Encounter Summary ---
Author Organization [employer] Address [address] [place] [address] Care Team Providers Care Dukey Rider Name Role Phone Unavailable Primary Care Provider Unavailabl e Reason for Visit * Reason Onset Date Comments Appointment 11/01/2022 Encounter Details Date Type Department Care Team ([facility] st Contact Info) Description 11/01/2022 Telephone [facility] [address] [place] [address] Joe Berger, DMD [address] [place] [address] Appointment Social History Tobacco Use Types Packs/Day [...] sent to pharmacy [facility] [address] [place] [address] in [place] please advise . documented in this encounter Plan of Treatment Not on file documented as of this encounter Visit Diagnoses Not on filedocumented in this encounter
--- OUTSIDE RECORDS SUMMARY | 2025-01-27 11:56 | XMS_ITS | Encounter Summary ---
Author Organization [employer] Address [address] [place] [address] 7t [place] [address] Care Team Providers Care Loan Expeditor Name Role Phone Unavailable Primary Care Provider Unavailabl e Reason for Visit * Reason Onset Date Comments appt order 12/04/2022 followed up with patient 12/04/2022 Encounter Details Date Type Department Care Team ([facility] st Contact Info) Description 12/04/2022 Telephone [facility] ADULT DENTAL [address] [place] [address] Joe Berger DMD [address] [place] [address] appt order; followed up with patient Social [...] she can always stop at the front desk coordinator on and see if she can be scheduled before she leaves the office DR * Telephone Encounter - Deana Starr - 12/04/2022 3:04 PM EDT Patient had to cancel her cleaning appt on 11/27 due to being sick. She has an appt on 12/13 for caodaism but is unsure if the cleaning has to be done first. She was under the impression but it was unclear on my end. It is listed the treatment she needs but doesn't specify if hygiene has to happen prior to caodaism. Shed like to make sure she can still come in for 12/13 or if she has to wait to get a cleaning first so it is not a wasted trip documented in this encounter Plan of Treatment Not on file documented as of this encounter Visit Diagnoses Not on filedocumented in this encounter
--- OUTSIDE RECORDS SUMMARY | 2025-01-27 11:56 | XMS_ITS | Encounter Summary ---
Author Organization [employer] [employer] Address [address] [facility] 7t [place] [address] Care Team Providers Care Shift Superintendent Caustic Cresylate Name Role Phone Unavailable Primary Care Provider Unavailabl e Encounter Details Date Type Department Care Team (Late st Contact Info) Description 01/21/2024 Telephone [facility] ADULT DENTAL [address] [place] [address] Ab Joe, DMD [address] [place] [address] Social History Tobacco Use Types Packs/Day Years [...]
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
--- OUTSIDE RECORDS SUMMARY | 2025-01-27 11:56 | XMS_ITS | Clinical Summary ---
Author Organization [employer] Address [address] [place] [address] 7t [place] [address] Care Team Providers Care Library Attendant Name Role Phone Unavailable Primary Care Provider [...] use. 473 mL 4 Active HYDROcodone-amberly taminophen (Emmett) 5-325 MG tabletIndicatio ns:History of tooth extraction, [...] Phone Billing Address Personal/Family Self [address]
== END 2025-01-27 10:23 | disposition home or self-care (01) ==
LOC: HO.HGS 09:56
PROVIDERS: PCP Internal Medicine; Visit Provider Surgery
DX: R59.0 Localized enlarged lymph nodes (principal)
CPT/HCPCS: 99024

== ENCOUNTER 2025-02-03 11:54 | Outpatient (AMB) | payer OTHER, SELFPAY ==
--- NOTE | 2025-02-03 11:54 | A.OFFVIS_ITS ---
Intake Visit Reasons: Ureteroroscopy, Retro, Laser /US Intake Note: Patient presents for aPost Op Ureteroscopy UG meds: , Tamsulosin Blood thinner none : Imaging: CT 12/27/24 Scanning Coordinator Required: No Accompanied by: Self / Same As Patient Allergies lisinopril (LISINOPRIL) Allergy (Unknown, Verified 02/03/25 11:55) Cough Penicillins (PENICILLINS) Allergy (Unknown, Verified 02/03/25 11:55) HIVES Medication List - Last Reconciled 02/03/25 by Iván Keyes MD albuterol sulfate 90 mcg/actuation 2 puffs inhalation Q4H PRN fluticasone furoate 50 mcg/actuation (Arnuity Ellipta) 1 inh inhalation DAILY gabapentin 300 mg PO BID hydromorphone (Dilaudid) 2 mg PO Q6H PRN 4 days ibuprofen 600 mg PO Q6H PRN lidocaine 4% (Salonpas (lidocaine)) 1 patch topical DAILY PRN losartan 100 mg PO DAILY nicotine 21 mg transdermal DAILY trazodone 50 - 100 mg PO BEDTIME HPI Comments Details: Ana Paula is a pleasant female. She is a patient of Dr. Thompson. She is seen for the following urologic conditions - uric acid stones Based on stone composition start allopurinol plus potassium citrate Had been taken off potassium citrate by PCP due to raised potassium in setting of elevated creatinine I advised her that potassium citrate does not raise serum potassium in the same way that potassium chloride does. It is known as only a mild risk in the setting of CKD. She should restart the potassium citrate at 10 mEq p.o. b.i.d. which is a reduced dose. Left lower pole stone Underwent attempted ureteroscopy Found to have narrowed ureter Stent placed Stone composition - 80% uric acid Intervention - left ureteroscopy [facility] Medical History Inguinal lymphadenopathy CKD (chronic kidney disease) Insomnia HTN (hypertension) Concussion Bronchitis COPD (chronic obstructive pulmonary disease) Tobacco dependence Anxiety Nephrolithiasis Asthma Surgical History Hx of cystoscopy History of Social History Household Members: Significant Other Housing: Apartment Do you presently have visiting nurse or other home services: No Alcohol intake: current Alcohol intake frequency: former alcohol drinker Comment: COUNTS CORRECT Patient Tobacco Use Status: Current everyday Tobacco user Tobacco use type: Cigarette Cigarettes Per Day: 10 Years Smoked: 40 e-Cigarette/Vaping Use: Currently Using Second Hand Smoke Exposure: No Substance Use Type: Marijuana service: No Review of Systems Const Denies chills and Denies fever(s) Card Reports no additional complaints and Denies syncope Resp Denies cough GI Denies abdominal pain and Denies heartburn Reports as per HPI and Denies change in libido Neuro Denies syncope Psych Denies change in libido Endo Denies change in libido Physical Exam Const General: cooperative, healthy appearing, comfortable and no acute distress Orientation/consciousness: patient oriented x3 HEENT Face and sinus: Yes normal facial exam Mouth: moist mucous membranes Neck Neck: Yes normal visual inspection, Yes full ROM and Yes trachea midline Chest Chest palpation & inspection: normal inspection of the chest Resp Effort & Inspection: normal respiratory effort, able to speak in complete sentences and no respiratory distress GI Inspection: Yes normal to inspection Back/Spine/Pelvis Cervical Spine: normal cervical lordosis Thoracic/Lumbar Spine: thoracic and lumbar spine normal to inspection Skin General skin exam: no rashes or lesions noted Neuro General: patient oriented x3, gait normal, tone normal and moves all extremities Extrem General: Yes normal to inspection and Yes capillary refill normal Assessment & Plan Assessment & Plan (1) Hydronephrosis of left kidney: Code(s): N13.30 - Unspecified hydronephrosis Category: Medical (2) Kidney stone on left side: Code(s): N20.0 - Calculus of kidney Category: Medical Plan Add allopurinol Medications: New allopurinol 100 mg PO DAILY 90 tabs 1RF 90 days N20.1 - Calculus of ureter Patient Instructions: This note is constructed using voice recognition software. While every effort has been made to ensure accuracy high wire artist errors may have been included. Imaging studies, laboratory and physical exam results were discussed and reviewed in detail. No major barriers to patient understanding were identified. An opportunity to ask questions regarding the treatment plan was provided. All questions were answered. The patient expressed understanding and agreement with the above treatment plan. The patient is aware they should contact our office by phone for worsening of their current condition or the appearance of new urologic symptoms. Compliance is encouraged with any medications and followup testing that is ordered. It is a privilege to participate in the urologic care of your patient. If you have any questions or concerns regarding treatment for the above conditions, or other urologic issues, please do not hesitate to contact me. The office tel ephone contact is [phone]. Sincerely, Dr Iván Keyes MD, [facility] - Urology Compassionate Specialist Care for the Genitourinary System Coding Level of Care Code Est Pt Level 4 (97471) Diagnoses Hydronephrosis of left kidney N13.30 Kidney stone on left side N20.0
--- OUTSIDE RECORDS SUMMARY | 2025-02-03 13:38 | XMS_ITS | Encounter Summary ---
Author Organization [employer] Address [address] [place] [address] [address] [place] [address] Care Team Providers Care Jumpbasting Lining Baster Name Role Phone Unavailable Primary Care Provider Unavailabl e Reason for Visit * Reason Onset Date Comments appt order 12/04/2022 followed up with patient 12/04/2022 Encounter Details Date Type Department Care Team ([facility] st Contact Info) Description 12/04/2022 Telephone [facility] ADULT DENTAL [address] [place] [address] Joe Berger DMD [address] [place] [address] appt order; followed up with patient Social [...] can always stop at the front end loader operator on and see if she can be scheduled before she leaves the office DR * Telephone Encounter - Deana Starr - 12/04/2022 3:04 PM EDT Patient had to cancel her cleaning appt on 11/27 due to being sick. She has an appt on 12/13 for anabaptist but is unsure if the cleaning has to be done first. She was under the impression but it was unclear on my end. It is listed the treatment she needs but doesn't specify if hygiene has to happen prior to anabaptist. Shed like to make sure she can still come in for 12/13 or if she has to wait to get a cleaning first so it is not a wasted trip documented in this encounter Plan of Treatment Not on file documented as of this encounter Visit Diagnoses Not on filedocumented in this encounter
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
--- OUTSIDE RECORDS SUMMARY | 2025-02-03 13:38 | XMS_ITS | Encounter Summary ---
Author Organization [employer] Address [address] [facility] [address] [place] [address] Care Team Providers Care Electrotherapist Name Role Phone Unavailable Primary Care Provider Unavailabl e Reason for Visit * Reason Onset Date Comments Appointment 11/01/2022 Encounter Details Date Type Department Care Team ([facility] st Contact Info) Description 11/01/2022 Telephone [facility] ADULT DENTAL [address] [place] [address] Joe Berger, DMD [address] [place] [address] Appointment Social History Tobacco Use Types Packs/Day [...] sent to pharmacy to [facility] at [address] [place] [address] [place] please advise . documented in this encounter Plan of Treatment Not on file documented as of this encounter Visit Diagnoses Not on filedocumented in this encounter
--- OUTSIDE RECORDS SUMMARY | 2025-02-03 13:38 | XMS_ITS | Clinical Summary ---
Author Organization [facility] Address [address] [address] Phone Care Team Providers Care Junk Removal Specialist Name Role Phone Gege Thompson MD Primary Care Provider [phone] Social History Tobacco Use Types Packs/Day Years Used Date Smoking Tobacco: Never Assessed Comments Unknown Sex and Gender Information Value Date Recorded Sex Assigned at Not on file Legal Sex Female 4:45 PM EDT Gender Identity Not on file Sexual Orientation Not on file Plan of Treatment Upcoming Encounters Date Type Department Care Team (Late st Contact Info) Description 02/04/2025 11:00 AM EDT Office Visit [facility] [address] [address] Galileo Henriquez MD [address] [address] Health Maintenance Due Date Last Done Comments Breast Cancer Screening 1960 Pneumococcal Vaccine: 50+ Ye ars (1 of 2 - PCV) 10/15/1979 Colorectal Cancer Screening: Annual FOBT 2009 Colorectal Cancer Screening: Colonoscopy 2009 Colorectal Cancer Screening: Sigmoidoscopy 2009 Influenza Vaccine (#1) 2025 Hepatitis B Vaccine Aged Out No longe r eligible based on patient's age to complete this topic Insurance [facility] Medicaid Care Teams Junk Removal Specialist Relationship Specialty Start Date End Date Gege Thompson MD [address] [place] [address] PCP - General Internal Medicine 01/21/25
--- OUTSIDE RECORDS SUMMARY | 2025-02-03 13:38 | XMS_ITS | Encounter Summary ---
Author Organization [employer] Address [address] [facility] [address] [place] [address] Care Team Providers Care Plant Physiology Teacher Name Role Phone Unavailable Primary Care Provider Unavailabl e Encounter Details Date Type Department Care Team (Late st Contact Info) Description 01/21/2024 Telephone [facility] ADULT DENTAL [address] [place] [address] Ab Joe, DMD [address] [place] [address] Social History Tobacco Use Types Packs/Day Years [...]
--- OUTSIDE RECORDS SUMMARY | 2025-02-03 13:38 | XMS_ITS | Clinical Summary ---
Author Organization [facility] [address] [place] [address] [place] [phone] Phone Care Team Providers Care Forging Dies Final Finisher Name Role Phone Gege Thompson MD Primary Care Provider [phone] Allergies Active Allergy Reactions Criticality Noted Date Comments Atorvastatin 08/15/2014 Muscle pains Lisinopril 04/24/2016 cough Methocarbamol 01/15/2021 Sore throat Penicillins 05/07/2005 Medications fluticasone furoate (Arnuity Ellipta) 50 mcg/actuation blister with device inhaler Prescribed by andrea Calle 4 Active fluticasone HFA (Flovent HFA) 110 mcg/actuation inhaler Inhale 1 puff by mouth 2 (two) times a day. Prescribed by Pulmonology Active gabapentin (NEURONTIN) 300 mg capsule TAKE ONE CAPSULE BY MOUTH TWICE A DAY 60 capsule 4 5 Active losartan (Cozaar) 50 mg tablet Take 1 tablet (50 mg total) by mouth 1 (one) time each day. 30 tablet 3 5 Active tamsulosin (FLOMAX) 0.4 mg 24 hr capsule Take 1 capsule (0.4 mg total) by mouth 1 (one) time each day. Prescribed by [facility] with Dr. Keyes 5 Active traZODone (DESYREL) 100 mg tablet Take 1 tablet (100 mg total) by mouth at bedtime. 90 tablet 1 5 Active oxyCODONE (ROXICODONE) 5 mg immediate release tablet Take 1 tablet (5 mg total) by mouth every 8 (eight) hours if needed for severe pain or moderate pain. Prescribed By Dr. Aparicio, Oncologist at [facility], For Breakthrough/[place] pain Max Daily Amount: 15 mg 15 tablet 5 Active albuterol HFA (Ventolin HFA) 90 mcg/actuation inhaler Inhale 2 puffs by mouth if needed for wheezing. 4 puffs every 4 hours as needed 8.5 g 5 Active traZODone (DESYREL) 100 mg tablet Take 1 tablet (100 mg total) by mouth at bedtime. Patient cuts in half and takes half at night Patient believes last prescribed by Andrea Calle 4 Discontinu ed(Reorder ) Ventolin HFA 90 mcg/actuation inhaler INHALE TWO PUFFS BY MOUTH EVERY 4 HOURS NEEDED FOR WHEEZING OR COUGH 54 g 5 025 Discontinu ed(Reorder ) cephalexin (KEFLEX) 500 mg capsule Take 1 capsule (500 mg total) by mouth 2 (two) times a day. Prescribed by [facility] provider 5 025 Discontinu ed(Therapy completed) oxyCODONE (ROXICODONE) 5 mg immediate release tablet Take 1 tablet (5 mg total) by mouth every 8 (eight) hours if needed for severe pain for up to 12 days. Max Daily Amount: 15 mg 36 each 5 025 albuterol HFA (Ventolin HFA) 90 mcg/actuation inhaler Inhale 2 puffs by mouth if needed for wheezing. 4 puffs every 4 hours as needed 54 g 5 025 Discontinu ed(Reorder ) oxyCODONE (ROXICODONE) 5 mg immediate release tablet Take 1 tablet (5 mg total) by mouth every 8 (eight) hours if needed for severe pain or moderate pain. Prescribed By Dr. Aparicio, Oncologist at [facility], For [place] pain Max Daily Amount: 15 mg 5 025 Discontinu ed(Reorder ) Active Problems Problem Noted Date Diagnosed Date Stage 4 chronic kidney disease (CMS/HCC V24, CMS /HCC V28) 01/24/2025 Kidney stone 11/18/2024 Overview (11/18/2024): Hospitalization at [facility] with hydronephrosis, 2024 Elevated alkaline phosphatase level 01/15/2021 Elevated LFTs 01/15/2021 Mid back pain 01/15/2021 Stage 3a chronic kidney disease ([facility] V24, [facility] V28) 01/15/2021 Meningioma ([facility] V24, [facility] V28) 06/04/2016 Anxiety 04/24/2016 Chronic obstructive pulmonar y disease ([facility] V24, [facility] V28) 04/24/2016 Essential hypertension 04/24/2016 Panic attack 04/24/2016 Trochanteric bursitis of right hip 01/25/2015 Vitamin D deficiency 01/25/2015 DDD (degenerative disc disease), lumbar 09/24/19 15 Lumbar facet arthropathy 09/23/2014 Hip pain, bilateral 01/04/2014 Hyperlipidemia 01/04/2014 Insomnia 01/04/2014 Obesity 01/04/2014 Esophageal reflux 08/07/2005 Encounters Date Type Department Care Team Description 01/27/2025 Telephone Adult Medicine [address] [phone] Gege Thompson MD 01/25/2025 Telephone Adult Medicine [address] [phone] Gege Thompson MD 01/24/2025 10:15 AM EDT Office Visit Adult Medicine [address] [phone] Daniel Seymour NP Lymphadenopathy, inguinal (Primary Dx); Postop check; Hyperkalemia; Stage 4 chronic kidney disease ([facility] V24, [facility] V28); SOB (shortness of breath) on exertion; Insomnia, unspecified type 01/21/2025 Telephone Adult Medicine [address] [phone] Daniel Seymour NP 01/11/[address] [phone] Gege Thompson MD 12/30/2024 10:15 AM EDT Office Visit [address] [phone] Daniel Seymour, HENRY Left lower quadrant abdominal pain (Primary Dx); Lymphadenopathy, inguinal; Abnormal CT scan; Acute renal failure superimposed on stage 3a chronic kidney disease, unspecified acute renal failure type (CMS/HCC V24, CMS/HCC V28); Kidney stone; Encounter for examination following treatment at hospital 12/30/[address] [phone] Shola Chang [place] 12/30/[address] [phone] Gege Thompson MD 12/29/[address] [phone] Daniel Seymour NP 12/27/2024 10:00 AM EDT Office Visit [address] [phone] Daniel Seymour, HENRY Acute renal failure superimposed on stage 3a chronic kidney disease, unspecified acute renal failure type (CMS/HCC V24, CMS/HCC V28) (Primary Dx); History of kidney stones; Fatigue, unspecified type; Encounter for screening for cardiovascular disorders 12/21/2024 1:30 PM EDT Office Visit [address] [phone] Gege Thompson MD Kidney stone (Primary Dx); Essential hypertension 12/15/[address] [phone] Gege Thompson MD 11/24/2024 10:30 AM EDT Office Visit Adult Medicine [address] [phone] Gege Thompson MD Kidney stone (Primary Dx); Essential hypertension; Stage 3a chronic kidney disease ([facility] V24, [facility] V28); Anxiety 11/17/2024 Telephone Adult Medicine [address] [phone] Gege Thompson MD from Last 3 Months [...] 10:15 AM EST Office Visit Adult Medicine [facility] [address] [place], [place] [phone] Daniel Seymour NP [address] [place], [place] Health Maintenance Due Date Last Done Comments Breast Cancer Screening 1960 Colorectal Cancer Screening: Colonoscopy 1960 DTaP,Tdap,and Td Vaccines (1 - Tdap) 10/15/1979 Pneumococcal Vaccine: 50+ Years (1 of 2 - PCV) 10/15/1979 Zoster Vaccines (1 of 2) 10/15/1979 Cervical Cancer Screening: P ap Smear 1981 RSV Immunization Adult Patients (1 - Risk 60-74 years 1-dose series) 2020 COVID-19 Vaccine (3 - Modern a risk series) 06/12/2021 05/15/2021, 09/28/2020 HIV Screening 04/13/2022 Social Influencers of Health [...] LAB COAGULATION METHOD 01/24/2025 12:04 PM EDT [facility] Blood Venous blood specimen / Unknown Venipuncture / Unknown 01/24/2025 11:26 AM EDT 01/24/2025 11:26 AM EDT Narrative [facility] - 01/24/2025 12:04 PM EDT D-Dimer <230 ng/mL (D-Dimer units) is the threshold for exclusion of DVT/PE. D-Dimer may be elevated in: Critically ill, severely infected, trauma patients, DIC, acute CVA, acute DC, unstable angina, AF, old age, , and smoking. D-Dimer may be decreased with: Initiation of heparin therapy and oral anticoagulants. us Daniel Seymour NP LAB BLOOD ORDERABLES Final R esult [facility] [address] [place] [address], * Culture urine (01/21/2025 9:12 AM EDT) [facility] [address] Culture, Urine 10,000-49,000 CFU/mL Mixed urogenital maximo, no uropathogens present. Suggest repeat specimen if clinically indicated. 01/23/2025 12:48 PM EDT [facility] Urine Urine specimen obtained by clean catch procedure / Unknown Non-blood Collection / Unknown 01/21/2025 9:12 AM EDT 01/21/2025 9:12 AM EDT us Daniel Seymour [employer] LAB MICROBIOLOGY - GENERAL O RDERABLES Final Result [facility] [address] [place] [address], [place] [phone] * (ABNORMAL) Urinalysis with reflex microscopic and culture (01/20/2025 2:11 PM EDT) [facility] [address] Specific Norden Urine 1.019 1.003 - 1.030 LAB URINALYSIS - AUTOMATED METHOD [facility] pH, Urine 6.5 5.0 - 8.0 pH LAB URINALYSIS - AUTOMATED METHOD 01/20/2025 6:[address] [facility] Leukocytes, Urine Moderate(A) Negative LAB URINALYSIS - AUTOMATED METHOD 01/20/2025 6:[address] [facility] Nitrite, Urine Negative Negative LAB URINALYSIS - AUTOMATED METHOD 01/20/2025 6:[address] [facility] Protein, Urine Trace <=Trace mg/dL LAB URINALYSIS - AUTOMATED METHOD 01/20/2025 6:[address] [facility] Glucose, Urine Negative Negative mg/dL LAB URINALYSIS - AUTOMATED METHOD 01/20/2025 6:[address] [facility] Ketones, Urine Negative Negative mg/dL LAB URINALYSIS - AUTOMATED METHOD 01/20/2025 6:26 PM EDT [facility] Urobilinogen , Urine 0.2 0.2 - 1.0 mg/dL LAB URINALYSIS - AUTOMATED METHOD 01/20/2025 6:26 PM EDT [facility] Bilirubin, Urine Negative Negative LAB URINALYSIS - AUTOMATED METHOD 01/20/2025 6:26 PM EDT [facility] Blood, Urine Negative Negative LAB URINALYSIS - AUTOMATED METHOD 01/20/2025 6:26 PM T [facility] RBC, Urine 1.3 0 - 4 /HPF LAB URINALYSIS - AUTOMATED METHOD 01/20/2025 6:[address] [facility] WBC, Urine 14.5(H) 0 - 4 /HPF LAB URINALYSIS - AUTOMATED METHOD 01/20/2025 6:[address] [facility] Squamous Epithelial, Urine >100(H) 0 - 60 /LPF LAB URINALYSIS - AUTOMATED METHOD 01/20/2025 6:[address] [facility] Bacteria, Urine Negative Negative /HPF LAB URINALYSIS - AUTOMATED METHOD 01/20/2025 6:[address] [facility] Hyaline Casts, Urine 4.4(H) 0 - 3 /LPF LAB URINALYSIS - AUTOMATED METHOD 01/20/2025 6:[address] [facility] Urine Urine specimen obtained by clean catch procedure / Unknown Non-blood Collection / Unknown 01/20/2025 2:11 PM EDT 01/20/2025 2:11 PM EDT us Daniel Seymour NP LAB URINE ORDERABLES Final R esult [facility] [address] [place] [address], * Thyroid stimulating hormone with reflex to free t4 and free t3 (01/20/2025 2:11 PM EDT) TSH 0.99 0.40 - 4.00 mcIU/mL LAB CHEMISTRY METHOD 01/20/2025 5:43 PM EDT [facility] Blood Venous blood specimen / Unknown Venipuncture / Unknown 01/20/2025 2:11 PM EDT 01/20/2025 2:11 PM EDT us Daniel Seymour [employer] LAB BLOOD ORDERABLES Final R esult [facility] [address] [place] [address], * (ABNORMAL) Lipid panel with reflex to direct LDL (01/20/2025 2:11 PM EDT) Cholesterol 258(H) 0 - 200 mg/dL LAB CHEMISTRY METHOD 01/20/2025 5:15 PM EDT [facility] Triglycerides 187(H) 0 - 150 mg/dL LAB CHEMISTRY METHOD 01/20/2025 5:15 PM EDT [facility] HDL 53 >=40 mg/dL LAB CHEMISTRY METHOD 01/20/2025 5:15 PM T [facility] LDL Calculated 168(H) 0 - 100 mg/dL LAB CHEMISTRY METHOD 01/20/2025 5:15 PM EDT [facility] Comment:Estimated LDL Calcul ated using equation: Total cholesterol - HDL cholesterol - (Triglycerides/5) VLDL Cholesterol Shahbaz 37.4 mg/dL LAB CHEMISTRY METHOD 01/20/2025 5:15 PM EDT [facility] Non HDL Chol. (LDL+VLDL) 205(H) <145 mg/dL LAB CHEMISTRY METHOD 01/20/2025 5:15 PM EDT [facility] Chol/HDL Ratio 4.9(H) 0.0 - 4.4 LAB CHEMISTRY METHOD 01/20/2025 5:[address] [facility] Blood Venous blood specimen / Unknown Venipuncture / Unknown 01/20/2025 2:11 PM EDT 01/20/2025 2:11 PM EDT Daniel Seymour [employer] LAB BLOOD ORDERABLES Final R esult [facility] [address] [place] [address], * (ABNORMAL) CBC auto differential (01/20/2025 2:11 PM EDT) WBC 6.5 4.8 - 10.8 K/mcL LAB HEMETOLOGY METHOD 01/20/2025 5:32 PM EDT [facility] RBC 4.00 3.80 - 4.80 M/mcL LAB HEMETOLOGY METHOD 01/20/2025 5:32 PM EDT [facility] Hemoglobin 11.5 11.5 - 16.0 g/dL LAB HEMETOLOGY METHOD 01/20/2025 5:32 PM EDT [facility] Hematocrit 36.2 35.0 - 47.0 % LAB HEMETOLOGY METHOD 01/20/2025 5:32 PM EDT [facility] MCV 90.5 79.0 - 98.0 FL LAB HEMETOLOGY METHOD 01/20/2025 5:32 PM EDT [facility] MCH 28.8 27.0 - 32.0 pcg LAB HEMETOLOGY METHOD 01/20/2025 5:32 PM EDT [facility] MCHC 31.8(L) 32.0 - 37.0 g/dL LAB HEMETOLOGY METHOD 01/20/2025 5:32 PM EDT [facility] RDW 11.9 11.0 - 15.0 % LAB HEMETOLOGY METHOD 01/20/2025 5:32 PM EDT [facility] Platelets 282 130 - 400 K/mcL LAB HEMETOLOGY METHOD 01/20/2025 5:32 PM EDT [facility] MPV 9.8 7.0 - 11.0 FL LAB HEMETOLOGY METHOD 01/20/2025 5:32 PM EDT [facility] NRBC 0.0 <1.0 % LAB HEMETOLOGY METHOD 01/20/2025 5:32 PM EDT [facility] NRBC Absolute 0.00 <0.10 K/[facility] LAB HEMETOLOGY METHOD 01/20/2025 5:32 PM EDT [facility] Neutrophils Relative 46.7 % LAB HEMETOLOGY METHOD 01/20/2025 5:32 PM EDT [facility] Lymphocytes Relative 34.0 % LAB HEMETOLOGY METHOD 01/20/2025 5:32 PM EDT [facility] Monocytes Relative 9.7 % LAB HEMETOLOGY METHOD 01/20/2025 5:32 PM EDT [facility] Eosinophils Relative 8.2 % LAB HEMETOLOGY METHOD 01/20/2025 5:32 PM EDT [facility] Basophils Relative 1.2 % LAB HEMETOLOGY METHOD [facility]/20[facility] Immature Granulocytes Relative 0.2 % LAB HEMETOLOGY METHOD 01/20/2025 5:32 PM EDT [facility] Neutrophils Absolute 3.03 1.50 - 7.00 K/[facility] LAB HEMETOLOGY METHOD 01/20/2025 5:32 PM EDT [facility] Lymphocytes Absolute 2.20 1.00 - 5.00 K/[facility] LAB HEMETOLOGY METHOD 01/20/2025 5:32 PM EDT [facility] Monocytes Absolute 0.63 0.20 - 1.00 K/mcL LAB HEMETOLOGY METHOD 01/20/2025 5:32 PM EDT [facility] Eosinophils Absolute 0.53(H) 0.00 - 0.50 K/[facility] LAB HEMETOLOGY METHOD 01/20/2025 5:32 PM EDT [facility] Basophils Absolute 0.08 0.00 - 0.20 K/[facility] LAB HEMETOLOGY METHOD 01/20/2025 5:32 PM EDT [facility] Immature Granulocytes Absolute 0.01 0.00 - 0.03 K/[facility] LAB HEMETOLOGY METHOD 01/20/2025 5:32 PM EDT [facility] Blood Venous blood specimen / Unknown Venipuncture / Unknown 01/20/2025 2:11 PM EDT 01/20/2025 2:11 PM EDT Daniel Seymour [employer] LAB BLOOD ORDERABLES Final R esult Performing Organization Address City/[facility]/ZIP Co de Phone Number [facility] [address] [place] [address], [place] [phone] * Hemoglobin A1c (01/20/2025 2:11 PM EDT) Hemoglobin A1C 5.8 <6.5 % LAB CHEMISTRY METHOD 01/20/2025 10:03 PM EDT [facility] Mean Bld Glu Estim. 120 mg/dL LAB CHEMISTRY METHOD 01/20/2025 10:03 PM EDT [facility] Blood Venous blood specimen / Unknown Venipuncture / Unknown 01/20/2025 2:11 PM EDT 01/20/2025 2:11 PM EDT Daniel Seymour [employer] LAB BLOOD ORDERABLES Final R esult [facility] [address] [place] [address], [place] [phone] * (ABNORMAL) Comprehensive metabolic panel (01/20/2025 2:11 PM EDT) Only the most recent of2 resultswithin the time period is included. Sodium 135 133 - 145 mmol/L LAB CHEMISTRY METHOD 01/20/2025 5:[address] [facility] Potassium 5.1 3.5 - 5.5 mmol/L LAB CHEMISTRY METHOD 01/20/2025 5:[address] [facility] Chloride 101 96 - 110 mmol/L LAB CHEMISTRY METHOD 01/20/2025 5:[address] [facility] CO2 29 21 - 32 mmol/L LAB CHEMISTRY METHOD 01/20/2025 5:[address] [facility] Anion Gap 5 3 - 11 LAB CHEMISTRY METHOD 01/20/2025 5:[address] [facility] Glucose 97 70 - 100 mg/dL LAB CHEMISTRY METHOD 01/20/2025 5:[address] [facility] BUN 44(H) 5 - 25 mg/dL LAB CHEMISTRY METHOD 01/20/2025 5:[address] [facility] Creatinine 2.42(H) 0.50 - 1.10 mg/dL LAB CHEMISTRY METHOD 01/20/2025 5:[address] [facility] eGFR 22(L) >=60 mL/min/1. 73m2 LAB CHEMISTRY METHOD 01/20/2025 5:[address] [facility] Comment:Calculation based on the Chronic Kidney Disease Epidemiology Collaboration (CKD-EPI) equation refit without adjustment for race. BUN/Creatinine Ratio 18.2 LAB CHEMISTRY METHOD 01/20/2025 5:[address] [facility] Calcium 9.2 8.5 - 10.5 mg/dL LAB CHEMISTRY METHOD 01/20/2025 5:[address] [facility] AST (SGOT) 27 10 - 42 unit/L LAB CHEMISTRY METHOD 01/20/2025 5:[address] [facility] ALT (SGPT) 17 10 - 60 unit/L LAB CHEMISTRY METHOD 01/20/2025 5:15 PM EDT [facility] Alkaline Phosphatase 123(H) 42 - 121 unit/L LAB CHEMISTRY METHOD 01/20/2025 5:15 PM EDT [facility] Total Protein 6.8 6.0 - 8.0 g/dL LAB CHEMISTRY METHOD 01/20/2025 5:15 PM EDT [facility] Albumin 4.0 3.2 - 5.0 g/dL LAB CHEMISTRY METHOD 01/20/2025 5:15 PM EDT [facility] Total Bilirubin 0.2 0.0 - 1.4 mg/dL LAB CHEMISTRY METHOD 01/20/2025 5:15 PM EDT [facility] Blood Venous blood specimen / Unknown Venipuncture / Unknown 01/20/2025 2:11 PM EDT 01/20/2025 2:11 PM EDT Daniel Seymour [employer] LAB BLOOD ORDERABLES Final R esult [facility] [address] [place] [address], * External CT Report (12/27/2024) Only the [...] * Depression Screening (11/16/2023) Depression Screening ABSTRACTED us Historical Provider HEALTH MAINTENANCE Final Result * Hepatitis C Screening (01/13/2021) Hepatitis C Screening ABSTRACTED us Historical Provider HEALTH MAINTENANCE Final Result from Last 3 Months or Most Recently Relevant to Health Maintenance Insurance [facility] Care Teams Forging Dies Final Finisher Relationship Specialty Start Date End Date Gege Thompson MD [address] [place] [address] PCP - General Internal Medicine 03/04/1999
--- OUTSIDE RECORDS SUMMARY | 2025-02-03 13:38 | XMS_ITS | Clinical Summary ---
Author Organization [employer] Address [address] [place] [address] [address] [place] [address] Care Team Providers Care Race Engine Builder Name Role Phone Unavailable Primary Care Provider [...] use. 473 mL 4 Active HYDROcodone-amberly taminophen (Hostetter) 5-325 MG tabletIndicatio ns:History of tooth extraction, unspecified edentulism class Take 1 tablet by mouth every 6 (six) hours if needed for severe pain for up to 3 doses. 3 tablet 4 Active Active Problems Problem Noted Date Diagnosed Date Elevated alkaline phosphatase level 01/15/2021 Elevated LFTs 01/15/2021 Mid back pain 01/15/2021 Stage 3a chronic kidney disease ([facility]/HCC) 2020 Meningioma ([facility]/HCC) 06/04/2016 Anxiety 04/24/2016 Chronic obstructive pulmonary disease [...] Recently Relevant to Health Maintenance Insurance [address] [facility] [address] MEDICAID STAND ADULT * Guarantor: Ana Paula Sanches Account Type Relation to Patient Date of Phone Billing Address Personal/Family Self [address]
--- OUTSIDE RECORDS SUMMARY | 2025-02-03 13:38 | XMS_ITS | Encounter Summary ---
Author Organization [facility] Address [address] [place] [address] Care Team Providers Care Hotel Server Name Role Phone Gege Thompson MD Primary Care Provider [phone] Reason for Visit * Reason Onset Date Comments Medication Problem 01/27/2025 Encounter Details Date Type Department Care Team ([facility] st Contact Info) Description 01/27/2025 Telephone Adult Medicine [facility] [address] [place] [phone] Gege Thompson MD [address] [place], [place] [phone] Social History Tobacco Use Types Packs/Day Years [...] is patients PCP?: Gege Thompson MD Payor: [facility] / Plan: [facility] / Product Type: *No Product type* / documented in this encounter Plan of Treatment Upcoming Encounters Date Type Department Care Team (Late st Contact Info) Description 03/07/2025 10:15 AM EST Office Visit Adult Medicine [facility] [address] [place] [address] Daniel Seymour NP [address] [place], [place] documented as of this encounter Visit Diagnoses Not on filedocumented in this encounter Care Teams Hotel Server Relationship Specialty Start Date End Date Gege Thompson MD [address] [place] [address] PCP - General Internal Medicine 03/04/1999 documented as of this encounter
== END 2025-02-03 12:22 | disposition home or self-care (01) ==
PROVIDERS: PCP Internal Medicine; Visit Provider Urology
DX: N13.30 Unspecified hydronephrosis (principal); N20.0 Calculus of kidney
CPT/HCPCS: 99214

== ENCOUNTER → 2025-02-03 11:54 | Outpatient (BNVA) | payer OTHER, SELFPAY | PROVIDERS: PCP Internal Medicine; Visit Provider Urology | DX: N20.0 Calculus of kidney (principal); N13.30 Unspecified hydronephrosis; N20.1 Calculus of ureter | CPT/HCPCS: 99212 ==

== ENCOUNTER → 2025-02-18 12:51 | Outpatient (REF) | payer OTHER, SELFPAY ==
--- OUTSIDE RECORDS SUMMARY | 2025-02-11 11:22 | XMS_ITS | Encounter Summary ---
Author Organization [facility] Address [address] [place] [address] Care Team Providers Care Duplicate Maker Name Role Phone Gege Thompson MD Primary Care Provider [phone] Reason for Referral * Imaging (Routine) - Pending Review Specialty Diagnoses / Procedures Referred By Contac t Referred To Contact Radiology Diagnoses Lymphadenopathy, abdominal Procedures PET CT Skull to Mid Thigh Initial Farrah Aparicio MD [address] [place] [address] ATTN: HEMATOLOGY/[place] [address] Phone: tel: fax: [facility] Referral ID Status Reason Start Date Expiration Date V isits Requested Visits Authorized [id number] Pending Review 02/10/2025 02/10/2026 1 1 Reason for Visit * Imaging (Routine) - Pending Review Specialty Diagnoses / Procedures Referred By Contac t Referred To Contact Radiology Diagnoses Lymphadenopathy, abdominal Procedures PET CT Skull to Mid Thigh Initial Farrah Aparicio MD [address] [place] [address] ATTN: HEMATOLOGY/[place] [address] Phone: tel: fax: [facility] Referral ID Status Reason Start Date Expiration Date V isits Requested Visits Authorized [id number] Pending Review 02/10/2025 02/10/2026 1 1 Encounter Details Date Type Department Care Team (Latest Contact Info) Description 02/11/2025 11:22 AM EDT Hospital Encounter [facility] PET Scan [address] [place] [address] Lymphadenopathy, abdominal Social History Tobacco Use Types Packs/Day Years [...] as of this encounter Plan of Treatment Upcoming Encounters Date Type Department Care Team (Late st Contact Info) Description 03/07/2025 10:15 AM EST Office Visit Adult Medicine [facility] [address] [place], [place] [phone] Daneil Seymour NP [address], [place] documented as of this encounter Procedures Procedure Name Priority Date/Time Associated Diagnosis Comments PET CT SKULL TO MID THIGH INITIAL Routine 02/11/2025 2:00 PM EDT Lymphadenopathy, abdominal documented in this encounter Results * PET CT Skull to Mid Thigh Initial (02/11/2025 2:00 PM EDT) Anatomical Region Laterality Modality Body Radiographic Karlene ging 02/17/2025 10:1 2 AM EDT Impressions 02/17/2025 10:20 AM EDT Intensely metabolically active cervical, abdominal and pelvic lymphadenopathy consistent with active lymphomatous disease. 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 Blood glucose: 84 mg/dl. CT Dose: 414 DLP (mGy-cm) Routine body FDG PET-CT imaging was performed from the skull base to proximal thighs and reconstructed in axial, coronal, and sagittal planes at the computer workstation with fused data from both the PET imaging study and attenuation correction CT. The CT portion of the examination was done strictly for attenuation correction and is not a true diagnostic CT examination. Mediastinum uptake SUV max = 2.8 Liver uptake SUV max = 3.0 FINDINGS: HEAD AND NECK: Bilateral FDG avid submandibular nodes with FDG max of 5.1 on the left side. THORAX: Mild activity associated with nonenlarged superficial left axillary node with SUV max of 1.4. No FDG avid thoracic nodes. ABDOMEN/PELVIS: FDG avid periaortic lymphadenopathy with nodes on the right side posterior to the lower IVC with SUV max of 4.7. Fatuma mass on the left side extending from the infrarenal aorta along the left common and external iliac chain SUV max up to 13.7. FDG avid enlarged right inguinal nodes SUV max of 12.7. Mild FDG activity within nonenlarged left inguinal node with SUV max of 2.1. Severe left-sided hydronephrosis with 5 mm lower pole nonobstructing stone. MUSCULOSKELETAL: No abnormal activity. 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 Blood glucose: 84 mg/dl. CT Dose: 414 DLP (mGy-cm) Routine body FDG PET-CT imaging was performed from the skull base toproximal thighs and reconstructed in axial, coronal, and sagittal planesat the computer workstation with fused data from both the PET imagingstudy and attenuation correction CT. The CT portion of the examination wasdone strictly for attenuation correction and is not a true diagnostic CTexamination. Mediastinum uptake SUV max = 2.8 Liver uptake SUV max = 3.0 FINDINGS: HEAD AND NECK: Bilateral FDG avid submandibular nodes with FDG max of 5.1on the left side. THORAX: Mild activity associated with nonenlarged superficial leftaxillary node with SUV max of 1.4. No FDG avid thoracic nodes. ABDOMEN/PELVIS: FDG avid periaortic lymphadenopathy with nodes on theright side posterior to the lower IVC with SUV max of 4.7. Fatuma mass on the left side extending from the infrarenal aorta along theleft common and external iliac chain SUV max up to 13.7. FDG avid enlarged right inguinal nodes SUV max of 12.7. Mild FDG activity within nonenlarged left inguinal node with SUV max of2.1. Severe left-sided hydronephrosis with 5 mm lower pole nonobstructingstone. MUSCULOSKELETAL: No abnormal activity. IMPRESSION: Intensely metabolically active cervical, abdominal and pelviclymphadenopathy consistent with active lymphomatous disease. -------- FINAL REPORT -------- Dictated By: Mathew Jacinto Dictated Date: 02/17/2025 10:12 ET Assigned Physician: Mathew Jacinto Reviewed and Electronically Signed By: Mathew Jacinto Signed Date: 02/17/2025 10:20 ET Workstation ID: [id number] Transcribed By: Self Edit Transcribed Date: 02/17/2025 10:12 ET Farrah Aparicio MD IM NM PROCEDURES Final Result documented in this encounter Visit Diagnoses Diagnosis Lymphadenopathy, abdominal documented in this encounter Administered Medications Inactive Administered Medications - up to 3 most recent administrations Medication Order MAR Action Action Date Dose Rate Site F-18 FDG pet diag radio-isotope injection 10.1 millicurie 10.1 millicurie, intravenous, Once in imaging, Starting on Fri02/11/25 at 1215, For 1 dose Given 02/11/2025 12:12 PM EDT 10.1 millicuries Left Antecubital documented in this encounter Orders Medications Ordered That Chiki ht Not Have Been Administered Count Last Ordered Date First Ordered Date F-18 FDG pet diag radio-isot ope injection 10.1 millicurie 1 02/11/2025 documented in this encounter Care Teams Duplicate Maker Relationship Specialty Start Date End Date Gege Thompson MD [address] [place] [address] PCP - General Internal Medicine 03/04/1999 documented as of this encounter
--- NOTE | ~2025-02-18 | US_ITS ---
EXAMINATION: US RETROPERITONEAL LIMITED (RENAL ONLY) CLINICAL INFORMATION: Calculus of kidney. COMPARISON: Correlated to noncontrast CT abdomen and pelvis dated December 27, 2024 demonstrated left-sided retroperitoneal lymphadenopathy obstructing the left ureter. TECHNIQUE: Real-time ultrasound kidneys using grayscale technique. FINDINGS: RIGHT KIDNEY: 9 x 5 x 6 cm (SAG x AP x TRV). Normal echotexture. Renal cortical thickness is normal. No hydronephrosis. No gross solid or cystic lesion. LEFT KIDNEY: 9 x 5 x 5 cm (SAG x AP x TRV). Normal echotexture. Renal cortical thinning. Dilatation of the pelvicalyceal system.] 9 mm hyperechoic lesions in the lower pole.. US/US renal BI IMPRESSION: Moderate to severe hydronephrosis, left kidney. Nephrolithiasis, left kidney. Normal right kidney.. Electronically signed by: Win Gauthier MD 02/18/2025 03:36 PM EDT
--- NOTE | ~2025-02-18 | NM_ITS ---
EXAMINATION: NM KIDNEY FLOW FUNCTION WITH RX HISTORY: CKD, recent diagnosis of lymphoma.. TECHNIQUE: A renogram and renal scan were performed following the intravenous administration of 10 mCi technetium 99m-DTPA. The patient received 27 mg IV Lasix approximately 30 minutes after injection of the radiopharmaceutical. COMPARISON: Correlation is made with an unenhanced CT of the abdomen and pelvis dated 12/27/2024. FINDINGS: There is normal blood flow to the right kidney. There is decreased blood flow on the left. On the right, there is normal uptake of the radiopharmaceutical. There is normal excretion into the collecting system and normal washout after administration of intravenous Lasix. On the left, there is minimal uptake of the radiopharmaceutical. The estimated split uptake is 83.5% on the right and 16.5% on the left. No excretion is seen on the right. Findings are consistent with severe obstruction or a nonfunctioning kidney. NM/NM renal flow w pharm int IMPRESSION: Findings consistent with severe right-sided obstruction or a nonfunctioning kidney, as described above. Electronically signed by: Randall Marcial MD 02/18/2025 03:28 PM EDT
--- OUTSIDE RECORDS SUMMARY | 2025-02-18 15:11 | XMS_ITS | Encounter Summary ---
Author Organization [facility] Address [address] [phone] Phone Care Team Providers Care Political Advisor Name Role Phone Iván Keyes MD Primary Care Provider Rosa barrios Encounter Details Date Type Department Care Team (Late Contact Info) Description 02/17/2025 Office Communication [facility] [address] [address] Lali Bae [address] [place] [phone] Social History Tobacco Use Types Packs/Day Years Used Date Smoking Tobacco: Never Smokeless Tobacco: Current Alcohol Use Standard Drinks/Week Comments Never 0 (1 standard drink = 0.6 oz pur e alcohol) Comments Unknown Sex and Gender Information Value Date Recorded Sex Assigned at Not on file Legal Sex Female 4:45 PM EDT Gender Identity Not on file Sexual Orientation Not on file documented as of this encounter Plan of Treatment Upcoming Encounters Date Type Department Care Team (Late st Contact Info) Description 02/24/2025 2:15 PM EDT Office Visit [facility] [address] [phone] Galileo Henriquez MD [address] [phone] documented as of this encounter Visit Diagnoses Not on filedocumented in this encounter Care Teams Political Advisor Relationship Specialty Start Date End Date Iván Keyes MD [address] [place] [address] PCP - General Urology 02/04/25 documented as of this encounter
--- OUTSIDE RECORDS SUMMARY | 2025-02-18 15:11 | XMS_ITS | Encounter Summary ---
Author Organization [facility] Address [address] [place] [address] Care Team Providers Care Pathology Secretary Name Role Phone Gege Thompson MD Primary Care Provider Gege Thompson MD Primary Care Provider [phone] Kina Kaur Md, MD Primary Care Provider Unavailable Gege Thompson MD Primary Care Provider [phone] Encounter Details Date Type Department Care Team Description 10/04/1999 Orders Only Medical [address] [place] [id number] Adrian Gr PA-C OTHER MALAISE AND FATIGUE [...] PM EDT H Antoni Gr PA-C [facility] * CBC WITH DIFFERENTIAL (10/04/1999 1:15 PM [...] PM EDT H Antoni Gr PA-C [facility] * LIPID PROFILE (10/04/1999 1:15 PM EDT) Cholesterol 214 10 - 220 MG/DL [facility] TRIGLYCERIDE 66 10 - 150 MG/DL [facility] HDL 52 32 - 96 MG/DL [facility] LDL-CALC 149 62 - 185 MG/DL [facility] VLDL 13 MG/DL [facility] RISK RATIO 4.12 1.00 - 4.44 [facility] 10/04/1999 1:15 PM EDT 10/04/1999 4:22 PM EDT H Antoni Maile MACEDO-C LAB Performing Organization Address [facility] de Phone Number [facility] * (ABNORMAL) COMPREHENSIVE METABOLIC PANEL (10/04/1999 1:15 PM EDT) [facility] GLUCOSE 97 70 - 110 MG/DL [facility] [...] Antoni Maile [facility] Performing Organization Address [facility] Co de Phone Number [facility] documented in this encounter Visit Diagnoses Diagnosis Other malaise and fatigue documented in this encounter Care Teams Pathology Secretary Relationship Specialty Start Date End Date Gege Thompson MD [address] [place] [phone] PCP - General 03/04/1999 10/27/17 Gege Thompson MD [address] [place] [id number] PCP - General Internal Medicine 10/28/17 01/02/18 Kina Kaur MD, [address] [place] [phone] PCP - General Internal Medicine 01/03/18 06/08/18 Gege Thompson MD [address] [place] [address] PCP - General Internal Medicine 06/09/18 documented as of this encounter
--- OUTSIDE RECORDS SUMMARY | 2025-02-18 15:11 | XMS_ITS | Encounter Summary ---
Author Organization [facility] Address [address] [place] [address] Care Team Providers Care Motor Power Connector Name Role Phone Gege Thompson MD Primary Care Provider [phone] Encounter Details Date Type Department Care Team Description 04/01/2023 Orders Only Adult Medicine [address] [phone] Andrea Calle, PAJuliaC [address] [place] [address] [phone] Social History Tobacco Use Types Packs/Day Years [...] on filedocumented in this encounter Care Teams Motor Power Connector Relationship Specialty Start Date End Date Gege Thompson MD [address] [place] [address] [phone] PCP - General Internal Medicine 06/09/18 documented as of this encounter
--- OUTSIDE RECORDS SUMMARY | 2025-02-18 15:11 | XMS_ITS | Encounter Summary ---
Author Organization [employer] Address [address] [facility] [address] [place] [address] Care Team Providers Care Pneumatic Tube Fitter Name Role Phone Unavailable Primary Care Provider Unavailabl e Reason for Visit * Reason Onset Date Comments Appointment 11/01/2022 Encounter Details Date Type Department Care Team ([facility] st Contact Info) Description 11/01/2022 Telephone [facility] ADULT DENTAL [address] [place] [address] Joe Berger, DMD [address] [place] [address] Appointment Social History Tobacco Use Types Packs/Day [...] sent to pharmacy to [facility] at [address] [place] [address] [place] please advise . documented in this encounter Plan of Treatment Not on file documented as of this encounter Visit Diagnoses Not on filedocumented in this encounter
--- OUTSIDE RECORDS SUMMARY | 2025-02-18 15:11 | XMS_ITS | Encounter Summary ---
Author Organization [employer] Address [address] [place] [address] [address] [place] [address] Care Team Providers Care Market Asset Protection Manager Name Role Phone Unavailable Primary Care Provider Unavailabl e Reason for Visit * Reason Onset Date Comments appt order 12/04/2022 followed up with patient 12/04/2022 Encounter Details Date Type Department Care Team ([facility] st Contact Info) Description 12/04/2022 Telephone [facility] ADULT D[facility]AL [address] [place] [address] Joe Berger DMD [address] [place] [address] appt order; followed up with patient Social [...] but she can always stop at the senior front end developer on and see if she can be scheduled before she leaves the office DR * Telephone Encounter - Deana Starr - 12/04/2022 3:04 PM EDT Patient had to cancel her cleaning appt on 11/27 due to being sick. She has an appt on 12/13 for voodoo but is unsure if the cleaning has to be done first. She was under the impression but it was unclear on my end. It is listed the treatment she needs but doesn't specify if hygiene has to happen prior to voodoo. Shed like to make sure she can still come in for 12/13 or if she has to wait to get a cleaning first so it is not a wasted trip documented in this encounter Plan of Treatment Not on file documented as of this encounter Visit Diagnoses Not on filedocumented in this encounter
--- OUTSIDE RECORDS SUMMARY | 2025-02-18 15:11 | XMS_ITS | Clinical Summary ---
Author Organization [employer] Address [address] [place] [address] [address] [place] [address] Care Team Providers Care String Top Sealer Name Role Phone Unavailable Primary Care Provider [...] use. 473 mL 4 Active HYDROcodone-amberly taminophen ([place]) 5-325 MG tabletIndicatio ns:History of tooth extraction, unspecified edentulism class Take 1 tablet by mouth every 6 (six) hours if needed for severe pain for up to 3 doses. 3 tablet 4 Active Active Problems Problem Noted Date Diagnosed Date Elevated alkaline phosphatase level 01/15/2021 Elevated LFTs 01/15/2021 Mid back pain 01/15/2021 Stage 3a chronic kidney disease ([facility]/HCC) 2020 Meningioma ([facility]/HCC) 06/04/2016 Anxiety 04/24/2016 Chronic obstructive pulmonary disease [...] of Phone Billing Address Personal/Family Self [address]
--- OUTSIDE RECORDS SUMMARY | 2025-02-18 15:11 | XMS_ITS | Encounter Summary ---
Author Organization [facility] Address [address] [place] [address] Care Team Providers Care Case Picker Name Role Phone Gege Thompson MD Primary Care Provider [phone] Gege Thompson MD Primary Care Provider [phone] Kina Kaur Md, MD Primary Care Provider Unavailable Gege Thompson MD Primary Care Provider [phone] Encounter Details Date Type Department Care Team Description 12/10/2002 Telephone Adult Medicine [address] [phone] Gege Thompson MD [address] [place] [address] [phone] Social History Tobacco Use Types Packs/Day Years Used Date Smoking Tobacco: Never Assessed Sex Assigned at Date Recorded Not on file Job Start Date Occupation Industry Not on file Not on file Not on file documented as of this encounter Plan of Treatment Not on file documented as of this encounter Visit Diagnoses Not on filedocumented in this encounter Care Teams Case Picker Relationship Specialty Start Date End Date Gege Thompson MD [address] [place] [address] [phone] PCP - General 03/04/1999 10/27/17 Gege Thompson MD [address] [place] [address] [phone] PCP - General Internal Medicine 10/28/17 01/02/18 Kina Kaur MD, MD [address] [place] [phone] PCP - General Internal Medicine 01/03/18 06/08/18 Gege Thompson MD [address] [place] [address] PCP - General Internal Medicine 06/09/18 documented as of this encounter
--- OUTSIDE RECORDS SUMMARY | 2025-02-18 15:11 | XMS_ITS | Encounter Summary ---
Author Organization [facility] Address [address] [place] [address] Care Team Providers Care Machine Bobbin Winder Name Role Phone Gege Thompson MD Primary Care Provider [phone] Reason for Visit * Reason Onset Date Comments Prior Authorization 08/04/2023 Encounter Details Date Type Department Care Team Description 08/04/2023 Telephone Adult Medicine - [place] [address] [place] [address] Gege Thompson MD [address] [place] [address] [phone] Prior Authorization Social History Tobacco Use Types [...] PHARM - COVER MY MEDS STEVENS CODE [id number] FLUTICASONE PROPIONATE HTA 110MCG/ACT AEROSOL documented in this encounter Plan of Treatment Not on file documented as of this encounter Visit Diagnoses Not on filedocumented in this encounter Care Teams Machine Bobbin Winder Relationship Specialty Start Date End Date Gege Thompson MD [address] [place] [phone] PCP - General Internal Medicine 06/09/18 documented as of this encounter
--- OUTSIDE RECORDS SUMMARY | 2025-02-18 15:11 | XMS_ITS | Clinical Summary ---
Author Organization [facility] Address [address] [place] [phone] Phone Care Team Providers Care Commodities Requirements Analyst Name Role Phone Iván Keyes MD Primary Care Provider Rosa lable Allergies Active Allergy Reactions Criticality Noted Date Comments Atorvastatin 08/15/2014 Muscle pains Lisinopril 04/24/2016 cough Methocarbamol 01/15/2021 Sore throat Penicillins Other (see comments) 05/07/2005 Medications acetaminophen (TYLENOL) 500 MG tablet Take 500 mg by mouth every 6 hours as needed 3 Active albuterol HFA (PROVENTIL HFA;VENTOLIN HFA) 108 (90 Base) MCG/ACT inhaler Inhale 2 puffs 5 Active albuterol HFA (PROVENTIL HFA;VENTOLIN HFA) 108 (90 Base) MCG/ACT inhaler INHALE TWO PUFFS BY MOUTH EVERY 4 HOURS NEEDED FOR WHEEZING OR COUGH Active Fluticasone Furoate (Arnuity Ellipta) 50 MCG/ACT aerosol powder Inhale 1 puff 4 Active gabapentin (NEURONTIN) 300 MG capsule Take 300 mg by mouth in the morning and 300 mg in the evening. Active nicotine (NICODERM CQ) 21 MG/24HR APPLY ONE PATCH TO THE SKIN EVERY DAY 5 Active oxyCODONE (ROXICODONE) 5 MG immediate release tablet TAKE 1 TABLET BY MOUTH EVERY 8 HOURS NEEDED FOR BREAKTHROUGH PAIN Active potassium citrate 10 MEQ (1080 MG) CR tablet 1 tablet in the morning and 1 tablet in the evening. Take with meals. 5 Active tamsulosin (FLOMAX) 0.4 MG 24 hr capsule Take 0.4 mg by mouth in the morning. 5 Active traZODone (DESYREL) 100 MG tablet Take 100 mg by mouth 3 Active allopurinol (ZYLOPRIM) 100 MG tablet Take 100 mg by mouth 1 (one) time each day Active losartan (COZAAR) 50 MG tablet Take 50 mg by mouth 1 (one) time each day 025 Discontin ued(Alter anne therapy) Active Problems Problem Noted Date Diagnosed Date Chronic kidney disease, stage 4 (severe) 025 Personal history of kidney stones 02/04/2025 Acute kidney failure 02/04/2025 Encounters Date Type Department Care Team Description 02/17/2025 Office Communication [facility] [address] [phone] Lali Bae 02/12/2025 Office Communication [facility] [address] [address] Galileo Henriquez MD Chronic kidney disease, stage 4 (severe) (HCC) (Primary Dx) 02/04/2025 11:00 AM EDT Office Visit [facility] [address] [address] Galileo Henriquez MD Chronic kidney disease, stage 4 (severe) (HCC) (Primary Dx); Personal history of kidney stones; Acute kidney failure, not otherwise specified (HCC) from Last 3 Months Family History Medical History Relation Comments Hypertension Mother Relation Status Comments Father Mother Social History Tobacco Use Types Packs/Day Years Used Date Smoking Tobacco: Never Smokeless Tobacco: Current Tobacco Cessation:Ready to Q uit: Not Asked; Counseling Given: Not Answered Alcohol Use Standard Drinks/Week Comments Never 0 (1 standard drink = 0.6 oz pur e alcohol) Comments Unknown Sex and Gender Information Value Date Recorded Sex Assigned at Not on file Legal Sex Female 4:45 PM EDT Gender Identity Not on file Sexual Orientation Not on file Last Filed Vital Signs Vital Sign Reading Time Taken Comments Blood Pressure 109/70 02/04/2025 11:25 AM EDT Pulse 74 02/04/2025 11:25 AM EDT Temperature - - Respiratory Rate - - Oxygen Saturation 97% 02/04/2025 11: 25 AM EDT Inhaled Oxygen Concentration - - Weight 53.9 kg (118 lb 12.8 oz) 025 11:25 AM EDT Height - - Body Mass Index - - Plan of Treatment Upcoming Encounters Date Type Department Care Team (Late st Contact Info) Description 02/24/2025 2:15 PM EDT Office Visit [facility] [address] [address] Galileo Henriquez MD [address] [address] Health Maintenance Due Date Last [...] Procedure Name Priority Date/Time Associated Diagnosis Comments IMMUNOFIXATION ELECT (HC) Routine 02/08/2025 10:01 AM EDT IMMUNOFIXATION INTERPRETATION Routine 02/08/2025 10:01 AM EDT IGG, IGA, IGM Routine 02/08/2025 10:01 AM EDT URINALYSIS RFX MICROSCOPIC Routine 02/08/2025 10:01 AM EDT MAGNESIUM Routine 02/08/2025 10:01 AM EDT Chronic kidney disease, stage 4 (severe) (HCC) Personal history of kidney stones CBC Routine 02/08/2025 10:01 AM EDT Chronic kidney disease, stage 4 (severe) (HCC) Personal history of kidney stones VITAMIN D 25 HYDROXY Routine 02/08/2025 10:01 AM EDT Chronic kidney disease, stage 4 (severe) (HCC) Personal history of kidney stones PROTEIN / CREATININE RATIO, URINE Routine 02/08/2025 10:01 AM EDT Chronic kidney disease, stage 4 (severe) (HCC) Personal history of kidney stones URINE ALBUMIN / CREATININE RATIO Routine 02/08/2025 10:01 AM EDT Chronic kidney disease, stage 4 (severe) (HCC) Personal history of kidney stones RENAL FUNCTION PANEL Routine 02/08/2025 10:01 AM EDT Chronic kidney disease, stage 4 (severe) (HCC) Personal history of kidney stones PTH, INTACT Routine 02/08/2025 10:01 AM EDT Chronic kidney disease, stage 4 (severe) (HCC) Personal history of kidney stones from Last 3 Months Results * Immunofixation Elect (02/08/2025 10:01 AM EDT) Immunofixation Result, Serum No monoclonal immunoglobulins detected. [facility] 02/08/2025 10:0 1 AM EDT 02/08/2025 11:55 AM EDT us Galileo Henriquez MD LAB [id number] SOLICITED RESULTS Final Result [facility] [address] [place] [address] * IMMUNOFIXATION INTERPRETATION (02/08/2025 10:01 AM EDT) Pathologist Interpretation Lety Varner MD [facility] 02/08/2025 10:0 1 AM EDT 02/08/2025 11:55 AM EDT us Galileo Henriquez MD LAB BLOOD ORDERABLES Final Re sult Performing Organization Address [facility] de Phone Number [facility] [address] [place] [address] * (ABNORMAL) Protein, Total, Random Urine w/Creatinine (Protein/Creat Ratio) (02/08/2025 10:01 AM EDT) Protein, Ur 26 mg/dL [facility] Urine Protein/Creati nine Ratio 0.23(H) <=0.20 mg/mg creat [facility] Creatinine, Urine 112.0 mg/dL [facility] Urine Urine specimen obtained by clean catch procedure / Unknown 02/08/2025 10:01 AM EDT 02/08/2025 11:54 AM EDT Galileo Henriquez MD LAB URINE ORDERABLES Final Re sult Performing Organization Address [facility] de Phone Number [facility] [address] [place] [address] * Urine Albumin / Creatinine Ratio (02/08/2025 10:01 AM EDT) Creatinine, Urine 112.0 mg/dL [facility] Microalbumin Urine Random <5.0 0.0 - 29.0 mg/L [facility] Microalbumin/Crea tinine Ratio <4 <30 mg/g [facility] Urine Urine specimen obtained by clean catch procedure / Unknown 02/08/2025 10:01 AM EDT 02/08/2025 11:54 AM EDT Galileo Henriquez MD LAB URINE ORDERABLES Final Re sult Performing Organization Address [facility] Co de Phone Number [facility] [address] [place] [address] * (ABNORMAL) Urinalysis Reflex Microscopic (02/08/2025 10:01 AM EDT) [facility] Specific Yoder 1.018 1.003 - 1.030 [facility] pH Urine 5.5 5.0 - 8.0 pH [facility] LEUKOCYTES, URINE Moderate(A) Negative [facility] Nitrite, Urine Negative Negative [facility] Protein, Urine Trace <=Trace mg/dL [facility] Glucose Urine Negative Negative mg/dL [facility] Ketones, Urine Negative Negative mg/dL [facility] Urobilinogen Urine 0.2 0.2 - 1.0 mg/dL [facility] Bilirubin Urine Negative Negative [facility] Blood Urine Negative Negative [facility] RBC, Urine 0.8 0 - 4 /HPF [facility] WBC, Urine 24.8(H) 0 - 4 /HPF [facility] Squamous Epithelial, Urine 83(H) 0 - 60 /LPF [facility] Bacteria, Urine Negative Negative /HPF [facility] Hyaline Casts, UA 0.8 0 - 3 /LPF [facility] 02/08/2025 10:0 1 AM EDT 02/08/2025 11:54 AM EDT Narrative [facility] - 02/08/2025 12:23 PM EDT Microscopic Required->Yes Culture if Indicated?->No Galileo Henriquez MD LAB URINE ORDERABLES Final Re sult [facility] [address] [place] [address] * (ABNORMAL) Vitamin D 25 Hydroxy (02/08/2025 10:01 AM EDT) [facility] Vitamin D, 25-OH, Total 17.6(L) 30.0 - 80.0 ng/mL [facility] Blood Venous blood / Unknown 02/08/2025 10:01 AM EDT 02/08/2025 11:55 AM EDT us Galileo Henriquez MD LAB BLOOD ORDERABLES Final Re sult [facility] [address] [place] [address] * (ABNORMAL) CBC (02/08/2025 10:01 AM EDT) [facility] WBC 7.4 4.8 - 10.8 K/[facility] RBC 3.80 3.80 - 4.80 M/[facility] Hgb 10.7(L) 11.5 - 16.0 g/dL [facility] Hematocrit 33.4(L) 35.0 - 47.0 % [facility] MCV 88.8 79.0 - 98.0 FL [facility] MCH 28.5 27.0 - 32.0 pcg [facility] MCHC 32.0 32.0 - 37.0 g/dL [facility] RDW 12.1 11.0 - 15.0 % [facility] Platelets 258 130 - 400 K/[facility] MPV 9.7 7.0 - 11.0 FL [facility] nRBC Count 0.0 <1.0 % [facility] NRBC Absolute 0.00 <0.10 [facility] Blood Venous blood / Unknown 02/08/2025 10:01 AM EDT 02/08/2025 11:55 AM EDT Galileo Henriquez MD LAB BLOOD ORDERABLES Final Re sult Performing Organization Address [facility]/ZIP Co de Phone Number [facility] [address] [place] [address] * IgG, IgA, IgM (02/08/2025 10:01 AM EDT) IgG 863 549 - 1,584 mg/dL [facility] IgA 167 61 - 348 mg/dL [facility] IgM 157 23 - 259 mg/dL [facility] 02/08/2025 10:0 1 AM EDT 02/08/2025 11:55 AM EDT Galileo Henriquez MD LAB BLOOD ORDERABLES Final Re sult Performing Organization Address [facility] de Phone Number [facility] [address] [place] [address] * PTH, Intact (02/08/2025 10:01 AM EDT) PTH 75.9 18.5 - 88.0 pcg/mL [facility] Blood Venous blood / Unknown 02/08/2025 10:01 AM EDT 02/08/2025 11:55 AM EDT Galileo Henriquez MD LAB BLOOD ORDERABLES Final Re sult Performing Organization Address City/[facility] Co de Phone Number [facility] [address] [place] [address] * Magnesium (02/08/2025 10:01 AM EDT) Magnesium 2.2 1.9 - 2.6 mg/dL [facility] Blood Venous blood / Unknown 02/08/2025 10:01 AM EDT 02/08/2025 11:55 AM EDT Galileo Henriquez MD LAB BLOOD ORDERABLES Final Re sult Performing Organization Address City/[facility] Co de Phone Number [facility] [address] [place] [address] * (ABNORMAL) Renal Function Panel (02/08/2025 10:01 AM EDT) Sodium 137 133 - 145 mmol/L [facility] Potassium 4.5 3.5 - 5.5 mmol/L [facility] Chloride 103 96 - 110 mmol/L [facility] Bicarbonate (CO2) 28 21 - 32 mmol/L [facility] Anion Gap 6 3 - 11 [facility] Glucose 106(H) 70 - 100 mg/dL [facility] BUN 40(H) 5 - 25 mg/dL [facility] Creatinine Serum 1.99(H) 0.50 - 1.10 mg/dL [facility] eGFR 28(L) >=60 mL/min/1. 73m2 [facility] Comment:Calculation based on the Chronic Kidney Disease Epidemiology Collaboration (CKD-EPI) equation refit without adjustment for race. BUN/Creatinine Ratio 20.1 [facility] Albumin 3.6 3.2 - 5.0 g/dL [facility] Calcium 8.9 8.5 - 10.5 mg/dL [facility] Phosphorus 4.7(H) 2.5 - 4.5 mg/dL [facility] Blood Venous blood / Unknown 02/08/2025 10:01 AM EDT 02/08/2025 11:55 AM EDT Galileo Henriquez MD LAB BLOOD ORDERABLES Final Re sult Performing Organization Address [facility]/ZIP Co de Phone Number [facility] [address] [place] [address] from Last 3 Months Insurance [facility] Medicaid Care Teams Commodities Requirements Analyst Relationship Specialty Start Date End Date Iván Keyes MD [address] [place] [phone] PCP - General Urology 02/04/25
--- OUTSIDE RECORDS SUMMARY | 2025-02-18 15:11 | XMS_ITS | Encounter Summary ---
Author Organization [facility] Address [address] [place] [phone] Phone Care Team Providers Care Oil Well Pumper Name Role Phone Iván Keyes MD Primary Care Provider Rosa barrios Reason for Referral * Imaging (Routine) - Closed Specialty Diagnoses / Procedures Referred By Contac t Referred To Contact Diagnoses Chronic kidney disease, stage 4 (severe) (HCC) Procedures Ultrasound renal limited Galileo Henriquez MD [address] [address] Phone: tel: fax: Referral ID Status Reason Start Date Expiration Date Visits Re quested Visits Authorized [id number] Closed 02/16/2025 02/16/2026 1 1 * Imaging (Routine) - Pending Review Specialty Diagnoses / Procedures Referred By Contac t Referred To Contact Diagnoses Chronic kidney disease, stage 4 (severe) (HCC) Procedures Nuclear Medicine Kidney Flow/Function w/wo Pharmacological Intervention Galileo Henriquez MD [address] [address] Phone: tel: fax: Referral ID Status Reason Start Date Expiration Date V isits Requested Visits Authorized [id number] Pending Review 02/12/2025 02/12/2026 1 1 Encounter Details Date Type Department Care Team (Latest Contact Info) Description 02/12/2025 Office Communication [facility] [address] [address] Galileo Henriquez MD [address] [address] Chronic kidney disease, stage 4 (severe) (HCC) (Primary Dx) Social History Tobacco Use Types Packs/Day Years [...] encounter Miscellaneous Notes * Telephone Encounter - Galileo Henriquez MD - 02/16/2025 4:39 PM EDT U/s at [facility] markos --thx * Telephone Encounter - Galileo Henriquez MD - 02/16/2025 1:45 PM EDT Needds renal ultrasound as markos and you can hold off on the renal nuclear scan--thx * Telephone Encounter - Galileo Henriquez MD - 02/12/2025 10:48 AM EDT Schedule renal scan w lasix at [facility] documented in this encounter Plan of Treatment Upcoming Encounters Date Type Department Care Team (Late st Contact Info) Description 02/24/2025 2:15 PM EDT Office Visit [facility] [address] [address] Galileo Henriquez MD [address] [address] Scheduled Orders Name Type Priority Associated Diagnoses Orde r Schedule Nuclear Medicine Kidney Flow/Function w/wo Pharmacological Intervention Imaging Routine Chronic kidney disease, stage 4 (severe) (HCC) Expected: 02/12/2025, Expires: 02/12/2026 Ultrasound renal limited Imaging Routine Chronic kidney disease, stage 4 (severe) (HCC) Expected: 02/16/2025, Expires: 02/16/2026 documented as of this encounter Visit Diagnoses Diagnosis Chronic kidney disease, stage 4 (severe) (HCC)- Primary documented in this encounter Care Teams Oil Well Pumper Relationship Specialty Start Date End Date Iván Keyes MD [address] [place] [address] PCP - General Urology 02/04/25 documented as of this encounter
--- OUTSIDE RECORDS SUMMARY | 2025-02-18 15:11 | XMS_ITS | Encounter Summary ---
Author Organization [facility] Address [address] [place] [address] Care Team Providers Care Heavy Equipment Rental Manager Name Role Phone Gege Thompson MD Primary Care Provider [phone] Gege Thompson MD Primary Care Provider [phone] Kina Kaur Md, MD Primary Care Provider Unavailable Gege Thompson MD Primary Care Provider Encounter Details Date Type Department Care Team Description 08/08/2005 SCAN Medical Records [address] [place] [id number] Abstract, Provider Social History Tobacco Use Types [...] Procedure Name Priority Date/Time Associated Diagnosis Comments [place] ECG ROUTINE ECG W/LEAST 1 2 LDS W/I&R Routine 08/07/2005 documented in this encounter Results * ELECTROCARDIOGRAM, COMPLETE (ECG) (08/07/2005) 08/07/2005 CARDIOLOGY documented in this encounter Visit Diagnoses Not on filedocumented in this encounter Care Teams Heavy Equipment Rental Manager Relationship Specialty Start Date End Date Gege Thompson MD [address] [place] [address] PCP - General 03/04/1999 10/27/17 Gege Thompson MD [address] [place] [address] PCP - General Internal Medicine 10/28/17 01/02/18 Kina Kaur MD, [address] [place] [address] PCP - General Internal Medicine 01/03/18 06/08/18 Gege Thompson MD [address] [place] [address] PCP - General Internal Medicine 06/09/18 documented as of this encounter
--- OUTSIDE RECORDS SUMMARY | 2025-02-18 15:11 | XMS_ITS | Encounter Summary ---
Author Organization [employer] Address [address] [facility] [address] [place] [address] Care Team Providers Care Water Supervisor Name Role Phone Unavailable Primary Care Provider Unavailabl e Encounter Details Date Type Department Care Team (Late st Contact Info) Description 01/21/2024 Telephone [facility] [address] [place] [address] Ab Joe, DMD [address] [place] [address] Social History Tobacco Use Types Packs/Day Years [...]
--- OUTSIDE RECORDS SUMMARY | 2025-02-18 15:11 | XMS_ITS | Encounter Summary ---
Author Organization [facility] Address [address] [place] [address] Care Team Providers Care Cistern Room Working Supervisor Name Role Phone Gege Thompson MD Primary Care Provider [phone] Gege Thompson MD Primary Care Provider [phone] Kina Kaur Md, MD Primary Care Provider Unavailable Gege Thompson MD Primary Care Provider [phone] Encounter Details Date Type Department Care Team Description 08/01/2016 Senior Underwriter Report Medical Records [address] [place] [phone] Leny Panchal MD Social History Tobacco Use [...] on filedocumented in this encounter Care Teams Cistern Room Working Supervisor Relationship Specialty Start Date End Date Gege Thompson MD [address] [place] [address] PCP - General 03/04/1999 10/27/17 Gege Thompson MD [address] [place] [address] PCP - General Internal Medicine 10/28/17 01/02/18 Kina Kaur MD, [address] [place] [phone] PCP - General Internal Medicine 01/03/18 06/08/18 Gege Thompson MD [address] [place] [address] PCP - General Internal Medicine 06/09/18 documented as of this encounter
--- OUTSIDE RECORDS SUMMARY | 2025-02-18 15:12 | XMS_ITS | Encounter Summary ---
Author Organization [facility] Address [address] [place] [address] Care Team Providers Care Literacy Tutor Name Role Phone Gege Thompson MD Primary Care Provider [phone] Reason for Visit * Reason Onset Date Comments Abdominal Pain 06/09/2018 Vomiting 06/09/2018 Encounter Details Date Type Department Care Team Description 06/09/2018 Telephone Adult Medicine [facility] [address] [place] [address] [phone] Gege Thompson MD [address] [place] [address] [phone] Abdominal Pain; Vomiting Social History Tobacco Use [...] sun with diarrhea and was seen at [facility]- was sent to [facility] for ? Gallbladder- told it was [...] had these symptoms?: PCP: Gege Thompson Payor: [employer] / Plan: [facility] SILVER TYPE 2 / Product Type: HMO [id number] documented in this encounter Plan of Treatment Not on file documented as of this encounter Visit Diagnoses Not on filedocumented in this encounter Care Teams Literacy Tutor Relationship Specialty Start Date End Date Gege Thompson MD [address] [place] [address] PCP - General Internal Medicine 06/09/18 documented as of this encounter
--- OUTSIDE RECORDS SUMMARY | 2025-02-18 15:12 | XMS_ITS | Encounter Summary ---
Author Organization [facility] Address [address] [place] [address] Care Team Providers Care Police Officer Name Role Phone Gege Thompson MD Primary Care Provider [phone] Reason for Visit * Reason Onset Date Comments Medication Problem 01/27/2025 Encounter Details Date Type Department Care Team ([facility] st Contact Info) Description 01/27/2025 Telephone Adult Medicine [facility] [address] [place] [phone] Gege Thompson MD [address] [place] [address] Social History Tobacco Use Types Packs/Day Years [...] Refills Last Filled Start Date End Date albuterol HFA (Ventolin HFA) 90 mcg/actuation inhaler Inhale 2 puffs by mouth every 4 (four) hours if needed for wheezing. 8.5 g 02/15/2025 documented in this encounter Progress Notes * Rina Herndon MA - 02/15/2025 3:26 PM EDTAddended by: RINA HERNDON on: 02/15/2025 03:26 PM Modules accepted: Orders * Chary Mariana - 01/27/2025 10:26 AM EDT Medication Problem: [...] is patients PCP?: Gege Thompson MD Payor: [facility] / Plan: [facility] / Product Type: *No Product type* / documented in this encounter Plan of Treatment Upcoming Encounters Date Type Department Care Team (Late st Contact Info) Description 03/07/2025 10:15 AM EST Office Visit Adult Medicine [address] [phone] Daniel Seymour MEDIA ASSOCIATE [address] [place], [place] documented as of this encounter Visit Diagnoses Not on filedocumented in this encounter Discontinued Medications Medication Sig Discontinue Reason Start Date End Da te albuterol HFA (Ventolin HFA) 90 mcg/actuation inhaler Inhale 2 puffs by mouth if needed for wheezing. 4 puffs every 4 hours as needed Reorder 01/26/2025 02/15/2025 documented as of this encounter Care Teams Police Officer Relationship Specialty Start Date End Date Gege Thompson MD [address] [place] [address] PCP - General Internal Medicine 03/04/1999 documented as of this encounter
--- OUTSIDE RECORDS SUMMARY | 2025-02-18 15:12 | XMS_ITS | Encounter Summary ---
Author Organization [facility] Address [address] [place] [address] Care Team Providers Care Graduate Rn Name Role Phone Gege Thompson MD Primary Care Provider [phone] Gege Thompson MD Primary Care Provider [phone] Kina Kaur Md, MD Primary Care Provider Unavailable Gege Thompson MD Primary Care Provider [phone] Reason for Visit * Reason Onset Date Comments REFERRAL 05/10/2016 Encounter Details Date Type Department Care Team Description 05/10/2016 Telephone Physiatry - [address] [id number] Ed Pickard, REFERRAL Social History Tobacco Use Types Packs/Day Years [...] encounter Miscellaneous Notes * Telephone Encounter - Moni Neely - 05/10/2016 9:00 AM EST Patient is referred to: lumbar DDD- would like Neeraj please- seen in past Priority: Routine FYI We left 2 messages and sent an unable to reach letter. No response from patient. We took the referral off the report. Thank You documented in this encounter Plan of Treatment Not on file documented as of this encounter Visit Diagnoses Not on filedocumented in this encounter Care Teams Graduate Rn Relationship Specialty Start Date End Date Gege Thompson MD [address] [place] [id number] PCP - General 03/04/1999 10/27/17 Gege Thompson MD [address] [place] [address] [id number] PCP - General Internal Medicine 10/28/17 01/02/18 Kina Kaur MD, [address] [place] [address] [id number] PCP - General Internal Medicine 01/03/18 06/08/18 Gege Thompson MD [address] [place] [id number] PCP - General Internal Medicine 06/09/18 documented as of this encounter
--- OUTSIDE RECORDS SUMMARY | 2025-02-18 15:12 | XMS_ITS | Encounter Summary ---
Author Organization [facility] Address [address] [place] [address] Care Team Providers Care Quality Control Associate Name Role Phone Gege Thompson MD Primary Care Provider [phone] Kina Kaur Md, MD Primary Care Provider Unavailable Gege Thompson MD Primary Care Provider [phone] Reason for Visit * Reason Onset Date Comments refill request 11/13/2017 Encounter Details Date Type Department Care Team Description 11/13/2017 Refill Adult Medicine [address] [id number] Gege Thompson MD [address] [place] [address] [phone] refill request Social History Tobacco Use Types [...] THE PATIENT'S LAST APPOINTMENT IN ADULT MEDICINE? [id number] WHEN WAS THE LAST TIME THE PATIENT SAW THEIR PCP? [id number] Does patient have an upcoming appointment? No- (THE MEDICATION REQUESTED IS ON THE MED LIST ABOVE) All of the medications requested were on the CURRENT MEDS list Did you check the Pharmacy information above?: YES Patient wants: 90 -day supply for best insurance [place]. Patient paying out of pocket. Insurance noteffective now, waiting for pr [employer] to activate Is this a mail order [...] on filedocumented in this encounter Care Teams Quality Control Associate Relationship Specialty Start Date End Date Gege Thompson MD [address] [place], [place] [phone] PCP - General Internal Medicine 10/28/17 01/02/18 Kina Kaur MD, [address] [place] [id number] PCP - General Internal Medicine 01/03/18 06/08/18 Gege Thompson MD [address] [place] [id number] PCP - General Internal Medicine 06/09/18 documented as of this encounter
--- OUTSIDE RECORDS SUMMARY | 2025-02-18 15:12 | XMS_ITS | Clinical Summary ---
Author Organization [facility] [address] [place] [address] [place] [phone] Phone Care Team Providers Care Corporate Travel Agent Name Role Phone Gege Thompson MD Primary Care Provider [phone] Allergies Active Allergy Reactions Criticality Noted Date Comments Atorvastatin 08/15/2014 Muscle pains Lisinopril 04/24/2016 cough Methocarbamol 01/15/2021 Sore throat Penicillins 05/07/2005 Medications gabapentin (NEURONTIN) 300 mg capsule TAKE ONE [...] 1 (one) time each day. Prescribed by [facility] with Dr. Keyes 12/22/19 25 Active traZODone (DESYREL) 100 mg tablet Take 1 tablet (100 mg total) by mouth at bedtime. 90 tablet 1 01/25/20 25 Active oxyCODONE (ROXICODONE) 5 mg immediate release tablet Take 1 tablet (5 mg total) by mouth every 8 (eight) hours if needed for severe pain or moderate pain. Prescribed By Dr. Aparicio, Oncologist at [facility], For Breakthrough/S ever pain Max Daily Amount: 15 mg 15 tablet 01/25/20 25 Active Arnuity Ellipta 50 mcg/actuation blister with device inhaler INHALE ONE PUFF BY MOUTH INTO THE LUNGS DAILY 60 each 4 02/10/20 Active albuterol HFA (Ventolin HFA) 90 mcg/actuation inhaler Inhale 2 puffs by mouth every 4 (four) hours if needed for wheezing. 8.5 g 02/16/20 25 Active traZODone (DESYREL) 100 mg tablet Take 1 tablet (100 mg total) by mouth at bedtime. Patient cuts in half and takes half at night Patient believes last prescribed by Andrea Calle 11/24/19 025 Discontinued(Re order) fluticasone furoate (Arnuity Ellipta) 50 mcg/actuation blister with device inhaler Prescribed by andrea Calle 08/01/19 025 Discontinued fluticasone HFA (Flovent HFA) 110 mcg/actuation inhaler Inhale 1 puff by mouth 2 (two) times a day. Prescribed by Pulmonology 025 Discontinued Ventolin HFA 90 mcg/actuation inhaler INHALE TWO PUFFS BY MOUTH EVERY 4 HOURS NEEDED FOR WHEEZING OR COUGH 54 g 11/04/19 025 Discontinued(Re order) cephalexin (KEFLEX) 500 mg capsule Take 1 capsule (500 mg total) by mouth 2 (two) times a day. Prescribed by [facility] provider 12/28/19 025 Discontinued(Th erapy completed) albuterol HFA (Ventolin HFA) 90 mcg/actuation inhaler Inhale 2 puffs by mouth if needed for wheezing. 4 puffs every 4 hours as needed 54 g 01/25/20 25 025 Discontinued(Re order) oxyCODONE (ROXICODONE) 5 mg immediate release tablet Take 1 tablet (5 mg total) by mouth every 8 (eight) hours if needed for severe pain or moderate pain. Prescribed By Dr. Aparicio, Oncologist at [facility], For Breakthrough/S ever pain Max Daily Amount: 15 mg 01/14/20 025 Discontinued(Re order) albuterol HFA (Ventolin HFA) 90 mcg/actuation inhaler Inhale 2 puffs by mouth if needed for wheezing. 4 puffs every 4 hours as needed 8.5 g 01/27/20 25 025 Discontinued(Re order) Active Problems Problem Noted Date Diagnosed Date Stage 4 chronic kidney disease ([facility] V24, [facility] /[facility] V28) 01/24/2025 Kidney stone 11/18/2024 Overview (11/18/2024): Hospitalization at [facility] with hydronephrosis, 2024 Elevated alkaline phosphatase level 01/15/2021 Elevated LFTs 01/15/2021 Mid back pain 01/15/2021 Stage 3a chronic kidney disease ([facility] V24, [facility] /[facility] V28) 01/15/2021 Meningioma ([facility] V24, [facility] V28) 06/04/2016 Anxiety 04/24/2016 Chronic obstructive pulmonar y disease ([facility] V24, [facility] V28) 04/24/2016 Essential hypertension 04/24/2016 Panic attack 04/24/2016 Trochanteric bursitis of right hip 01/25/2015 Vitamin D deficiency 01/25/2015 DDD (degenerative disc disease), lumbar 09/24/19 15 Lumbar facet arthropathy 09/23/2014 Hip pain, bilateral 01/04/2014 Hyperlipidemia 01/04/2014 Insomnia 01/04/2014 Obesity 01/04/2014 Esophageal reflux 08/07/2005 Encounters Date Type Department Care Team Description 02/11/2025 11:22 AM EDT Hospital Encounter [facility] PET Scan [address] [place] [address] Lymphadenopathy, abdominal 02/09/2025 Results Follow-Up Adult Medicine [address] [phone] Daniel Seymour NP 01/27/2025 Telephone Adult Medicine [address] [phone] Gege Thompson MD 01/25/2025 Telephone Adult Medicine [address] [phone] Gege Thompson MD 01/24/2025 10:15 AM EDT Office Visit Adult Medicine [address] [phone] Daniel Seymour NP Lymphadenopathy, inguinal (Primary Dx); Postop check; Hyperkalemia; Stage 4 chronic kidney disease (CMS/HCC V24, CMS/HCC V28); SOB (shortness of breath) on exertion; Insomnia, unspecified type 01/21/[address] [phone] Daniel Seymour NP 01/11/[address] [phone] Gege Thompson MD 12/30/2024 10:15 AM EDT Office Visit [address] [phone] Daniel Seymour NP Left lower quadrant abdominal pain (Primary Dx); Lymphadenopathy, inguinal; Abnormal CT scan; Acute renal failure superimposed on stage 3a chronic kidney disease, unspecified acute renal failure type (CMS/HCC V24, CMS/HCC V28); Kidney stone; Encounter for examination following treatment at hospital 12/30/[address] [phone] Shola Chang [place] 12/30/[address] [phone] Gege Thompson MD 12/29/[address] [phone] Daniel Seymour NP 12/27/2024 10:00 AM EDT Office Visit [address] [phone] Daniel Seymour NP Acute renal failure superimposed on stage 3a chronic kidney disease, unspecified acute renal failure type (CMS/HCC V24, CMS/HCC V28) (Primary Dx); History of kidney stones; Fatigue, unspecified type; Encounter for screening for cardiovascular disorders 12/21/2024 1:30 PM EDT Office Visit [address] [phone] Gege Thompson MD Kidney stone (Primary Dx); Essential hypertension 12/15/[address] [phone] Gege Thompson MD 11/24/2024 10:30 AM EDT Office Visit [address] [phone] Gege Thompson MD Kidney stone (Primary Dx); Essential hypertension; Stage 3a chronic kidney disease (CMS/HCC V24, CMS/HCC V28); Anxiety from Last 3 Months Surgical History Surgery [...] 10:15 AM EST Office Visit Adult Medicine [facility] [address] [place], [place] [phone] Daniel Seymour NP [address] [place], [place] Health Maintenance Due Date Last Done Comments Breast Cancer Screening 1960 Colorectal Cancer Screening: Colonoscopy 1960 DTaP,Tdap,and Td Vaccines (1 - Tdap) 10/15/1979 Pneumococcal Vaccine: 50+ Years (1 of 2 - PCV) 10/15/1979 Zoster Vaccines (1 of 2) 10/15/1979 Cervical Cancer Screening: Pap Smear 1981 RSV Immunization Adult Patients (1 - Risk 50-74 years 1-dose series) 2010 COVID-19 Vaccine (3 - Moderna risk series) 06/12/2021 05/15/2021, 09/28/2020 HIV Screening 04/13/2022 Social Influencers of Health Screening 04/13/2022 Depression Screening 05/05/2024 11/16/2023 Influenza Vaccine (#1) 2025 Hypertension/CHF/CAD Annual BMP Blood Test 02/08/2026 02/08/2025, 01/20/2025, 12/24/2024, Additional history exists Cholesterol Screening (Lipid Panel) 01/20/2030 01/20/2025, 07/01/2022 [...] 20 months Aged Out No longer eligible based on patient's age to complete this topic Varicella Vaccines Aged Out No longer eligible based on patient's age to complete this topic Procedures Procedure Name Priority Date/Time Associated Diagnosis Comments PET CT SKULL TO MID THIGH INITIAL Routine 02/11/2025 2:00 PM EDT Lymphadenopathy, abdominal [place] IMMUNOFIXATION ELECTROPHORESIS SERUM Routine 02/08/2025 10:01 AM EDT Chronic kidney disease, stage 4 (severe) (CMS/HCC V24, CMS/HCC V28) Personal history of urinary calculi URINALYSIS WITH REFLEX MICROSCOPIC Routine 02/08/2025 10:01 AM EDT Chronic kidney disease, stage 4 (severe) (CMS/HCC V24, CMS/HCC V28) Personal history of urinary calculi PARATHYROID HORMONE INTACT Routine 02/08/2025 10:01 AM EDT Chronic kidney disease, stage 4 (severe) (CMS/HCC V24, CMS/HCC V28) Personal history of urinary calculi RENAL FUNCTION PANEL Routine 02/08/2025 10:01 AM EDT Chronic kidney disease, stage 4 (severe) (CMS/HCC V24, CMS/HCC V28) Personal history of urinary calculi URINALYSIS WITH REFLEX MICROSCOPIC Routine 02/08/2025 10:01 AM EDT Chronic kidney disease, stage 4 (severe) (CMS/HCC V24, CMS/HCC V28) Personal history of urinary calculi MICROALBUMIN CREATININE URINE RATIO Routine 02/08/2025 10:01 AM EDT Chronic kidney disease, stage 4 (severe) (CMS/HCC V24, CMS/HCC V28) Personal history of urinary calculi PROTEIN AND CREATININE WITH RATIO, URINE Routine 02/08/2025 10:01 AM EDT Chronic kidney disease, stage 4 (severe) (CMS/HCC V24, CMS/HCC V28) Personal history of urinary calculi VITAMIN D 25 HYDROXY Routine 02/08/2025 10:01 AM EDT Chronic kidney disease, stage 4 (severe) (CMS/[facility] V24, CMS/[facility] V28) Personal history of urinary calculi COMPLETE BLOOD COUNT Routine 02/08/2025 10:01 AM EDT Chronic kidney disease, stage 4 (severe) (CMS/[facility] V24, CMS/[facility] V28) Personal history of urinary calculi MAGNESIUM Routine 02/08/2025 10:01 AM EDT Chronic kidney disease, stage 4 (severe) (CMS/[facility] V24, CMS/[facility] V28) Personal history of urinary calculi IMMUNOGLOBULINS IGG, IGA, IGM Routine 02/08/2025 10:01 AM EDT Chronic kidney disease, stage 4 (severe) (CMS/[facility] V24, CMS/[facility] V28) Personal history of urinary calculi IMMUNOFIXATION ELECTROPHORESIS Routine 02/08/2025 10:01 AM EDT Chronic kidney disease, stage 4 (severe) (CMS/HCC V24, CMS/[facility] V28) Personal history of urinary calculi IMMUNOFIXATION ELECTROPHORESIS Routine 02/08/2025 10:01 AM EDT Chronic kidney disease, stage 4 (severe) (CMS/[facility] V24, CMS/[facility] V28) Personal history of urinary calculi D-DIMER STAT 01/24/2025 11:26 AM EDT SOB [...] XRAY REPORT 11/23/2024 EXTERNAL XRAY REPORT 11/23/2024 HM DEPRESSION SCREENING Routine 11/16/2023 HEPATITIS C SCREENING Routine 01/13/2021 from Last 3 Months or Most Recently Relevant to Health Maintenance Results * PET CT Skull to Mid [...] Signed Date: 02/17/2025 10:20 ET Workstation ID: [id number] Transcribed By: Self Edit Transcribed Date: 02/17/2025 [...] Signed Date: 02/17/2025 10:20 ET Workstation ID: [id number] Transcribed By: Self Edit Transcribed Date: 02/17/2025 10:12 ET us Farrah Aparicio MD [facility] PROCEDURES Final Result * Pathologist Review Immunofixation (02/08/2025 10:01 AM EDT) Pathologist Interpretation Lety Varner MD 02/09/2025 2:00 PM EDT [facility] Blood Venous blood specimen / Unknown Venipuncture / Unknown 02/08/2025 10:01 AM EDT 02/08/2025 10:01 AM EDT us Galileo Henriquez MD LAB BLOOD ORDERABLES Final Re sult [facility] [address] [place] [address], [place] [phone] * (ABNORMAL) Urinalysis with reflex microscopic (02/08/2025 10:01 AM EDT) Pathologist [facility] [place] Urine 1.018 1.003 - 1.030 LAB URINALYSIS - AUTOMATED METHOD 02/08/2025 12:23 PM [facility] pH, Urine 5.5 5.0 - 8.0 pH LAB URINALYSIS - AUTOMATED METHOD 02/08/2025 12:23 PM [facility] Leukocytes, Urine Moderate(A) Negative LAB URINALYSIS - AUTOMATED METHOD 02/08/2025 12:23 PM [facility] Nitrite, Urine Negative Negative LAB URINALYSIS - AUTOMATED METHOD 02/08/2025 12:23 PM [facility] Protein, Urine Trace <=Trace mg/dL LAB URINALYSIS - AUTOMATED METHOD 02/08/2025 12:23 PM [facility] Glucose, Urine Negative Negative mg/dL LAB URINALYSIS - AUTOMATED METHOD 02/08/2025 12:23 PM [facility] Ketones, Urine Negative Negative mg/dL LAB URINALYSIS - AUTOMATED METHOD 02/08/2025 12:23 PM [facility] Urobilinogen , Urine 0.2 0.2 - 1.0 mg/dL LAB URINALYSIS - AUTOMATED METHOD 02/08/2025 12:23 PM [facility] Bilirubin, Urine Negative Negative LAB URINALYSIS - AUTOMATED METHOD 02/08/2025 12:23 PM [facility] Blood, Urine Negative Negative LAB URINALYSIS - AUTOMATED METHOD 02/08/2025 12:23 PM [facility] RBC, Urine 0.8 0 - 4 /HPF LAB URINALYSIS - AUTOMATED METHOD 02/08/2025 12:23 PM [facility] WBC, Urine 24.8(H) 0 - 4 /HPF LAB URINALYSIS - AUTOMATED METHOD 02/08/2025 12:23 PM [facility] Squamous Epithelial, Urine 83(H) 0 - 60 /LPF LAB URINALYSIS - AUTOMATED METHOD 02/08/2025 12:23 PM [facility] Bacteria, Urine Negative Negative /HPF LAB URINALYSIS - AUTOMATED METHOD 02/08/2025 12:23 PM [facility] Hyaline Casts, Urine 0.8 0 - 3 /LPF LAB URINALYSIS - AUTOMATED METHOD 02/08/2025 12:23 PM [facility] Urine Urine specimen obtained by clean catch procedure / Unknown Non-blood Collection / Unknown 02/08/2025 10:01 AM EDT 02/08/2025 10:01 AM EDT us Galileo Henriquez MD LAB URINE ORDERABLES Final Re sult [facility] [address] [place] [address], * (ABNORMAL) Protein and creatinine with ratio, urine (02/08/2025 10:01 AM EDT) Protein, Urine 26 mg/dL LAB CHEMISTRY METHOD 02/08/2025 2:07 PM [facility] Prot/Creat, Ur 0.23(H) <=0.20 mg/mg creat LAB CHEMISTRY METHOD 02/08/2025 2:07 PM EDT [facility] Creatinine, Urine 112.0 mg/dL LAB CHEMISTRY METHOD 02/08/2025 2:07 PM EDT [facility] Urine Urine specimen obtained by clean catch procedure / Unknown Non-blood Collection / Unknown 02/08/2025 10:01 AM EDT 02/08/2025 10:01 AM EDT us Galileo Henriquez MD LAB URINE ORDERABLES Final Re sult [facility] [address] [place] [address], [place] [phone] * Microalbumin creatinine urine ratio (02/08/2025 10:01 AM EDT) Creatinine, Urine 112.0 mg/dL LAB CHEMISTRY METHOD 02/08/2025 2:22 PM EDT [facility] Microalb, Ur <5.0 0.0 - 29.0 mg/L LAB CHEMISTRY METHOD 02/08/2025 2:22 PM EDT [facility] Microalb/Creat Ratio <4 <30 mg/g creat LAB CHEMISTRY METHOD 02/08/2025 2:22 PM EDT [facility] Urine Urine specimen obtained by clean catch procedure / Unknown Non-blood Collection / Unknown 02/08/2025 10:01 AM EDT 02/08/2025 10:01 AM EDT us Galileo Henriquez MD LAB URINE ORDERABLES Final Re sult [facility] [address] [place] [address], [place] [phone] * (ABNORMAL) Vitamin D 25 hydroxy (02/08/2025 10:01 AM EDT) Pathologist [facility] Vit D, 25-Hydroxy 17.6(L) 30.0 - 80.0 ng/mL LAB CHEMISTRY METHOD 02/08/2025 1:18 PM EDT [facility] Blood Venous blood specimen / Unknown Venipuncture / Unknown 02/08/2025 10:01 AM EDT 02/08/2025 10:01 AM EDT Galileo Henriquez MD LAB BLOOD ORDERABLES Final Re sult [facility] [address] [place] [address], * (ABNORMAL) Complete blood count (02/08/2025 10:01 AM EDT) [facility] WBC 7.4 4.8 - 10.8 K/mcL LAB HEMETOLOGY METHOD 02/08/2025 12:24 PM EDT [facility] RBC 3.80 3.80 - 4.80 M/mcL LAB HEMETOLOGY METHOD 02/08/2025 12:24 PM EDT [facility] Hemoglobin 10.7(L) 11.5 - 16.0 g/dL LAB HEMETOLOGY METHOD 02/08/2025 12:24 PM [facility] Hematocrit 33.4(L) 35.0 - 47.0 % LAB HEMETOLOGY METHOD 02/08/2025 12:24 PM EDT [facility] MCV 88.8 79.0 - 98.0 FL LAB HEMETOLOGY METHOD 02/08/2025 12:24 PM EDT [facility] MCH 28.5 27.0 - 32.0 pcg LAB HEMETOLOGY METHOD 02/08/2025 12:24 PM T [facility] MCHC 32.0 32.0 - 37.0 g/dL LAB HEMETOLOGY METHOD 02/08/2025 12:24 PM EDT [facility] RDW 12.1 11.0 - 15.0 % LAB HEMETOLOGY METHOD 02/08/2025 12:24 PM EDT [facility] Platelets 258 130 - 400 K/mcL LAB HEMETOLOGY METHOD 02/08/2025 12:24 PM EDT [facility] MPV 9.7 7.0 - 11.0 FL LAB HEMETOLOGY METHOD 02/08/2025 12:24 PM EDT [facility] NRBC 0.0 <1.0 % LAB HEMETOLOGY METHOD 02/08/2025 12:24 PM EDT [facility] NRBC Absolute 0.00 <0.10 K/mcL LAB HEMETOLOGY METHOD 02/08/2025 12:24 PM EDT [facility] Blood Venous blood specimen / Unknown Venipuncture / Unknown 02/08/2025 10:01 AM EDT 02/08/2025 10:01 AM EDT us Galileo Henriquez MD LAB BLOOD ORDERABLES Final Re sult Performing Organization Address City/[facility]/ZIP Co de Phone Number [facility] [address] [place] [address], * Immunofixation electrophoresis serum (02/08/2025 10:01 AM EDT) Immunofixation Result, Serum No monoclonal immunoglobulins detected. LAB CHEMISTRY METHOD 02/09/2025 2:00 PM EDT [facility] Blood Venous blood specimen / Unknown Venipuncture / Unknown 02/08/2025 10:01 AM EDT 02/08/2025 10:01 AM EDT us Galileo Henriquez MD LAB BLOOD ORDERABLES Final Re sult [facility] [address] [place] [address], [place] [phone] * Immunoglobulins IgG, IgA, IgM (02/08/2025 10:01 AM EDT) [facility] Total IgG 863 549 - 1,584 mg/dL LAB CHEMISTRY METHOD 02/08/2025 12:38 PM EDT [facility] IgA 167 61 - 348 mg/dL LAB CHEMISTRY METHOD 02/08/2025 12:38 PM EDT [facility] IgM 157 23 - 259 mg/dL LAB CHEMISTRY METHOD 02/08/2025 12:38 PM EDT [facility] Blood Venous blood specimen / Unknown Venipuncture / Unknown 02/08/2025 10:01 AM EDT 02/08/2025 10:01 AM EDT Galileo Henriquez MD LAB BLOOD ORDERABLES Final Re sult Performing Organization Address City/[facility]/ZIP Co de Phone Number [facility] [address] [place] [address], [place] [phone] * Parathyroid hormone intact (02/08/2025 10:01 AM EDT) [facility] PTH 75.9 18.5 - 88.0 pcg/mL LAB CHEMISTRY METHOD 02/08/2025 1:18 PM EDT [facility] Blood Venous blood specimen / Unknown Venipuncture / Unknown 02/08/2025 10:01 AM EDT 02/08/2025 10:01 AM EDT us Galileo Henriquez MD LAB BLOOD ORDERABLES Final Re sult [facility] [address] [place] [address], [place] [phone] * Magnesium (02/08/2025 10:01 AM EDT) [facility] Magnesium 2.2 1.9 - 2.6 mg/dL LAB CHEMISTRY METHOD 02/08/2025 12:30 PM [facility] Blood Venous blood specimen / Unknown Venipuncture / Unknown 02/08/2025 10:01 AM EDT 02/08/2025 10:01 AM EDT us Galileo Henriquez MD LAB BLOOD ORDERABLES Final Re sult [facility] [address] [place] [address], * (ABNORMAL) Renal function panel (02/08/2025 10:01 AM EDT) Sodium 137 133 - 145 mmol/L LAB CHEMISTRY METHOD 02/08/2025 12:30 PM [facility] Potassium 4.5 3.5 - 5.5 mmol/L LAB CHEMISTRY METHOD 02/08/2025 12:30 PM [facility] Chloride 103 96 - 110 mmol/L LAB CHEMISTRY METHOD 02/08/2025 12:30 PM [facility] CO2 28 21 - 32 mmol/L LAB CHEMISTRY METHOD 02/08/2025 12:30 PM [facility] Anion Gap 6 3 - 11 LAB CHEMISTRY METHOD 02/08/2025 12:30 PM [facility] Glucose 106(H) 70 - 100 mg/dL LAB CHEMISTRY METHOD 02/08/2025 12:30 PM [facility] BUN 40(H) 5 - 25 mg/dL LAB CHEMISTRY METHOD 02/08/2025 12:30 PM [facility] Creatinine 1.99(H) 0.50 - 1.10 mg/dL LAB CHEMISTRY METHOD 02/08/2025 12:30 PM [facility] eGFR 28(L) >=60 mL/min/1. 73m2 LAB CHEMISTRY METHOD 02/08/2025 12:30 PM EDT [facility] Comment:Calculation based on the Chronic Kidney Disease Epidemiology Collaboration (CKD-EPI) equation refit without adjustment for race. BUN/Creatinine Ratio 20.1 LAB CHEMISTRY METHOD 02/08/2025 12:30 PM EDT [facility] Albumin 3.6 3.2 - 5.0 g/dL LAB CHEMISTRY METHOD 02/08/2025 12:30 PM EDT [facility] Calcium 8.9 8.5 - 10.5 mg/dL LAB CHEMISTRY METHOD 02/08/2025 12:30 PM EDT [facility] Phosphorus 4.7(H) 2.5 - 4.5 mg/dL LAB CHEMISTRY METHOD 02/08/2025 12:30 PM EDT [facility] Blood Venous blood specimen / Unknown Venipuncture / Unknown 02/08/2025 10:01 AM EDT 02/08/2025 10:01 AM EDT us Galileo Henriquez MD LAB BLOOD ORDERABLES Final Re sult [facility] [address] [place] [address], * D-Dimer (01/24/2025 11:26 AM EDT) D-Dimer, Quant (D-DU) 193 <=230 ng/mL DDU LAB COAGULATION METHOD 01/24/2025 12:04 PM EDT [facility] Blood Venous blood specimen / Unknown Venipuncture / Unknown 01/24/2025 11:26 AM EDT 01/24/2025 11:26 AM EDT Narrative [facility] - 01/24/2025 12:04 PM EDT D-Dimer <230 ng/mL (D-Dimer units) is the threshold for exclusion of DVT/PE. D-Dimer may be elevated in: Critically ill, severely infected, trauma patients, DIC, acute CVA, acute SC, unstable angina, AF, old age, , and smoking. D-Dimer may be decreased with: Initiation of heparin therapy and oral anticoagulants. Daniel Seymour NP LAB BLOOD ORDERABLES Final R esult Performing Organization Address [facility]/ZIP Co de Phone Number [facility] [address] [place] [address], [place] [phone] * Culture urine (01/21/2025 9:12 AM EDT) Pathologist [facility] Culture, Urine 10,000-49,000 CFU/mL Mixed urogenital maximo, no uropathogens present. Suggest repeat specimen if clinically indicated. 01/23/2025 12:48 PM EDT [facility] Urine Urine specimen obtained by clean catch procedure / Unknown Non-blood Collection / Unknown 01/21/2025 9:12 AM EDT 01/21/2025 9:12 AM EDT Daniel Seymour NP LAB MICROBIOLOGY - GENERAL O RDERABLES Final Result Performing Organization Address [facility] de Phone Number [facility] [address] [place] [address], [place] [phone] * (ABNORMAL) Urinalysis with reflex microscopic and culture (01/20/2025 2:11 PM EDT) Pathologist [facility] [place] Urine 1.019 1.003 - 1.030 LAB URINALYSIS - AUTOMATED METHOD 01/20/2025 6:26 PM EDT [facility] pH, Urine 6.5 5.0 - 8.0 pH LAB URINALYSIS - AUTOMATED METHOD 01/20/2025 6:26 PM EDT [facility] Leukocytes, Urine Moderate(A) Negative LAB URINALYSIS - AUTOMATED METHOD 01/20/2025 6:26 PM EDT [facility] Nitrite, Urine Negative Negative LAB URINALYSIS - AUTOMATED METHOD 01/20/2025 6:26 PM [facility] Protein, Urine Trace <=Trace mg/dL LAB URINALYSIS - AUTOMATED METHOD 01/20/2025 6:26 PM [facility] Glucose, Urine Negative Negative mg/dL LAB URINALYSIS - AUTOMATED METHOD 01/20/2025 6:26 PM [facility] Ketones, Urine Negative Negative mg/dL LAB URINALYSIS - AUTOMATED METHOD 01/20/2025 6:26 PM [facility] Urobilinogen , Urine 0.2 0.2 - 1.0 mg/dL LAB URINALYSIS - AUTOMATED METHOD 01/20/2025 6:26 PM [facility] Bilirubin, Urine Negative Negative LAB URINALYSIS - AUTOMATED METHOD 01/20/2025 6:26 PM [facility] Blood, Urine Negative Negative LAB URINALYSIS - AUTOMATED METHOD 01/20/2025 6:26 PM [facility] RBC, Urine 1.3 0 - 4 /HPF LAB URINALYSIS - AUTOMATED METHOD 01/20/2025 6:26 PM [facility] WBC, Urine 14.5(H) 0 - 4 /HPF LAB URINALYSIS - AUTOMATED METHOD 01/20/2025 6:26 PM [facility] Squamous Epithelial, Urine >100(H) 0 - 60 /LPF LAB URINALYSIS - AUTOMATED METHOD 01/20/2025 6:26 PM [facility] Bacteria, Urine Negative Negative /HPF LAB URINALYSIS - AUTOMATED METHOD 01/20/2025 6:26 PM [facility] Hyaline Casts, Urine 4.4(H) 0 - 3 /LPF LAB URINALYSIS - AUTOMATED METHOD 01/20/2025 6:26 PM [facility] Urine Urine specimen obtained by clean catch procedure / Unknown Non-blood Collection / Unknown 01/20/2025 2:11 PM EDT 01/20/2025 2:11 PM EDT Daniel Seymour MIXING MACHINE ATTENDANT LAB URINE ORDERABLES Final R esult Performing Organization Address [facility]/ZIP Co de Phone Number [facility] [address] [place] [address], [place] [phone] * Thyroid stimulating hormone with reflex to free t4 and free t3 (01/20/2025 2:11 PM EDT) Pathologist [facility] TSH 0.99 0.40 - 4.00 mcIU/mL LAB CHEMISTRY METHOD 01/20/2025 5:43 PM EDT [facility] Blood Venous blood specimen / Unknown Venipuncture / Unknown 01/20/2025 2:11 PM EDT 01/20/2025 2:11 PM EDT Daniel Seymour MIXING MACHINE ATTENDANT LAB BLOOD ORDERABLES Final R [facility] Performing Organization Address [facility] Co de Phone Number [facility] [address] [place] [address], [place] [phone] * (ABNORMAL) Lipid panel with reflex to direct LDL (01/20/2025 2:11 PM EDT) Cholesterol 258(H) 0 - 200 mg/dL LAB CHEMISTRY METHOD 01/20/2025 5:15 PM EDT [facility] Triglycerides 187(H) 0 - 150 mg/dL LAB CHEMISTRY METHOD 01/20/2025 5:15 PM EDT [facility] HDL 53 >=40 mg/dL LAB CHEMISTRY METHOD 01/20/2025 5:15 PM EDT [facility] LDL Calculated 168(H) 0 - 100 mg/dL LAB CHEMISTRY METHOD 01/20/2025 5:15 PM EDT [facility] Comment:Estimated LDL Calcul ated using equation: Total cholesterol - HDL cholesterol - (Triglycerides/5) VLDL Cholesterol Shahbaz 37.4 mg/dL LAB CHEMISTRY METHOD 01/20/2025 5:15 PM EDT [facility] Non HDL Chol. (LDL+VLDL) 205(H) <145 mg/dL LAB CHEMISTRY METHOD 01/20/2025 5:15 PM EDT [facility] Chol/HDL Ratio 4.9(H) 0.0 - 4.4 LAB CHEMISTRY METHOD 01/20/2025 5:15 PM EDT [facility] Blood Venous blood specimen / Unknown Venipuncture / Unknown 01/20/2025 2:11 PM EDT 01/20/2025 2:11 PM EDT us Daniel Seymour MIXING MACHINE ATTENDANT LAB BLOOD ORDERABLES Final R esult [facility] [address] [place] [address], * (ABNORMAL) CBC auto differential (01/20/2025 2:11 PM EDT) WBC 6.5 4.8 - 10.8 K/mcL LAB HEMETOLOGY METHOD 01/20/2025 5:32 PM EDT [facility] RBC 4.00 3.80 - 4.80 M/mcL LAB HEMETOLOGY METHOD 01/20/2025 5:32 PM EDT [facility] Hemoglobin 11.5 11.5 - 16.0 g/dL LAB HEMETOLOGY METHOD 01/20/2025 5:32 PM EDT [facility] Hematocrit 36.2 35.0 - 47.0 % LAB HEMETOLOGY METHOD 01/20/2025 5:32 PM EDT [facility] MCV 90.5 79.0 - 98.0 FL LAB HEMETOLOGY METHOD 01/20/2025 5:32 PM EDT [facility] MCH 28.8 27.0 - 32.0 pcg LAB HEMETOLOGY METHOD 01/20/2025 5:32 PM EDT [facility] MCHC 31.8(L) 32.0 - 37.0 g/dL LAB HEMETOLOGY METHOD 01/20/2025 5:32 PM EDT [facility] RDW 11.9 11.0 - 15.0 % LAB HEMETOLOGY METHOD 01/20/2025 5:32 PM EDT [facility] Platelets 282 130 - 400 K/mcL LAB HEMETOLOGY METHOD 01/20/2025 5:32 PM EDT [facility] MPV 9.8 7.0 - 11.0 FL LAB HEMETOLOGY METHOD 01/20/2025 5:32 PM EDT [facility] NRBC 0.0 <1.0 % LAB HEMETOLOGY METHOD 01/20/2025 5:32 PM EDT [facility] NRBC Absolute 0.00 <0.10 K/mcL LAB HEMETOLOGY METHOD 01/20/2025 5:32 PM EDT [facility] Neutrophils Relative 46.7 % LAB HEMETOLOGY METHOD 01/20/2025 5:32 PM EDT [facility] Lymphocytes Relative 34.0 % LAB HEMETOLOGY METHOD 01/20/2025 5:32 PM EDT [facility] Monocytes Relative 9.7 % LAB HEMETOLOGY METHOD 01/20/2025 5:32 PM EDT [facility] Eosinophils Relative 8.2 % LAB HEMETOLOGY METHOD 01/20/2025 5:32 PM EDT [facility] Basophils Relative 1.2 % LAB HEMETOLOGY METHOD 01/20/2025 5:32 PM EDT [facility] Immature Granulocytes Relative 0.2 % LAB HEMETOLOGY METHOD 01/20/2025 5:32 PM EDT [facility] Neutrophils Absolute 3.03 1.50 - 7.00 K/mcL LAB HEMETOLOGY METHOD 01/20/2025 5:32 PM EDT [facility] Lymphocytes Absolute 2.20 1.00 - 5.00 K/mcL LAB HEMETOLOGY METHOD 01/20/2025 5:32 PM EDT [facility] Monocytes Absolute 0.63 0.20 - 1.00 K/mcL LAB HEMETOLOGY METHOD 01/20/2025 5:32 PM EDT [facility] Eosinophils Absolute 0.53(H) 0.00 - 0.50 K/[facility] LAB HEMETOLOGY METHOD 01/20/2025 5:32 PM EDT [facility] Basophils Absolute 0.08 0.00 - 0.20 K/[facility] LAB HEMETOLOGY METHOD 01/20/2025 5:32 PM EDT [facility] Immature Granulocytes Absolute 0.01 0.00 - 0.03 K/[facility] LAB HEMETOLOGY METHOD 01/20/2025 5:32 PM EDT [facility] Blood Venous blood specimen / Unknown Venipuncture / Unknown 01/20/2025 2:11 PM EDT 01/20/2025 2:11 PM EDT Daniel Seymour MIXING MACHINE ATTENDANT LAB BLOOD ORDERABLES Final R esult [facility] [address] [place] [address], * Hemoglobin A1c (01/20/2025 2:11 PM EDT) Hemoglobin A1C 5.8 <6.5 % LAB CHEMISTRY METHOD 01/20/2025 10:03 PM EDT [facility] Mean Bld Glu Estim. 120 mg/dL LAB CHEMISTRY METHOD 01/20/2025 10:03 PM EDT [facility] Blood Venous blood specimen / Unknown Venipuncture / Unknown 01/20/2025 2:11 PM EDT 01/20/2025 2:11 PM EDT us Daniel Seymour MIXING MACHINE ATTENDANT LAB BLOOD ORDERABLES Final R esult [facility] [address] [place] [address], [place] [phone] * (ABNORMAL) Comprehensive metabolic panel (01/20/2025 2:11 PM EDT) Only the most recent of2 resultswithin the time period is included. Sodium 135 133 - 145 mmol/L LAB CHEMISTRY METHOD 01/20/2025 5:15 PM EDT [facility] Potassium 5.1 3.5 - 5.5 mmol/L LAB CHEMISTRY METHOD 01/20/2025 5:15 PM EDT [facility] Chloride 101 96 - 110 mmol/L LAB CHEMISTRY METHOD 01/20/2025 5:15 PM EDT [facility] CO2 29 21 - 32 mmol/L LAB CHEMISTRY METHOD 01/20/2025 5:15 PM EDT [facility] Anion Gap 5 3 - 11 LAB CHEMISTRY METHOD 01/20/2025 5:15 PM EDT [facility] Glucose 97 70 - 100 mg/dL LAB CHEMISTRY METHOD 01/20/2025 5:15 PM EDT [facility] BUN 44(H) 5 - 25 mg/dL LAB CHEMISTRY METHOD 01/20/2025 5:15 PM EDT [facility] Creatinine 2.42(H) 0.50 - 1.10 mg/dL LAB CHEMISTRY METHOD 01/20/2025 5:15 PM EDT [facility] eGFR 22(L) >=60 mL/min/1. 73m2 LAB CHEMISTRY METHOD 01/20/2025 5:15 PM EDT [facility] Comment:Calculation based on the Chronic Kidney Disease Epidemiology Collaboration (CKD-EPI) equation refit without adjustment for race. BUN/Creatinine Ratio 18.2 LAB CHEMISTRY METHOD 01/20/2025 5:15 PM EDT [facility] Calcium 9.2 8.5 - 10.5 mg/dL LAB CHEMISTRY METHOD 01/20/2025 5:15 PM EDT [facility] AST (SGOT) 27 10 - 42 unit/L LAB CHEMISTRY METHOD 01/20/2025 5:15 PM EDT [facility] ALT (SGPT) 17 10 - 60 unit/L LAB CHEMISTRY METHOD 01/20/2025 5:15 PM EDT [facility] Alkaline Phosphatase 123(H) 42 - 121 unit/L LAB CHEMISTRY METHOD 01/20/2025 5:15 PM EDT [facility] Total Protein 6.8 6.0 - 8.0 g/dL LAB CHEMISTRY METHOD 01/20[facility]2025 [facility] Albumin 4.0 3.2 - 5.0 g/dL LAB CHEMISTRY METHOD 01/20/2025 5:15 PM T [facility] Total Bilirubin 0.2 0.0 - 1.4 mg/dL LAB CHEMISTRY METHOD 01/20/2025 5:15 PM T [facility] Blood Venous blood specimen / Unknown Venipuncture / Unknown 01/20/2025 2:11 PM EDT 01/20/2025 2:11 PM EDT Daniel Seymour MIXING MACHINE ATTENDANT LAB BLOOD ORDERABLES Final R esult [facility] [address] [place] [address], * External CT Report (12/27/2024) Anatomical Region Laterality Modality Computed Tomogra phy Provider [facility] PROCEDURES Final Result * External Xray Report (12/06/2024) Only the most recent of4 resultswithin the time period is included. Anatomical Region Laterality Modality Radiographic Karlene ging us Provider [facility] XR PROCEDURES Final Result * Depression Screening (11/16/2023) Depression Screening ABSTRACTED Historical Provider HEALTH MAINTENANCE Final Result * Hepatitis C Screening (01/13/2021) Hepatitis C Screening ABSTRACTED Historical Provider HEALTH MAINTENANCE Final Result from Last 3 Months or Most Recently Relevant to Health Maintenance Insurance [facility] Care Teams Corporate Travel Agent Relationship Specialty Start Date End Date Gege Thompson MD [address] [place] [address] PCP - General Internal Medicine 03/04/1999
--- OUTSIDE RECORDS SUMMARY | 2025-02-18 15:12 | XMS_ITS | Encounter Summary ---
Author Organization [facility] Address [address] [place] [address] Care Team Providers Care Chemical Equipment Repairer Name Role Phone Gege Thompson MD Primary Care Provider [phone] Encounter Details Date Type Department Care Team (Late Contact Info) Description 02/09/2025 Results Follow-Up Adult [address] [phone] Daniel Seymour, HENRY [address] [place] [address] Social History Tobacco Use Types Packs/Day Years [...] 03/07/2025 10:15 AM EST Office Visit Adult [address] [phone] Daniel Seymour, HENRY [address] [place] [address] documented as of this encounter Visit Diagnoses Not on filedocumented in this encounter Care Teams Chemical Equipment Repairer Relationship Specialty Start Date End Date Gege Thompson MD [address] [place] [address] PCP - General Internal Medicine 03/04/1999 documented as of this encounter
--- OUTSIDE RECORDS SUMMARY | 2025-02-18 15:12 | XMS_ITS | Encounter Summary ---
Author Organization [facility] Address [address] [place] [address] Care Team Providers Care Ripsaw Operator Name Role Phone Gege Thompson MD Primary Care Provider [phone] Gege Thompson MD Primary Care Provider [phone] Kina Kaur Md, MD Primary Care Provider Unavailable Gege Thompson MD Primary Care Provider [phone] Encounter Details Date Type Department Care Team Description 08/05/2016 Release of Information Medical Records [address] [place] [id number] Abstract, Provider Social History Tobacco Use Types [...] on filedocumented in this encounter Care Teams Ripsaw Operator Relationship Specialty Start Date End Date Gege Thompson MD [address] [place] [address] [phone] PCP - General 03/04/1999 10/27/17 Gege Thompson MD [address] [place] [address] [phone] PCP - General Internal Medicine 10/28/17 01/02/18 Kina Kaur MD, [address] [place] [phone] PCP - General Internal Medicine 01/03/18 06/08/18 Gege Thompson MD [address] [place] [phone] PCP - General Internal Medicine 06/09/18 documented as of this encounter
--- OUTSIDE RECORDS SUMMARY | 2025-02-18 15:12 | XMS_ITS | Encounter Summary ---
Author Organization [facility] Address [address] [place] [address] Care Team Providers Care Fudge Candy Maker Name Role Phone Gege Thompson MD Primary Care Provider [phone] Gege Thompson MD Primary Care Provider [phone] Kina Kaur Md, MD Primary Care Provider Unavailable Gege Thompson MD Primary Care Provider [phone] Encounter Details Date Type Department Care Team Description 02/18/2001 Telephone Gastroenterology - [address] [phone] Charly Miller MD Social History Tobacco Use Types Packs/Day Years Used Date Smoking Tobacco: Never Assessed Sex Assigned at Date Recorded Not on file Job Start Date Occupation Industry Not on file Not on file Not on file documented as of this encounter Plan of Treatment Not on file documented as of this encounter Visit Diagnoses Not on filedocumented in this encounter Care Teams Fudge Candy Maker Relationship Specialty Start Date End Date Gege Thompson MD [address] [place] [phone] PCP - General 03/04/1999 10/27/17 Gege Thompson MD [address] [place] [phone] PCP - General Internal Medicine 10/28/17 01/02/18 Kina Kaur MD, MD [address] [place] [phone] PCP - General Internal Medicine 01/03/18 06/08/18 Gege Thompson MD [address] [place] [phone] PCP - General Internal Medicine 06/09/18 documented as of this encounter
== END ==
LOC: HO.NUCMED 12:51
PROVIDERS: PCP Internal Medicine; Visit Provider Internal Medicine Medical Oncology
DX: N20.0 Calculus of kidney (principal); N18.9 Chronic kidney disease, unspecified; C85.90 Non-Hodgkin lymphoma, unspecified, unspecified site; N13.30 Unspecified hydronephrosis
CPT/HCPCS: 76775; 78708; A9539; J1938

== ENCOUNTER → 2025-02-18 12:54 | Outpatient (BNV) | payer OTHER, SELFPAY | PROVIDERS: PCP Internal Medicine; Visit Provider Radiology Diagnostic Radiology | DX: N18.9 Chronic kidney disease, unspecified (principal); C85.90 Non-Hodgkin lymphoma, unspecified, unspecified site; N13.2 Hydronephrosis with renal and ureteral calculous obstruction | CPT/HCPCS: 76775; 78708 ==

== ENCOUNTER 2025-02-22 09:52 | Day surgery (SDC) | payer OTHER, SELFPAY ==
[2025-02-22] VITALS (16 sets, daily range): BP systolic 103–136; BP diastolic 58–72; PULSE 66–85; RESP 6–20; TEMP 36.4–36.6; O2SAT 93–100; BMI 23.5
--- NOTE | ~2025-02-22 | CT_ITS ---
EXAMINATION: CT guided bone marrow biopsy. 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 COMPARISON: None. TECHNIQUE: Following explaining CT guided bone marrow biopsy procedure, benefits and risk, a written consent was obtained. Patient was placed prone and limited CT imaging to the pelvis with attention to the iliac crest was obtained. An axial site was selected and markers placed overlying the right posterior iliac crest. Repeat CT imaging was performed. Is selected marker was marked and the skin. The area was then prepped and draped in usual sterile manner with 1% lidocaine administered at puncture site. Through a small skin incision a 18-gauge guide needle was advanced from the skin through the posterior cortex of the iliac crest. The stylet was withdrawn and 20 mL of blood was aspirated in a syringe and delivered into multiple tubes. Subsequently bone cutting bone marrow needle and injected to a drill machine was advanced through the guide needle and a single core biopsy was obtained. Postprocedure both needles were withdrawn and complete hemostasis achieved. Sterile dressing applied post procedure. Repeat scanning was performed and reveals no acute hemorrhage. IV sedation was administered during exam and patient monitored by IR nurse and the radiologist. Patient tolerated procedure extremely well. FINDINGS: On preliminary CT imaging there is scattered diverticulosis and stool in the descending and sigmoid colon. The bladder is nondistended. The uterus is anteverted. No adnexal mass seen. There is abnormal right inguinal lymph node measuring 1.8 cm. No gross bony abnormality. There is adequate amount of bone marrow tissue obtained and sent to lab in a dry container immediately post biopsy. CT/CT biopsy asp core bone marrow IMPRESSION: Successful CT fluoroscopy guided bone marrow biopsy performed without immediate complications. DLP: 155. SEDATION: 15 minutes Electronically signed by: Jose Juan Knott MD 02/28/2025 11:28 AM EDT
[2025-02-22 10:53] LABS: INTERNATIONAL NORM RATIO 0.8 (0.9-1.1); Prothrombin Time 9.5 SEC (10.9-12.4)
== END 2025-02-22 13:50 | disposition home or self-care (01) ==
PROVIDERS: Radiology Diagnostic Radiology; PCP Internal Medicine; Visit Provider Internal Medicine Medical Oncology
DX: C83.33 Diffuse large B-cell lymphoma, intra-abdominal lymph nodes (principal); R51.9 Headache, unspecified; I12.9 Hypertensive chronic kidney disease with stage 1 through stage 4 chronic kidney disease, or unspecified chronic kidney disease; N18.9 Chronic kidney disease, unspecified; K57.30 Diverticulosis of large intestine without perforation or abscess without bleeding; R10.32 Left lower quadrant pain; J44.9 Chronic obstructive pulmonary disease, unspecified; Z87.442 Personal history of urinary calculi; F41.9 Anxiety disorder, unspecified; Z79.51 Long term (current) use of inhaled steroids; Z79.899 Other long term (current) drug therapy; Z79.1 Long term (current) use of non-steroidal anti-inflammatories (NSAID); Z88.0 Allergy status to penicillin; Z88.8 Allergy status to other drugs, medicaments and biological substances; F17.210 Nicotine dependence, cigarettes, uncomplicated
CPT/HCPCS: 36415; 38221; 38222; 77012; 85610; 88184; 88185; 88237; 88264; 88305; 88311; 88313; 88341; 88342; 99152; J0736; J2003; J2250; J3010

== ENCOUNTER → 2025-02-23 14:01 | Outpatient (REF) | payer OTHER, SELFPAY ==
--- NOTE | 2025-02-23 14:05 | CA_ITS ---
Transthoracic Echocardiogram Patient (Last, First, Middle): Ana Paula Sanches M Gender: F Date of : 1960 Age: 64 Procedure Date: 02/23/2025 Procedure Type: Transthoracic Echocardiogram Location: OP Height: 152.4 cm Weight: 53.07 kg BSA: 1.49 m2 Heart Rate: bpm BP: 110 / 68 mmHg County Sheriff: TO Referring MD: Andres Aparicio MD Major General: Campbell Curtis MD Symptoms: Lymphoma, pre chemo assessment Study Quality: Adequate w contrast ECG Rhythm: Sinus Conclusions: - 1. Low normal LV ejection fraction 50-55% with grade 1 diastolic dysfunction 2. Keih-[id number]-kgitkutd aortic regurgitation with mild calcific aortic valve changes noted 3. Normal calculated RV systolic pressure 4. No gross pericardial effusion Findings Procedure Information Contrast agent, definity, is being given per protocol without apparent complications. Left Ventricle Normal left ventricular cavity size. There is normal left ventricular wall thickness. The left ventricular systolic function is low normal. The visually estimated ejection fraction is between 50-55%. Spectral Doppler is indicative of an impaired relaxation filling pattern. E/E prime ratio is <8, consistent with normal filling pressures. Evidence suggests grade I (mild) diastolic dysfunction. Peak GLS is -17.5%, borderline normal. Right Ventricle Normal right ventricular cavity size and systolic function. Atria The left atrium is mildly dilated. Interatrial shunt cannot be excluded. The right atrium is normal in size. Aortic Valve There is mild calcification of the aortic valve. There is no aortic valve stenosis. There is mild to moderate aortic valve regurgitation. Mitral Valve There is mild anterior and posterior mitral leaflet thickening. There is mild mitral annular calcification. There is trace mitral valve regurgitation. There is no mitral valve stenosis. Pulmonic Valve The pulmonic valve is likely normal. Tricuspid Valve Normal tricuspid valve structure. There is trace tricuspid valve regurgitation. The right ventricular systolic pressure is normal. The right ventricular systolic pressure is 30 mmHg. Normal right atrial pressure. There is no evidence of pulmonary hypertension. Great Vessels All visible segments of the aorta are normal in size. The pulmonary artery was not well visualized. There is no dilatation of the ascending aorta measuring 3.10 cm. Venous The inferior vena cava is normal in size and collapses greater than 50% with inspiration. Pericardium/Pleural There is no evidence of pericardial effusion. Prior Study Comparison No prior study available for comparison. Measurements 2D Linear Measurements IVSd: 0.70 0.6-0.9/0.6-1.0 cm LVIDd: 5.11 3.9-5.3/4.2-5.9 cm LVIDd Index: 3.43 2.4-3.2/2.2-3.1 cm/m2 LVIDs: 3.49 2.0-3.6 cm LVPWd: 0.68 0.7-1.1 cm LA Diam: 3.00 2.7-3.8/3.0-4.0 cm LAIDs Index: 2.01 1.5-2.3 cm/m2 LV Mass: 145.66 67-162/88-224 g LV Mass Index: 97.76 43-95/49-115 g/m2 LVOT Diam: 1.90 3.0+(-)1.3 cm 2D Systolic Function EF 4C: 52.60 >55% EF 2C: 57.30 >55% EF BiP: 54.50 >55% Mitral Valve MV Pk E: 0.56 MV PK A: 0.76 MV Decel Time: 172.00 E/A: 0.70 E'Lateral: 8.59 E'Medial: 5.98 E/E' Med: 9.30 E/E' Lat: 6.50 PHT: 50.00 MVA PHT: 4.40 Decel [place]: 3.24 Aortic Valve AoV Pk Brijesh: 1.45 AoV Mn Brijesh: 0.96 AoV VTI: 0.32 AoV Pk Grad: 8.00 Aov Mn Grad: 4.00 ALEJANDRA Cont.VTI: 2.11 AI Pk Brijesh: 4.60 AI [place]: 4.51 LVOT LVOT Pk Brijesh: 1.09 LVOT Mn Brijesh: 0.75 LVOT VTI: 0.24 LVOT Pk Grad: 5.00 LVOT Mn Grad: 3.00 LVOT Diam: 1.90 LVOT Area: 2.84 Diastolic Function MV Pk E: 0.56 MV Pk A: 0.76 E/A: 0.70 E'Medial: 5.98 E/E' Med: 9.30 E' Laterial: 8.59 E/E' Lat: 6.50 Right Ventricle TAPSE (mm): 23.80 TVS' Brijesh: 10.70 Tricuspid Valve TR Pk Brijesh: 2.35 TR Pk Grad: 22.00 RA Press: 8.00 RVSP: 30.00 Great Vessels Aorta Sinus of Valsalva: 3.25 2.0-3.5 cm Ao Asc: 3.10 2.1-3.4 cm Pulmonary Veins Pulm Vein S/D 0.80 Updated in Other Vendor System with Status of Final Campbell Curtis MD electronically signed on 02/23/2025 5:22:14 PM with status of Final
--- OUTSIDE RECORDS SUMMARY | 2025-02-23 20:11 | XMS_ITS | Encounter Summary ---
Author Organization [employer] Address [address] [facility] [address] [place] [address] Care Team Providers Care Beamer Hand Name Role Phone Unavailable Primary Care Provider Unavailabl e Reason for Visit * Reason Onset Date Comments Appointment 11/01/2022 Encounter Details Date Type Department Care Team ([facility] st Contact Info) Description 11/01/2022 Telephone [facility] ADULT DENTAL [address] [place] [address] Joe Berger, DMD [address] [place] [address] Appointment Social History Tobacco Use Types Packs/Day [...] sent to pharmacy to [facility]shop at [address] [place] [address] [place] please advise . documented in this encounter Plan of Treatment Not on file documented as of this encounter Visit Diagnoses Not on filedocumented in this encounter
--- OUTSIDE RECORDS SUMMARY | 2025-02-23 20:11 | XMS_ITS | Clinical Summary ---
Author Organization [employer] Address [address] [place] [address] [address] [place] [address] Care Team Providers Care Cloth Stock Sorter Name Role Phone Unavailable Primary Care Provider [...] use. 473 mL 4 Active HYDROcodone-amberly taminophen ([place]) 5-325 MG tabletIndicatio ns:History of tooth extraction, unspecified edentulism class Take 1 tablet by mouth every 6 (six) hours if needed for severe pain for up to 3 doses. 3 tablet 4 Active Active Problems Problem Noted Date Diagnosed Date Elevated alkaline phosphatase level 01/15/2021 Elevated LFTs 01/15/2021 Mid back pain 01/15/2021 Stage 3a chronic kidney disease ([facility]/HCC) 2020 Meningioma ([facility]/HCC) 06/04/2016 Anxiety 04/24/2016 Chronic obstructive pulmonary disease [...] of Phone Billing Address Personal/Family Self [address]
--- OUTSIDE RECORDS SUMMARY | 2025-02-23 20:11 | XMS_ITS | Encounter Summary ---
Author Organization [facility] Address [address] [place] [address] Care Team Providers Care Acct Exec Name Role Phone Gege Thompson MD Primary Care Provider [phone] Encounter Details Date Type Department Care Team (Late Contact Info) Description 02/09/2025 Results Follow-Up Adult [address] [phone] Daniel Seymour, HENRY [address] [place] [address] Social History Tobacco Use Types Packs/Day Years [...] 03/07/2025 10:15 AM EST Office Visit Adult [address] [phone] Daniel Seymour, HENRY [address] [place] [address] documented as of this encounter Visit Diagnoses Not on filedocumented in this encounter Care Teams Acct Exec Relationship Specialty Start Date End Date Gege Thompson MD [address] [place] [address] PCP - General Internal Medicine 03/04/1999 documented as of this encounter
--- OUTSIDE RECORDS SUMMARY | 2025-02-23 20:11 | XMS_ITS | Encounter Summary ---
Author Organization [employer] Address [address] [facility] 7t [place] [address] Care Team Providers Care Director Of Recruiting Name Role Phone Unavailable Primary Care Provider Unavailabl e Encounter Details Date Type Department Care Team (Late st Contact Info) Description 01/21/2024 Telephone [facility] ADULT DENTAL [address] [place] [address] Ab Joe, DMD [address] [place] [address] Social History Tobacco Use Types Packs/Day Years [...]
--- OUTSIDE RECORDS SUMMARY | 2025-02-23 20:11 | XMS_ITS | Clinical Summary ---
Author Organization [facility] [address] [place] [place] [address] [place] [id number] Phone Care Team Providers Care Computer Systems Support Specialist Name Role Phone Gege Thompson MD Primary Care Provider [phone] Allergies Active Allergy Reactions Criticality Noted Date [...] 1 (one) time each day. Prescribed by [facility] with Dr. Keyes 12/22/19 25 Active traZODone (DESYREL) 100 mg tablet Take 1 tablet (100 mg total) by mouth at bedtime. 90 tablet 1 01/25/20 25 Active oxyCODONE (ROXICODONE) 5 mg immediate release tablet Take 1 tablet (5 mg total) by mouth every 8 (eight) hours if needed for severe pain or moderate pain. Prescribed By Dr. Aparicio, Oncologist at [facility], For Breakthrough/S ever pain Max Daily Amount: 15 mg 15 tablet 01/25/20 25 Active Arnuity Ellipta 50 mcg/actuation blister with device inhaler INHALE ONE PUFF BY MOUTH INTO THE LUNGS DAILY 60 each 4 02/10/20 25 Active albuterol HFA (Ventolin HFA) 90 mcg/actuation inhaler Inhale 2 puffs by mouth every 4 (four) hours if needed for wheezing. 8.5 g 02/16/20 25 Active fluticasone furoate (Arnuity Ellipta) 50 mcg/actuation blister with device inhaler Prescribed by leonora Calle 08/01/19 24 025 Discontinued fluticasone HFA (Flovent HFA) 110 mcg/actuation inhaler Inhale 1 puff by mouth 2 (two) times a day. Prescribed by Pulmonology 025 Discontinued albuterol HFA (Ventolin HFA) 90 mcg/actuation inhaler Inhale 2 puffs by mouth if needed for wheezing. 4 puffs every 4 hours as needed 54 g 01/25/20 25 025 Discontinued(Re order) albuterol HFA (Ventolin HFA) 90 mcg/actuation inhaler Inhale 2 puffs by mouth if needed for wheezing. 4 puffs every 4 hours as needed 8.5 g 01/27/20 25 025 Discontinued(Re order) Active Problems Problem Noted Date Diagnosed Date Stage 4 chronic kidney disease ([facility] V24, [facility] V28) 01/24/2025 Kidney stone 11/18/2024 Overview (11/18/2024): Hospitalization at [facility] with hydronephrosis, 2024 Elevated alkaline phosphatase level 01/15/2021 Elevated LFTs 01/15/2021 Mid back pain 01/15/2021 Stage 3a chronic kidney disease ([facility] V24, S/[facility] V28) 01/15/2021 Meningioma ([facility] V24, [facility] V28) 06/04/2016 Anxiety 04/24/2016 Chronic obstructive pulmonar y disease ([facility] V24, [facility] V28) 04/24/2016 Essential hypertension 04/24/2016 Panic attack 04/24/2016 Trochanteric bursitis of right hip 01/25/2015 Vitamin D deficiency 01/25/2015 DDD (degenerative disc disease), lumbar 09/24/19 15 Lumbar facet arthropathy 09/23/2014 Hip pain, bilateral 01/04/2014 Hyperlipidemia 01/04/2014 Insomnia 01/04/2014 Obesity 01/04/2014 Esophageal reflux 08/07/2005 Encounters Date Type Department Care Team Description 02/11/2025 11:22 AM EDT - 02/11/2025 11:59 PM EDT Hospital Encounter [facility] PET Scan [address] [place] [address] Lymphadenopathy, abdominal Discharge Disposition: Home or Self Care 02/09/2025 Results Follow-Up [address] [phone] Daniel Seymour NP 01/27/[address] [phone] Gege Thompson MD 01/25/[address] [phone] Gege Thompson MD 01/24/2025 10:15 AM EDT Office Visit [address] [phone] Daniel Seymour NP Lymphadenopathy, inguinal (Primary Dx); Postop check; Hyperkalemia; Stage 4 chronic kidney disease (CMS/HCC V24, CMS/HCC V28); SOB (shortness of breath) on exertion; Insomnia, unspecified type 01/21/[address] [phone] Daniel Seymour NP 01/11/[address] [phone] Gege Thompson MD 12/30/2024 10:15 AM EDT Office Visit [address] [phone] Daniel Seymour NP Left lower quadrant abdominal pain (Primary Dx); Lymphadenopathy, inguinal; Abnormal CT scan; Acute renal failure superimposed on stage 3a chronic kidney disease, unspecified acute renal failure type (CMS/HCC V24, CMS/HCC V28); Kidney stone; Encounter for examination following treatment at hospital 12/30/[address] [phone] Shola Chang [place] 12/30/[address] [phone] Gege Thompson MD 12/29/[address] [phone] Daniel Seymour NP 12/27/2024 10:00 AM EDT Office Visit [address] [phone] Daniel Seymour NP Acute renal failure superimposed on stage 3a chronic kidney disease, unspecified acute renal failure type (CMS/HCC V24, CMS/HCC V28) (Primary Dx); History of kidney stones; Fatigue, unspecified type; Encounter for screening for cardiovascular disorders 12/21/2024 1:30 PM EDT Office Visit [address] [phone] Gege Thompson MD Kidney stone (Primary Dx); Essential hypertension 12/15/[address] [phone] Gege Thompson MD 11/24/2024 10:30 AM EDT Office Visit [address] [phone] Gege Thompson MD Kidney stone (Primary Dx); [...] Adult Medicine [facility] [address] [place], [place] [phone] Daniel Seymour NP [address] [place], [place] Health Maintenance Due Date Last Done [...] Routine 02/11/2025 2:00 PM EDT Lymphadenopathy, abdominal LA IMMUNOFIXATION ELECTROPHORESIS SERUM Routine 02/08/2025 10:01 AM [...] Signed Date: 02/17/2025 10:20 ET Workstation ID: [id number] Transcribed By: Self Edit Transcribed Date: 02/17/2025 [...] Signed Date: 02/17/2025 10:20 ET Workstation ID: [id number] Transcribed By: Self Edit Transcribed Date: 02/17/2025 10:12 ET Farrah Aparicio MD IMG NM PROCEDURES Final Result * Pathologist Review Immunofixation (02/08/2025 10:01 AM EDT) Pathologist [facility] Pathologist Interpretation Lety Varner MD 02/09/2025 2:00 PM EDT [facility] Blood Venous blood specimen / Unknown Venipuncture / Unknown 02/08/2025 10:01 AM EDT 02/08/2025 10:01 AM EDT Galileo Henriquez MD LAB BLOOD ORDERABLES Final Re sult [facility] [address] [place] [address], [place] [phone] * (ABNORMAL) Urinalysis with reflex microscopic (02/08/2025 10:01 AM EDT) Pathologist [facility] [place] Urine 1.018 1.003 - 1.030 LAB URINALYSIS - AUTOMATED METHOD 02/08/2025 12:23 PM [facility] pH, Urine 5.5 5.0 - 8.0 pH LAB URINALYSIS - AUTOMATED METHOD 02/08/2025 12:23 PM [facility] Leukocytes, Urine Moderate(A) Negative LAB URINALYSIS - AUTOMATED METHOD 02/08/2025 12:23 PM [facility] Nitrite, Urine Negative Negative LAB URINALYSIS - AUTOMATED METHOD 02/08/2025 12:23 PM [facility] Protein, Urine Trace <=Trace mg/dL LAB URINALYSIS - AUTOMATED METHOD 02/08/2025 12:23 PM [facility] Glucose, Urine Negative Negative mg/dL LAB URINALYSIS - AUTOMATED METHOD 02/08/2025 12:23 PM [facility] Ketones, Urine Negative Negative mg/dL LAB URINALYSIS - AUTOMATED METHOD 02/08/2025 12:23 PM [facility] Urobilinogen , Urine 0.2 0.2 - 1.0 mg/dL LAB URINALYSIS - AUTOMATED METHOD 02/08/2025 12:23 PM [facility] Bilirubin, Urine Negative Negative LAB URINALYSIS - AUTOMATED METHOD 02/08/2025 12:23 PM [facility] Blood, Urine Negative Negative LAB URINALYSIS - AUTOMATED METHOD 02/08/2025 12:23 PM [facility] RBC, Urine 0.8 0 - 4 /HPF LAB URINALYSIS - AUTOMATED METHOD 02/08/2025 12:23 PM [facility] WBC, Urine 24.8(H) 0 - 4 /HPF LAB URINALYSIS - AUTOMATED METHOD 02/08/2025 12:23 PM [facility] Squamous Epithelial, Urine 83(H) 0 - 60 /LPF LAB URINALYSIS - AUTOMATED METHOD 02/08/2025 12:23 PM [facility] Bacteria, Urine Negative Negative /HPF LAB URINALYSIS - AUTOMATED METHOD 02/08/2025 12:23 PM EDT [facility] Hyaline Casts, Urine 0.8 0 - 3 /LPF LAB URINALYSIS - AUTOMATED METHOD 02/08/2025 12:23 PM EDT [facility] Urine Urine specimen obtained by clean catch procedure / Unknown Non-blood Collection / Unknown 02/08/2025 10:01 AM EDT 02/08/2025 10:01 AM EDT us Galileo Henriquez MD LAB URINE ORDERABLES Final Re sult Performing Organization Address City/[facility]/ZIP Co de Phone Number [facility] [address] [place] [address], [place] [phone] * (ABNORMAL) Protein and creatinine with ratio, urine (02/08/2025 10:01 AM EDT) Protein, Urine 26 mg/dL LAB CHEMISTRY METHOD 02/08/2025 2:07 PM EDT [facility] Prot/Creat, Ur 0.23(H) <=0.20 mg/mg creat LAB CHEMISTRY METHOD 02/08/2025 2:07 PM EDT [facility] Creatinine, Urine 112.0 mg/dL LAB CHEMISTRY METHOD 02/08/2025 2:07 PM EDT [facility] Urine Urine specimen obtained by clean catch procedure / Unknown Non-blood Collection / Unknown 02/08/2025 10:01 AM EDT 02/08/2025 10:01 AM EDT us Galileo Henriquez MD LAB URINE ORDERABLES Final Re sult Performing Organization Address City/[facility]/ZIP Co de Phone Number [facility] [address] [place] [address], [place] [phone] * Microalbumin creatinine urine ratio (02/08/2025 10:01 AM EDT) Pathologist [facility] Creatinine, Urine 112.0 mg/dL LAB CHEMISTRY METHOD 02/08/2025 2:22 PM EDT [facility] Microalb, Ur <5.0 0.0 - 29.0 mg/L LAB CHEMISTRY METHOD 02/08/2025 2:22 PM EDT [facility] Microalb/Creat Ratio <4 <30 mg/g creat LAB CHEMISTRY METHOD 02/08/2025 2:22 PM EDT [facility] Urine Urine specimen obtained by clean catch procedure / Unknown Non-blood Collection / Unknown 02/08/2025 10:01 AM EDT 02/08/2025 10:01 AM EDT Galileo Henriquez MD LAB URINE ORDERABLES Final Re sult Performing Organization Address [facility]/ZIP Co de Phone Number [facility] [address] [place] [address], [place] [phone] * (ABNORMAL) Vitamin D 25 hydroxy (02/08/2025 10:01 AM EDT) [facility] Vit D, 25-Hydroxy 17.6(L) 30.0 - 80.0 ng/mL LAB CHEMISTRY METHOD 02/08/2025 1:18 PM EDT [facility] Blood Venous blood specimen / Unknown Venipuncture / Unknown 02/08/2025 10:01 AM EDT 02/08/2025 10:01 AM EDT Galileo Henriquez MD LAB BLOOD ORDERABLES Final Re sult [facility] [address] [place] [address], [place] [phone] * (ABNORMAL) Complete blood count (02/08/2025 10:01 AM EDT) [facility] WBC 7.4 4.8 - 10.8 K/mcL LAB HEMETOLOGY METHOD 02/08/2025 12:24 PM [facility] RBC 3.80 3.80 - 4.80 M/mcL LAB HEMETOLOGY METHOD 02/08/2025 12:24 PM [facility] Hemoglobin 10.7(L) 11.5 - 16.0 g/dL LAB HEMETOLOGY METHOD 02/08/2025 12:24 PM [facility] Hematocrit 33.4(L) 35.0 - 47.0 % LAB HEMETOLOGY METHOD 02/08/2025 12:24 PM [facility] MCV 88.8 79.0 - 98.0 FL LAB HEMETOLOGY METHOD 02/08/2025 12:24 PM [facility] MCH 28.5 27.0 - 32.0 pcg LAB HEMETOLOGY METHOD 02/08/2025 12:24 PM [facility] MCHC 32.0 32.0 - 37.0 g/dL LAB HEMETOLOGY METHOD 02/08/2025 12:24 PM [facility] RDW 12.1 11.0 - 15.0 % LAB HEMETOLOGY METHOD 02/08/2025 12:24 PM [facility] Platelets 258 130 - 400 K/mcL LAB HEMETOLOGY METHOD 02/08/2025 12:24 PM [facility] MPV 9.7 7.0 - 11.0 FL LAB HEMETOLOGY METHOD 02/08/2025 12:24 PM [facility] NRBC 0.0 <1.0 % LAB HEMETOLOGY METHOD 02/08/2025 12:24 PM [facility] NRBC Absolute 0.00 <0.10 K/mcL LAB HEMETOLOGY METHOD 02/08/2025 12:24 PM [facility] Blood Venous blood specimen / Unknown Venipuncture / Unknown 02/08/2025 10:01 AM EDT 02/08/2025 10:01 AM EDT us Galileo Henriquez MD LAB BLOOD ORDERABLES Final Re sult Performing Organization Address [facility]/ZIP Co de Phone Number [facility] [address] [place] [address], [place] [phone] * Immunofixation electrophoresis serum (02/08/2025 10:01 AM EDT) [facility] Immunofixation Result, Serum No monoclonal immunoglobulins detected. LAB CHEMISTRY METHOD 02/09/2025 2:00 PM EDT [facility] Blood Venous blood specimen / Unknown Venipuncture / Unknown 02/08/2025 10:01 AM EDT 02/08/2025 10:01 AM EDT us Galileo Henriquez MD LAB BLOOD ORDERABLES Final Re sult Performing Organization Address [facility]/ZIP Co de Phone Number [facility] [address] [place] [address], [place] [phone] * Immunoglobulins IgG, IgA, IgM (02/08/2025 10:01 AM EDT) [facility] Total IgG 863 549 - 1,584 mg/dL LAB CHEMISTRY METHOD 02/08/2025 12:38 PM EDT [facility] IgA 167 61 - 348 mg/dL LAB CHEMISTRY METHOD 02/08/2025 12:38 PM EDT [facility] IgM 157 23 - 259 mg/dL LAB CHEMISTRY METHOD 02/08/2025 12:38 PM EDT [facility] Blood Venous blood specimen / Unknown Venipuncture / Unknown 02/08/2025 10:01 AM EDT 02/08/2025 10:01 AM EDT us Galileo Henriquez MD LAB BLOOD ORDERABLES Final Re sult Performing Organization Address City/[facility]/ZIP Co de Phone Number [facility] [address] [place] [address], * Parathyroid hormone intact (02/08/2025 10:01 AM EDT) Pathologist [facility] PTH 75.9 18.5 - 88.0 pcg/mL LAB CHEMISTRY METHOD 02/08/2025 1:18 PM EDT [facility] Blood Venous blood specimen / Unknown Venipuncture / Unknown 02/08/2025 10:01 AM EDT 02/08/2025 10:01 AM EDT Galileo Henriquez MD LAB BLOOD ORDERABLES Final Re sult Performing Organization Address [facility]/ZIP Co de Phone Number [facility] [address] [place] [address], * Magnesium (02/08/2025 10:01 AM EDT) [facility] Magnesium 2.2 1.9 - 2.6 mg/dL LAB CHEMISTRY METHOD 02/08/2025 12:30 PM EDT [facility] Blood Venous blood specimen / Unknown Venipuncture / Unknown 02/08/2025 10:01 AM EDT 02/08/2025 10:01 AM EDT Gallieo Henriquez MD LAB BLOOD ORDERABLES Final Re sult Performing Organization Address City/[facility]/ZIP Co de Phone Number [facility] [address] [place] [address], * (ABNORMAL) Renal function panel (02/08/2025 10:01 AM EDT) Sodium 137 133 - 145 mmol/L LAB CHEMISTRY METHOD 02/08/2025 12:30 PM EDT [facility] Potassium 4.5 3.5 - 5.5 mmol/L LAB CHEMISTRY METHOD 02/08/2025 12:30 PM [facility] Chloride 103 96 - 110 mmol/L LAB CHEMISTRY METHOD 02/08/2025 12:30 PM [facility] CO2 28 21 - 32 mmol/L LAB CHEMISTRY METHOD 02/08/2025 12:30 PM [facility] Anion Gap 6 3 - 11 LAB CHEMISTRY METHOD 02/08/2025 12:30 PM [facility] Glucose 106(H) 70 - 100 mg/dL LAB CHEMISTRY METHOD 02/08/2025 12:30 PM [facility] BUN 40(H) 5 - 25 mg/dL LAB CHEMISTRY METHOD 02/08/2025 12:30 PM [facility] Creatinine 1.99(H) 0.50 - 1.10 mg/dL LAB CHEMISTRY METHOD 02/08/2025 12:30 PM [facility] eGFR 28(L) >=60 mL/min/1. 73m2 LAB CHEMISTRY METHOD 02/08/2025 12:30 PM [facility] Comment:Calculation based on the Chronic Kidney Disease Epidemiology Collaboration (CKD-EPI) equation refit without adjustment for race. BUN/Creatinine Ratio 20.1 LAB CHEMISTRY METHOD 02/08/2025 12:30 PM [facility] Albumin 3.6 3.2 - 5.0 g/dL LAB CHEMISTRY METHOD 02/08/2025 12:30 PM [facility] Calcium 8.9 8.5 - 10.5 mg/dL LAB CHEMISTRY METHOD 02/08/2025 12:30 PM [facility] Phosphorus 4.7(H) 2.5 - 4.5 mg/dL LAB CHEMISTRY METHOD 02/08/2025 12:30 PM [facility] Blood Venous blood specimen / Unknown Venipuncture / Unknown 02/08/2025:01 AM EDT 02/08/2025 10:01 AM EDT Galileo Henriquez MD LAB BLOOD ORDERABLES Final Re sult Performing Organization Address [facility] de Phone Number [facility] [address] [place] [address], * D-Dimer (01/24/2025 11:26 AM EDT) D-Dimer, Quant (D-DU) 193 <=230 ng/mL DDU LAB COAGULATION METHOD 01/24/2025 12:04 PM EDT [facility] Blood Venous blood specimen / Unknown Venipuncture / Unknown 01/24/2025 11:26 AM EDT 01/24/2025 11:26 AM EDT Narrative [facility] - 01/24/2025 12:04 PM [...] ORDERABLES Final R esult Performing Organization Address [facility] de Phone Number [facility] [address] [place] [address], * Culture urine (01/21/2025 9:12 AM EDT) Culture, Urine 10,000-49,000 CFU/mL Mixed urogenital maximo, no uropathogens present. Suggest repeat specimen if clinically indicated. 01/23/2025 12:48 PM EDT [facility] Urine Urine specimen obtained by clean catch procedure / Unknown Non-blood Collection / Unknown 01/21/2025 9:12 AM EDT 01/21/2025 9:12 AM EDT us Daniel Seymour NP LAB MICROBIOLOGY - GENERAL O RDERABLES Final Result [facility] [address] [place] [address], [place] [phone] * (ABNORMAL) Urinalysis with reflex microscopic and culture (01/20/2025 2:11 PM EDT) Pathologist [facility] [place] Urine 1.019 1.003 - 1.030 LAB URINALYSIS - AUTOMATED METHOD 01/20/2025 6:26 PM EDT [facility] pH, Urine 6.5 5.0 - 8.0 pH LAB URINALYSIS - AUTOMATED METHOD 01/20/2025 6:26 PM [facility] Leukocytes, Urine Moderate(A) Negative LAB URINALYSIS - AUTOMATED METHOD 01/20/2025 6:26 PM [facility] Nitrite, Urine Negative Negative LAB URINALYSIS - AUTOMATED METHOD 01/20/2025 6:26 PM [facility] Protein, Urine Trace <=Trace mg/dL LAB URINALYSIS - AUTOMATED METHOD 01/20/2025 6:26 PM [facility] Glucose, Urine Negative Negative mg/dL LAB URINALYSIS - AUTOMATED METHOD 01/20/2025 6:26 PM [facility] Ketones, Urine Negative Negative mg/dL LAB URINALYSIS - AUTOMATED METHOD 01/20/2025 6:26 PM [facility] Urobilinogen , Urine 0.2 0.2 - 1.0 mg/dL LAB URINALYSIS - AUTOMATED METHOD 01/20/2025 6:26 PM [facility] Bilirubin, Urine Negative Negative LAB URINALYSIS - AUTOMATED METHOD 01/20/2025 6:26 PM [facility] Blood, Urine Negative Negative LAB URINALYSIS - AUTOMATED METHOD 01/20/2025 6:26 PM EDT [facility] RBC, Urine 1.3 0 - 4 /HPF LAB URINALYSIS - AUTOMATED METHOD 01/20/2025 6:26 PM EDT [facility] WBC, Urine 14.5(H) 0 - 4 /HPF LAB URINALYSIS - AUTOMATED METHOD 01/20/2025 6:26 PM EDT [facility] Squamous Epithelial, Urine >100(H) 0 - 60 /LPF LAB URINALYSIS - AUTOMATED METHOD 01/20/2025 6:26 PM EDT [facility] Bacteria, Urine Negative Negative /HPF LAB URINALYSIS - AUTOMATED METHOD 01/20/2025 6:26 PM EDT [facility] Hyaline Casts, Urine 4.4(H) 0 - 3 /LPF LAB URINALYSIS - AUTOMATED METHOD 01/20/2025 6:26 PM EDT [facility] Urine Urine specimen obtained by clean catch procedure / Unknown Non-blood Collection / Unknown 01/20/2025 2:11 PM EDT 01/20/2025 2:11 PM EDT Daniel Seymour NP LAB URINE ORDERABLES Final R esult [facility] [address] [place] [address], * Thyroid stimulating hormone with reflex to free t4 and free t3 (01/20/2025 2:11 PM EDT) TSH 0.99 0.40 - 4.00 mcIU/mL LAB CHEMISTRY METHOD 01/20/2025 5:43 PM EDT [facility] Blood Venous blood specimen / Unknown Venipuncture / Unknown 01/20/2025 2:11 PM EDT 01/20/2025 2:11 PM EDT Daniel Seymour [employer] LAB BLOOD ORDERABLES Final R esult [facility] [address] [place] [address], [place] [phone] * (ABNORMAL) Lipid panel with reflex to direct LDL (01/20/2025 2:11 PM EDT) Cholesterol 258(H) 0 - 200 mg/dL LAB CHEMISTRY METHOD 01/20/2025 5:15 PM EDT [facility] Triglycerides 187(H) 0 - 150 mg/dL LAB CHEMISTRY METHOD 01/20/2025 5:15 PM EDT [facility] HDL 53 >=40 mg/dL LAB CHEMISTRY METHOD 01/20/2025 5:15 PM EDT [facility] LDL Calculated 168(H) 0 - 100 mg/dL LAB CHEMISTRY METHOD 01/20/2025 5:15 PM EDT [facility] Comment:Estimated LDL Calcul ated using equation: Total cholesterol - HDL cholesterol - (Triglycerides/5) VLDL Cholesterol Shahbaz 37.4 mg/dL LAB CHEMISTRY METHOD 01/20/2025 5:15 PM EDT [facility] Non HDL Chol. (LDL+VLDL) 205(H) <145 mg/dL LAB CHEMISTRY METHOD 01/20/2025 5:15 PM EDT [facility] Chol/HDL Ratio 4.9(H) 0.0 - 4.4 LAB CHEMISTRY METHOD 01/20/2025 5:15 PM EDT [facility] Blood Venous blood specimen / Unknown Venipuncture / Unknown 01/20/2025 2:11 PM EDT 01/20/2025 2:11 PM EDT Daniel Seymour [employer] LAB BLOOD ORDERABLES Final R esult [facility] [address] [place] [address], [place] [phone] * (ABNORMAL) CBC auto differential (01/20/2025 2:11 PM EDT) [facility] WBC 6.5 4.8 - 10.8 K/mcL LAB HEMETOLOGY METHOD 01/20/2025 5:32 PM EDT [facility] RBC 4.00 3.80 - 4.80 M/mcL LAB HEMETOLOGY METHOD 01/20/2025 5:32 PM EDT [facility] Hemoglobin 11.5 11.5 - 16.0 g/dL LAB HEMETOLOGY METHOD 01/20/2025 5:32 PM EDT [facility] Hematocrit 36.2 35.0 - 47.0 % LAB HEMETOLOGY METHOD 01/20/2025 5:32 PM EDT [facility] MCV 90.5 79.0 - 98.0 FL LAB HEMETOLOGY METHOD 01/20/2025 5:32 PM EDT [facility] MCH 28.8 27.0 - 32.0 pcg LAB HEMETOLOGY METHOD 01/20/2025 5:32 PM EDT [facility] MCHC 31.8(L) 32.0 - 37.0 g/dL LAB HEMETOLOGY METHOD 01/20/2025 5:32 PM EDT [facility] RDW 11.9 11.0 - 15.0 % LAB HEMETOLOGY METHOD 01/20/2025 5:32 PM EDT [facility] Platelets 282 130 - 400 K/mcL LAB HEMETOLOGY METHOD 01/20/2025 5:32 PM EDT [facility] MPV 9.8 7.0 - 11.0 FL LAB HEMETOLOGY METHOD 01/20/2025 5:32 PM EDT [facility] NRBC 0.0 <1.0 % LAB HEMETOLOGY METHOD 01/20/2025 5:32 PM EDT [facility] NRBC Absolute 0.00 <0.10 K/mcL LAB HEMETOLOGY METHOD 01/20/2025 5:32 PM EDT [facility] Neutrophils Relative 46.7 % LAB [facility]EM[facility]OLOGY [facility] Lymphocytes Relative 34.0 % LAB HEMETOLOGY METHOD 01/20/2025 5:32 PM EDT [facility] Monocytes Relative 9.7 % LAB HEMETOLOGY METHOD 01/20/2025 5:32 PM EDT [facility] Eosinophils Relative 8.2 % LAB HEMETOLOGY METHOD [facility] Basophils Relative 1.2 % LAB HEMETOLOGY METHOD 01/20/2025 5:32 PM [facility] Immature Granulocytes Relative 0.2 % LAB HEMETOLOGY METHOD 01/20/2025 5:32 PM [facility] Neutrophils Absolute 3.03 1.50 - 7.00 K/mcL LAB HEMETOLOGY METHOD 01/20/2025 5:32 PM [facility] Lymphocytes Absolute 2.20 1.00 - 5.00 K/mcL LAB HEMETOLOGY METHOD 01/20/2025 5:32 PM [facility] Monocytes Absolute 0.63 0.20 - 1.00 K/mcL LAB HEMETOLOGY METHOD 01/20/2025 5:32 PM T [facility] Eosinophils Absolute 0.53(H) 0.00 - 0.50 K/mcL LAB HEMETOLOGY METHOD 01/20/2025 5:32 PM EDT [facility] Basophils Absolute 0.08 0.00 - 0.20 K/mcL LAB HEMETOLOGY METHOD 01/20/2025 5:32 PM [facility] Immature Granulocytes Absolute 0.01 0.00 - 0.03 K/mcL LAB HEMETOLOGY METHOD 01/20/2025 5:32 PM EDT [facility] Blood Venous blood specimen / Unknown Venipuncture / Unknown 01/20/2025 2:11 PM EDT 01/20/2025 2:11 PM EDT Daniel Seymour [employer] LAB BLOOD ORDERABLES Final R esult Performing Organization Address City/[facility]/ZIP Co de Phone Number [facility] [address] [place] [id number], [place] [phone] * Hemoglobin A1c (01/20/2025 2:11 PM EDT) Pathologist [facility] Hemoglobin A1C 5.8 <6.5 % LAB CHEMISTRY METHOD 01/20/2025 10:03 PM EDT [facility] Mean Bld Glu Estim. 120 mg/dL LAB CHEMISTRY METHOD 01/20/2025 10:03 PM EDT [facility] Blood Venous blood specimen / Unknown Venipuncture / Unknown 01/20/2025 2:11 PM EDT 01/20/2025 2:11 PM EDT Daniel Seymour JEWEL FLAT SURFACER LAB BLOOD ORDERABLES Final R esult Performing Organization Address [facility] Co de Phone Number [facility] [address] [place] [address], [place] [phone] * (ABNORMAL) Comprehensive metabolic panel (01/20/2025 2:11 PM EDT) Only the most recent of2 resultswithin the time period is included. Sodium 135 133 - 145 mmol/L LAB CHEMISTRY METHOD 01/20/2025 5:15 PM EDT [facility] Potassium 5.1 3.5 - 5.5 mmol/L LAB CHEMISTRY METHOD 01/20/2025 5:15 PM EDT [facility] Chloride 101 96 - 110 mmol/L LAB CHEMISTRY METHOD 01/20/2025 5:15 PM [facility] CO2 29 21 - 32 mmol/L LAB CHEMISTRY METHOD 01/20/2025 5:15 PM [facility] Anion Gap 5 3 - 11 LAB CHEMISTRY METHOD 01/20/2025 5:15 PM [facility] Glucose 97 70 - 100 mg/dL LAB CHEMISTRY METHOD 01/20/2025 5:15 PM [facility] BUN 44(H) 5 - 25 mg/dL LAB CHEMISTRY METHOD 01/20/2025 5:15 PM [facility] Creatinine 2.42(H) 0.50 - 1.10 mg/dL LAB CHEMISTRY METHOD 01/20/2025 5:15 PM [facility] eGFR 22(L) >=60 mL/min/1. 73m2 LAB CHEMISTRY METHOD 01/20/2025 5:15 PM [facility] Comment:Calculation based on the Chronic Kidney Disease Epidemiology Collaboration (CKD-EPI) equation refit without adjustment for race. BUN/Creatinine Ratio 18.2 LAB CHEMISTRY METHOD 01/20/2025 5:15 PM [facility] Calcium 9.2 8.5 - 10.5 mg/dL LAB CHEMISTRY METHOD 01/20/2025 5:15 PM [facility] AST (SGOT) 27 10 - 42 unit/L LAB CHEMISTRY METHOD 01/20/2025 5:15 PM [facility] ALT (SGPT) 17 10 - 60 unit/L LAB CHEMISTRY METHOD 01/20/2025 5:15 PM [facility] Alkaline Phosphatase 123(H) 42 - 121 unit/L LAB CHEMISTRY METHOD 01/20/2025 5:15 PM [facility] Total Protein 6.8 6.0 - 8.0 g/dL LAB CHEMISTRY METHOD 01/20/2025 5:15 PM [facility] Albumin 4.0 3.2 - 5.0 g/dL LAB CHEMISTRY METHOD 01/20/2025 5:15 PM EDT [facility] Total Bilirubin 0.2 0.0 - 1.4 mg/dL LAB CHEMISTRY METHOD 01/20/2025 5:15 PM EDT [facility] Blood Venous blood specimen / Unknown Venipuncture / Unknown 01/20/2025 2:11 PM EDT 01/20/2025 2:11 PM EDT Daniel Seymour JEWEL [employer]AT SURF[employer]ER LAB BLOOD ORDERABLES Final R esult [facility] [address] [place] [address], [place] [phone] * External CT Report (12/27/2024) Anatomical Region Laterality Modality Computed Tomogra phy Provider [facility] PROCEDURES Final Result * External Xray Report (12/06/2024) Only the most recent of4 resultswithin the time period is included. Anatomical Region Laterality Modality Radiographic Karlene ging Provider [facility] XR PROCEDURES Final Result * Depression Screening (11/16/2023) Pathologist [facility] Depression Screening ABSTRACTED Historical Provider HEALTH MAINTENANCE Final Result * Hepatitis C Screening (01/13/2021) Pathologist [facility] Hepatitis C Screening ABSTRACTED Historical Provider HEALTH MAINTENANCE Final Result from Last 3 Months or Most Recently Relevant to Health Maintenance Insurance [facility] [address] [place] [address] [facility] [employer] Care Teams Computer Systems Support Specialist Relationship Specialty Start Date End Date Gege Thompson MD [address] [place] [address] PCP - General Internal Medicine 03/[birth year]/1999
--- OUTSIDE RECORDS SUMMARY | 2025-02-23 20:11 | XMS_ITS | Encounter Summary ---
Author Organization [employer] Address [address] [place] [address] [address] [place] [address] Care Team Providers Care Mines Safety Engineer Name Role Phone Unavailable Primary Care Provider Unavailabl e Reason for Visit * Reason Onset Date Comments appt order 12/04/2022 followed up with patient 12/04/2022 Encounter Details Date Type Department Care Team ([facility] st Contact Info) Description 12/04/2022 Telephone [facility] [address] [place] [address] Joe Berger DMD [address] [place] [address] appt order; followed up with patient Social [...] can always stop at the front end driver on and see if she can be scheduled before she leaves the office DR * Telephone Encounter - Deana Starr - 12/04/2022 3:04 PM EDT Patient had to cancel her cleaning appt on 11/27 due to being sick. She has an appt on 12/13 for religious but is unsure if the cleaning has to be done first. She was under the impression but it was unclear on my end. It is listed the treatment she needs but doesn't specify if hygiene has to happen prior to religious. Shed like to make sure she can still come in for 12/13 or if she has to wait to get a cleaning first so it is not a wasted trip documented in this encounter Plan of Treatment Not on file documented as of this encounter Visit Diagnoses Not on filedocumented in this encounter
== END ==
LOC: HO.CARD 14:01
PROVIDERS: PCP Internal Medicine; Visit Provider Internal Medicine Medical Oncology
DX: C83.30 Diffuse large B-cell lymphoma, unspecified site (principal)
CPT/HCPCS: 93306; Q9957

== ENCOUNTER → 2025-02-23 14:05 | Outpatient (BNV) | payer OTHER, SELFPAY | PROVIDERS: PCP Internal Medicine; Visit Provider Internal Medicine Cardiovascular Disease | DX: Z01.818 Encounter for other preprocedural examination (principal) | CPT/HCPCS: 93306; 93356 ==

== ENCOUNTER 2025-02-24 14:20 | Day surgery (SDC) | payer OTHER, SELFPAY ==
--- OUTSIDE RECORDS SUMMARY | 2025-02-21 15:33 | XMS_ITS | Encounter Summary ---
Author Organization [facility] Address [address] [address] Phone Care Team Providers Care Material Yard Clerk Name Role Phone Iván Keyes MD Primary Care Provider Rosa barrios Encounter Details Date Type Department Care Team (Late Contact Info) Description 02/17/2025 Office Communication [facility] [address] [phone] Lali Bae [address] [place] [phone] Social History Tobacco Use Types Packs/Day [...] Office Visit [facility] [address] [phone] Galileo Henriquez MD [address] [phone] documented as of this encounter Visit Diagnoses Not on filedocumented in this encounter Care Teams Material Yard Clerk Relationship Specialty Start Date End Date Iván Keyes MD [address] [place] [address] PCP - General Urology 02/04/25 documented as of this encounter
--- OUTSIDE RECORDS SUMMARY | 2025-02-21 15:33 | XMS_ITS | Clinical Summary ---
Author Organization [facility] Address [address] [place] [phone] Phone Care Team Providers Care Project Manager Retail Name Role Phone Iván Keyes MD Primary [...] Office Communication [facility] [address] [phone] Lali Bae 02/12/2025 Office Communication [facility] [address] [address] Galileo Henriquez MD Chronic kidney disease, stage 4 (severe) (HCC) (Primary Dx) 02/04/2025 11:00 AM EDT Office Visit [facility] [address] [address] Galileo Henriquez MD Chronic kidney [...] Office Visit [facility] [address] [phone] Galileo Henriquez MD [address] [phone] Health Maintenance Due Date Last [...] Immunofixation Result, Serum No monoclonal immunoglobulins detected. [facility] 02/08/2025 10:0 1 AM EDT 02/08/2025 11:55 AM EDT us Galileo Henriquez MD LAB [id number] SOLICITED RESULTS Final Result [facility] [address] [place] [address] * IMMUNOFIXATION INTERPRETATION (02/08/2025 10:01 AM EDT) Pathologist Interpretation Lety Varner MD [facility] 02/08/2025 10:0 1 AM EDT 02/08/2025 11:55 AM EDT us Galileo Henriquez MD LAB BLOOD ORDERABLES Final Re sult Performing Organization Address [facility] de Phone Number [facility] [address] [place] [address] * (ABNORMAL) Protein, Total, Random Urine w/Creatinine (Protein/Creat Ratio) (02/08/2025 10:01 AM EDT) Protein, Ur 26 mg/dL [facility] Urine Protein/Creati nine Ratio 0.23(H) <=0.20 mg/mg creat [facility] Creatinine, Urine 112.0 mg/dL [facility] Urine Urine specimen obtained by clean catch procedure / Unknown 02/08/2025 10:01 AM EDT 02/08/2025 11:54 AM EDT Galileo Henriquez MD LAB URINE ORDERABLES Final Re sult Performing Organization Address [facility] de Phone Number [facility] [address] [place] [address] * Urine Albumin / Creatinine Ratio (02/08/2025 10:01 AM EDT) Creatinine, Urine 112.0 mg/dL [facility] Microalbumin Urine Random <5.0 0.0 - 29.0 mg/L [facility] Microalbumin/Crea tinine Ratio <4 <30 mg/g [facility] Urine Urine specimen obtained by clean catch procedure / Unknown 02/08/2025 10:01 AM EDT 02/08/2025 11:54 AM EDT Galileo Henriquez MD LAB URINE ORDERABLES Final Re sult Performing Organization Address [facility] Co de Phone Number [facility] [address] [place] [address] * (ABNORMAL) Urinalysis Reflex Microscopic (02/08/2025 10:01 AM EDT) [facility] Specific [place] 1.018 1.003 - 1.030 [facility] pH Urine 5.5 5.0 - 8.0 pH [facility] LEUKOCYTES, URINE Moderate(A) Negative [facility] Nitrite, Urine Negative Negative [facility] Protein, Urine Trace <=Trace mg/dL [facility] Glucose Urine Negative Negative mg/dL [facility] Ketones, Urine Negative Negative mg/dL [facility] Urobilinogen Urine 0.2 0.2 - 1.0 mg/dL [facility] Bilirubin Urine Negative Negative [facility] Blood Urine Negative Negative [facility] RBC, Urine 0.8 0 - 4 /HPF [facility] WBC, Urine 24.8(H) 0 - 4 /HPF [facility] Squamous Epithelial, Urine 83(H) 0 - 60 /LPF [facility] Bacteria, Urine Negative Negative /HPF [facility] Hyaline Casts, UA 0.8 0 - 3 /LPF [facility] 02/08/2025 10:0 1 AM EDT 02/08/2025 11:54 AM EDT Narrative ADAN - 02/08/2025 12:23 PM EDT Microscopic Required->Yes Culture if Indicated?->No Galileo Henriquez MD LAB URINE ORDERABLES Final Re sult [facility] [address] [place] [address] * (ABNORMAL) Vitamin D 25 Hydroxy (02/08/2025 10:01 AM EDT) [facility] Vitamin D, 25-OH, Total 17.6(L) 30.0 - 80.0 ng/mL [facility] Blood Venous blood / Unknown 02/08/2025 10:01 AM EDT 02/08/2025 11:55 AM EDT us Galileo Henriquez MD LAB BLOOD ORDERABLES Final Re sult ADAN [facility] [address] [place] [address] * (ABNORMAL) CBC (02/08/2025 10:01 AM EDT) [facility] WBC 7.4 4.8 - 10.8 [facility] RBC 3.80 3.80 - 4.80 [facility] Hgb 10.7(L) 11.5 - 16.0 g/dL [facility] Hematocrit 33.4(L) 35.0 - 47.0 % [facility] MCV 88.8 79.0 - 98.0 FL [facility] MCH 28.5 27.0 - 32.0 pcg [facility] MCHC 32.0 32.0 - 37.0 g/dL [facility] RDW 12.1 11.0 - 15.0 % [facility] Platelets 258 130 - 400 K/[facility] MPV 9.7 7.0 - 11.0 FL [facility] nRBC Count 0.0 <1.0 % [facility] NRBC Absolute 0.00 <0.10 [facility] Blood Venous blood / Unknown 02/08/2025 10:01 AM EDT 02/08/2025 11:55 AM EDT Galileo Henriquez MD LAB BLOOD ORDERABLES Final Re sult Performing Organization Address [facility]/ZIP Co de Phone Number [facility] [address] [place] [address] * IgG, IgA, IgM (02/08/2025 10:01 AM EDT) IgG 863 549 - 1,584 mg/dL [facility] IgA 167 61 - 348 mg/dL [facility] IgM 157 23 - 259 mg/dL [facility] 02/08/2025 10:0 1 AM EDT 02/08/2025 11:55 AM EDT Galileo Henriquez MD LAB BLOOD ORDERABLES Final Re sult Performing Organization Address [facility] de Phone Number [facility] [address] [place] [address] * PTH, Intact (02/08/2025 10:01 AM EDT) PTH 75.9 18.5 - 88.0 pcg/mL [facility] Blood Venous blood / Unknown 02/08/2025 10:01 AM EDT 02/08/2025 11:55 AM EDT Galileo Henriquez MD LAB BLOOD ORDERABLES Final Re sult Performing Organization Address [facility] Co de Phone Number [facility] [address] [place] [address] * Magnesium (02/08/2025 10:01 AM EDT) Magnesium 2.2 1.9 - 2.6 mg/dL [facility] Blood Venous blood / Unknown 02/08/2025 10:01 AM EDT 02/08/2025 11:55 AM EDT Galileo Henriquez MD LAB BLOOD ORDERABLES Final Re sult Performing Organization Address [facility] Co de Phone Number ADAN [facility] [address] [place] [address] * (ABNORMAL) Renal Function Panel (02/08/2025 10:01 AM EDT) Sodium 137 133 - 145 mmol/L [facility] Potassium 4.5 3.5 - 5.5 mmol/L [facility] Chloride 103 96 - 110 mmol/L [facility] Bicarbonate (CO2) 28 21 - 32 mmol/L [facility] Anion Gap 6 3 - 11 [facility] Glucose 106(H) 70 - 100 mg/dL [facility] BUN 40(H) 5 - 25 mg/dL [facility] Creatinine Serum 1.99(H) 0.50 - 1.10 mg/dL [facility] eGFR 28(L) >=60 mL/min/1. 73m2 [facility] Comment:Calculation based on the Chronic Kidney Disease Epidemiology Collaboration (CKD-EPI) equation refit without adjustment for race. BUN/Creatinine Ratio 20.1 [facility] Albumin 3.6 3.2 - 5.0 g/dL [facility] Calcium 8.9 8.5 - 10.5 mg/dL [facility] Phosphorus 4.7(H) 2.5 - 4.5 mg/dL [facility] Blood Venous blood / Unknown 02/08/2025 10:01 AM EDT 02/08/2025 11:55 AM EDT Galileo Henriquez MD LAB BLOOD ORDERABLES Final Re sult Performing Organization Address [facility]/ZIP Co de Phone Number [facility] [address] [place] [address] from Last 3 Months Insurance [facility] Medicaid Care Teams Project Manager Retail Relationship Specialty Start Date End Date Iván Keyes MD [address] [place] [phone] PCP - General Urology 02/04/25
--- OUTSIDE RECORDS SUMMARY | 2025-02-21 15:33 | XMS_ITS | Encounter Summary ---
Author Organization [facility] Address [address] [place] [address] Care Team Providers Care Taxi Truck Driver Name Role Phone Gege Thompson MD Primary Care Provider [phone] Encounter Details Date Type Department Care Team (Late Contact Info) Description 02/09/2025 Results Follow-Up Adult [address] [phone] Daniel Seymour, HENRY [address] [place] [address] Social History Tobacco Use Types Packs/Day Years [...] 03/07/2025 10:15 AM EST Office Visit Adult [address] [phone] Daniel Seymour, HENRY [address] [place] [address] documented as of this encounter Visit Diagnoses Not on filedocumented in this encounter Care Teams Taxi Truck Driver Relationship Specialty Start Date End Date Gege Thompson MD [address] [place] [address] PCP - General Internal Medicine 03/04/1999 documented as of this encounter
--- OUTSIDE RECORDS SUMMARY | 2025-02-21 15:33 | XMS_ITS | Clinical Summary ---
Author Organization [employer] Address [address] [place] [address] [address] [place] [address] Care Team Providers Care Quality Control Head Name Role Phone Unavailable Primary Care Provider [...] use. 473 mL 4 Active HYDROcodone-amberly taminophen ([place]) 5-325 MG tabletIndicatio ns:History of tooth extraction, unspecified edentulism class Take 1 tablet by mouth every 6 (six) hours if needed for severe pain for up to 3 doses. 3 tablet 4 Active Active Problems Problem Noted Date Diagnosed Date Elevated alkaline phosphatase level 01/15/2021 Elevated LFTs 01/15/2021 Mid back pain 01/15/2021 Stage 3a chronic kidney disease ([facility]/HCC) 2020 Meningioma ([facility]/HCC) 06/04/2016 Anxiety 04/24/2016 Chronic obstructive pulmonary disease [...] Phone Billing Address Personal/Family Self [address]
--- OUTSIDE RECORDS SUMMARY | 2025-02-21 15:34 | XMS_ITS | Encounter Summary ---
Author Organization [facility] Address [address] [place] [phone] Phone Care Team Providers Care Second Language Tutor Name Role Phone Iván Keyes MD Primary Care Provider Rosa barrios Reason for Referral * Imaging (Routine) - Closed Specialty Diagnoses / Procedures Referred By Contac t Referred To Contact Diagnoses Chronic kidney disease, stage 4 (severe) (HCC) Procedures Ultrasound renal limited Galileo Henriquez MD [address] [address] Phone: tel: fax: Referral ID Status Reason Start Date Expiration Date Visits Re quested Visits Authorized [id number] Closed 02/16/2025 02/16/2026 1 1 * Imaging (Routine) - Pending Review Specialty Diagnoses / Procedures Referred By Contac t Referred To Contact Diagnoses Chronic kidney disease, stage 4 (severe) (HCC) Procedures Nuclear Medicine Kidney Flow/Function w/wo Pharmacological Intervention Galileo Henriquez MD [address] [phone] Phone: tel: fax: Referral ID Status Reason Start Date Expiration Date V isits Requested Visits Authorized [id number] Pending Review 02/12/2025 02/12/2026 1 1 Encounter Details Date Type Department Care Team (Latest Contact Info) Description 02/12/2025 Office Communication [facility] [address] [phone] Galileo Henriquez MD [address] [phone] Chronic kidney disease, stage 4 [...] - 02/16/2025 4:39 PM EDT U/s at [facility] markos --thx * Telephone Encounter - Galileo Henriquez MD - 02/16/2025 1:45 PM EDT Needds renal ultrasound as markos and you can hold off on the renal nuclear scan--thx * Telephone Encounter - Gallieo Henriquez MD - 02/12/2025 10:48 AM EDT Schedule renal scan w lasix at [facility] documented in this encounter Plan of Treatment Upcoming Encounters Date Type Department Care Team (Late st Contact Info) Description 02/24/2025 2:15 PM EDT Office Visit [facility] [address] [phone] Galileo Henriquez MD [address] [phone] Scheduled Orders Name Type Priority Associated Diagnoses [...] Primary documented in this encounter Care Teams Second Language Tutor Relationship Specialty Start Date End Date Iván Keyes MD [address] [place] [address] PCP - General Urology 02/04/25 documented as of this encounter
--- OUTSIDE RECORDS SUMMARY | 2025-02-21 15:35 | XMS_ITS | Clinical Summary ---
Author Organization [facility] [address] [place] [address] [place] [phone] Phone Care Team Providers Care Utility Engineer Name Role Phone Gege Thompson MD Primary Care Provider [phone] Allergies Active Allergy Reactions Criticality Noted Date [...] 1 (one) time each day. Prescribed by [facility] with Dr. Keyes 12/22/19 25 Active traZODone (DESYREL) 100 mg tablet Take 1 tablet (100 mg total) by mouth at bedtime. 90 tablet 1 01/25/20 25 Active oxyCODONE (ROXICODONE) 5 mg immediate release tablet Take 1 tablet (5 mg total) by mouth every 8 (eight) hours if needed for severe pain or moderate pain. Prescribed By Dr. Aparicio, Oncologist at [facility], For Breakthrough/S ever pain Max Daily [...] 2 (two) times a day. Prescribed by [facility] provider 12/28/19 025 Discontinued(Th erapy completed) albuterol [...] pain. Prescribed By Dr. Aparicio, Oncologist at [facility], For Breakthrough/S ever pain Max Daily Amount: 15 mg 01/14/20 025 Discontinued(Re order) albuterol HFA (Ventolin HFA) 90 mcg/actuation inhaler Inhale 2 puffs by mouth if needed for wheezing. 4 puffs every 4 hours as needed 8.5 g 01/27/20 25 025 Discontinued(Re order) Active Problems Problem Noted Date Diagnosed Date Stage 4 chronic kidney disease ([facility] [place]24, [facility] V28) 01/24/2025 Kidney stone 11/18/2024 Overview (11/18/2024): Hospitalization at [facility] with hydronephrosis, 2024 Elevated alkaline phosphatase level 01/15/2021 Elevated LFTs 01/15/2021 Mid back pain 01/15/2021 Stage 3a chronic kidney disease ([facility] V24, [facility] V28) 01/15/2021 Meningioma ([facility] V24, [facility] V28) 06/04/2016 Anxiety 04/24/2016 Chronic obstructive pulmonar y disease ([facility] V24, [facility] V28) 04/24/2016 Essential hypertension 04/24/2016 Panic attack 04/24/2016 Trochanteric bursitis of right hip 01/25/2015 Vitamin D deficiency 01/25/2015 DDD (degenerative disc disease), lumbar 09/24/19 15 Lumbar facet arthropathy 09/23/2014 Hip pain, bilateral 01/04/2014 Hyperlipidemia 01/04/2014 Insomnia 01/04/2014 Obesity 01/04/2014 Esophageal reflux 08/07/2005 Encounters Date Type Department Care Team Description 02/11/2025 11:22 AM EDT - 02/11/2025 11:59 PM EDT Hospital Encounter [facility] PET Scan [address] [place] [address] Lymphadenopathy, abdominal Discharge Disposition: Home or Self Care 02/09/2025 Results Follow-Up Adult Medicine [address] [phone] Daniel Seymour NP 01/27/2025 Telephone Adult Medicine [address] [phone] Gege Thompson MD 01/25/2025 Telephone Adult Medicine [address] [phone] Gege Thompson MD 01/24/2025 10:15 AM EDT Office Visit [address] [phone] Daniel Seymour NP Lymphadenopathy, inguinal (Primary Dx); Postop check; Hyperkalemia; Stage 4 chronic kidney disease (CMS/HCC V24, CMS/HCC V28); SOB (shortness of breath) on exertion; Insomnia, unspecified type 01/21/[address] [phone] Daniel Seymour NP 01/11/[address] [phone] Gege Thompson MD 12/30/2024 10:15 AM EDT Office Visit [address] [phone] Daniel Seymour NP Left lower quadrant abdominal pain (Primary Dx); Lymphadenopathy, inguinal; Abnormal CT scan; Acute renal failure superimposed on stage 3a chronic kidney disease, unspecified acute renal failure type (CMS/HCC V24, CMS/HCC V28); Kidney stone; Encounter for examination following treatment at hospital 12/30/[address] [phone] Shola Chang [place] 12/30/[address] [phone] Gege Thompson MD 12/29/[address] [phone] Daniel Seymour NP 12/27/2024 10:00 AM EDT Office Visit [address] [phone] Daniel Seymour NP Acute renal failure superimposed on stage 3a chronic kidney disease, unspecified acute renal failure type (CMS/HCC V24, CMS/HCC V28) (Primary Dx); History of kidney stones; Fatigue, unspecified type; Encounter for screening for cardiovascular disorders 12/21/2024 1:30 PM EDT Office Visit Adult [address] [phone] Gege Thompson MD Kidney stone (Primary Dx); Essential hypertension 12/15/2024 Telephone Adult [address] [phone] eGge Thompson MD 11/24/2024 10:30 AM EDT Office Visit [address] [phone] Gege Thompson MD Kidney stone (Primary Dx); Essential hypertension; Stage 3a chronic kidney disease ([facility] V24, [facility] V28); Anxiety from Last 3 Months Surgical [...] 10:15 AM EST Office Visit Adult Medicine [facility] [address] [place], [place] [phone] Daniel Seymour NP [address] [place], [place] Health Maintenance Due Date Last Done [...] Routine 02/11/2025 2:00 PM EDT Lymphadenopathy, abdominal MI IMMUNOFIXATION ELECTROPHORESIS SERUM Routine 02/08/2025 10:01 AM [...] CMS/HCC V28) Personal history of urinary calculi COMPLETE BLOOD COUNT Routine 02/08/2025 10:01 AM EDT Chronic kidney disease, stage 4 (severe) (CMS/HCC V24, CMS/HCC V28) Personal history of urinary calculi MAGNESIUM Routine 02/08/2025 10:01 AM EDT Chronic kidney disease, stage 4 (severe) (CMS/HCC V24, CMS/HCC V28) Personal history of urinary calculi IMMUNOGLOBULINS IGG, IGA, IGM Routine 02/08/2025 10:01 AM EDT Chronic kidney disease, stage 4 (severe) (CMS/HCC V24, CMS/HCC V28) Personal history of urinary calculi IMMUNOFIXATION ELECTROPHORESIS Routine 02/08/2025 10:01 AM EDT Chronic kidney disease, stage 4 (severe) (CMS/HCC V24, CMS/HCC V28) Personal history of urinary calculi IMMUNOFIXATION ELECTROPHORESIS Routine 02/08/2025 10:01 AM EDT Chronic kidney disease, stage 4 (severe) (CMS/HCC V24, CMS/HCC V28) Personal history of urinary calculi D-DIMER [...] Signed Date: 02/17/2025 10:20 ET Workstation ID: [id number] Transcribed By: Self Edit Transcribed Date: 02/17/2025 [...] stone. MUSCULOSKELETAL: No abnormal activity. Procedure Note Ophelia, Parshant, MD - 02/17/2025 History: Germinal cell type [...] Signed Date: 02/17/2025 10:20 ET Workstation ID: [id number] Transcribed By: Self Edit Transcribed Date: 02/17/2025 10:12 ET us Farrah Aparicio MD IMG NM PROCEDURES Final Result * Pathologist Review Immunofixation (02/08/2025 10:01 AM EDT) Pathologist Interpretation Lety Varner MD 02/09/2025 2:00 PM EDT [facility] Blood Venous blood specimen / Unknown Venipuncture / Unknown 02/08/2025 10:01 AM EDT 02/08/2025 10:01 AM EDT us Galileo Henriquez MD LAB BLOOD ORDERABLES Final Re sult [facility] [address] [place] [address], [place] [phone] * (ABNORMAL) Urinalysis with reflex microscopic (02/08/2025 10:01 AM EDT) Specific [place] Urine 1.018 1.003 - 1.030 LAB URINALYSIS - AUTOMATED METHOD 02/08/2025 12:23 PM [facility] pH, Urine 5.5 5.0 - 8.0 pH LAB URINALYSIS - AUTOMATED METHOD 02/08/2025 12:23 PM [facility] Leukocytes, Urine Moderate(A) Negative LAB URINALYSIS - AUTOMATED METHOD 02/08/2025 12:23 PM [facility] Nitrite, Urine Negative Negative LAB URINALYSIS - AUTOMATED METHOD 02/08/2025 12:23 PM [facility] Protein, Urine Trace <=Trace mg/dL LAB URINALYSIS - AUTOMATED METHOD 02/08/2025 12:23 PM [facility] Glucose, Urine Negative Negative mg/dL LAB URINALYSIS - AUTOMATED METHOD 02/08/2025 12:23 PM [facility] Ketones, Urine Negative Negative mg/dL LAB URINALYSIS - AUTOMATED METHOD 02/08/2025 12:23 PM [facility] Urobilinogen , Urine 0.2 0.2 - 1.0 mg/dL LAB URINALYSIS - AUTOMATED METHOD 02/08/2025 12:23 PM [facility] Bilirubin, Urine Negative Negative LAB URINALYSIS - AUTOMATED METHOD 02/08/2025 12:23 PM [facility] Blood, Urine Negative Negative LAB URINALYSIS - AUTOMATED METHOD 02/08/2025 12:23 PM [facility] RBC, Urine 0.8 0 - 4 /HPF LAB URINALYSIS - AUTOMATED METHOD 02/08/2025 12:23 PM [facility] WBC, Urine 24.8(H) 0 - 4 /HPF LAB URINALYSIS - AUTOMATED METHOD 02/08/2025 12:23 PM [facility] Squamous Epithelial, Urine 83(H) 0 - 60 /LPF LAB URINALYSIS - AUTOMATED METHOD 02/08/2025 12:23 PM [facility] Bacteria, Urine Negative Negative /HPF LAB URINALYSIS - AUTOMATED METHOD 02/08/2025 12:23 PM [facility] Hyaline Casts, Urine 0.8 0 - 3 /LPF LAB URINALYSIS - AUTOMATED METHOD 02/08/2025 12:23 PM [facility] Urine Urine specimen obtained by clean catch procedure / Unknown Non-blood Collection / Unknown 02/08/2025 10:01 AM EDT 02/08/2025 10:01 AM EDT us Galileo Henriquez MD LAB URINE ORDERABLES Final Re sult [facility] [address] [place] [address], * (ABNORMAL) Protein and creatinine with ratio, urine (02/08/2025 10:01 AM EDT) Protein, Urine 26 mg/dL LAB CHEMISTRY METHOD 02/08/2025 2:07 PM EDT [facility] Prot/Creat, Ur 0.23(H) <=0.20 mg/mg creat LAB CHEMISTRY METHOD 02/08/2025 2:07 PM EDT [facility] Creatinine, Urine 112.0 mg/dL LAB CHEMISTRY METHOD 02/08/2025 2:07 PM EDT [facility] Urine Urine specimen obtained by clean catch procedure / Unknown Non-blood Collection / Unknown 02/08/2025 10:01 AM EDT 02/08/2025 10:01 AM EDT us Galileo Henriquez MD LAB URINE ORDERABLES Final Re sult Performing Organization Address [facility]/ZIP Co de Phone Number [facility] [address] [place] [address], [place] [phone] * Microalbumin creatinine urine ratio (02/08/2025 10:01 AM EDT) Creatinine, Urine 112.0 mg/dL LAB CHEMISTRY METHOD 02/08/2025 2:22 PM EDT [facility] Microalb, Ur <5.0 0.0 - 29.0 mg/L LAB CHEMISTRY METHOD 02/08/2025 2:22 PM EDT [facility] Microalb/Creat Ratio <4 <30 mg/g creat LAB CHEMISTRY METHOD 02/08/2025 2:22 PM EDT [facility] Urine Urine specimen obtained by clean catch procedure / Unknown Non-blood Collection / Unknown 02/08/2025 10:01 AM EDT 02/08/2025 10:01 AM EDT us Galileo Henriquez MD LAB URINE ORDERABLES Final Re sult Performing Organization Address [facility]/ZIP Co de Phone Number [facility] [address] [place] [address], [place] [phone] * (ABNORMAL) Vitamin D 25 hydroxy (02/08/2025 10:01 AM EDT) [facility] Vit D, 25-Hydroxy 17.6(L) 30.0 - 80.0 ng/mL LAB CHEMISTRY METHOD 02/08/2025 1:18 PM EDT [facility] Blood Venous blood specimen / Unknown Venipuncture / Unknown 02/08/2025 10:01 AM EDT 02/08/2025 10:01 AM EDT us Galileo Henriquez MD LAB BLOOD ORDERABLES Final Re sult [facility] [address] [place] [address], * (ABNORMAL) Complete blood count (02/08/2025 10:01 AM EDT) [facility] WBC 7.4 4.8 - 10.8 K/mcL LAB HEMETOLOGY METHOD 02/08/2025 12:24 PM EDT [facility] RBC 3.80 3.80 - 4.80 M/mcL LAB HEMETOLOGY METHOD 02/08/2025 12:24 PM [facility] Hemoglobin 10.7(L) 11.5 - 16.0 g/dL LAB HEMETOLOGY METHOD 02/08/2025 12:24 PM EDT [facility] Hematocrit 33.4(L) 35.0 - 47.0 % LAB HEMETOLOGY METHOD 02/08/2025 12:24 PM EDT [facility] MCV 88.8 79.0 - 98.0 FL LAB HEMETOLOGY METHOD 02/08/2025 12:24 PM [facility] MCH 28.5 27.0 - 32.0 pcg LAB HEMETOLOGY METHOD 02/08/2025 12:24 PM [facility] MCHC 32.0 32.0 - 37.0 g/dL LAB HEMETOLOGY METHOD 02/08/2025 12:24 PM EDT [facility] RDW 12.1 11.0 - 15.0 % LAB HEMETOLOGY METHOD 02/08/2025 12:24 PM EDT [facility] Platelets 258 130 - 400 K/mcL LAB HEMETOLOGY METHOD 02/08/2025 12:24 PM EDT [facility] MPV 9.7 7.0 - 11.0 FL LAB HEMETOLOGY METHOD 02/08/2025 12:24 PM EDT [facility] NRBC 0.0 <1.0 % LAB HEMETOLOGY METHOD 02/08/2025 12:24 PM EDT [facility] NRBC Absolute 0.00 <0.10 K/mcL LAB HEMETOLOGY METHOD 02/08/2025 12:24 PM EDT [facility] Blood Venous blood specimen / Unknown Venipuncture / Unknown 02/08/2025 10:01 AM EDT 02/08/2025 10:01 AM EDT us Galileo Henriquez MD LAB BLOOD ORDERABLES Final Re sult Performing Organization Address City/[facility] Co de Phone Number [facility] [address] [place] [address], * Immunofixation electrophoresis serum (02/08/2025 10:01 AM EDT) Immunofixation Result, Serum No monoclonal immunoglobulins detected. LAB CHEMISTRY METHOD 02/09/2025 2:00 PM EDT [facility] Blood Venous blood specimen / Unknown Venipuncture / Unknown 02/08/2025 10:01 AM EDT 02/08/2025 10:01 AM EDT us Galileo Henriquez MD LAB BLOOD ORDERABLES Final Re sult [facility] [address] [place] [address], * Immunoglobulins IgG, IgA, IgM (02/08/2025 10:01 AM EDT) Total IgG 863 549 - 1,584 mg/dL LAB CHEMISTRY METHOD 02/08/2025 12:38 PM EDT [facility] IgA 167 61 - 348 mg/dL LAB CHEMISTRY METHOD 02/08/2025 12:38 PM EDT [facility] IgM 157 23 - 259 mg/dL LAB CHEMISTRY METHOD 02/08/2025 12:38 PM EDT [facility] Blood Venous blood specimen / Unknown Venipuncture / Unknown 02/08/2025 10:01 AM EDT 02/08/2025 10:01 AM EDT us Galileo Henriquez MD LAB BLOOD ORDERABLES Final Re sult Performing Organization Address [facility] Co de Phone Number [facility] [address] [place] [address], * Parathyroid hormone intact (02/08/2025 10:01 AM EDT) PTH 75.9 18.5 - 88.0 pcg/mL LAB CHEMISTRY METHOD 02/08/2025 1:18 PM EDT [facility] Blood Venous blood specimen / Unknown Venipuncture / Unknown 02/08/2025 10:01 AM EDT 02/08/2025 10:01 AM EDT us Galileo Henriquez MD LAB BLOOD ORDERABLES Final Re sult [facility] [address] [place] [address], * Magnesium (02/08/2025 10:01 AM EDT) Magnesium 2.2 1.9 - 2.6 mg/dL LAB CHEMISTRY METHOD 02/08/2025 12:30 PM [facility] Blood Venous blood specimen / Unknown Venipuncture / Unknown 02/08/2025 10:01 AM EDT 02/08/2025 10:01 AM EDT us Galileo Henriquez MD LAB BLOOD ORDERABLES Final Re sult [facility] [address] [place] [address], * (ABNORMAL) Renal function panel (02/08/2025 10:01 AM EDT) Pathologist [facility] Sodium 137 133 - 145 mmol/L LAB CHEMISTRY METHOD 02/08/2025 12:30 PM [facility] Potassium 4.5 3.5 - 5.5 mmol/L LAB CHEMISTRY METHOD 02/08/2025 12:30 PM [facility] Chloride 103 96 - 110 mmol/L LAB CHEMISTRY METHOD 02/08/2025 12:30 PM [facility] CO2 28 21 - 32 mmol/L LAB CHEMISTRY METHOD 02/08/2025 12:30 PM [facility] Anion Gap 6 3 - 11 LAB CHEMISTRY METHOD 02/08/2025 12:30 PM [facility] Glucose 106(H) 70 - 100 mg/dL LAB CHEMISTRY METHOD 02/08/2025 12:30 PM [facility] BUN 40(H) 5 - 25 mg/dL LAB CHEMISTRY METHOD 02/08/2025 12:30 PM [facility] Creatinine 1.99(H) 0.50 - 1.10 mg/dL LAB CHEMISTRY METHOD 02/08/2025 12:30 PM [facility] eGFR 28(L) >=60 mL/min/1. 73m2 LAB CHEMISTRY METHOD 02/08/2025 12:30 PM EDT [facility] Comment:Calculation based on the Chronic Kidney Disease Epidemiology Collaboration (CKD-EPI) equation refit without adjustment for race. BUN/Creatinine Ratio 20.1 LAB CHEMISTRY METHOD 02/08/2025 12:30 PM EDT [facility] Albumin 3.6 3.2 - 5.0 g/dL LAB CHEMISTRY METHOD 02/08/2025 12:30 PM EDT [facility] Calcium 8.9 8.5 - 10.5 mg/dL LAB CHEMISTRY METHOD 02/08/2025 12:30 PM EDT [facility] Phosphorus 4.7(H) 2.5 - 4.5 mg/dL LAB CHEMISTRY METHOD 02/08/2025 12:30 PM EDT [facility] Blood Venous blood specimen / Unknown Venipuncture / Unknown 02/08/2025 10:01 AM EDT 02/08/2025 10:01 AM EDT us Galileo Henriquez MD LAB BLOOD ORDERABLES Final Re sult [facility] [address] [place] [address], * D-Dimer (01/24/2025 11:26 AM EDT) D-Dimer, [...] infected, trauma patients, DIC, acute CVA, acute [place], unstable angina, AF, old age, , and smoking. D-Dimer may be decreased with: Initiation of heparin therapy and oral anticoagulants. Daniel Seymour POWER ELECTRONICS ENGINEER LAB BLOOD ORDERABLES Final R esult Performing Organization Address [facility]/ZIP Co de Phone Number [facility] [address] [place] [address], [place] [phone] * Culture urine (01/21/2025 9:12 AM EDT) [facility] Culture, Urine 10,000-49,000 CFU/mL Mixed urogenital maximo, no uropathogens present. Suggest repeat specimen if clinically indicated. 01/23/2025 12:48 PM EDT [facility] Urine Urine specimen obtained by clean catch procedure / Unknown Non-blood Collection / Unknown 01/21/2025 9:12 AM EDT 01/21/2025 9:12 AM EDT Daniel Seymour POWER ELECTRONICS ENGINEER LAB MICROBIOLOGY - GENERAL O RDERABLES Final Result Performing Organization Address [facility] de Phone Number [facility] [address] [place] [address], [place] [phone] * (ABNORMAL) Urinalysis with reflex microscopic and culture (01/20/2025 2:11 PM EDT) [facility] Specific [place] Urine 1.019 1.003 - 1.030 LAB URINALYSIS - AUTOMATED METHOD 01/20/2025 6:26 PM EDT [facility] pH, Urine 6.5 5.0 - 8.0 pH LAB URINALYSIS - AUTOMATED METHOD 01/20/2025 6:26 PM EDT [facility] Leukocytes, Urine Moderate(A) Negative LAB URINALYSIS - AUTOMATED METHOD 01/20/2025 6:26 PM EDT [facility] Nitrite, Urine Negative Negative LAB URINALYSIS - AUTOMATED METHOD 01/20/2025 6:26 PM [facility] Protein, Urine Trace <=Trace mg/dL LAB URINALYSIS - AUTOMATED METHOD 01/20/2025 6:26 PM [facility] Glucose, Urine Negative Negative mg/dL LAB URINALYSIS - AUTOMATED METHOD 01/20/2025 6:26 PM [facility] Ketones, Urine Negative Negative mg/dL LAB URINALYSIS - AUTOMATED METHOD 01/20/2025 6:26 PM [facility] Urobilinogen , Urine 0.2 0.2 - 1.0 mg/dL LAB URINALYSIS - AUTOMATED METHOD 01/20/2025 6:26 PM [facility] Bilirubin, Urine Negative Negative LAB URINALYSIS - AUTOMATED METHOD 01/20/2025 6:26 PM [facility] Blood, Urine Negative Negative LAB URINALYSIS - AUTOMATED METHOD 01/20/2025 6:26 PM [facility] RBC, Urine 1.3 0 - 4 /HPF LAB URINALYSIS - AUTOMATED METHOD 01/20/2025 6:26 PM [facility] WBC, Urine 14.5(H) 0 - 4 /HPF LAB URINALYSIS - AUTOMATED METHOD 01/20/2025 6:26 PM [facility] Squamous Epithelial, Urine >100(H) 0 - 60 /LPF LAB URINALYSIS - AUTOMATED METHOD 01/20/2025 6:26 PM [facility] Bacteria, Urine Negative Negative /HPF LAB URINALYSIS - AUTOMATED METHOD 01/20/2025 6:26 PM [facility] Hyaline Casts, Urine 4.4(H) 0 - 3 /LPF LAB URINALYSIS - AUTOMATED METHOD 01/20/2025 6:26 PM [facility] Urine Urine specimen obtained by clean catch procedure / Unknown Non-blood Collection / Unknown 01/20/2025 2:11 PM EDT 01/20/2025 2:11 PM EDT Daniel Seymour POWER ELECTRONICS ENGINEER LAB URINE ORDERABLES Final R esult [facility] [address] [place] [address], [place] [phone] * Thyroid stimulating hormone with reflex to free t4 and free t3 (01/20/2025 2:11 PM EDT) TSH 0.99 0.40 - 4.00 mcIU/mL LAB CHEMISTRY METHOD 01/20/2025 5:43 PM EDT [facility] Blood Venous blood specimen / Unknown Venipuncture / Unknown 01/20/2025 2:11 PM EDT 01/20/2025 2:11 PM EDT Daniel Seymour POWER ELECTRONICS ENGINEER LAB BLOOD ORDERABLES Final R esult [facility] [address] [place] [address], [place] [phone] * (ABNORMAL) Lipid panel with reflex to direct LDL (01/20/2025 2:11 PM EDT) Cholesterol 258(H) 0 - 200 mg/dL LAB CHEMISTRY METHOD 01/20/2025 5:15 PM EDT [facility] Triglycerides 187(H) 0 - 150 mg/dL LAB CHEMISTRY METHOD 01/20/2025 5:15 PM EDT [facility] HDL 53 >=40 mg/dL LAB CHEMISTRY METHOD 01/20/2025 5:15 PM EDT [facility] LDL Calculated 168(H) [...] 01/20/2025 2:11 PM EDT us Daniel Seymour POWER ELECTRONICS ENGINEER LAB BLOOD ORDERABLES Final R esult [facility] [address] [place] [address], * (ABNORMAL) CBC auto differential (01/20/2025 2:11 [facility] NRBC Absolute 0.00 <0.10 K/mcL [...] EDT [facility] Immature Granulocytes Relative 0.2 % LAB HEMETOLOGY METHOD 01/20/2025 5:32 PM EDT [facility] Neutrophils Absolute 3.03 1.50 - 7.00 K/mcL LAB HEMETOLOGY METHOD 01/20/2025 5:32 PM EDT [facility] Lymphocytes Absolute 2.20 1.00 - 5.00 K/[facility] LAB HEMETOLOGY METHOD 01/20/2025 5:32 PM EDT [facility] Monocytes Absolute 0.63 0.20 - 1.00 K/[facility] LAB HEMETOLOGY METHOD 01/20/2025 5:32 PM EDT [facility] Eosinophils Absolute 0.53(H) 0.00 - 0.50 K/[facility] LAB HEMETOLOGY METHOD 01/20/2025 5:32 PM EDT [facility] Basophils Absolute 0.08 0.00 - 0.20 K/[facility] LAB HEMETOLOGY METHOD 01/20/2025 5:32 PM EDT [facility] Immature Granulocytes Absolute 0.01 0.00 - 0.03 K/[facility] LAB HEMETOLOGY METHOD 01/20/2025 5:32 PM EDT [facility] Blood Venous blood specimen / Unknown Venipuncture / Unknown 01/20/2025 2:11 PM EDT 01/20/2025 2:11 PM EDT Daniel Seymour POWER ELECTRONICS ENGINEER LAB BLOOD ORDERABLES Final R esult [facility] [address] [place] [address], * Hemoglobin A1c (01/20/2025 2:11 PM EDT) Hemoglobin A1C 5.8 <6.5 % LAB CHEMISTRY METHOD 01/20/2025 10:03 PM EDT [facility] Mean Bld Glu Estim. 120 mg/dL LAB CHEMISTRY METHOD 01/20/2025 10:03 PM EDT [facility] Blood Venous blood specimen / Unknown Venipuncture / Unknown 01/20/2025 2:11 PM EDT 01/20/2025 2:11 PM EDT us Daniel Seymour NP LAB BLOOD ORDERABLES Final R esult [facility] [address] [place] [address], [place] [phone] * (ABNORMAL) Comprehensive metabolic panel (01/20/2025 2:11 PM EDT) Only the most recent of2 resultswithin the time period is included. Sodium 135 133 - 145 mmol/L LAB CHEMISTRY METHOD 01/20/2025 5:15 PM EDT [facility] Potassium 5.1 3.5 - 5.5 mmol/L LAB CHEMISTRY METHOD 01/20/2025 5:15 PM [facility] Chloride 101 96 - 110 mmol/L LAB CHEMISTRY METHOD 01/20/2025 5:15 PM T [facility] CO2 29 21 - 32 mmol/L LAB CHEMISTRY METHOD 01/20/2025 5:15 PM EDT [facility] Anion Gap 5 3 - 11 LAB CHEMISTRY METHOD 01/20/2025 5:15 PM [facility] Glucose 97 70 - 100 mg/dL LAB CHEMISTRY METHOD 01/20/2025 5:15 PM EDT [facility] BUN 44(H) 5 - 25 mg/dL LAB CHEMISTRY METHOD 01/20/2025 5:15 PM T [facility] Creatinine 2.42(H) 0.50 - 1.10 mg/dL LAB CHEMISTRY METHOD [facility]/20[facility]2025 [facility] eGFR 22(L) >=60 mL/min/1. 73m2 LAB CHEMISTRY METHOD 01/20/2025 5:15 PM EDT [facility] Comment:Calculation based on the Chronic Kidney Disease Epidemiology Collaboration (CKD-EPI) equation refit without adjustment for race. BUN/Creatinine Ratio 18.2 LAB CHEMISTRY METHOD 01/20/2025 5:15 PM EDT [facility] Calcium 9.2 8.5 - 10.5 mg/dL LAB CHEMISTRY METHOD 01/20/2025 5:15 PM EDT [facility] AST (SGOT) 27 10 - 42 unit/L LAB CHEMISTRY METHOD 01/20/2025 5:15 PM T [facility] ALT (SGPT) 17 10 - 60 unit/L LAB CHEMISTRY METHOD 01/20/2025 5:15 PM T [facility] Alkaline Phosphatase 123(H) 42 - 121 unit/L LAB CHEMISTRY METHOD 01/20/2025 5:15 PM [facility] Total Protein 6.8 6.0 - 8.0 g/dL LAB CHEMISTRY METHOD 01/20/2025 5:15 PM [facility] Albumin 4.0 3.2 - 5.0 g/dL LAB CHEMISTRY METHOD 01/20/2025 5:15 PM [facility] Total Bilirubin 0.2 0.0 - 1.4 mg/dL LAB CHEMISTRY METHOD 01/20/2025 5:15 PM [facility] Blood Venous blood specimen / Unknown Venipuncture / Unknown 01/20/2025 2:11 PM EDT 01/20/2025 2:11 PM EDT Daniel Seymour POWER ELECTRONICS ENGINEER LAB BLOOD ORDERABLES Final R esult [facility] [address] [place] [address], * External CT Report (12/27/2024) Anatomical Region Laterality Modality Computed Tomogra phy us Provider [facility] IMG CT PROCEDURES Final Result * External Xray Report (12/06/2024) Only the most recent of4 resultswithin the time period is included. Anatomical Region Laterality Modality Radiographic Karlene ging Provider [facility] IMG XR PROCEDURES Final Result * Depression Screening (11/16/2023) Depression Screening ABSTRACTED Historical Provider HEALTH MAINTENANCE Final Result * Hepatitis C Screening (01/13/2021) Hepatitis C Screening ABSTRACTED Historical Provider HEALTH MAINTENANCE Final Result from Last 3 Months or Most Recently Relevant to Health Maintenance Insurance [facility] Care Teams Utility Engineer Relationship Specialty Start Date End Date Gege Thompson MD [address] [place] [id number] PCP - General Internal Medicine 03/04/1999
--- OUTSIDE RECORDS SUMMARY | 2025-02-21 15:35 | XMS_ITS | Encounter Summary ---
Author Organization [employer] Address [address] [facility] 7t [place] [address] Care Team Providers Care Museum Service Scheduler Name Role Phone Unavailable Primary Care Provider Unavailabl e Reason for Visit * Reason Onset Date Comments Appointment 11/01/2022 Encounter Details Date Type Department Care Team ([facility] st Contact Info) Description 11/01/2022 Telephone [facility] ADULT DENTAL [address] [place] [address] Joe Berger, DMD [address] [place] [address] Appointment Social History Tobacco Use Types Packs/Day [...] sent to pharmacy to [facility]shop at [address] [place] [address] in [place] please advise . documented in this encounter Plan of Treatment Not on file documented as of this encounter Visit Diagnoses Not on filedocumented in this encounter
--- OUTSIDE RECORDS SUMMARY | 2025-02-21 15:35 | XMS_ITS | Encounter Summary ---
Author Organization [employer] Address [address] [place] [address] 7t [place] [address] Care Team Providers Care Chief Bank Examiner Name Role Phone Unavailable Primary Care Provider Unavailabl e Reason for Visit * Reason Onset Date Comments appt order 12/04/2022 followed up with patient 12/04/2022 Encounter Details Date Type Department Care Team ([facility] st Contact Info) Description 12/04/2022 Telephone [facility] ADULT D[facility] [address] [place] [address] Joe Berger DMD [address] [place] [address] appt order; followed up with patient Social [...] she can always stop at the front facer on and see if she can be scheduled before she leaves the office DR * Telephone Encounter - Deana Starr - 12/04/2022 3:04 PM EDT Patient had to cancel her cleaning appt on 11/27 due to being sick. She has an appt on 12/13 for temple but is unsure if the cleaning has to be done first. She was under the impression but it was unclear on my end. It is listed the treatment she needs but doesn't specify if hygiene has to happen prior to temple. Shed like to make sure she can still come in for 12/13 or if she has to wait to get a cleaning first so it is not a wasted trip documented in this encounter Plan of Treatment Not on file documented as of this encounter Visit Diagnoses Not on filedocumented in this encounter
--- OUTSIDE RECORDS SUMMARY | 2025-02-21 15:35 | XMS_ITS | Encounter Summary ---
Author Organization [employer] Address [address] [facility] [address] [place] [address] Care Team Providers Care Charter Coordinator Name Role Phone Unavailable Primary Care Provider Unavailabl e Encounter Details Date Type Department Care Team (Late st Contact Info) Description 01/21/2024 Telephone [facility] ADULT DENTAL [address] [place] [address] Ab Joe, DMD [address] [place] [address] Social History Tobacco Use Types Packs/Day Years [...]
[2025-02-23 15:44] VITALS: BMI 22.8
--- NOTE | ~2025-02-24 | FL_ITS ---
EXAMINATION: FL GUIDANCE ONLY HISTORY: left cysto COMPARISON: Correlation is made with a CT of the abdomen and pelvis without contrast dated 12/27/2024. TECHNIQUE: Fluoroscopy time: 10.8 seconds. Cumulative Dose: 1.8723 mGy. DAP: 0.8144 Gycm2 Images: 4. FINDINGS: Fluoroscopic spot films of the left abdomen demonstrate placement of a nephroureteral stent. FL/FL guidance in OR IMPRESSION: Fluoroscopy during procedure. Please see procedure report for additional information. Electronically signed by: Randall Marcial MD 02/25/2025 07:13 AM EDT
[2025-02-24 14:42] VITALS: BP 123/80; PULSE 86; RESP 18; TEMP 36.1; O2SAT 96; BMI 23.2
[2025-02-24] MEDS: Lactated Ringers 1,000 ML 100 ML IVCONT (14:52)
[2025-02-24] MEDS: Albuterol Sulfate (0.083%) 2.5 MG/3 ML VIAL.NEB INHALE (14:55)
--- NOTE | 2025-02-24 14:59 | PC.NURSE ---
pt receiving resp tx for wheezing resp easy and reg
--- NOTE | 2025-02-24 15:55 | HO.ANESPROP2 ---
Documented by User: Keyla Monsivais NP 02/22/25 12:08 HPI - Anesthesia Eval Consult details Narrative: 64yo F for Cystoscopy, Ureteroroscopy, Retro, Laser,with stent placement s/p Left Inguinal Lymph Node Biopsy 01/2025 with MAC (Pathology showed B Cell lymphoma, following with [facility]) s/p cysto etc 12/2024 with GA-LMA 3 Eval with renal prior to chemo. Visit not available, but Oncology visit notes: 1. RAHAT: Renal funk improved with decreased Cozaar but still not back to BSL, question OBS of L kidney playing a role. Suspect low BPs and ARB are having the hemodynamic effect with D/C Cozaar and allowing INC are BP may see further improvement. Other causes need to be R/O with sero/urine studies and additional renal imaging. 2. CKD, 3b: Looks like BSL scr 1.5 range, unclear cause of longstanding CKD. 3. L hydro: Appears to be D/T adenopathy on last CT. Need to D/W urology and consider renal scan. 4. Risks of TLS with upcoming chemo, I agree with starting allopurinol and check G6PD, in case we need to use rasburicase. 5. History of kidney stones: No obstructing stones. PLAN: Hold Cozaar and as BP increases, then use Alt to RASi (eg Norvasc), renal scan with Lasix challenge unless urology disagrees. Serum/urine studies as noted. Will need to adjust chemo for GFR and make sure to keep well hydrated and track for TLS when chemo started. 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 Pre-chemo echo pending (02/23) [facility] Active Problems Active Problems: All Active Problems Diffuse large B cell lymphoma (Acute) Diffuse large B-cell lymphoma of intra-abdominal lymph nodes (Acute) Inguinal lymphadenopathy (Acute) Intra-abdominal lymphadenopathy (Acute) S/P ureteral stent placement (Acute) Kidney stone on left side (Acute) Left shoulder pain (Acute) Left elbow pain (Acute) Hydronephrosis of left kidney (Acute) Acute kidney injury (Acute) Left ureteral calculus (Acute) Insomnia (Acute) HTN (hypertension) (Acute) COPD (chronic obstructive pulmonary disease) (Acute) Tobacco dependence (Acute) Anxiety (Acute) Past Medical History Medical History (Updated 02/23/25 @ 09:04 by Andres Aparicio MD) Lymphoma Inguinal lymphadenopathy CKD (chronic kidney disease) Insomnia HTN (hypertension) Concussion Bronchitis COPD (chronic obstructive pulmonary disease) Tobacco dependence Anxiety Nephrolithiasis Asthma Family History Family history of problems with anesthesia: No Surgical History Surgical History Hx of cystoscopy History of History of Problems with Anesthesia: No Social History Social History Household Members: Significant Other Housing: Apartment Do you presently have visiting nurse or other home services: No Alcohol intake: current Alcohol intake frequency: does not drink Comment: COUNTS CORRECT Patient Tobacco Use Status: Current everyday Tobacco user Tobacco use type: Cigarette Cigarettes Per Day: 10 Years Smoked: 40 e-Cigarette/Vaping Use: Currently Using Second Hand Smoke Exposure: No Substance Use Type: Marijuana Have you been hit, kicked, punched, or otherwise hurt by someone within the past year? If so, by whom?: No Are you DNR?: No Advance Directives: No Advance Directives Information Provided: Yes service: No Meds Allergies Allergy/AdvReac Type Severity Reaction Status Date / Time lisinopril (LISINOPRIL) Allergy Unknown Cough Verified 02/22/25 08:44 Penicillins (PENICILLINS) Allergy Unknown HIVES Verified 02/22/25 08:44 Home Medications ?Medication ?Instructions ?Recorded ?Confirmed ?Last Taken ?Type albuterol sulfate 90 mcg/actuation 2 puff inhalation Q4H PRN 11/12/24 02/24/25 12/06/24 History aerosol inhaler Shortness Of Breath Or Wheezing fluticasone furoate 50 1 inh inhalation DAILY 11/12/24 02/24/25 11/08/24 History mcg/actuation blister powder for inhalation (Arnuity Ellipta) gabapentin 300 mg capsule 300 mg PO BID 11/12/24 02/24/25 12/06/24 History lidocaine 4 % topical patch 1 patch topical DAILY PRN Back Pain 11/12/24 02/24/25 Unknown History (Salonpas (lidocaine)) losartan 100 mg tablet 100 mg PO DAILY 11/12/24 02/24/25 12/06/24 History trazodone 100 mg tablet 50 - 100 mg PO BEDTIME 07/03/2902/24/25 11/10/24 History Exam Pertinent Lab Results Pertinent Lab Results: Laboratory Tests 02/22/25 09:27 WBC 5.8 Hgb 11.7 L Hct 36.0 L Plt Count 297 Sodium 143 Potassium 4.2 Chloride 109 H Carbon Dioxide 27 BUN 38 H Creatinine 1.85 H Narrative Narrative: Nuc Renal Scan 02/2025 FINDINGS: There is normal blood flow to the right kidney. There is decreased blood flow on the left. On the right, there is normal uptake of the radiopharmaceutical. There is normal excretion into the collecting system and normal washout after administration of intravenous Lasix. On the left, there is minimal uptake of the radiopharmaceutical. The estimated split uptake is 83.5% on the right and 16.5% on the left. No excretion is seen on the right. Findings are consistent with severe obstruction or a nonfunctioning kidney. Assessment and Plan Assessment Anesthesia Assessment: Chart Reviewed Final Anesthetic Review Family History of Problems with Anesthesia: No History of Problems with Anesthesia: No Documented by User: Marlin Moore DO 02/24/25 16:24 [facility] Past Medical History Medical History (Updated 02/23/25 @ 09:04 by Andres Aparicio MD) Lymphoma Inguinal lymphadenopathy CKD (chronic kidney disease) Insomnia HTN (hypertension) Concussion Bronchitis COPD (chronic obstructive pulmonary disease) Tobacco dependence Anxiety Nephrolithiasis Asthma Family History Family history of problems with anesthesia: No Surgical History Surgical History Hx of cystoscopy History of History of Problems with Anesthesia: No Social History Social History Household Members: Significant Other Housing: Apartment Do you presently have visiting nurse or other home services: No Alcohol intake: current Alcohol intake frequency: does not drink Comment: COUNTS CORRECT Patient Tobacco Use Status: Current everyday Tobacco user Tobacco use type: Cigarette Cigarettes Per Day: 10 Years Smoked: 40 e-Cigarette/Vaping Use: Currently Using Second Hand Smoke Exposure: No Substance Use Type: Marijuana Have you been hit, kicked, punched, or otherwise hurt by someone within the past year? If so, by whom?: No Are you DNR?: No Advance Directives: No Advance Directives Information Provided: Yes service: No Meds Allergies Allergy/AdvReac Type Severity Reaction Status Date / Time lisinopril (LISINOPRIL) Allergy Unknown Cough Verified 02/22/25 08:44 Penicillins (PENICILLINS) Allergy Unknown HIVES Verified 02/22/25 08:44 Home Medications ?Medication ?Instructions ?Recorded ?Confirmed ?Last Taken ?Type albuterol sulfate 90 mcg/actuation 2 puff inhalation Q4H PRN 11/12/24 02/24/25 12/06/24 History aerosol inhaler Shortness Of Breath Or Wheezing fluticasone furoate 50 1 inh inhalation DAILY 11/12/24 02/24/25 11/08/24 History mcg/actuation blister powder for inhalation (Arnuity Ellipta) gabapentin 300 mg capsule 300 mg PO BID 11/12/24 02/24/25 12/06/24 History lidocaine 4 % topical patch 1 patch topical DAILY PRN Back Pain 11/12/24 02/24/25 Unknown History (Salonpas (lidocaine)) losartan 100 mg tablet 100 mg PO DAILY 11/12/24 02/24/25 12/06/24 History trazodone 100 mg tablet 50 - 100 mg PO BEDTIME 11/12/24 02/24/25 11/10/24 History Exam Exam Date and Time: 02/24/25 1555 Height,Weight and Vital Signs: Height 5 ft Weight 53.9 kg Vital Signs Temperature 97 F 02/24/25 14:42 Pulse Rate 86 02/24/25 14:42 Respiratory Rate 18 02/24/25 14:42 Blood Pressure 123/80 02/24/25 14:42 Pulse Oximetry 96 02/24/25 14:42 Oxygen Delivery Method Room Air 02/24/25 14:42 Temperature 97 F 02/24/25 14:42 Pulse Rate 86 02/24/25 14:42 Respiratory Rate 18 02/24/25 14:42 Blood Pressure 123/80 02/24/25 14:42 Pulse Oximetry 96 02/24/25 14:42 Oxygen Delivery Method Room Air 02/24/25 14:42 Airway Mallampati Class: I TM Dist: >3cm Neck ROM: Full Loose/Missing/Broken Teeth: Yes (several missing teeth but no loose or broken teeth) Heart: S1S2 Lungs: CTAB Assessment and Plan Assessment Anesthesia Assessment: Anesthesia Plan Discussed and Chart Reviewed Final Anesthetic Review Family History of Problems with Anesthesia: No History of Problems with Anesthesia: No NPO: Yes ASA Class: III Final Preanesthetic Review: No Changes in Pt Med Stat, Meds/Allgs Chart Reviewed, Consent Obtained/Reviewed and Anes Risks/Benef Reviewed Patient Risk: Intermediate Procedure Risk: Low Anesthetic Plan Anesthetic Plan: MAC: and Agree w/ Assess. and Plan Disposition: Standard PACU
--- NOTE | 2025-02-24 16:03 | P.HPSUR_ITS ---
Pre-Procedural Eval Section A - 24 Hr Update-Section A only Date of Service: 02/24/25 The patient is an INPATIENT: No Changes since office visit: No Cold of Flu in the past 2 weeks, No New Medical Problems, No Changes in Medication and No Patient answered all questions The patient has been examined within 24 hours of the surgical procedure. The History & Physical has been completed within 30 days and I have reviewed it.: No Section B - Complete if H&P > 30 days Chief Complaint: Unspecified hydronephrosis Details of Present Illness: Progressive hydro nephrosis with increased creatinine secondary to expanding left retroperitoneal lymphoma. Oncology requesting left stent placement in order to optimize left renal function. Current creatinine 1.85, Lasix renogram 20% function left side. Relevant Family History (Specify if Yes): No Relevant Social History: None Present Medications: see Short Stay Collaborative assessment Medical History: Significant History History of Previous Operations: Relevant previous surgery/procedure and date(s) Allergies: Allergies Allergy/AdvReac Type Severity Reaction Status Date / Time lisinopril (LISINOPRIL) Allergy Unknown Cough Verified 02/22/25 08:44 Penicillins (PENICILLINS) Allergy Unknown HIVES Verified 02/22/25 08:44 Review of Systems Sugical H&P ROS: Negative: Constitution, Cardiovascular, Respiratory, Neurol ogical, Psychiatric, Hem-Onc, Allergic/Immunologic, Gastrointestinal, Genitourinary, Musculoskeletal, Integumentary, Endocrine and Eyes/Ears/Nose/Throat Exam Surgical H&P Exam: Normal: HEENT, Normal: Heart, Normal: Lungs, Normal: Extremities, Normal: Abdomen, Normal: Skin and Normal: Neurological Plan Diagnosis/Plan: Unchanged (Cystoscopy, left retrograde, left stent placement) I have reviewed the history and physical and performed a pertinent physical examination on my patient. No changes have occurred unless specified. Time Spent With Patient Time: Total time managing care of this patient today ____ minutes.
--- NOTE | 2025-02-24 16:38 | P.OP_ITS ---
Operative Note Operative Note Date of Service: 02/24/25 Narrative: PreOperative Diagnosis: Left hydro nephrosis and reduced function Post Operative Diagnosis: Left hydro nephrosis and reduced function Procedure: Cystoscopy, left retrograde, left stent placement Surgeon: Dr Iván Keyes Anesthesia: Sedation Indications for procedure: Upcoming chemotherapy. Left hydro nephrosis. Renogram 20% function left side. Oncology requesting stent optimize renal function moving into chemotherapy. Procedure: After informed consent was verified the patient was brought to the operating room and placed in a supine position. Anesthesia was administered per protocol. The patient was placed in modified dorsal lithotomy position and prepped and draped in a sterile fashion. A safety pause time-out was performed. Laterality of procedure and antibiotics were confirmed, appropriate imaging was available A 22 Nam[place]ian cystoscope was introduced per urethra. No abnormality was noted of urethra or bladder. Both ureteric orifices were seen in a normal position. The left ureter was cannulated with an open ended catheter and a retrograde examination was performed. [place] uretero nephrosis . A Sensor guidewire was placed under fluoroscopy and a good coil was seen within the renal pelvis. A 6 Namibian by 22 cm double J stent was advanced over the wire and up to the level of the renal pelvis under fluoroscopic and direct visualization. The stent was seen with appropriate coil within the renal pelvis and in the bladder after deployment. The patient tolerated the procedure well and was transferred in a stable condition to the recovery area. Pathology: [] Drains: []
[2025-02-24 16:39] VITALS: BP 103/64; PULSE 93; RESP 16; TEMP 36.6; O2SAT 93
[2025-02-24] MEDS: oxyCODONE HCl Immed Release 5 MG TABLET PO (16:53)
[2025-02-24 16:54] VITALS: BP 122/69; PULSE 84; RESP 16; O2SAT 96
[2025-02-24 17:09] VITALS: BP 129/67; PULSE 83; RESP 16; TEMP 36.3; O2SAT 96
== END 2025-02-24 17:21 | disposition home or self-care (01) ==
PROVIDERS: PCP Internal Medicine; Visit Provider Urology
PROC: (CPT 52332; principal; 2025-02-24 16:00)
DX: N13.39 Other hydronephrosis (principal); I12.9 Hypertensive chronic kidney disease with stage 1 through stage 4 chronic kidney disease, or unspecified chronic kidney disease; N18.9 Chronic kidney disease, unspecified; N20.0 Calculus of kidney; R59.0 Localized enlarged lymph nodes; J44.9 Chronic obstructive pulmonary disease, unspecified; F41.9 Anxiety disorder, unspecified; Z79.1 Long term (current) use of non-steroidal anti-inflammatories (NSAID); Z79.51 Long term (current) use of inhaled steroids; Z79.899 Other long term (current) drug therapy; Z88.0 Allergy status to penicillin; Z88.8 Allergy status to other drugs, medicaments and biological substances; F17.210 Nicotine dependence, cigarettes, uncomplicated
CPT/HCPCS: 52332; C1758; C1769; C2617; J1956; J2003; J2250; J2371; J2704; J3010; Q9967

== ENCOUNTER → 2025-02-24 14:20 | Outpatient (BNV) | payer OTHER, SELFPAY | PROVIDERS: PCP Internal Medicine; Visit Provider Urology | DX: N13.39 Other hydronephrosis (principal) | CPT/HCPCS: 52332; 74420 ==

== ENCOUNTER 2025-02-25 11:31 | Day surgery (SDC) | payer OTHER, SELFPAY ==
[2025-02-25] VITALS (11 sets, daily range): BP systolic 93–133; BP diastolic 55–66; PULSE 69–79; RESP 11–21; TEMP 36.3–37; O2SAT 95–100; BMI 23.1
--- NOTE | ~2025-02-25 | IR_ITS ---
CLINICAL HISTORY: Lymphoma. The patient presents to interventional radiology for placement of a port for chemotherapy. PROCEDURES: 1. Real-time ultrasound-guided access into the right internal jugular vein after documentation of selected vessel patency, and permanent image storing in the patient records. 2. Placement of a 6.6 Bulgarian single-lumen power port. MEDICATIONS: - Versed 1 mg, Fentanyl 50 mcg, Toradol 30 mg IV Lidocaine 1% 10 mL SQ -Antibiotics: Ancef 2g -For additional details, please see nursing flowsheet. Complications: None. Estimated blood loss: <5 ml Specimens: None. Contrast: None. Fluoroscopy time: 0.3 min MODERATE SEDATION TIME: 30 min PROCEDURE NOTE: The procedure, risks, benefits, and alternatives were carefully explained to the patient and written informed consent was obtained. The patient was placed supine on the fluoroscopy table. A timeout was performed. The right neck and chest was prepped and draped in usual sterile fashion. Maximum barrier technique was utilized. Local anesthesia was administered to the access site with 1% lidocaine. Under ultrasound guidance, the right internal jugular vein was accessed with a 5 fr micropuncture set. A 0.035 in wire was advanced into the IVC. A peel-away sheath was advanced over the wire and into the SVC, and the wire was removed. Next, subcutaneous lidocaine was administered to the chest. The port pocket was created after the skin incision, utilizing blunt dissection. Using blunt dissection, a subcutaneous tunnel was created that connects from the port pocket to the venotomy site. Through the peel-away sheath, the 6.6 Bulgarian port catheter was placed. The catheter position was verified with fluoroscopy to be at the superior vena cava/right atrial junction. The port was connected to the catheter and was placed in the pocket. The venotomy site was closed with a 3-0 Vicryl subcutaneous suture. The port incision site was closed with interrupted 3-0 Vicryl subcutaneous sutures and surgical glue. Prior to closing the skin, 1 g of Ancef solution was placed in the pocket. The port was tested, flushed, and packed with heparin per routine protocol. The patient tolerated the procedure well. The patient was stable after the procedure and was transferred to the PACU. The procedure was performed under moderate sedation and with a dedicated nurse with continuous monitoring of vital signs. A permanent image of the ultrasound the neck and fluoroscopic image of the chest was saved and sent to PACS. FINDINGS: 1. Patent right internal jugular vein 2. Placement of a 6.6 Bulgarian single lumen power port. IR/IR cvc insert tunnel w prt/travel sales consultant IMPRESSION: Placement of a 6.6 Bulgarian single-lumen power port. PLAN: - The patient will be discharged home when stable by sedation protocol. - Port may be used immediately. Electronically signed by: Jermain Pérez MD 02/25/2025 02:25 PM EDT
== END 2025-02-25 14:57 | disposition home or self-care (01) ==
PROVIDERS: Student in an Organized Health Care Education/Training Program; PCP Internal Medicine; Visit Provider Internal Medicine Medical Oncology
DX: C83.30 Diffuse large B-cell lymphoma, unspecified site (principal); Z45.2 Encounter for adjustment and management of vascular access device; I12.9 Hypertensive chronic kidney disease with stage 1 through stage 4 chronic kidney disease, or unspecified chronic kidney disease; N18.9 Chronic kidney disease, unspecified; J45.909 Unspecified asthma, uncomplicated; F41.9 Anxiety disorder, unspecified; Z79.51 Long term (current) use of inhaled steroids; Z79.899 Other long term (current) drug therapy; Z88.0 Allergy status to penicillin; Z88.8 Allergy status to other drugs, medicaments and biological substances; F17.210 Nicotine dependence, cigarettes, uncomplicated
CPT/HCPCS: 36561; 76937; 99152; 99153; C1769; C1788; J0690; J0736; J1642; J1644; J1885; J2003; J2250; J3010; J3374

== ENCOUNTER → 2025-02-25 12:48 | Outpatient (BNV) | payer OTHER, SELFPAY | PROVIDERS: PCP Internal Medicine; Visit Provider Student in an Organized Health Care Education/Training Program | DX: Z45.2 Encounter for adjustment and management of vascular access device (principal) | CPT/HCPCS: 36561; 76937; 77001; 99152 ==

== ENCOUNTER 2025-03-03 11:12 | Outpatient (REF) | payer OTHER, SELFPAY ==
--- NOTE | ~2025-03-03 | US_ITS ---
EXAMINATION: US TRIPLEX LOWER EXTREMITY, LEFT CLINICAL INFORMATION: LLE SWELLING, COMPARISON: None available. TECHNIQUE: Color-flow triplex imaging with spectral analysis and compression Doppler were performed on the left lower extremity. FINDINGS: Respiratory variation, normal compression and augmented flow are noted throughout the left lower extremity. The visualized common femoral vein, greater saphenous vein, femoral vein, profunda femoral vein, popliteal vein and midcalf peroneal and posterior tibial venous segments show no evidence of deep venous thrombosis. Contralateral right common femoral vein is patent and with preserved respiratory variation. US/US venous duplex LE LT IMPRESSION: No evidence of deep venous thrombosis involving the left lower extremity. Electronically signed by: Michael Glasgow MD 03/03/2025 11:47 AM EDT
--- OUTSIDE RECORDS SUMMARY | 2025-03-03 14:02 | XMS_ITS | Encounter Summary ---
Author Organization [employer] Address [address] [facility] [address] [place] [address] Care Team Providers Care Plug Making Operator Name Role Phone Unavailable Primary Care Provider Unavailabl e Reason for Visit * Reason Onset Date Comments Appointment 11/01/2022 Encounter Details Date Type Department Care Team ([facility] st Contact Info) Description 11/01/2022 Telephone [facility] [address] [place] [address] Joe Berger, DMD [address] [place] [address] Appointment Social History Tobacco Use Types Packs/Day [...] sent to pharmacy [facility] at [address] [place] [address] in [place] please advise . documented in this encounter Plan of Treatment Not on file documented as of this encounter Visit Diagnoses Not on filedocumented in this encounter
--- OUTSIDE RECORDS SUMMARY | 2025-03-03 14:02 | XMS_ITS | Clinical Summary ---
Author Organization [employer] Address [address] [place] [address] [address] [place] [address] Care Team Providers Care Application Design Engineer Name Role Phone Unavailable Primary Care [...] use. 473 mL 4 Active HYDROcodone-amberly taminophen (Topmost) 5-325 MG tabletIndicatio ns:History of tooth extraction, unspecified edentulism class Take 1 tablet by mouth every 6 (six) hours if needed for severe pain for up to 3 doses. 3 tablet 4 Active Active Problems Problem Noted Date Diagnosed Date Elevated alkaline phosphatase level 01/15/2021 Elevated LFTs 01/15/2021 Mid back pain 01/15/2021 Stage 3a chronic kidney disease ([facility]/HCC) 2020 Meningioma ([facility]/H[facility]) 06/04/2016 Anxiety 04/24/2016 Chronic obstructive pulmonary disease [...] of Phone Billing Address Personal/Family Self [address]
--- OUTSIDE RECORDS SUMMARY | 2025-03-03 14:02 | XMS_ITS | Encounter Summary ---
Author Organization [employer] Address [address] [place] [address] [address] [place] [address] Care Team Providers Care Claims Representative Name Role Phone Unavailable Primary Care Provider Unavailabl e Reason for Visit * Reason Onset Date Comments appt order 12/04/2022 followed up with patient 12/04/2022 Encounter Details Date Type Department Care Team ([facility] st Contact Info) Description 12/04/2022 Telephone [facility] [address] [place] [address] Joe Berger DMD [address] [place] [address] appt order; followed up with patient Social [...] she can always stop at the front clerk on and see if she can be scheduled before she leaves the office DR * Telephone Encounter - Deana Starr - 12/04/2022 3:04 PM EDT Patient had to cancel her cleaning appt on 11/27 due to being sick. She has an appt on 12/13 for islam but is unsure if the cleaning has to be done first. She was under the impression but it was unclear on my end. It is listed the treatment she needs but doesn't specify if hygiene has to happen prior to islam. Shed like to make sure she can still come in for 12/13 or if she has to wait to get a cleaning first so it is not a wasted trip documented in this encounter Plan of Treatment Not on file documented as of this encounter Visit Diagnoses Not on filedocumented in this encounter
--- OUTSIDE RECORDS SUMMARY | 2025-03-03 14:02 | XMS_ITS | Encounter Summary ---
Author Organization [employer] Address [address] [place] [address] Care Team Providers Care Information Systems Audit Manager Name Role Phone Unavailable Primary Care Provider Unavailabl e Encounter Details Date Type Department Care Team (Late st Contact Info) Description 01/21/2024 Telephone [facility] [address] [place] [address] Ab Joe, DMD [address] [place] [address] Social History Tobacco Use Types Packs/Day Years [...]
== END 2025-03-03 11:13 | disposition home or self-care (01) ==
LOC: HO.US 11:12
PROVIDERS: Visit Provider Internal Medicine Medical Oncology
DX: I82.402 Acute embolism and thrombosis of unspecified deep veins of left lower extremity (principal); M79.89 Other specified soft tissue disorders
CPT/HCPCS: 93971

== ENCOUNTER → 2025-03-03 11:16 | Outpatient (BNV) | payer OTHER, SELFPAY | PROVIDERS: Visit Provider Radiology Body Imaging | DX: M79.89 Other specified soft tissue disorders (principal) | CPT/HCPCS: 93971 ==

== ENCOUNTER → 2025-03-07 10:40 | Outpatient (BNV) | payer OTHER, SELFPAY | PROVIDERS: PCP Internal Medicine; Visit Provider Internal Medicine Cardiovascular Disease | DX: I51.7 Cardiomegaly (principal) | CPT/HCPCS: 93010 ==